=== PATIENT | male | born 1935 | race African-American/Black ===

== ENCOUNTER 2016-09-28 15:10 | Observation (INO) | payer MEDICARE, OTHER ==
[~2016-09-28] VITALS: Ht 170.2 cm; Wt 60.0 kg
[~2016-09-28 15:10] MED LIST: BACT800T5 PO; CALA120T PO; CEPH500C3 PO; FURO20TA PO; POTA-243 PO
[2016-09-28 15:53] VITALS: BP 139/66; PULSE 60; RESP 15; TEMP 98.2; O2SAT 99
[2016-09-28] MEDS ORDERED: SODIUM CHLORIDE 0.9% FLUSH 10 ML FLUSH IVF PRN (16:15)
--- NOTE | 2016-09-28 16:23 | PD ---
HPI Chief Complaint: Altered Mental Status Time Seen by Provider: 16:04 Travel History International Travel<30 days: No Contact w/Intl Traveler<30days: No Traveled to known affect area: No History of Present Illness HPI 81-year-old male with history of previous prostate cancer, hypertension, dementia, presents to the ER today because family states that he is disoriented today. They state that this was sudden onset. Patient is not able to give me much further history. At this point, he is awake, alert, oriented to self. Modifying Factors: None Associated Signs & Symptoms: Altered mental status Risk Factors: Elderly PFSH Past Medical History Arthritis: No Anxiety: Yes Heart Rhythm Problems: No Cancer: Yes (PROSTATE) Cardiovascular Problems: No High Cholesterol: No Chest Pain: No Congestive Heart Failure: Yes Cerebrovascular Accident: Yes (TIA) Diabetes: No Diminished Hearing: No Genitourinary: Yes (ENLARGED PROSTATE) Headaches: Yes Hepatitis: No Hiatal Hernia: No Hypertension: Yes Kidney Stones: No Psychiatric: Yes Reproductive: No Respiratory: No Migraines: No Myocardial Infarction: No Renal Failure: No Seizures: No Thyroid Disease: No Tetanus Vaccination: < 5 Years Influenza Vaccination: No ?: Not Past Surgical History Abdominal Surgery: Yes (LEFT INGUINAL HERNIA REPAIR) Eye Surgery: Yes (BILATERAL EYES CATARACT, DETACHED RETINA LEFT EYE) Pacemaker: No Other Surgery: Yes Social History Alcohol Use: No Tobacco Use: No Substance Use: No Allergies-Medications (Allergen,Severity, Reaction): Coded Allergies: No Known Allergies (Verified , 06/22/14) Reported Meds & Prescriptions Reported Meds & Active Scripts Active Reported Senna Plus 8.6-50 mg (Sennosides-Docusate Sodium) 1 Tab Tab 1 Tab PO DAILY PRN Aspir-81 (Aspirin) 81 Mg Tabdr 81 Mg PO DAILY Verapamil ER (Verapamil HCl) 120 Mg Tab 120 Mg PO DAILY K-Tab (Potassium Chloride) 10 Meq Tab 10 Meq PO DAILY Lasix (Furosemide) 20 Mg Tab 20 Mg PO DAILY Cosopt Pf Opth Drops (Dorzolamide-Timolol Pf Opth Drops) 22.3-6.8 mg/ml Soln 1 Drop RIGHT EYE BID Mapap (Acetaminophen) 325 Mg Tab 650 Mg PO Q4HR PRN Review of Systems ROS Limitations: Altered Mental Status Physical Exam Narrative GENERAL: Elderly -[place] male patient currently awake, alert, oriented to self, not in acute distress, not able to answer questions. SKIN: Focused skin assessment warm/dry. HEAD: Atraumatic. Normocephalic. EYES: Pupils equal and round. No scleral icterus. No injection or drainage. Left eye cataract. ENT: No nasal bleeding or discharge. Mucous membranes pink and moist. NECK: Trachea midline. No JVD. CARDIOVASCULAR: Regular rate and rhythm. No murmur appreciated. RESPIRATORY: No accessory muscle use. Clear to auscultation. Breath sounds equal bilaterally. GASTROINTESTINAL: Abdomen soft, non-tender, nondistended. Hepatic and splenic margins not palpable. MUSCULOSKELETAL: No obvious deformities. No clubbing. No cyanosis. No edema. NEUROLOGICAL: Awake and alert, not oriented. No obvious cranial nerve deficits. Motor grossly within normal limits. Normal speech. PSYCHIATRIC: Appropriate mood and affect; not oriented. Data Data Last Documented VS Vital Signs Date Time Temp Pulse Resp B/P Pulse Ox O2 Delivery O2 Flow Rate FiO2 09/28/16 16:24 94 Room Air 09/28/16 15:59 64 16 2 09/28/16 15:53 98.2 139/66 Orders Electrocardiogram (09/28/16 16:04) Complete Blood Count With Diff (09/28/16 16:04) Comprehensive Metabolic Panel (09/28/16 16:04) Prothrombin Time / Inr (Pt) (09/28/16 16:04) Act Partial Throm Time (Ptt) (09/28/16 16:04) Troponin I (09/28/16 16:04) Urinalysis - C+S If Indicated (09/28/16 16:04) Blood Culture (09/28/16 16:04) Chest, Single Ap (09/28/16 16:04) Ct Brain W/O Iv Contrast(Rout) (09/28/16 16:04) Blood Glucose (09/28/16 16:04) Ecg Monitoring (09/28/16 16:04) Iv Access Insert/Monitor (09/28/16 16:04) Oximetry (09/28/16 16:04) Sodium Chloride 0.9% Flush (Ns Flush) (09/28/16 16:15) Labs Laboratory Tests Test 09/28/16 09/28/16 16:25 16:36 White Blood Count 5.0 TH/MM3 Red Blood Count 3.58 MIL/MM3 Hemoglobin 11.3 GM/DL Hematocrit 33.5 % Mean Corpuscular Volume 93.6 FL Mean Corpuscular Hemoglobin 31.6 PG Mean Corpuscular Hemoglobin 33.7 % Concent Red Cell Distribution Width 13.0 % Platelet Count 149 TH/MM3 Mean Platelet Volume 7.5 FL Neutrophils (%) (Auto) 77.1 % Lymphocytes (%) (Auto) 14.4 % Monocytes (%) (Auto) 7.4 % Eosinophils (%) (Auto) 0.0 % Basophils (%) (Auto) 1.1 % Neutrophils # (Auto) 3.9 TH/MM3 Lymphocytes # (Auto) 0.7 TH/MM3 Monocytes # (Auto) 0.4 TH/MM3 Eosinophils # (Auto) 0.0 TH/MM3 Basophils # (Auto) 0.1 TH/MM3 CBC Comment DIFF FINAL Differential Comment Prothrombin Time 11.2 SEC Prothromb Time International 1.0 RATIO Ratio Activated Partial 24.1 SEC Thromboplast Time Sodium Level 142 MEQ/L Potassium Level 3.8 MEQ/L Chloride Level 106 MEQ/L Carbon Dioxide Level 31.0 MEQ/L Anion Gap 5 MEQ/L Blood Urea Nitrogen 20 MG/DL Creatinine 1.31 MG/DL Estimat Glomerular Filtration 64 ML/MIN Rate Random Glucose 125 MG/DL Calcium Level 9.1 MG/DL Total Bilirubin 0.3 MG/DL Aspartate Amino Transf 21 U/L (AST/SGOT) Alanine Aminotransferase 15 U/L (ALT/SGPT) Alkaline Phosphatase 64 U/L Troponin I 0.02 NG/ML Total Protein 7.3 GM/DL Albumin 3.7 GM/DL Urine Color LIGHT-YELLOW Urine Turbidity CLEAR Urine pH 6.0 Urine Specific [place] 1.006 Urine Protein NEG mg/dL Urine Glucose (UA) NEG mg/dL Urine Ketones NEG mg/dL Urine Occult Blood NEG Urine Nitrite NEG Urine Bilirubin NEG Urine Urobilinogen LESS THAN 2.0 MG/DL Urine Leukocyte Esterase NEG Urine RBC 1 /hpf Urine WBC 1 /hpf Urine Squamous Epithelial 1 /hpf Cells Urine Bacteria NONE /hpf Urine Mucus FEW /lpf Microscopic Urinalysis Comment CULT NOT INDICATED MDM Medical Decision Making Medical Screen Exam Complete: Yes Emergency Medical Condition: Yes Medical Record Reviewed: Yes Interpretation(s) EKG shows sinus rhythm with a left bundle branch block pattern. No signs of acute ST-T changes. Laboratory Tests Test 09/28/16 09/28/16 16:25 16:36 Red Blood Count 3.58 MIL/MM3 (4.50-5.90) Hemoglobin 11.3 GM/DL (13.0-17.0) Hematocrit 33.5 % (39.0-51.0) Platelet Count 149 TH/MM3 (150-450) Neutrophils (%) (Auto) 77.1 % (16.0-70.0) Lymphocytes # (Auto) 0.7 TH/MM3 (1.0-4.8) Activated Partial 24.1 SEC Thromboplast Time (24.3-30.1) Blood Urea Nitrogen 20 MG/DL (7-18) Creatinine 1.31 MG/DL (0.60-1.30) Estimat Glomerular Filtration 64 ML/MIN (>89) Rate Random Glucose 125 MG/DL (74-106) Urine Mucus FEW /lpf (OCC) Last [address] 09/28/16 1604 Signed Impressions: Service Date/Time: Wednesday, September 28, 2016 16:41 - CONCLUSION: 1. No acute findings. Chronic atrophy and white matter change. Dany Alejandra MD Chest X-Ray 09/28/16 1604 Signed Impressions: Service Date/Time: Wednesday, September 28, 2016 16:33 - CONCLUSION: 1. No acute findings. No significant change from 2011. Tortuous aorta. Dany Alejandra MD Differential Diagnosis Altered mental statusmetabolic issues versus dehydration versus TIA versus acute intracranial processes versus sepsis Narrative Course CT of the brain did not show any signs of acute processes. Lab work is unremarkable for significant metabolic issues. He does not have any significant focal neurological deficits although it is very hard to direct him to do a Mini-Mental status exam. At this point, my plan would be to admit the patient as an observation for altered mental status. Case is discussed with Dr. Woodall for admission. Diagnosis Primary Impression: ALTERED MENTAL STATUS, UNSPECIFIED Admitting Information Admitting Physician Requests: Admit Michelle Clarke MD Sep 28, 2016 16:23
[2016-09-28 16:24] VITALS: O2SAT 94
[2016-09-28] MEDS ORDERED: K-TA10TA PO (16:25)
[2016-09-28] MEDS ORDERED: ASPI81TA81 PO (16:25)
[2016-09-28] MEDS ORDERED: DORZ1SOL RIGHT EYE (16:25)
[2016-09-28] MEDS ORDERED: VERA1TAB9 PO (16:25)
[2016-09-28] MEDS ORDERED: FURO1TAB62 PO (16:25)
[2016-09-28] MEDS ORDERED: SENN1TAB PO (16:25)
[2016-09-28] MEDS ORDERED: MAPA325T PO (16:25)
[2016-09-28 16:57] LABS: HEMATOCRIT 33.5 % (39.0-51.0); HEMO FLAGS DIFF FINAL; MEAN CELL VOLUME 93.6 FL (80.0-100.0); MEAN CORPUSCULAR HEMOGLOBIN 31.6 PG (27.0-34.0); MEAN CORPUSCULAR HGB CONC 33.7 % (32.0-36.0); PLATELET COUNT 149 TH/MM3 (150-450); RED BLOOD COUNT 3.58 MIL/MM3 (4.50-5.90)
[2016-09-28 16:58] LABS: AUTOMATED NEUTROPHIL # 3.9 TH/MM3 (1.8-7.7); BASOPHIL # 0.1 TH/MM3 (0-0.2); BASOPHIL % 1.1 % (0.0-2.0); LYMPH % 14.4 % (9.0-44.0); LYMPHOCYTE # 0.7 TH/MM3 (1.0-4.8); MONO % 7.4 % (0.0-8.0); NEUT % 77.1 % (16.0-70.0)
[2016-09-28 17:02] LABS: BLOOD, URINE NEG (NEG); COMMENT (UR) CULT NOT INDICATED; CULTURE IF INDICATED CULT NOT INDICATED; GLUCOSE,URINE NEG (NEG); KETONE, URINE NEG (NEG); MUCUS URINE FEW /lpf (OCC); NITRITE,URINE NEG (NEG); SQUAMOUS EPITHELIAL CELL URINE 1 /hpf (0-5); URINE COLOR LIGHT-YELLOW (YELLW/STRAW)
[2016-09-28 17:09] LABS: APTT (PATIENT) 24.1 SEC (24.3-30.1); PROTHROMBIN TIME - PATIENT 11.2 SEC (9.8-11.6)
--- NOTE | 2016-09-28 17:13 | RADRPT ---
EXAM DATE/TIME: 09/28/2016 16:33 [facility] COMPARISON: CHEST SINGLE AP, October 21, 2011, 13:57. INDICATIONS : Shortness of breath, altered mental status. MEDICAL HISTORY : None. SURGICAL HISTORY : None. ENCOUNTER: Initial ACUITY: 1 day PAIN SCORE: Non-responsive. LOCATION: Bilateral chest FINDINGS: A single view of the chest demonstrates no focal consolidation. Heart size upper limits normal. Tortu ous aorta. CONCLUSION: 1. No acute findings. No significant change from 2011. Tortuous aorta. Dany Alejandra MD on September 28, 2016 at 17:10 Board Certified Radiologist. This report was verified electronically.
[2016-09-28 17:18] LABS: ALT (GPT) 15 U/L (12-78); ANION GAP 5 MEQ/L (5-15); AST (GOT) 21 U/L (15-37); BLOOD UREA NITROGEN 20 MG/DL (7-18); CHLORIDE 106 MEQ/L (98-107); GLOMERULAR FILTRATION RATE 64 ML/MIN (>89); POTASSIUM 3.8 MEQ/L (3.5-5.1); SODIUM (NA) 142 MEQ/L (136-145)
[2016-09-28 17:22] LABS: ALKALINE PHOSPHATASE 64 U/L (45-117); TOTAL BILIRUBIN ADULT 0.3 MG/DL (0.2-1.0)
--- NOTE | 2016-09-28 17:24 | RADRPT ---
EXAM DATE/TIME: 09/28/2016 16:41 [facility] COMPARISON: No previous studies available for comparison. INDICATIONS : Woke up with altered mental status this morning. RADIATION DOSE: 56.35 CTDIvol (mGy) MEDICAL HISTORY : Cerebrovascular disease. Congestive heart failure. Hypertension.Prostate cancer. SURGICAL HISTORY : None. ENCOUNTER: Initial ACUITY: 1 day PAIN SCALE: 0/10 LOCATION: cranial TECHNIQUE: Multiple contiguous axial images were obtained of the head. Using automated exposure control and adj ustment of the mA and/or kV according to patient size, radiation dose was kept as low as reasonably a chievable to obtain optimal diagnostic quality images. FINDINGS: There is marked central and cortical atrophy with dilatation of ventricular and sulcal spaces. There is no parenchymal hemorrhage, acute infarction or mass lesion identified. There are no extra-axial fluid collections appreciated. The posterior fossa is unremarkable with midline fourth ventricle. T he portion of the orbits and paranasal sinuses visualized are unremarkable. CONCLUSION: 1. No acute findings. Chronic atrophy and white matter change. Dany Alejandra MD on September 28, 2016 at 17:21 Board Certified Radiologist. This report was verified electronically.
[2016-09-28] MEDS ORDERED: NALOXONE HCL 0.4 MG/ML AMP IV PRN (18:15)
[2016-09-28] MEDS ORDERED: SODIUM CHLORIDE 0.9% FLUSH 10 ML FLUSH IV FLUSH PRN (18:15)
[2016-09-28] MEDS ORDERED: ONDANSETRON HCL 4 MG/2 ML VIAL IVP PRN (18:15)
[2016-09-28] MEDS ORDERED: ACETAMINOPHEN 325 MG TAB PO PRN ×2 (18:15)
[2016-09-28] MEDS: SODIUM CHLOR 0.9% 1000 ML INJ 1,000 ML IV SCH (18:26)
--- NOTE | 2016-09-28 18:29 | HHI.HP ---
[facility] Service [facility] Primary Care Physician Kofi Barriga MD Admission Diagnosis altered mental status/possible TIA Diagnoses: (1) Acute metabolic encephalopathy Chief Complaint: Confusion Travel History International Travel<30 Days: No Contact w/Intl Traveler <30 Da: No Traveled to Known Affected Are: No History of Present Illness 81-year-old male with a history of dementia, hypertension, prostate cancer was brought to the ED for evaluation for acute change in mentation and disorientation by family members, who were not present during this encounter. Patient was oriented to self but not to date and place. He was pleasant, although poor historian the patient states that he has been urinating a lots. He denies any chest pain or GI bleed. Head CT in the ED was negative as well as CXR and UA however he shower ARF with BU/Cr of 20/1.31 as well as platelets of 149 Review of Systems Other 12 systems reviewed and are negative except for the one mentioned in the history of present illness Past Family Social History Past Medical History Anxiety: Yes Cancer: Yes (PROSTATE) Congestive Heart Failure: Yes Cerebrovascular Accident: Yes (TIA) Genitourinary: Yes (ENLARGED PROSTATE) Headaches: Yes Hypertension: Yes Past Surgical History Abdominal Surgery: Yes (LEFT INGUINAL HERNIA REPAIR) Eye Surgery: Yes (BILATERAL EYES CATARACT, DETACHED RETINA LEFT EYE) Other Surgery: Yes Reported Medications Senna Plus 8.6-50 mg (Sennosides-Docusate Sodium) 1 Tab Tab 1 Tab PO DAILY PRN Aspir-81 (Aspirin) 81 Mg Tabdr 81 Mg PO DAILY Verapamil ER (Verapamil HCl) 120 Mg Tab 120 Mg PO DAILY K-Tab (Potassium Chloride) 10 Meq Tab 10 Meq PO DAILY Lasix (Furosemide) 20 Mg Tab 20 Mg PO DAILY Cosopt Pf Opth Drops (Dorzolamide-Timolol Pf Opth Drops) 22.3-6.8 mg/ml Soln 1 Drop RIGHT EYE BID Mapap (Acetaminophen) 325 Mg Tab 650 Mg PO Q4HR PRN Allergies: Coded Allergies: No Known Allergies (Verified , 06/22/14) Family History Not relevant for this case secondary to patient history of dementia Social History Alcohol Use: No Tobacco Use: No Substance Use: No Physical Exam Vital Signs Vital Signs Date Time Temp Pulse Resp B/P Pulse Ox O2 Delivery O2 Flow Rate FiO2 09/28/16 16:24 94 Room Air 09/28/16 15:59 64 16 98 Nasal Cannula 2 09/28/16 15:53 98.2 60 15 139/66 99 Physical Exam GENERAL: This is a well-nourished, well-developed patient, in no apparent distress. SKIN: No rashes, ecchymoses or lesions. Cool and dry. HEAD: Atraumatic. Normocephalic. No temporal or scalp tenderness. EYES: Pupils equal round and reactive. Extraocular motions intact. No scleral icterus. No injection or drainage. ENT: Nose without bleeding, purulent drainage or septal hematoma. Throat without erythema, tonsillar hypertrophy or exudate. Uvula midline. Airway patent. NECK: Trachea midline. No JVD or lymphadenopathy. Supple, nontender, no meningeal signs. CARDIOVASCULAR: Regular rate and rhythm without murmurs, gallops, or rubs. RESPIRATORY: Clear to auscultation. Breath sounds equal bilaterally. No wheezes , rales, or rhonchi. GASTROINTESTINAL: Abdomen soft, non-tender, nondistended. No hepato-splenomegaly , or palpable masses. No guarding. MUSCULOSKELETAL: Extremities without clubbing, cyanosis, or edema. No joint tenderness, effusion, or edema noted. No calf tenderness. Negative Homans sign bilaterally. NEUROLOGICAL: Awake and alert. Cranial nerves II through XII intact. Motor and sensory grossly within normal limits. Five out of 5 muscle strength in all muscle groups. Normal speech. Laboratory Laboratory Tests Test 09/28/16 09/28/16 16:25 16:36 White Blood Count 5.0 Red Blood Count 3.58 Hemoglobin 11.3 Hematocrit 33.5 Mean Corpuscular Volume 93.6 Mean Corpuscular Hemoglobin 31.6 Mean Corpuscular Hemoglobin 33.7 Concent Red Cell Distribution Width 13.0 Platelet Count 149 Mean Platelet Volume 7.5 Neutrophils (%) (Auto) 77.1 Lymphocytes (%) (Auto) 14.4 Monocytes (%) (Auto) 7.4 Eosinophils (%) (Auto) 0.0 Basophils (%) (Auto) 1.1 Neutrophils # (Auto) 3.9 Lymphocytes # (Auto) 0.7 Monocytes # (Auto) 0.4 Eosinophils # (Auto) 0.0 Basophils # (Auto) 0.1 CBC Comment DIFF FINAL Differential Comment Prothrombin Time 11.2 Prothromb Time International 1.0 Ratio Activated Partial 24.1 Thromboplast Time Sodium Level 142 Potassium Level 3.8 Chloride Level 106 Carbon Dioxide Level 31.0 Anion Gap 5 Blood Urea Nitrogen 20 Creatinine 1.31 Estimat Glomerular Filtration 64 Rate Random Glucose 125 Calcium Level 9.1 Total Bilirubin 0.3 Aspartate Amino Transf 21 (AST/SGOT) Alanine Aminotransferase 15 (ALT/SGPT) Alkaline Phosphatase 64 Troponin I 0.02 Total Protein 7.3 Albumin 3.7 Urine Color LIGHT-YELLOW Urine Turbidity CLEAR Urine pH 6.0 Urine Specific [place] 1.006 Urine Protein NEG Urine Glucose (UA) NEG Urine Ketones NEG Urine Occult Blood NEG Urine Nitrite NEG Urine Bilirubin NEG Urine Urobilinogen LESS THAN 2.0 Urine Leukocyte Esterase NEG Urine RBC 1 Urine WBC 1 Urine Squamous Epithelial 1 Cells Urine Bacteria NONE Urine Mucus FEW Microscopic Urinalysis Comment CULT NOT INDICATED Date/Time Procedure Status Source Growth 09/28/16 16:25 Aerobic Blood Culture Received Blood Peripheral Pending 09/28/16 16:25 Anaerobic Blood Culture Received Blood Peripheral Pending Result Diagram: 09/28/16 1625 09/28/16 1625 Imaging Last Impressions Head CT 09/28/16 1604 Signed Impressions: Service Date/Time: Wednesday, September 28, 2016 16:41 - CONCLUSION: 1. No acute findings. Chronic atrophy and white matter change. Dany Alejandra MD Chest X-Ray 09/28/16 1604 Signed Impressions: Service Date/Time: Wednesday, September 28, 2016 16:33 - CONCLUSION: 1. No acute findings. No significant change from 2012. Tortuous aorta. Dany Alejandra MD Assessment and Plan Problem List: (1) Acute metabolic encephalopathy ICD Code: G93.41 Status: Acute (2) Acute renal failure ICD Code: N17.9 Status: Acute (3) Impaired fasting glucose ICD Code: R73.01 Status: Acute (4) Thrombocytopenia ICD Code: D69.6 Status: Acute (5) Dementia ICD Code: F03.90 Status: Acute Assessment and Plan 81-year-old man with Acute metabolic encephalopathy-Resolved -Multifactorial -Head CT noted and reviewed by me without any acute finding -Chest x-ray obtained and reviewed by me without any acute finding -Urinalysis negative -Patient with a history of dementia however not on any medication Acute renal failure BUN/Cr 151.00 (06/17/14) however today 20/1.31 likely secondary to overdiuresis -Start IVF hydration Normal saline@ 100cc/hr; cautious as patient with history of CHF -Avoid all nephrotoxic drugs -Repeat BMP in A.M Hypertension: -Resume Verapamil History of CHF --NO exacerbation; however 2/2 renal failure will hold Lasix Thrombocytopenia -Monitor platelet Impaired Fasting Glucose -No known h/o DM2 therefore will check HgA1C and treat accordingly Normocytic normochromic anemia -H/H stable and continue to monitor History of glaucoma -Resume outpatient medication Physical deconditioning: PT consult to treat DVT prophylaxis: B-SCD Code Status Full code Discussed Condition With patient, ED physician Leo Woodall MD Sep 28, 2016 18:29
[2016-09-28 18:35] VITALS: BP 135/78; PULSE 59; RESP 16; O2SAT 96
[2016-09-28] MEDS ORDERED: RESP: ALBUTEROL 2.5 MG/IPRATROPIUM 0.5 MG NEB (PRN) NEB (18:45)
[2016-09-28] MEDS ORDERED: ENALAPRILAT 1.25 MG/ML VIAL IV PUSH PRN (19:00)
[2016-09-28 20:55] VITALS: BP 130/80
[2016-09-28] MEDS: SODIUM CHLORIDE 0.9% FLUSH 10 ML FLUSH IV FLUSH SCH (21:00)
[2016-09-28 21:50] VITALS: BP 162/86; PULSE 64; RESP 20; TEMP 98.1
[2016-09-28 23:32] VITALS: BP 152/84; PULSE 62; RESP 20; TEMP 98.4
[2016-09-29] MEDS: DORZOLAMIDE/TIMOLOL OPTH SOLN 10 ML BTL RIGHT EYE SCH ×2 (00:28→09:59)
[2016-09-29] MEDS: SODIUM CHLOR 0.9% 1000 ML INJ 1,000 ML IV SCH (04:47)
[2016-09-29 04:51] VITALS: BP 154/89; PULSE 74; RESP 18; TEMP 98.2; O2SAT 100
[2016-09-29 05:13] LABS: AUTOMATED NEUTROPHIL # 3.5 TH/MM3 (1.8-7.7); BASOPHIL % 0.7 % (0.0-2.0); EOSINOPHIL % 0.3 % (0.0-4.0); HEMATOCRIT 31.9 % (39.0-51.0); HEMO FLAGS DIFF FINAL; LYMPHOCYTE # 1.3 TH/MM3 (1.0-4.8); MEAN CELL VOLUME 94.5 FL (80.0-100.0); MEAN CORPUSCULAR HEMOGLOBIN 31.1 PG (27.0-34.0); MEAN CORPUSCULAR HGB CONC 32.9 % (32.0-36.0); MONO % 12.6 % (0.0-8.0); NEUT % 63.4 % (16.0-70.0); PLATELET COUNT 129 TH/MM3 (150-450); RED BLOOD COUNT 3.38 MIL/MM3 (4.50-5.90); RED CELL DISTRIBUTION WIDTH 13.2 % (11.6-17.2); WHITE BLOOD COUNT 5.6 TH/MM3 (4.0-11.0)
[2016-09-29 05:26] LABS: ALT (GPT) 12 U/L (12-78); AST (GOT) 18 U/L (15-37); BICARBONATE 27.8 MEQ/L (21.0-32.0); BLOOD UREA NITROGEN 18 MG/DL (7-18); GLOMERULAR FILTRATION RATE 82 ML/MIN (>89)
[2016-09-29 06:02] LABS: ALKALINE PHOSPHATASE 59 U/L (45-117); ANION GAP 9 MEQ/L (5-15); CHLORIDE 111 MEQ/L (98-107); POTASSIUM 3.9 MEQ/L (3.5-5.1); SODIUM (NA) 148 MEQ/L (136-145); TOTAL BILIRUBIN ADULT 0.2 MG/DL (0.2-1.0)
--- NOTE | 2016-09-29 07:10 | HHI.PR ---
Subjective Remarks Follow-up acute metabolic encephalopathy/acute renal failure 09/29/16-patient seen and examined, no acute event overnight. Alert and oriented 2. Afebrile. BUN/creatinine 181.02 Objective Vitals Vital Signs Date Time Temp Pulse Resp B/P Pulse Ox O2 Delivery O2 Flow Rate FiO2 09/29/16 04:51 98.2 74 18 154/89 100 09/28/16 23:32 98.4 62 20 152/84 09/28/16 21:50 98.1 64 20 162/86 09/28/16 20:55 85 19 130/80 96 09/28/16 18:35 59 16 135/78 96 Nasal Cannula 2 09/28/16 16:24 94 Room Air 09/28/16 15:59 64 16 98 Nasal Cannula 2 09/28/16 15:53 98.2 60 15 139/66 99 Result Diagram: 09/29/16 0500 09/29/16 0500 Imaging Last Impressions Head CT 09/28/16 1604 Signed Impressions: Service Date/Time: Wednesday, September 28, 2016 16:41 - CONCLUSION: 1. No acute findings. Chronic atrophy and white matter change. Dany Alejandra MD Chest X-Ray 09/28/16 1604 Signed Impressions: Service Date/Time: Wednesday, September 28, 2016 16:33 - CONCLUSION: 1. No acute findings. No significant change from 2011. Tortuous aorta. Dany Alejandra MD Objective Remarks GENERAL: NAD SKIN: Warm and dry. HEAD: Normocephalic. EYES: No scleral icterus. No injection or drainage. NECK: Supple, trachea midline. No JVD or lymphadenopathy. CARDIOVASCULAR: Regular rate and rhythm without murmurs, gallops, or rubs. RESPIRATORY: Breath sounds equal bilaterally. No accessory muscle use. GASTROINTESTINAL: Abdomen soft, non-tender, nondistended. MUSCULOSKELETAL: No cyanosis, or edema. BACK: Nontender without obvious deformity. No CVA tenderness. A/P Problem List: (1) Acute metabolic encephalopathy ICD Code: G93.41 Status: Resolved (2) Acute renal failure ICD Code: N17.9 Status: Resolved (3) Impaired fasting glucose ICD Code: R73.01 Status: Resolved (4) Thrombocytopenia ICD Code: D69.6 Status: Chronic (5) Dementia ICD Code: F03.90 Status: Chronic Assessment and Plan 81-year-old man with Acute metabolic encephalopathy-Resolved -Multifactorial -Head CT noted and reviewed by me without any acute finding -Chest x-ray obtained and reviewed by me without any acute finding -Urinalysis negative -Patient with a history of dementia however not on any medication Acute renal failure-resolved with BUN/creatinine 18/1.02, Hep-Lock IV fluid Hypertension: -Continue Verapamil History of CHF --NO exacerbation; however 2/2 renal failure will hold Lasix Thrombocytopenia -Monitor platelet Impaired Fasting Glucose-resolved Normocytic normochromic anemia -H/H stable and continue to monitor History of glaucoma -Continue outpatient medication Physical deconditioning: PT consult to treat DVT prophylaxis: B-SCD Condition condition improved, therefore he will be discharged home Discharge Planning Discharge patient to home Condition on discharge: Improved Regular Diet as tolerated Ad Allie activity Rx written:none Follow-up with primary care physician in one week Leo Woodall MD Sep 29, 2016 07:10
[2016-09-29] MEDS: SODIUM CHLORIDE 0.9% FLUSH 10 ML FLUSH IV FLUSH SCH (08:00)
[2016-09-29 08:15] VITALS: BP 138/78; PULSE 72; RESP 16; TEMP 97.1; O2SAT 98
[2016-09-29] MEDS ORDERED: VERAPAMIL HCL 120 MG SUSTAINED RELEASE TAB PO SCH (09:00)
[2016-09-29] MEDS ORDERED: ASPIRIN EC 81 MG TABEC PO SCH (09:00)
--- NOTE | 2016-09-29 17:44 | EKG ---
Date Performed: 09/28/2016 Time Performed: 16:34:53 PTAGE: 81 years EKG: Sinus rhythm MARKED LEFT AXIS DEVIATION LEFT BUNDLE BRANCH BLOCK Inferior T waves are now noted. When compared to prior tracing, possible inferior infarct-age Undetermined. Clinical corrolation is suggested. ABNORM AL ECG PREVIOUS TRACING : 06/17/2014 13.45 DOCTOR: Emerson Friedman Interpretating Date/Time 09/29/2016 17:43:30
== END 2016-09-29 11:39 | disposition home or self-care (01) ==
LOC: NEPC 15:10 → NEDA 18:06 → NEPFCDU 21:24
PROVIDERS: ADMIT Hospitalist; ATTEND Hospitalist
DX: G93.41 Metabolic encephalopathy (principal); I11.0 Hypertensive heart disease with heart failure; I50.9 Heart failure, unspecified; R73.01 Impaired fasting glucose; D64.9 Anemia, unspecified; D69.6 Thrombocytopenia, unspecified; F03.90 Unspecified dementia, unspecified severity, without behavioral disturbance, psychotic disturbance, mood disturbance, and anxiety; F41.9 Anxiety disorder, unspecified; N17.9 Acute kidney failure, unspecified; H40.9 Unspecified glaucoma; Z85.46 Personal history of malignant neoplasm of prostate; Z86.73 Personal history of transient ischemic attack (TIA), and cerebral infarction without residual deficits; Z79.82 Long term (current) use of aspirin
CPT/HCPCS: 70450; 71010; 80053; 81001; 84484; 85025; 85610; 85730; 87040; 93005; 97162; 99285; G0378; G8987; G8988; J7030

== ENCOUNTER 2016-12-19 13:11 | Inpatient (IN) | payer MEDICARE, OTHER ==
[~2016-12-19] VITALS: Ht 170.2 cm; Wt 67.2 kg
[~2016-12-19 13:11] MED LIST changes: +ASPI81TA81 PO; -BACT800T5 PO; -CALA120T PO; -CEPH500C3 PO; +DORZ1SOL RIGHT EYE; +FURO1TAB62 PO; -FURO20TA PO; +K-TA10TA PO; +MAPA325T PO; -POTA-243 PO; +SENN1TAB PO; +VERA1TAB9 PO
[2016-12-19 13:30] VITALS: BP 129/79; PULSE 59; RESP 16; TEMP 97.8; O2SAT 99
--- NOTE | 2016-12-19 13:35 | PD ---
HPI Chief Complaint: altered mental status Time Seen by Provider: 13:32 Travel History International Travel<30 days: No Contact w/Intl Traveler<30days: No Traveled to known affect area: No History of Present Illness HPI 81-year-old male came to the emergency room brought by EMS after he was found unresponsive by the bystanders. Patient was sitting in his front porch slumped over. When EMS arrived he started to slowly and answer questions. His blood pressure systolic initially was 75. He received total of 300 cc of IV fluid bolus by them and the current blood pressure is in the 90s. He still confused. Patient knows that he is in the hospital but does not know the date and the time. His blood sugar was 150. Patient appears to be in frail health. He is not a reliable historian at this point. He denies of any chest pain, headache or any other complaints. There is no family currently to provide further history. [facility] Past Medical History Narrative Medical List of his past medical, surgical, social and family history is reviewed from the nursing note. Arthritis: No Anxiety: Yes Heart Rhythm Problems: No Cancer: Yes (PROSTATE) Cardiovascular Problems: No High Cholesterol: No Chest Pain: No Congestive Heart Failure: Yes Cerebrovascular Accident: Yes (TIA) Diabetes: No Diminished Hearing: No Genitourinary: Yes (ENLARGED PROSTATE) Headaches: Yes Hepatitis: No Hiatal Hernia: No Hypertension: Yes Kidney Stones: No Psychiatric: Yes Reproductive: No Respiratory: No Migraines: No Myocardial Infarction: No Renal Failure: No Seizures: No Thyroid Disease: No Past Surgical History Abdominal Surgery: Yes (LEFT INGUINAL HERNIA REPAIR) Eye Surgery: Yes (BILATERAL EYES CATARACT, DETACHED RETINA LEFT EYE) Pacemaker: No Other Surgery: Yes Social History Alcohol Use: No Tobacco Use: No Substance Use: No Allergies-Medications (Allergen,Severity, Reaction): Coded Allergies: No Known Allergies (Verified , 12/19/16) Comments No known drug allergies. Reported Meds & Prescriptions Reported Meds & Active Scripts Active Reported Senna Plus 8.6-50 mg (Sennosides-Docusate Sodium) 1 Tab Tab 1 Tab PO DAILY PRN Aspir-81 (Aspirin) 81 Mg Tabdr 81 Mg PO DAILY Verapamil ER (Verapamil HCl) 120 Mg Tab 120 Mg PO DAILY K-Tab (Potassium Chloride) 10 Meq Tab 10 Meq PO DAILY Lasix (Furosemide) 20 Mg Tab 20 Mg PO DAILY Cosopt Pf Opth Drops (Dorzolamide-Timolol Pf Opth Drops) 22.3-6.8 mg/ml Soln 1 Drop RIGHT EYE BID Mapap (Acetaminophen) 325 Mg Tab 650 Mg PO Q4HR PRN Narrative Medication List of his home medications reviewed from the nursing note. Review of Systems Except as stated in HPI: all other systems reviewed are Neg Physical Exam Narrative GENERAL: Awake, confused, elderly and frail, looks older than his age in no obvious distress SKIN: Focused skin assessment warm/dry. HEAD: Atraumatic. Normocephalic. EYES: Left corneal opacity, blindness. No scleral icterus. No injection or drainage. ENT: No nasal bleeding or discharge. Mucous membranes pink and moist. NECK: Trachea midline. No JVD. CARDIOVASCULAR: Regular rate and rhythm. No murmur appreciated. RESPIRATORY: No accessory muscle use. Clear to auscultation. Breath sounds equal bilaterally. GASTROINTESTINAL: Abdomen soft, non-tender, nondistended. Hepatic and splenic margins not palpable. MUSCULOSKELETAL: No obvious deformities. No clubbing. No cyanosis. No edema. NEUROLOGICAL: GCS of 14. No obvious cranial nerve deficits. Motor grossly within normal limits. Normal speech. Confused, disoriented in time PSYCHIATRIC: Appropriate mood and affect; insight and judgment normal. Data Data Last Documented VS Vital Signs Date Time Temp Pulse Resp B/P Pulse Ox O2 Delivery O2 Flow Rate FiO2 12/19/16 15:19 64 18 138/77 98 Room Air 12/19/16 13:30 97.8 Orders Prothrombin Time / Inr (Pt) (12/19/16 13:33) Complete Blood Count With Diff (12/19/16 13:33) Basic Metabolic Panel (Bmp) (12/19/16 13:33) Creatine Kinase (Cpk) (12/19/16 13:33) Drug Screen, Random Urine (12/19/16 13:33) Troponin I (12/19/16 13:33) Urinalysis - C+S If Indicated (12/19/16 13:33) Ct Brain W/O Iv Contrast(Rout) (12/19/16 13:33) Chest, Single Ap (12/19/16 13:33) Ecg Monitoring (12/19/16 13:33) Iv Access Insert/Monitor (12/19/16 13:33) Oximetry (12/19/16 13:33) Sodium Chloride 0.9% Flush (Ns Flush) (12/19/16 13:45) Sodium Chlor 0.9% 1000 Ml Inj (Ns 1000 M (12/19/16 13:45) Electrocardiogram (12/19/16 ) Admit Order (Ed Use Only) (12/19/16 17:13) Labs Laboratory Tests Test 12/19/16 12/19/16 14:00 14:10 White Blood Count 3.4 TH/MM3 Red Blood Count 3.57 MIL/MM3 Hemoglobin 10.9 GM/DL Hematocrit 33.7 % Mean Corpuscular Volume 94.4 FL Mean Corpuscular Hemoglobin 30.7 PG Mean Corpuscular Hemoglobin 32.5 % Concent Red Cell Distribution Width 13.6 % Platelet Count 149 TH/MM3 Mean Platelet Volume 7.5 FL Neutrophils (%) (Auto) 49.3 % Lymphocytes (%) (Auto) 39.1 % Monocytes (%) (Auto) 10.6 % Eosinophils (%) (Auto) 0.8 % Basophils (%) (Auto) 0.2 % Neutrophils # (Auto) 1.7 TH/MM3 Lymphocytes # (Auto) 1.3 TH/MM3 Monocytes # (Auto) 0.4 TH/MM3 Eosinophils # (Auto) 0.0 TH/MM3 Basophils # (Auto) 0.0 TH/MM3 CBC Comment DIFF FINAL Differential Comment Prothrombin Time 11.4 SEC Prothromb Time International 1.0 RATIO Ratio Sodium Level 145 MEQ/L Potassium Level 4.0 MEQ/L Chloride Level 110 MEQ/L Carbon Dioxide Level 32.0 MEQ/L Anion Gap 3 MEQ/L Blood Urea Nitrogen 15 MG/DL Creatinine 1.22 MG/DL Estimat Glomerular Filtration 69 ML/MIN Rate Random Glucose 141 MG/DL Calcium Level 8.3 MG/DL Iron Level 68 MCG/DL Total Iron Binding Capacity 260 MCG/DL Percent Iron Saturation 26.1 % Ferritin 150 NG/ML Total Creatine Kinase 85 U/L Troponin I 0.05 NG/ML Vitamin B12 Level 204 PG/ML Folate 19.1 NG/ML Thyroid Stimulating Hormone 1.980 uIU/ML 3rd Gen Hemoglobin A1c 5.5 % Urine Opiates Screen NEG Urine Barbiturates Screen NEG Urine Amphetamines Screen NEG Urine Benzodiazepines Screen NEG Urine Cocaine Screen NEG Urine Cannabinoids Screen NEG MDM Medical Decision Making Medical Screen Exam Complete: Yes Emergency Medical Condition: Yes Medical Record Reviewed: Yes Interpretation(s) Twelve-lead EKG was reviewed by me. Normal sinus rhythm, left axis deviation, bradycardia,LBBB. Patient had a left bundle-branch block in the previous EKG. Heart rate of 54 bpm. Differential Diagnosis Intracranial bleed, orthostatic hypotension, cardiac arrhythmia, electrolyte abnormality, seizure Narrative Course 2:36 PM patient is getting IV fluid bolus. Awaiting for blood test and CT scan. Meanwhile I was told by the nurse that the tongue stitcher from [facility] came here to let us know that this patient is a hospice patient. I am not clear the reason for him being in hospice. Currently there is no hospice nurse present in the emergency room for him. 4:54 PM all the blood test results are back and within acceptable limits. Head CT is negative for anything acute. Patient is to be admitted. Awaiting for the hospitalist to call back. Procedures EKG Prior to Arrival: Yes Diagnosis Primary Impression: Syncope Qualified Code: R55 - Syncope, unspecified syncope type Additional Impressions: Symptomatic hypotension Dehydration Admitting Information Admitting Physician Requests: Observation Annie Jarquin MD Dec 19, 2016 13:35
[2016-12-19 13:37] VITALS: BP 129/79; PULSE 55; RESP 16; O2SAT 98
[2016-12-19] MEDS ORDERED: SODIUM CHLORIDE 0.9% FLUSH 10 ML FLUSH IVF PRN (13:45)
[2016-12-19] MEDS ORDERED: SODIUM CHLOR 0.9% 1000 ML INJ 1,000 ML IV ONE (13:45)
[2016-12-19 14:26] LABS: AUTOMATED NEUTROPHIL # 1.7 TH/MM3 (1.8-7.7); BASOPHIL % 0.2 % (0.0-2.0); EOSINOPHIL % 0.8 % (0.0-4.0); HEMATOCRIT 33.7 % (39.0-51.0); HEMO FLAGS DIFF FINAL; LYMPH % 39.1 % (9.0-44.0); LYMPHOCYTE # 1.3 TH/MM3 (1.0-4.8); MEAN CELL VOLUME 94.4 FL (80.0-100.0); MEAN CORPUSCULAR HEMOGLOBIN 30.7 PG (27.0-34.0); MEAN CORPUSCULAR HGB CONC 32.5 % (32.0-36.0); MONO % 10.6 % (0.0-8.0); NEUT % 49.3 % (16.0-70.0); PLATELET COUNT 149 TH/MM3 (150-450); RED BLOOD COUNT 3.57 MIL/MM3 (4.50-5.90); RED CELL DISTRIBUTION WIDTH 13.6 % (11.6-17.2); WHITE BLOOD COUNT 3.4 TH/MM3 (4.0-11.0)
[2016-12-19 14:31] LABS: AMPHETAMINE, URINE NEG (NEG); BARBITURATES, URINE NEG (NEG); COCAINE, URINE NEG (NEG)
[2016-12-19 14:33] LABS: PROTHROMBIN TIME - PATIENT 11.4 SEC (9.8-11.6)
[2016-12-19 15:19] VITALS: BP 138/77; PULSE 64; RESP 18; O2SAT 98
--- NOTE | 2016-12-19 15:27 | RADRPT ---
EXAM DATE/TIME: 12/19/2016 14:58 [facility] COMPARISON: CT BRAIN W/O CONTRAST, September 28, 2016, 16:41. INDICATIONS : Evaluate for CVA. RADIATION DOSE: 45.57 CTDIvol (mGy) MEDICAL HISTORY : Hypertension. Carcinoma, prostate. Congestive heart failure. SURGICAL HISTORY : None. ENCOUNTER: Initial ACUITY: 1 day PAIN SCALE: 3/10 LOCATION: Bilateral cranial TECHNIQUE: Multiple contiguous axial images were obtained of the head. Using automated exposure control and adj ustment of the mA and/or kV according to patient size, radiation dose was kept as low as reasonably a chievable to obtain optimal diagnostic quality images. FINDINGS: Stable diffuse cerebral atrophy is noted. Moderate to severe periventricular and subcortical white s mall vessel ischemic changes are also again noted and stable. There is no acute infarct, acute hemorr letty, mass effect or extra-axial fluid collections. The bone windows are unremarkable. CONCLUSION: 1. Stable diffuse cerebral atrophy and moderate to severe periventricular/subcortical white matter sm all vessel ischemic changes bilaterally. 2. No acute infarct, acute hemorrhage, mass effect or extra-axial fluid collections. Preet Higgins MD on December 19, 2016 at 15:20 Board Certified Radiologist. This report was verified electronically.
--- NOTE | 2016-12-19 15:57 | RADRPT ---
EXAM DATE/TIME: 12/19/2016 14:37 [facility] COMPARISON: CHEST SINGLE AP, September 28, 2016, 16:33. INDICATIONS : Shortness of breath. MEDICAL HISTORY : Hypertension. Congestive heart failure. Cardiovascular disease. SURGICAL HISTORY : None. ENCOUNTER: Initial ACUITY: 1 day PAIN SCORE: 0/10 LOCATION: Bilateral chest FINDINGS: No significant focal pleural or parenchymal opacities. Redemonstration of tortuous thoracic aorta. Ot herwise, cardiomediastinal contours are stable. Remainder of the exam is unchanged. CONCLUSION: 1. No acute abnormality or significant interval change. Nash Ortega MD on December 19, 2016 at 15:54 Board Certified Radiologist. This report was verified electronically.
[2016-12-19] MEDS ORDERED: DOCUSATE SODIUM 50 MG/SENNA 8.6 MG TAB PO PRN (17:45)
[2016-12-19] MEDS ORDERED: ACETAMINOPHEN 325 MG TAB PO PRN (17:45)
[2016-12-19] MEDS ORDERED: SODIUM CHLORIDE 0.9% FLUSH 10 ML FLUSH IV FLUSH PRN (18:00)
[2016-12-19] MEDS ORDERED: MAGNESIUM HYDROXIDE SUSP 30 ML CUP PO PRN (18:00)
[2016-12-19] MEDS ORDERED: BISACODYL 10 MG SUPP RECTAL PRN (18:00)
[2016-12-19] MEDS ORDERED: NALOXONE HCL 0.4 MG/ML AMP IV PRN (18:00)
[2016-12-19] MEDS ORDERED: SENNOSIDES 8.6 MG TAB PO PRN (18:00)
--- NOTE | 2016-12-19 18:13 | HHI.HP ---
H[facility] Primary [facility] Physician Unknown Admission Diagnosis syncope, symptomatic hypotension Diagnoses: Chief Complaint: Passed out Travel History International Travel<30 Days: No Contact w/Intl Traveler <30 Da: No Traveled to Known Affected Are: No History of Present Illness The patient is an 81-year-old male with past medical history of dementia, prostate cancer, TIA, CHF and glaucoma who is presenting to the hospital after being found unresponsive. Per report the patient was found by bystanders earlier today slumped over on his porch. EMS was called and the patient's blood pressure was in the 70s systolic. He received fluids and was transferred to the hospital. His mentation slowly improved. The patient does not recall exactly what happened. He knows he is in the hospital in [facility] but does not know the date and is not sure of the president. He says he has been urinating frequently recently. He says he has had urinary incontinence. He denies any fevers. He states he lives with his son. He says he has been eating well. He says he doesn't drink much because it makes him urinate frequently. Review of Systems ROS Limitations: Clinical Condition, Poor Historian Except as stated in HPI: all other systems reviewed are Neg Past Family Social History Past Medical History Dementia Prostate cancer CHF Glaucoma TIA Anemia Allergies: Coded Allergies: No Known Allergies (Verified , 12/19/16) Active Ordered Medications Current Medications Medications (Trade) Dose Ordered Sig/Shayan Route Start Time Stop Time Status Last Admin (NS Flush) 2 ml UNSCH PRN IVF 12/19/16 13:45 (Tylenol) 650 mg Q4HR PRN PO 12/19/16 17:45 UNV (Ecotrin Ec) 81 mg DAILY PO 12/20/16 09:00 UNV (Cosopt 2-0.5% Opth Soln) 1 drop BID RIGHT EYE 12/19/16 21:00 UNV (Morena-Colace) 1 tab DAILY PRN PO 12/19/16 17:45 UNV (NS Flush) 2 ml UNSCH PRN IV FLUSH 12/19/16 18:00 UNV (NS Flush) 2 ml BID IV FLUSH 12/19/16 21:00 UNV (Narcan Inj) 0.4 mg UNSCH PRN IV 12/19/16 18:00 UNV (Morena-Colace) 1 tab BID PO 12/19/16 21:00 UNV (Milk Of Magnesia Liq) 30 ml Q12H PRN PO 12/19/16 18:00 UNV (Senokot) 17.2 mg Q12H PRN PO 12/19/16 18:00 UNV (Dulcolax Supp) 10 mg DAILY PRN RECTAL 12/19/16 18:00 UNV Family History The patient denies pertinent family history Social History The patient says he does not smoke or drink. Physical Exam Vital Signs Vital Signs Date Time Temp Pulse Resp B/P Pulse Ox O2 Delivery O2 Flow Rate FiO2 12/19/16 15:19 64 18 138/77 98 Room Air 12/19/16 13:37 55 16 129/79 98 Room Air 12/19/16 13:30 97.8 59 16 129/79 99 Physical Exam GENERAL: This is a well-nourished, well-developed patient, in no apparent distress. SKIN: No rashes, ecchymoses or lesions. Cool and dry. HEAD: Atraumatic. Normocephalic. No temporal or scalp tenderness. EYES: Extraocular motions intact. No scleral icterus. No injection or drainage. Left cataract. ENT: Nose without bleeding, purulent drainage or septal hematoma. Throat without erythema, tonsillar hypertrophy or exudate. Uvula midline. Airway patent. NECK: Trachea midline. No JVD or lymphadenopathy. Supple, nontender, no meningeal signs. CARDIOVASCULAR: Regular rate and rhythm without murmurs, gallops, or rubs. RESPIRATORY: Clear to auscultation. Breath sounds equal bilaterally. No wheezes , rales, or rhonchi. GASTROINTESTINAL: Abdomen slightly distended. No hepato-splenomegaly, or palpable masses. No guarding. Decreased bowel sounds. MUSCULOSKELETAL: Extremities without clubbing, cyanosis, or edema. No joint tenderness, effusion, or edema noted. NEUROLOGICAL: Cranial nerves II through XII intact. Motor and sensory grossly within normal limits. Five out of 5 muscle strength in all muscle groups. Normal speech. PSYCH: Confused. Laboratory Laboratory Tests Test 12/19/16 12/19/16 14:00 14:10 White Blood Count 3.4 Red Blood Count 3.57 Hemoglobin 10.9 Hematocrit 33.7 Mean Corpuscular Volume 94.4 Mean Corpuscular Hemoglobin 30.7 Mean Corpuscular Hemoglobin 32.5 Concent Red Cell Distribution Width 13.6 Platelet Count 149 Mean Platelet Volume 7.5 Neutrophils (%) (Auto) 49.3 Lymphocytes (%) (Auto) 39.1 Monocytes (%) (Auto) 10.6 Eosinophils (%) (Auto) 0.8 Basophils (%) (Auto) 0.2 Neutrophils # (Auto) 1.7 Lymphocytes # (Auto) 1.3 Monocytes # (Auto) 0.4 Eosinophils # (Auto) 0.0 Basophils # (Auto) 0.0 CBC Comment DIFF FINAL Differential Comment Prothrombin Time 11.4 Prothromb Time International 1.0 Ratio Sodium Level 145 Potassium Level 4.0 Chloride Level 110 Carbon Dioxide Level 32.0 Anion Gap 3 Blood Urea Nitrogen 15 Creatinine 1.22 Estimat Glomerular Filtration 69 Rate Random Glucose 141 Calcium Level 8.3 Total Creatine Kinase 85 Troponin I 0.05 Urine Opiates Screen NEG Urine Barbiturates Screen NEG Urine Amphetamines Screen NEG Urine Benzodiazepines Screen NEG Urine Cocaine Screen NEG Urine Cannabinoids Screen NEG Result Diagram: 12/19/16 1400 12/19/16 1400 Imaging Last Impressions Head CT 12/19/16 1333 Signed Impressions: Service Date/Time: Monday, December 19, 2016 14:58 - CONCLUSION: 1. Stable diffuse cerebral atrophy and moderate to severe periventricular/subcortical white matter small vessel ischemic changes bilaterally. 2. No acute infarct, acute hemorrhage, mass effect or extra-axial fluid collections. Preet Higgins MD Chest X-Ray 12/19/16 1333 Signed Impressions: Service Date/Time: Monday, December 19, 2016 14:37 - CONCLUSION: 1. No acute abnormality or significant interval change. Nash Ortega MD Assessment and Plan Assessment and Plan Syncope/ Hypotension The patient was found slumped over in his porch. His blood pressure was in the 70 systolic. He responded to fluids. He is on diuretics as an outpatient. He reports urinating frequently. He was recently admitted to the hospital for altered mental status workup. CT of the head showed: stable diffuse cerebral atrophy and moderate to severe periventricular/subcortical white matter small vessel ischemic changes bilaterally. Chest x-ray unremarkable. The patient is afebrile. EKG with left bundle branch block, which is not new. Blood sugar was not low. - Monitor troponins and keep on telemetry. - Orthostatic vital signs. - hold blood pressure medications. - Check an echocardiogram and a carotid duplex. - Neuro checks. - PT/OT evaluations, behavioral health case manager consult. - Check a TSH. Pancytopenia Appears chronic. - Follow CBC. - Check iron studies, B12 and folate level, check Hemoccult. - Outpatient follow-up. Hypoglycemia Glucose was 141 on admission. - Check a hemoglobin A1c. PPx: SCDs Discussed Condition With Patient, Dr. Jarquin Physician Certification 2 Midnight Certification Type: Admission for Inpatient Services Order for Inpatient Services The services are ordered in accordance with Medicare regulations or non- Medicare payer requirements, as applicable. In the case of services not specified as inpatient-only, they are appropriately provided as inpatient services in accordance with the 2-midnight benchmark. Estimated LOS (days): 2 days is the estimated time the patient will need to remain in the hospital, assuming treatment plan goals are met and no additional complications. Post-Hospital Plan: Not yet determined Shaun Gamble DO Dec 19, 2016 18:12
--- NOTE | 2016-12-19 19:49 | RADRPT ---
EXAM DATE/TIME: 12/19/2016 18:42 [facility] COMPARISON: No previous studies available for comparison. INDICATIONS : Syncope. MEDICAL HISTORY : Congestive heart failure. Hypertension. Carcinoma, prostate. TIA. Headache. Anxiety. UTI. SURGICAL HISTORY : Bilateral cataracts. Left eye detached retina. Left inguinal hernia repair. ENCOUNTER: Initial ACUITY: 1 day PAIN SCORE: 0/10 LOCATION: Bilateral neck PEAK SYSTOLIC VELOCITIES (cm/sec): ICA/CCA RATIO: Right: 0.6 Left: 1.2 ICA: Right: 48 Left: 81 CCA: Right: 79 Left: 57 ECA: Right: 59 Left: 70 VERTEBRAL: Right: 30 antegrade Left: 21 antegrade Elevated flow velocities and ICA/CCA ratios have been found to correlate with increased degrees of vessel stenosis, calculated as percentage of diameter relative to a normal segment of distal ICA/CCA FINDINGS: RIGHT CAROTID: No significant stenosis is visualized. The waveforms are within normal limits. LEFT CAROTID: Mild calcified plaque at the carotid bulb. No significant stenosis is visualized. The waveforms are within normal limits. VERTEBRAL ARTERIES: Antegrade flow is seen in both vertebral arteries. MISCELLANEOUS: None. CONCLUSION: No evidence of hemodynamically significant carotid stenosis. Chalino Early MD on December 19, 2016 at 19:46 Board Certified Radiologist. This report was verified electronically.
[2016-12-19 19:55] VITALS: BP 144/85; PULSE 71; RESP 20; TEMP 97.8; O2SAT 95
--- NOTE | 2016-12-19 20:05 | RADRPT ---
EXAM DATE/TIME: 12/19/2016 19:12 [facility] COMPARISON: No previous studies available for comparison. INDICATIONS : Destention. MEDICAL HISTORY : Hypertension. Carcinoma, prostate. Congestive heart failure. SURGICAL HISTORY : None. ENCOUNTER: Initial ACUITY: 1 day PAIN SCORE: 4/10 LOCATION: Abdomen. FINDINGS: Single AP supine view of the abdomen. Scattered gas and stool in the colon. Scattered gas in nondilat ed small bowel. Moderate to severe multilevel bony degenerative findings of the lumbar spine. No abno rmal abdominal calcification identified. CONCLUSION: Nonspecific bowel gas pattern. Chalino Early MD on December 19, 2016 at 20:01 Board Certified Radiologist. This report was verified electronically.
[2016-12-19 20:19] VITALS: PULSE 71
[2016-12-19] MEDS: DOCUSATE SODIUM 50 MG/SENNA 8.6 MG TAB PO SCH (21:10)
[2016-12-19] MEDS: SODIUM CHLORIDE 0.9% FLUSH 10 ML FLUSH IV FLUSH SCH (21:10)
[2016-12-19 21:45] VITALS: PULSE 68
[2016-12-19 22:05] LABS: FERRITIN 150 NG/ML (26-388); TRANSFERRIN IRON PROFILE 186 MG/DL (200-360)
[2016-12-19] MEDS: DORZOLAMIDE/TIMOLOL OPTH SOLN 10 ML BTL RIGHT EYE SCH (22:05)
[2016-12-19 23:25] LABS: BACTERIA, URINE OCC /hpf; BLOOD, URINE TRACE (NEG); GLUCOSE,URINE NEG (NEG); KETONE, URINE NEG (NEG); NITRITE,URINE NEG (NEG); URINE COLOR YELLOW (YELLW/STRAW)
[2016-12-19 23:26] LABS: COMMENT (UR) CATH-CULTURE IND; CULTURE IF INDICATED CATH CULTURE IND
[2016-12-20 00:44] VITALS: BP 116/63; PULSE 63; RESP 20; TEMP 98.6; O2SAT 97
[2016-12-20 02:42] LABS: AUTOMATED NEUTROPHIL # 3.8 TH/MM3 (1.8-7.7); BASOPHIL % 0.7 % (0.0-2.0); EOSINOPHIL % 0.5 % (0.0-4.0); HEMATOCRIT 31.9 % (39.0-51.0); HEMO FLAGS DIFF FINAL; LYMPH % 20.5 % (9.0-44.0); LYMPHOCYTE # 1.2 TH/MM3 (1.0-4.8); MEAN CELL VOLUME 93.1 FL (80.0-100.0); MEAN CORPUSCULAR HEMOGLOBIN 30.9 PG (27.0-34.0); MEAN CORPUSCULAR HGB CONC 33.2 % (32.0-36.0); MONO % 11.8 % (0.0-8.0); NEUT % 66.5 % (16.0-70.0); PLATELET COUNT 138 TH/MM3 (150-450); RED BLOOD COUNT 3.42 MIL/MM3 (4.50-5.90); RED CELL DISTRIBUTION WIDTH 13.7 % (11.6-17.2); WHITE BLOOD COUNT 5.8 TH/MM3 (4.0-11.0)
[2016-12-20 04:55] VITALS: BP 137/78; PULSE 69; RESP 20; TEMP 98.8; O2SAT 99
[2016-12-20 08:00] VITALS: BP_SYST 141; BP_SYST 153; BP_SYST 156; BP_DIAS 95; BP_DIAS 96; PULSE 65; PULSE 66; RESP 20; TEMP 98.4; O2SAT 98
--- NOTE | 2016-12-20 09:27 | HHI.PR ---
Subjective Remarks The patient was resting comfortably in bed. He asked if he passed out again. He says it happens from time to time. He says he urinates frequently. He says sometimes he has burning on urination. Objective Vitals Vital Signs Date Time Temp Pulse Resp B/P Pulse Ox O2 Delivery O2 Flow Rate FiO2 12/20/16 08:00 98.4 66 20 156/96 98 153/95 141/95 12/20/16 06:09 Room Air 12/20/16 04:55 98.8 69 20 137/78 99 12/20/16 00:44 98.6 63 20 116/63 97 12/20/16 00:00 Room Air 12/19/16 21:45 68 12/19/16 20:19 71 12/19/16 20:00 Room Air 12/19/16 19:55 97.8 71 20 144/85 95 12/19/16 15:19 64 18 138/77 98 Room Air 12/19/16 13:37 55 16 129/79 98 Room Air 12/19/16 13:30 97.8 59 16 129/79 99 I/O 12/19/16 12/19/16 12/19/16 12/20/16 12/20/16 12/20/16 07:00 15:00 23:00 07:00 15:00 23:00 Intake Total 600 ml 480 ml Output Total 250 ml 150 ml Balance 350 ml 330 ml Intake Oral 600 ml 480 ml Output Urine Total 250 ml 150 ml Stool Total 0 ml # Bowel Movements 1 0 Result Diagram: 12/20/16 0152 12/19/16 1400 Imaging Last Impressions Head CT 12/19/16 1333 Signed Impressions: Service Date/Time: Monday, December 19, 2016 14:58 - CONCLUSION: 1. Stable diffuse cerebral atrophy and moderate to severe periventricular/subcortical white matter small vessel ischemic changes bilaterally. 2. No acute infarct, acute hemorrhage, mass effect or extra-axial fluid collections. Preet Higgins MD Chest X-Ray 12/19/16 1333 Signed Impressions: Service Date/Time: Monday, December 19, 2016 14:37 - CONCLUSION: 1. No acute abnormality or significant interval change. Nash Ortega MD Carotid Artery Ultrasound 12/19/16 0000 Signed Impressions: Service Date/Time: Monday, December 19, 2016 18:42 - CONCLUSION: No evidence of hemodynamically significant carotid stenosis. Chalino Early MD Abdomen X-Ray 12/19/16 0000 Signed Impressions: Service Date/Time: Monday, December 19, 2016 19:12 - CONCLUSION: Nonspecific bowel gas pattern. Chalino Early MD Objective Remarks GENERAL: This is a well-nourished, well-developed patient, in no apparent distress. SKIN: No rashes, ecchymoses or lesions. Cool and dry. HEAD: Atraumatic. Normocephalic. No temporal or scalp tenderness. EYES: Extraocular motions intact. No scleral icterus. No injection or drainage. Left cataract. ENT: Nose without bleeding, purulent drainage or septal hematoma. Throat without erythema, tonsillar hypertrophy or exudate. Uvula midline. Airway patent. NECK: Trachea midline. No JVD or lymphadenopathy. Supple, nontender, no meningeal signs. CARDIOVASCULAR: Regular rate and rhythm without murmurs, gallops, or rubs. RESPIRATORY: Clear to auscultation. Breath sounds equal bilaterally. No wheezes , rales, or rhonchi. GASTROINTESTINAL: Abdomen slightly distended. Nontender. No hepato-splenomegaly , or palpable masses. No guarding. Decreased bowel sounds. MUSCULOSKELETAL: Extremities without clubbing, cyanosis, or edema. No joint tenderness, effusion, or edema noted. NEUROLOGICAL: Cranial nerves II through XII intact. Motor and sensory grossly within normal limits. Five out of 5 muscle strength in all muscle groups. Normal speech. PSYCH: Mood and affect appropriate. Medications and IVs Current Medications Medications (Trade) Dose Ordered Sig/Shayan Route Start Time Stop Time Status Last Admin (Tylenol) 650 mg Q4H PRN PO 12/19/16 17:45 (Ecotrin Ec) 81 mg DAILY PO 12/20/16 09:00 (Cosopt 2-0.5% Opth Soln) 1 drop BID RIGHT EYE 12/19/16 21:00 12/19/16 22:05 (Morena-Colace) 1 tab DAILY PRN PO 12/19/16 17:45 (NS Flush) 2 ml UNSCH PRN IV FLUSH 12/19/16 18:00 (NS Flush) 2 ml BID IV FLUSH 12/19/16 21:00 6/16/17 21:10 (Narcan Inj) 0.4 mg UNSCH PRN IV 12/19/16 18:00 (Morena-Colace) 1 tab BID PO 12/19/16 21:00 12/19/16 21:10 (Milk Of Marianne Likaren) 30 ml Q12H PRN PO 12/19/16 18:00 (Senokot) 17.2 mg Q12H PRN PO 12/19/16 18:00 Bisacodyl 10 mg 10 mg DAILY PRN RECTAL 12/19/16 18:00 (Rocephin Inj/NS Inj) 100 ml @ 200 mls/hr Q24H IV 12/20/16 08:30 UNV (Vitamin B12 Inj) 1,000 mcg ONCE ONCE IM 12/20/16 08:45 12/20/16 08:46 UNV A/P Assessment and Plan Syncope/ Hypotension The patient was found slumped over in his porch. His blood pressure was in the 70s systolic. He responded to fluids. He is on diuretics as an outpatient. He reports urinating frequently. He was recently admitted to the hospital for altered mental status workup. CT of the head showed: stable diffuse cerebral atrophy and moderate to severe periventricular/subcortical white matter small vessel ischemic changes bilaterally. Chest x-ray unremarkable. The patient is afebrile. EKG with left bundle branch block, which is not new. Trops 0.05, 0.04 , 0.05. Blood sugar was not low. Found to be borderline orthostatic. Carotid duplex negative. TSH WNL. - keep on telemetry. - Orthostatic vital signs daily. - hold blood pressure medications for now. - Neuro checks. - PT/OT evaluations, hospice case manager consult. UTI UA indicative of infection, which may be contributing to above episode. - IV ceftriaxone. - follow urine culture. Pancytopenia Appears chronic. B12 borderline low at 204. - B12 IM injection x 1, then 1000 mcg PO daily. - Follow CBC. - Check Hemoccult. - Outpatient follow-up. Hypoglycemia Glucose was 141 on admission. - Check a hemoglobin A1c. PPx: SCDs Discharge Planning Anticipate d/c in 1-2 days Shaun Gamble DO Dec 20, 2016 09:27
[2016-12-20] MEDS: DOCUSATE SODIUM 50 MG/SENNA 8.6 MG TAB PO SCH ×2 (09:28→20:55)
[2016-12-20] MEDS: ASPIRIN EC 81 MG TABEC PO SCH (09:28)
[2016-12-20] MEDS: SODIUM CHLORIDE 0.9% FLUSH 10 ML FLUSH IV FLUSH SCH ×2 (09:29→20:55)
[2016-12-20] MEDS: DORZOLAMIDE/TIMOLOL OPTH SOLN 10 ML BTL RIGHT EYE SCH ×2 (09:30→20:56)
[2016-12-20] MEDS ORDERED: CYANOCOBALAMIN 1000 MCG/ML VIAL IM ONE (10:00)
[2016-12-20 12:00] VITALS: BP 124/76; PULSE 58; RESP 20; TEMP 98.4; O2SAT 99
[2016-12-20] MEDS: cefTRIAXone INJ 1,000 MG in SODIUM CHLORIDE 0.9% INJ 100 ML IV SCH (13:01)
[2016-12-20 13:24] LABS: BICARBONATE 26.3 MEQ/L (21.0-32.0); POTASSIUM 3.7 MEQ/L (3.5-5.1)
--- NOTE | 2016-12-20 13:32 | EKG ---
Date Performed: 12/19/2016 Time Performed: 13:35:07 PTAGE: 81 years EKG: SINUS BRADYCARDIA MARKED LEFT AXIS DEVIATION LEFT BUNDLE BRANCH BLOCK ABNORMAL ECG PREVIOUS TRACING : 09/28/2016 16.34 Compared to prior tracing no significant change DOCTOR: Hamlet Colon Interpretating Date/Time 12/20/2016 13:30:33
[2016-12-20 16:00] VITALS: BP 151/84; PULSE 63; RESP 20; TEMP 98.6; O2SAT 97
--- NOTE | 2016-12-20 16:24 | ECHRPT ---
Indication: CVA/TIA CONCLUSIONS Normal left ventricular size. Mild concentric left ventricular hypertrophy. The left ventricular systolic function is moderately reduced with an estimated ejection fraction in the range of 35-40%. The ventricle appears global with the exception of the paradoxical septal motion, possib ly from the wide complex rhythm. Doppler parameters are consistent with impaired left ventricular relaxtion (grade 1 diastolic dysfun ction). Moderate tricuspid regurgitation without significant pulmonary hypertension. BP: 138 / 77 HR: 64 Rhythm: WIDE COMPLEX JUNCTIONAL/SINUS (N O PACEMAKER) MEASUREMENTS (Male / Female) Normal Values Technical Quality:Good 2D ECHO LV Diastolic Diameter PLAX 5.3 cm 4.2 - 5.9 / 3.9 - 5.3 cm LV Systolic Diameter PLAX 4.5 cm IVS Diastolic Thickness 1.1 cm 0.6 - 1.0 / 0.6 - 0.9 cm LVPW Diastolic Thickness 1.2 cm 0.6 - 1.0 / 0.6 - 0.9 cm LV Relative Wall Thickness 0.4 LVOT Diameter 2.4 cm Aortic Root Diameter 3.3 cm LA Systolic Diameter LX 2.8 cm 3.0 - 4.0 / 2.7 - 3.8 cm DOPPLER AV Peak Velocity 170.0 cm/s AV Peak Gradient 11.6 mmHg AV Mean Gradient 5.0 mmHg AV Velocity Time Integral 30.0 cm LVOT Peak Velocity 84.2 cm/s LVOT Peak Gradient 2.8 mmHg LVOT Velocity Time Integral 16.0 cm LVOT Cardiac Index 2575.4 cm/minm AV Area Cont Eq vti 2.4 cm AV Area Cont Eq pk 2.2 cm Mitral E Point Velocity 49.4 cm/s Mitral A Point Velocity 79.5 cm/s Mitral E to A Ratio 0.6 LV E' Lateral Velocity 2.3 cm/s Mitral E to LV E' Lateral Ratio 21.1 LV E' Septal Velocity 2.6 cm/s Mitral E to LV E' Septal Ratio 18.8 TR Peak Velocity 225.0 cm/s TR Peak Gradient 20.0 mmHg PV Peak Velocity 69.2 cm/s PV Peak Gradient 1.9 mmHg FINDINGS LEFT VENTRICLE Normal left ventricular size. Mild concentric left ventricular hypertrophy. The left ventricular systolic function is moderately reduced with an estimated ejection fraction in the range of 35-40%. The ventricle appears global with the exception of the paradoxical septal motion, possib ly from the wide complex rhythm. Doppler parameters are consistent with impaired left ventricular relaxtion (grade 1 diastolic dysfun ction). RIGHT VENTRICLE Normal right ventricular size and systolic function. LEFT ATRIUM The left atrial size is normal. RIGHT ATRIUM The right atrial size is normal. ATRIAL SEPTUM Normal atrial septal thickness without atrial level shunting by limited color doppler interrogation. AORTA The aortic root and proximal ascending aorta are normal in size on limited imaging. MITRAL VALVE Structurally normal mitral valve. Mild mitral valve regurgitation. AORTIC VALVE Aortic valve sclerosis is present. Trace to mild aortic regurgitation. TRICUSPID VALVE Structurally normal tricuspid valve. No tricuspid valve stenosis. Moderate tricuspid regurgitation w ithout significant pulmonary hypertension. PULMONARY VALVE The pulmonary valve is not well visualized. VESSELS The inferior vena cava is normal in size. PERICARDIUM No pericardial effusion. Sunita Cerda MD, FACC Edited by: [employer] (Electronically Signed) Final Date:20 December 2016 16:24 Amended: 22 December 2016 09:06
[2016-12-20 20:00] VITALS: BP 150/89; PULSE 57; RESP 20; TEMP 98; O2SAT 98
[2016-12-21] VITALS (8 sets, daily range): BP systolic 149–171; BP diastolic 74–96; PULSE 52–70; RESP 18–22; TEMP 97–98.7; O2SAT 93–98
[2016-12-21] MEDS: ASPIRIN EC 81 MG TABEC PO SCH (09:00)
[2016-12-21] MEDS: DORZOLAMIDE/TIMOLOL OPTH SOLN 10 ML BTL RIGHT EYE SCH ×2 (09:00→20:34)
[2016-12-21] MEDS: DOCUSATE SODIUM 50 MG/SENNA 8.6 MG TAB PO SCH ×2 (09:19→20:35)
[2016-12-21] MEDS: cefTRIAXone INJ 1,000 MG in SODIUM CHLORIDE 0.9% INJ 100 ML IV SCH (09:19)
[2016-12-21] MEDS: CYANOCOBALAMIN 1,000 MCG TAB PO SCH (09:19)
[2016-12-21] MEDS: SODIUM CHLORIDE 0.9% FLUSH 10 ML FLUSH IV FLUSH SCH ×2 (09:20→20:35)
[2016-12-21 10:07] LABS: HEMOGLOBIN A1a 0.9 %; HEMOGLOBIN A1b 1.4 %; HEMOGLOBIN Ao 85.7 %; HEMOGLOBIN F 0.2 %; HEMOGLOBIN LA1C 2.1 %; HEMOGLOBIN P3 3.6 %
--- NOTE | 2016-12-21 11:08 | HHI.PR ---
Subjective Remarks Patient is in bed, eating breakfast. He says she is less dizzy today. Says he was not out of bed. No headache. Denies chest pain or palpitations. No sob. Feels weak generalized. No focal motor deficit. Objective Vitals Vital Signs Date Time Temp Pulse Resp B/P Pulse Ox O2 Delivery O2 Flow Rate FiO2 12/21/16 08:00 98.3 56 18 149/83 94 12/21/16 06:00 97.5 52 18 170/96 97 12/21/16 04:00 Room Air 12/21/16 00:00 97.0 67 22 159/89 98 12/21/16 00:00 Room Air 12/20/16 20:00 98.0 57 20 150/89 98 12/20/16 20:00 Room Air 12/20/16 20:00 57 12/20/16 16:00 98.6 63 20 151/84 97 12/20/16 12:00 98.4 58 20 124/76 99 I/O 12/20/16 12/20/16 12/20/16 12/21/16 12/21/16 12/21/16 07:00 15:00 23:00 07:00 15:00 23:00 Intake Total 480 ml 576 ml Output Total 150 ml Balance 330 ml 576 ml Intake Oral 480 ml 480 ml IV Total 96 ml Output Urine Total 150 ml # Voids 3 2 # Bowel Movements 0 0 1 Result Diagram: 12/20/16 0152 12/20/16 0152 Imaging Last Impressions Head CT 12/19/16 1333 Signed Impressions: Service Date/Time: Monday, December 19, 2016 14:58 - CONCLUSION: 1. Stable diffuse cerebral atrophy and moderate to severe periventricular/subcortical white matter small vessel ischemic changes bilaterally. 2. No acute infarct, acute hemorrhage, mass effect or extra-axial fluid collections. Preet Higgins MD Chest X-Ray 12/19/16 1333 Signed Impressions: Service Date/Time: Monday, December 19, 2016 14:37 - CONCLUSION: 1. No acute abnormality or significant interval change. Nash Ortega MD Carotid Artery Ultrasound 12/19/16 0000 Signed Impressions: Service Date/Time: Monday, December 19, 2016 18:42 - CONCLUSION: No evidence of hemodynamically significant carotid stenosis. Chalino Early MD Abdomen X-Ray 12/19/16 0000 Signed Impressions: Service Date/Time: Monday, December 19, 2016 19:12 - CONCLUSION: Nonspecific bowel gas pattern. Chalino Early MD Objective Remarks GENERAL: This is a very pleasant hard of hearing 81 yo M, well-nourished, well- developed patient, in no apparent distress. HEAD: Atraumatic. Normocephalic. No temporal or scalp tenderness. EYES: Extraocular motions intact. No scleral icterus. No injection or drainage. Left eye cataract. ENT: Nose without bleeding, purulent drainage or septal hematoma. Throat without erythema, tonsillar hypertrophy or exudate. Uvula midline. Airway patent. CARDIOVASCULAR: Regular rate and rhythm without murmurs, gallops, or rubs. RESPIRATORY: Clear to auscultation. Breath sounds equal bilaterally. No wheezes , rales, or rhonchi. GASTROINTESTINAL: Abdomen slightly distended. Nontender. No hepato-splenomegaly , or palpable masses. No guarding. Decreased bowel sounds. MUSCULOSKELETAL: Extremities without clubbing, cyanosis, or edema. No joint tenderness, effusion, or edema noted. NEUROLOGICAL: Cranial nerves II through XII grossly intact. Hard of hearing. Motor and sensory grossly within normal limits. Five out of 5 muscle strength in all muscle groups. Normal speech. PSYCH: Mood and affect appropriate. 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 His blood pressure was in the 70s systolic. He responded to fluids. He is on diuretics as an outpatient. He reports urinating frequently. He was recently admitted to the hospital for altered mental status workup. CT of the head showed: stable diffuse cerebral atrophy and moderate to severe periventricular/subcortical white matter small vessel ischemic changes bilaterally. Chest x-ray unremarkable. The patient is afebrile. EKG with left bundle branch block, which is not new. Trops 0.05, 0.04 , 0.05. Blood sugar was not low. Found to be borderline orthostatic. Carotid duplex negative. TSH WNL. - 2D ECHO reviewed EF 35-40% combines systolic and diastolic dysfunction Consult cardiology - keep on telemetry. - Orthostatic vital signs daily. - hold blood pressure medications for now. - Neuro checks. - PT/OT evaluations, caser shoe parts consult. UTI probable, ruled out UA indicative of infection, which may be contributing to above episode. - IV ceftriaxone. -urine culture reviewed and are neg. DC abx . Patient is asymptomatic Pancytopenia Appears chronic. B12 borderline low at 204. - B12 IM injection x 1, then 1000 mcg PO daily. - Follow CBC. - Check Hemoccult. - Outpatient follow-up. Hypoglycemia Glucose was 141 on admission. - Hemoglobin A1c pending PPx: SCDs Discharge Planning pending improvement Whitney Drake MD Dec 21, 2016 11:08
[2016-12-21] MEDS ORDERED: RAMIPRIL 2.5 MG CAP PO ONE (15:45)
--- NOTE | 2016-12-21 16:35 | MB ---
cc: RIOS HOWELL M.D. DATE OF CONSULTATION: 12/21/2016. HISTORY OF PRESENT ILLNESS: Jaime is a very pleasant 81-year-old gentleman brought in on December 19, 2016 and found to be unresponsive by bystanders. He was brought in by EMS. He was on his front porch and slumped over according to the ER notes. Initially his systolic blood pressure was 75. He was given a fluid bolus. The patient was noted to be confused in the emergency room. At the bedside, he is alert and appears to be oriented times one to two and in no acute distress. He does have baseline dementia. Denies any chest pain, shortness of breath, fever, chills, cough, GI or bleeding, paroxysmal nocturnal dyspnea, orthopnea or dizziness. PAST MEDICAL HISTORY: His past medical history is per the history of present illness. 1. History of anxiety. 2. Prostate cancer. 3. TIA. 4. Enlarged prostate. 5. Headaches. 6. Hypertension. 7. Bilateral cataracts. 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 9. Left inguinal hernia repair. SOCIAL HISTORY: Denies tobacco or alcohol use. ALLERGIES: NONE. MEDICATIONS PRIOR TO ADMISSION: 1. Senna. 2. Aspirin. 3. Verapamil 120. 4. K-Tab. 5. Lasix 20 daily. ALLERGIES: NONE. MEDICATIONS IN THE HOSPITAL: 1. Senna. 2. Cobalamine. 3. Aspirin 81 milligrams a day. 4. amide. PHYSICAL EXAMINATION: VITAL SIGNS: Blood pressure 150/93, pulse 54, temperature 98.0, respiratory rate 18. GENERAL: He is alert and oriented times one to two and in no acute distress. Nonfocal. NECK: The neck is supple. No jugular venous distention. No bruits. CARDIOVASCULAR EXAM: S1-S2. No murmurs, rubs or gallops. LUNGS: Clear to auscultation bilaterally. ABDOMEN: The abdomen is soft, nontender and nondistended with positive bowel sounds. EXTREMITIES: No lower extremity edema. IMAGING STUDIES: Carotid ultrasound shows no evidence of hemodynamically significant carotid stenosis. Abdominal x-ray shows nonspecific bowel gas pattern. CT head shows stable diffuse cerebral atrophy and moderate to severe periventricular subcortical white matter small vessel ischemic changes bilaterally, no acute infarct, acute hemorrhage, mass effect or extra-axial fluid collections. Chest x-ray: No acute abnormality or significant interval change. CARDIOLOGY STUDIES: EKG shows sinus bradycardia with left bundle-branch block. Echocardiogram done on 12/20/2016 showed an ejection fraction of 35-40%, moderate TR. No significant pulmonary hypertension. LABS: White count 3.4, hemoglobin 10.9, hematocrit 33.7, platelet count 149,000. Sodium 149, potassium 3.7, chloride 113, BUN 15, creatinine 1.06, glucose 122. Hemoglobin A1c 5.5. TSH 1.98. Troponin is 0.04 and 0.05. INR 1.0. Toxicology is negative. FINAL DIAGNOSIS: 1. Syncope. 2. Bradycardia. 3. Left bundle-branch block. 4. Cardiomyopathy. 5. Dementia. 6. Hypernatremia. 7. Pancytopenia. 8. Neutropenia. 9. Anemia. 10. Thrombocytopenia. DISCUSSION: At this point in time, suspect the patient probably had a bradyarrhythmic and/or hypotensive etiology to his syncope. 1. Agree with holding Cardizem. 2. Would add a low-dose LONNIE inhibitor at this point due to his cardiomyopathy. 3. He appears to be euvolemic by chest x-ray and by exam. Hold beta harley due to bradycardia and left bundle branch block in the context of syncope as well. 4. Will continue to monitor the trends in his heart rate off the Cardizem. 5. If he remains bradycardic, may need to consider permanent pacemaker placement. MD LYNN Herrmann/CICI /3:46 PM /4:28 PM
[2016-12-22] VITALS (8 sets, daily range): BP systolic 125–148; BP diastolic 71–90; PULSE 52–67; RESP 18–20; TEMP 97–98.4; O2SAT 92–100
[2016-12-22] MEDS: CYANOCOBALAMIN 1,000 MCG TAB PO SCH (08:08)
[2016-12-22] MEDS: ASPIRIN EC 81 MG TABEC PO SCH (08:08)
[2016-12-22] MEDS: RAMIPRIL 2.5 MG CAP PO SCH (08:09)
[2016-12-22] MEDS: SODIUM CHLORIDE 0.9% FLUSH 10 ML FLUSH IV FLUSH SCH ×2 (08:09→20:59)
[2016-12-22] MEDS: DOCUSATE SODIUM 50 MG/SENNA 8.6 MG TAB PO SCH ×2 (08:09→20:58)
--- NOTE | 2016-12-22 08:10 | HHI.PR ---
Subjective Remarks Patient in bed, says she is not feeling dizzy today. Did not walk yet. No chest pain or sob. Denies palpitations. Denies any n/v/d/c. Plan to walk with PT today. Objective Vitals Vital Signs Date Time Temp Pulse Resp B/P Pulse Ox O2 Delivery O2 Flow Rate FiO2 12/22/16 04:00 Room Air 12/22/16 04:00 97.4 67 20 140/88 97 12/22/16 00:00 98.0 59 20 147/87 99 12/22/16 00:00 Room Air 12/21/16 21:40 98.4 70 19 171/74 93 12/21/16 20:00 57 12/21/16 20:00 Room Air 12/21/16 16:00 98.7 62 18 154/91 98 12/21/16 12:00 98.0 54 18 150/93 97 12/21/16 08:20 54 I/O 12/21/16 12/21/16 12/21/16 12/22/16 12/22/16 12/22/16 07:00 15:00 23:00 07:00 15:00 23:00 Intake Total 480 ml 400 ml 500 ml Balance 480 ml 400 ml 500 ml Intake Oral 480 ml 400 ml 500 ml # Voids 2 3 1 6 # Bowel Movements 1 0 0 0 Result Diagram: 12/20/16 0152 12/20/16 0152 Imaging Last Impressions Head CT 12/19/163 Signed Impressions: Service Date/Time: Monday, December 19, 2016 14:58 - CONCLUSION: 1. Stable diffuse cerebral atrophy and moderate to severe periventricular/subcortical white matter small vessel ischemic changes bilaterally. 2. No acute infarct, acute hemorrhage, mass effect or extra-axial fluid collections. Preet Higgins MD Chest X-Ray 12/19/16 1333 Signed Impressions: Service Date/Time: Monday, December 19, 2016 14:37 - CONCLUSION: 1. No acute abnormality or significant interval change. Nash Ortega MD Carotid Artery Ultrasound 12/19/16 0000 Signed Impressions: Service Date/Time: Monday, December 19, 2016 18:42 - CONCLUSION: No evidence of hemodynamically significant carotid stenosis. Chalino Early MD Abdomen X-Ray 12/19/16 0000 Signed Impressions: Service Date/Time: Monday, December 19, 2016 19:12 - CONCLUSION: Nonspecific bowel gas pattern. Chalino Early MD Objective Remarks GENERAL: This is a very pleasant hard of hearing 81 yo M, well-nourished, well- developed patient, in no apparent distress. HEAD: Atraumatic. Normocephalic. No temporal or scalp tenderness. EYES: Extraocular motions intact. No scleral icterus. No injection or drainage. Left eye cataract. ENT: Nose without bleeding, purulent drainage or septal hematoma. Throat without erythema, tonsillar hypertrophy or exudate. Uvula midline. Airway patent. CARDIOVASCULAR: Regular rate and rhythm without murmurs, gallops, or rubs. RESPIRATORY: Clear to auscultation. Breath sounds equal bilaterally. No wheezes , rales, or rhonchi. GASTROINTESTINAL: Abdomen slightly distended. Nontender. No hepato-splenomegaly , or palpable masses. No guarding. Decreased bowel sounds. MUSCULOSKELETAL: Extremities without clubbing, cyanosis, or edema. No joint tenderness, effusion, or edema noted. NEUROLOGICAL: Cranial nerves II through XII grossly intact. Hard of hearing. Motor and sensory grossly within normal limits. Five out of 5 muscle strength in all muscle groups. Normal speech. PSYCH: Mood and affect appropriate. 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 His blood pressure was in the 70s systolic. He responded to fluids. He is on diuretics as an outpatient. He reports urinating frequently. He was recently admitted to the hospital for altered mental status workup. CT of the head showed: stable diffuse cerebral atrophy and moderate to severe periventricular/subcortical white matter small vessel ischemic changes bilaterally. Chest x-ray unremarkable. The patient is afebrile. EKG with left bundle branch block, which is not new. Trops 0.05, 0.04 , 0.05. Blood sugar was not low. Found to be borderline orthostatic. Carotid duplex negative. TSH WNL. - 2D ECHO reviewed EF 35-40% combines systolic and diastolic dysfunction Consult cardiology , appreciate recommendations. - keep on telemetry. - Orthostatic vital signs daily. - hold blood pressure medications for now. Hold BB, hold cardizem. Patient might need a permanent PM if continues to be symptomatic. - Neuro checks. - PT/OT evaluations, major case detective consult. UTI probable, ruled out UA indicative of infection, which may be contributing to above episode. - IV ceftriaxone. -urine culture reviewed and are neg. DC abx . Patient is asymptomatic Pancytopenia Appears chronic. B12 borderline low at 204. - Received B12 IM injection x 1, continue 1000 mcg PO daily. - Follow CBC. - Check Hemoccult. - Outpatient follow-up. Hyperglycemia Glucose was 141 on admission. - Hemoglobin A1c 5.5. no diabetes PPx: SCDs Discharge Planning pending improvement and clearance from cardio Whitney Drake MD Dec 22, 2016 08:09
[2016-12-22] MEDS: DORZOLAMIDE/TIMOLOL OPTH SOLN 10 ML BTL RIGHT EYE SCH ×2 (08:13→20:59)
[2016-12-22 08:56] LABS: BICARBONATE 33.2 MEQ/L (21.0-32.0); POTASSIUM 3.6 MEQ/L (3.5-5.1)
[2016-12-22] MEDS: RAMIPRIL 5 MG CAP PO SCH (11:56)
--- NOTE | 2016-12-22 13:24 | PD.CARD.PN ---
Subjective Subjective Remarks alert in nad Objective Vital Signs / I&O Vital Signs Date Time Temp Pulse Resp B/P Pulse Ox O2 Delivery O2 Flow Rate FiO2 12/22/16 12:00 97.0 62 18 148/90 92 12/22/16 08:30 Room Air 12/22/16 08:30 59 12/22/16 08:00 98.4 52 18 131/71 99 12/22/16 04:00 Room Air 12/22/16 04:00 97.4 67 20 140/88 97 12/22/16 00:00 98.0 59 20 147/87 99 12/22/16 00:00 Room Air 12/21/16 21:40 98.4 70 19 171/74 93 12/21/16 20:00 57 12/21/16 20:00 Room Air 12/21/16 16:00 98.7 62 18 154/91 98 I/O 12/21/16 12/21/16 12/21/16 12/22/16 12/22/16 12/22/16 07:00 15:00 23:00 07:00 15:00 23:00 Intake Total 480 ml 400 ml 500 ml Balance 480 ml 400 ml 500 ml Intake Oral 480 ml 400 ml 500 ml # Voids 2 3 1 6 # Bowel Movements 1 0 0 0 Laboratory GENERAL: SKIN: Warm and dry. HEAD: Normocephalic. EYES: No scleral icterus. No injection or drainage. NECK: Supple, trachea midline. No JVD or lymphadenopathy. CARDIOVASCULAR: Regular rate and rhythm without murmurs, gallops, or rubs. RESPIRATORY: Breath sounds equal bilaterally. No accessory muscle use. GASTROINTESTINAL: Abdomen soft, non-tender, nondistended. MUSCULOSKELETAL: No cyanosis, or edema. BACK: Nontender without obvious deformity. No CVA tenderness. Laboratory Tests Test 12/22/16 07:40 Sodium Level 142 MEQ/L Potassium Level 3.6 MEQ/L Chloride Level 104 MEQ/L Carbon Dioxide Level 33.2 MEQ/L Anion Gap 5 MEQ/L Blood Urea Nitrogen 19 MG/DL Creatinine 0.85 MG/DL Estimat Glomerular Filtration 105 ML/MIN Rate Random Glucose 84 MG/DL Calcium Level 8.3 MG/DL B-Type Natriuretic Peptide 100 PG/ML Assessment and Plan Problem List: (1) Acute renal failure (2) Dementia (3) Impaired fasting glucose (4) Dehydration (5) Symptomatic hypotension (6) Syncope (7) Cardiomyopathy Assessment and Plan 1.) Cardiomyopathy - euvolemic, assymptomatic, beta harley held due to bradycardia, hypotension and syncope, increase altace 5 mg qd, rec cath if patient and/or family consents Problem Qualifiers (1) Syncope: Qualified Code: R55 - Syncope, unspecified syncope type Asim Richardson MD Dec 22, 2016 13:24
[2016-12-23] VITALS (7 sets, daily range): BP systolic 116–148; BP diastolic 67–90; PULSE 54–76; RESP 18–20; TEMP 97–98.7; O2SAT 97–99
[2016-12-23] MEDS: SODIUM CHLORIDE 0.9% FLUSH 10 ML FLUSH IV FLUSH SCH ×2 (09:00→20:55)
--- NOTE | 2016-12-23 11:13 | HHI.PR ---
Subjective Remarks Patient feeling very lightheaded/ dizzy. Associated sob. He is not able to get to the chair with PT. Patient denies having cp. NO motor deficit. No vertigo. Denies n/v/d/c. Objective Vitals Vital Signs Date Time Temp Pulse Resp B/P Pulse Ox O2 Delivery O2 Flow Rate FiO2 12/23/16 04:32 98.0 54 18 118/67 99 12/23/16 00:34 98.0 57 18 116/71 99 12/22/16 20:00 97.8 61 18 125/80 100 12/22/16 19:53 61 12/22/16 19:45 Room Air 12/22/16 16:00 97.0 54 18 131/74 97 12/22/16 12:00 97.0 62 18 148/90 92 I/O 12/22/16 12/22/16 12/22/16 12/23/16 12/23/16 12/23/16 07:00 15:00 23:00 07:00 15:00 23:00 Intake Total 500 ml 480 ml Output Total 200 ml 100 ml Balance 500 ml 480 ml -200 ml -100 ml Intake Oral 500 ml 480 ml Output Urine Total 200 ml 100 ml # Voids 6 3 # Bowel Movements 0 0 0 Result Diagram: 12/20/16 0152 12/22/16 0740 Imaging Last Impressions Head CT 12/19/163 Signed Impressions: Service Date/Time: Monday, December 19, 2016 14:58 - CONCLUSION: 1. Stable diffuse cerebral atrophy and moderate to severe periventricular/subcortical white matter small vessel ischemic changes bilaterally. 2. No acute infarct, acute hemorrhage, mass effect or extra-axial fluid collections. Preet Higgins MD Chest X-Ray 12/19/16 1333 Signed Impressions: Service Date/Time: Monday, December 19, 2016 14:37 - CONCLUSION: 1. No acute abnormality or significant interval change. Nash Ortega MD Carotid Artery Ultrasound 12/19/16 0000 Signed Impressions: Service Date/Time: Monday, December 19, 2016 18:42 - CONCLUSION: No evidence of hemodynamically significant carotid stenosis. Chalino Early MD Abdomen X-Ray 12/19/16 0000 Signed Impressions: Service Date/Time: Yuri, December 19, 2016 19:12 - CONCLUSION: Nonspecific bowel gas pattern. Chalino Early MD Objective Remarks GENERAL: This is a very pleasant hard of hearing 81 yo M, well-nourished, well- developed patient, in no apparent distress. HEAD: Atraumatic. Normocephalic. No temporal or scalp tenderness. EYES: Extraocular motions intact. No scleral icterus. No injection or drainage. Left eye cataract. ENT: Nose without bleeding, purulent drainage or septal hematoma. Throat without erythema, tonsillar hypertrophy or exudate. Uvula midline. Airway patent. CARDIOVASCULAR: Regular rate and rhythm without murmurs, gallops, or rubs. RESPIRATORY: Clear to auscultation. Breath sounds equal bilaterally. No wheezes , rales, or rhonchi. GASTROINTESTINAL: Abdomen slightly distended. Nontender. No hepato-splenomegaly , or palpable masses. No guarding. Decreased bowel sounds. MUSCULOSKELETAL: Extremities without clubbing, cyanosis, or edema. No joint tenderness, effusion, or edema noted. NEUROLOGICAL: Cranial nerves II through XII grossly intact. Hard of hearing. Motor and sensory grossly within normal limits. Five out of 5 muscle strength in all muscle groups. Normal speech. PSYCH: Mood and affect appropriate. 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 His blood pressure was in the 70s systolic. He responded to fluids. He is on diuretics as an outpatient. He reports urinating frequently. He was recently admitted to the hospital for altered mental status workup. CT of the head showed: stable diffuse cerebral atrophy and moderate to severe periventricular/subcortical white matter small vessel ischemic changes bilaterally. Chest x-ray unremarkable. The patient is afebrile. EKG with left bundle branch block, which is not new. Trops 0.05, 0.04 , 0.05. Blood sugar was not low. Found to be borderline orthostatic. Carotid duplex negative. TSH WNL. - 2D ECHO reviewed EF 35-40% combines systolic and diastolic dysfunction Consult cardiology , appreciate recommendations. - keep on telemetry. - Orthostatic vital signs daily. - hold blood pressure medications for now. Hold BB, hold cardizem. Patient might need a permanent PM if continues to be symptomatic per cardio. Patient with persistent symptoms. Will consult Dr Leon ANDERSON for eval of PM placement. Discussed with the patient and agrees to plan. - Neuro checks. - PT/OT evaluations, binder caser consult. UTI probable, ruled out UA indicative of infection, which may be contributing to above episode. - IV ceftriaxone. -urine culture reviewed and are neg. DC abx . Patient is asymptomatic Pancytopenia Appears chronic. B12 borderline low at 204. - Received B12 IM injection x 1, continue 1000 mcg PO daily. - Follow CBC. - Check Hemoccult. - Outpatient follow-up. Hyperglycemia Glucose was 141 on admission. - Hemoglobin A1c 5.5. no diabetes PPx: SCDs Discharge Planning pending improvement and clearance from cardio. With persistent symptoms consult Dr Leon ANDERSON for eval of PM placement Whitney Drake MD Dec 23, 2016 11:13
[2016-12-23] MEDS: DOCUSATE SODIUM 50 MG/SENNA 8.6 MG TAB PO SCH ×2 (11:54→20:51)
[2016-12-23] MEDS: CYANOCOBALAMIN 1,000 MCG TAB PO SCH (11:54)
[2016-12-23] MEDS: DORZOLAMIDE/TIMOLOL OPTH SOLN 10 ML BTL RIGHT EYE SCH ×2 (11:56→20:50)
[2016-12-23] MEDS: ASPIRIN EC 81 MG TABEC PO SCH (12:05)
[2016-12-23] MEDS: RAMIPRIL 5 MG CAP PO SCH (13:02)
[2016-12-23] MEDS: RAMIPRIL 2.5 MG CAP PO SCH (13:02)
--- NOTE | 2016-12-23 13:58 | PD.CARD.PN ---
Subjective Subjective Remarks alert in nad Objective Vital Signs / I&O Vital Signs Date Time Temp Pulse Resp B/P Pulse Ox O2 Delivery O2 Flow Rate FiO2 12/23/16 12:00 97.0 71 18 146/89 97 12/23/16 08:00 97.6 76 20 148/90 97 12/23/16 04:32 98.0 54 18 118/67 99 12/23/16 00:34 98.0 57 18 116/71 99 12/22/16 20:00 97.8 61 18 125/80 100 12/22/16 19:53 61 12/22/16 19:45 Room Air 12/22/16 16:00 97.0 54 18 131/74 97 I/O 12/22/16 12/22/16 12/22/16 12/23/16 12/23/16 12/23/16 07:00 15:00 23:00 07:00 15:00 23:00 Intake Total 500 ml 480 ml 200 ml Output Total 200 ml 100 ml Balance 500 ml 480 ml -200 ml -100 ml 200 ml Intake Oral 500 ml 480 ml 200 ml Output Urine Total 200 ml 100 ml # Voids 6 3 # Bowel Movements 0 0 0 Imaging GENERAL: SKIN: Warm and dry. HEAD: Normocephalic. EYES: No scleral icterus. No injection or drainage. NECK: Supple, trachea midline. No JVD or lymphadenopathy. CARDIOVASCULAR: Regular rate and rhythm without murmurs, gallops, or rubs. RESPIRATORY: Breath sounds equal bilaterally. No accessory muscle use. GASTROINTESTINAL: Abdomen soft, non-tender, nondistended. MUSCULOSKELETAL: No cyanosis, or edema. BACK: Nontender without obvious deformity. No CVA tenderness. Assessment and Plan Problem List: (1) Acute renal failure (2) Dementia (3) Impaired fasting glucose (4) Dehydration (5) Symptomatic hypotension (6) Syncope (7) Cardiomyopathy Assessment and Plan 1.) Cardiomyopathy - euvolemic, assymptomatic, beta harley held due to bradycardia, hypotension and syncope, increase altace 5 mg qd, rhc/lhc 12/24/16; i explained to patient in presence of nurse and charge nurse, Tasia, the risk of cath/pci is 5-10% chance of , mi, cva, need for cabg/surgery/dialysis/ blood transfusion, bleeding, infection, anaphylaxis, arrythmia, patient understands and consents to procedure, he does want to d/w his son as well Problem Qualifiers (1) Syncope: Qualified Code: R55 - Syncope, unspecified syncope type Asim Richardson MD Dec 23, 2016 13:58
[2016-12-24] VITALS (8 sets, daily range): BP systolic 119–134; BP diastolic 65–77; PULSE 54–63; RESP 16–18; TEMP 97.5–98.1; O2SAT 97–100
--- NOTE | 2016-12-24 09:03 | HHI.PR ---
Subjective Remarks In bed. Says she fees dizzy. He is sometimes sob. He is not doing well with PT 2 /2 dizziness and sob. No chest pain.No headache. Denies fever or chills. Objective Vitals Vital Signs Date Time Temp Pulse Resp B/P Pulse Ox O2 Delivery O2 Flow Rate FiO2 12/24/16 08:00 97.5 54 18 125/76 100 12/24/16 04:00 98.1 60 16 119/69 100 12/24/16 00:00 Room Air 12/24/16 00:00 97.5 60 16 130/65 100 12/23/16 20:55 Room Air 12/23/16 20:00 98.7 62 18 123/71 99 12/23/16 20:00 59 12/23/16 18:02 18 12/23/16 16:00 97.0 75 18 140/85 98 12/23/16 12:00 97.0 71 18 146/89 97 I/O 12/23/16 12/23/16 12/23/16 12/24/16 12/24/16 12/24/16 07:00 15:00 23:00 07:00 15:00 23:00 Intake Total 200 ml 240 ml 24 ml Output Total 100 ml Balance -100 ml 200 ml 240 ml 24 ml Intake Oral 200 ml 240 ml 0 ml IV Total 24 ml Output Urine Total 100 ml # Voids 1 # Bowel Movements 0 0 Result Diagram: 12/20/16 0152 12/22/16 0740 Imaging Last Impressions Head CT 12/19/16 1333 Signed Impressions: Service Date/Time: Monday, December 19, 2016 14:58 - CONCLUSION: 1. Stable diffuse cerebral atrophy and moderate to severe periventricular/subcortical white matter small vessel ischemic changes bilaterally. 2. No acute infarct, acute hemorrhage, mass effect or extra-axial fluid collections. Preet Higgins MD Chest X-Ray 12/19/16 1333 Signed Impressions: Service Date/Time: Monday, December 19, 2016 14:37 - CONCLUSION: 1. No acute abnormality or significant interval change. Nash Ortega MD Carotid Artery Ultrasound 12/19/16 0000 Signed Impressions: Service Date/Time: Monday, December 19, 2016 18:42 - CONCLUSION: No evidence of hemodynamically significant carotid stenosis. Chalino Early MD Abdomen X-Ray 12/19/16 0000 Signed Impressions: Service Date/Time: Monday, December 19, 2016 19:12 - CONCLUSION: Nonspecific bowel gas pattern. Chalino Early MD Objective Remarks GENERAL: This is a very pleasant hard of hearing 81 yo M, well-nourished, well- developed patient, in no apparent distress. HEAD: Atraumatic. Normocephalic. No temporal or scalp tenderness. EYES: Extraocular motions intact. No scleral icterus. No injection or drainage. Left eye cataract. ENT: Nose without bleeding, purulent drainage or septal hematoma. Throat without erythema, tonsillar hypertrophy or exudate. Uvula midline. Airway patent. CARDIOVASCULAR: Regular rate and rhythm without murmurs, gallops, or rubs. RESPIRATORY: Clear to auscultation. Breath sounds equal bilaterally. No wheezes , rales, or rhonchi. GASTROINTESTINAL: Abdomen slightly distended. Nontender. No hepato-splenomegaly , or palpable masses. No guarding. Decreased bowel sounds. MUSCULOSKELETAL: Extremities without clubbing, cyanosis, or edema. No joint tenderness, effusion, or edema noted. NEUROLOGICAL: Cranial nerves II through XII grossly intact. Hard of hearing. Motor and sensory grossly within normal limits. Five out of 5 muscle strength in all muscle groups. Normal speech. PSYCH: Mood and affect appropriate. 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 His blood pressure was in the 70s systolic. He responded to fluids. He is on diuretics as an outpatient. He reports urinating frequently. He was recently admitted to the hospital for altered mental status workup. CT of the head showed: stable diffuse cerebral atrophy and moderate to severe periventricular/subcortical white matter small vessel ischemic changes bilaterally. Chest x-ray unremarkable. The patient is afebrile. EKG with left bundle branch block, which is not new. Trops 0.05, 0.04 , 0.05. Blood sugar was not low. Found to be borderline orthostatic. Carotid duplex negative. TSH WNL. - 2D ECHO reviewed EF 35-40% combines systolic and diastolic dysfunction Consult cardiology , appreciate recommendations. - keep on telemetry. - Orthostatic vital signs daily. - hold blood pressure medications for now. Hold BB, hold cardizem. Patient might need a permanent PM if continues to be symptomatic per cardio. Patient with persistent symptoms. Will consult Dr Leon ANDERSON for eval of PM placement. Discussed with the patient and agrees to plan. - Neuro checks. - PT/OT evaluations, patient case manager consult. UTI probable, ruled out UA indicative of infection, which may be contributing to above episode. - IV ceftriaxone. -urine culture reviewed and are neg. DC abx . Patient is asymptomatic Pancytopenia Appears chronic. B12 borderline low at 204. - Received B12 IM injection x 1, continue 1000 mcg PO daily. - Follow CBC. - Check Hemoccult. - Outpatient follow-up. Hyperglycemia Glucose was 141 on admission. - Hemoglobin A1c 5.5. no diabetes PPx: SCDs Discharge Planning pending improvement and clearance from cardio. With persistent symptoms consult Dr Loen ANDERSON for eval of PM placement. Discussed with Dr Quintero, plan for PM poss tomorrow. Whitney Drake MD Dec 24, 2016 09:03
[2016-12-24] MEDS: DOCUSATE SODIUM 50 MG/SENNA 8.6 MG TAB PO SCH ×2 (09:33→20:54)
[2016-12-24] MEDS: DORZOLAMIDE/TIMOLOL OPTH SOLN 10 ML BTL RIGHT EYE SCH ×2 (09:33→20:54)
[2016-12-24] MEDS: SODIUM CHLORIDE 0.9% FLUSH 10 ML FLUSH IV FLUSH SCH ×2 (09:33→20:54)
[2016-12-24] MEDS: RAMIPRIL 5 MG CAP PO SCH (09:33)
[2016-12-24] MEDS: RAMIPRIL 2.5 MG CAP PO SCH (09:33)
[2016-12-24] MEDS: CYANOCOBALAMIN 1,000 MCG TAB PO SCH (09:33)
[2016-12-24] MEDS: ASPIRIN EC 81 MG TABEC PO SCH (09:33)
--- NOTE | 2016-12-24 14:56 | PD.CARD.PN ---
Subjective Subjective Remarks alert in nad Objective Vital Signs / I&O Vital Signs Date Time Temp Pulse Resp B/P Pulse Ox O2 Delivery O2 Flow Rate FiO2 12/24/16 12:00 98.1 59 18 134/77 97 12/24/16 09:43 55 12/24/16 09:43 Room Air 12/24/16 08:00 97.5 54 18 125/76 100 12/24/16 04:00 98.1 60 16 119/69 100 12/24/16 00:00 Room Air 12/24/16 00:00 97.5 60 16 130/65 100 12/23/16 20:55 Room Air 12/23/16 20:00 98.7 62 18 123/71 99 12/23/16 20:00 59 12/23/16 18:02 18 12/23/16 16:00 97.0 75 18 140/85 98 I/O 12/23/16 12/23/16 12/23/16 12/24/16 12/24/16 12/24/16 07:00 15:00 23:00 07:00 15:00 23:00 Intake Total 200 ml 240 ml 24 ml Output Total 100 ml Balance -100 ml 200 ml 240 ml 24 ml Intake Oral 200 ml 240 ml 0 ml IV Total 24 ml Output Urine Total 100 ml # Voids 1 # Bowel Movements 0 0 Physical Exam GENERAL: SKIN: Warm and dry. HEAD: Normocephalic. EYES: No scleral icterus. No injection or drainage. NECK: Supple, trachea midline. No JVD or lymphadenopathy. CARDIOVASCULAR: Regular rate and rhythm without murmurs, gallops, or rubs. RESPIRATORY: Breath sounds equal bilaterally. No accessory muscle use. GASTROINTESTINAL: Abdomen soft, non-tender, nondistended. MUSCULOSKELETAL: No cyanosis, or edema. BACK: Nontender without obvious deformity. No CVA tenderness. Assessment and Plan Problem List: (1) Acute renal failure (2) Dementia (3) Impaired fasting glucose (4) Dehydration (5) Symptomatic hypotension (6) Syncope (7) Cardiomyopathy Assessment and Plan 1.) Cardiomyopathy - euvolemic, assymptomatic, beta harley held due to bradycardia, hypotension and syncope, increase altace 5 mg qd, rhc/lhc 12/24/16; i explained to patient in presence of nurse and charge nurse, Tasia, the risk of cath/pci is 5-10% chance of , mi, cva, need for cabg/surgery/dialysis/ blood transfusion, bleeding, infection, anaphylaxis, arrythmia, patient understands and consents to procedure, he does want to d/w his son as well; patient not competeant to consent, will need to identify legal surrogate and they would need to sign consent in order to proceed with cath, d/w charge nurse Problem Qualifiers (1) Syncope: Qualified Code: R55 - Syncope, unspecified syncope type Asim Richardson MD Dec 24, 2016 14:56
--- NOTE | 2016-12-24 22:00 | MB ---
cc: RIOS HOWELL M.D., HANSCY M.D. DATE OF CONSULTATION 12/24/16 ELECTROPHYSIOLOGY CONSULT REASON FOR CONSULTATION Bradycardia. HISTORY OF PRESENT ILLNESS Mr. Case is an 81-year-old -[place] gentleman with history of dementia, prostate cancer, CHF, TIA, anemia, glaucoma, admitted due to hypotension and syncopal episode. The gentleman was found by bystanders on his porch. [facility] was called. Systolic blood pressure on hospitalization was 70, IV fluid was given. The patient has some bradycardia also. Evaluated by Dr. Howell. I was consult for evaluation and management. The chart was reviewed. The patient was evaluated. ALLERGIES None reported. SOCIAL HISTORY. Social history is negative for smoking and drinking. FAMILY HISTORY Noncontributory to his current medical condition. MEDICATIONS The gentleman is on: 1. Acetaminophen. 2. Aspirin. 3. Altace. 4. Senokot. REVIEW OF SYSTEMS He refers feeling better. No chest pain. No chest discomfort. No fever. PHYSICAL EXAMINATION GENERAL: Alert, fully oriented. VITAL SIGNS: His blood pressure is 125/76, pulse 54, respiratory rate 18. LUNGS: Ventilated CARDIOVASCULAR: S1-S2, regular. No gallop. ABDOMEN: Soft. No mass. EXTREMITIES: With no edema. DATA Telemetry shows sinus rhythm. Electrocardiogram during hospitalization showed sinus rhythm, left bundle-branch block. LABORATORY DATA Hemoglobin is 10.6, white blood cell 5.8, potassium is 3.6, creatinine is 0.85. Troponin 0.05, INR 1.0. ASSESSMENT AND RECOMMENDATIONS Mr. Case was found on the floor. There is no clear syncopal episode. Also, his systolic blood pressure at the ER was 70. That was clear sign of dehydration. He has bradycardia. The heart rate was in the 50s, 60s, sometime going to 70s. But the gentleman is not active. He has a history of dementia. At this point my recommendation is observation. If there is significant drop in heart rate and the patient is symptomatic then I will consider permanent pacemaker insertion. Case discussed with the patient. I am not sure the patient fully understands the conversation. He has a son, I will tried to talk to the son and discuss the case with him. Case also was discussed with Dr. Howell. MD HONEY Pereira /7:19 PM /9:52 PM
[2016-12-25] VITALS (9 sets, daily range): BP systolic 112–153; BP diastolic 56–83; PULSE 51–57; RESP 16–18; TEMP 97.7–98.5; O2SAT 97–100
[2016-12-25] MEDS: SODIUM CHLORIDE 0.9% FLUSH 10 ML FLUSH IV FLUSH SCH ×2 (09:00→21:26)
[2016-12-25] MEDS: RAMIPRIL 5 MG CAP PO SCH (09:01)
[2016-12-25] MEDS: ASPIRIN EC 81 MG TABEC PO SCH (09:01)
[2016-12-25] MEDS: CYANOCOBALAMIN 1,000 MCG TAB PO SCH (09:01)
[2016-12-25] MEDS: DOCUSATE SODIUM 50 MG/SENNA 8.6 MG TAB PO SCH ×2 (09:02→21:26)
[2016-12-25] MEDS: RAMIPRIL 2.5 MG CAP PO SCH (09:02)
[2016-12-25] MEDS: DORZOLAMIDE/TIMOLOL OPTH SOLN 10 ML BTL RIGHT EYE SCH ×2 (09:03→21:24)
--- NOTE | 2016-12-25 09:08 | HHI.PR ---
Subjective Remarks Says he doesn't feel dizzy today. No sob. Has sob with ambulation. No f/c. Denies n/v/d/c. Spoke with the patient and son , patient decided will postpone PM placement. Patient will like to go to snf . Objective Vitals Vital Signs Date Time Temp Pulse Resp B/P Pulse Ox O2 Delivery O2 Flow Rate FiO2 12/25/16 04:00 98.0 52 18 112/66 98 12/25/16 03:47 Room Air 12/25/16 01:09 Room Air 12/25/16 00:00 98.5 55 18 114/56 98 12/24/16 21:20 Room Air 12/24/16 20:04 58 12/24/16 20:00 97.7 63 18 125/71 99 12/24/16 16:00 98.0 58 18 124/70 100 12/24/16 12:00 98.1 59 18 134/77 97 12/24/16 09:43 55 12/24/16 09:43 Room Air I/O 12/24/16 12/24/16 12/24/16 12/25/16 12/25/16 12/25/16 07:00 15:00 23:00 07:00 15:00 23:00 Intake Total 24 ml 480 ml 242 ml 0 ml Balance 24 ml 480 ml 242 ml 0 ml Intake Oral 0 ml 480 ml 240 ml 0 ml IV Total 24 ml 2 ml # Voids 1 4 2 1 # Bowel Movements 0 1 1 1 Result Diagram: 12/22/16 0740 Imaging Last Impressions Head CT 12/19/16 1333 Signed Impressions: Service Date/Time: Monday, December 19, 2016 14:58 - CONCLUSION: 1. Stable diffuse cerebral atrophy and moderate to severe periventricular/subcortical white matter small vessel ischemic changes bilaterally. 2. No acute infarct, acute hemorrhage, mass effect or extra-axial fluid collections. Preet Higgins MD Chest X-Ray 12/19/16 1333 Signed Impressions: Service Date/Time: Monday, December 19, 2016 14:37 - CONCLUSION: 1. No acute abnormality or significant interval change. Nash Ortega MD Carotid Artery Ultrasound 12/19/16 0000 Signed Impressions: Service Date/Time: Monday, December 19, 2016 18:42 - CONCLUSION: No evidence of hemodynamically significant carotid stenosis. Chalino Early MD Abdomen X-Ray 12/19/16 0000 Signed Impressions: Service Date/Time: Monday, December 19, 2016 19:12 - CONCLUSION: Nonspecific bowel gas pattern. Chalino Early MD Objective Remarks GENERAL: This is a very pleasant hard of hearing 81 yo M, well-nourished, well- developed patient, in no apparent distress. HEAD: Atraumatic. Normocephalic. No temporal or scalp tenderness. EYES: Extraocular motions intact. No scleral icterus. No injection or drainage. Left eye cataract. ENT: Nose without bleeding, purulent drainage or septal hematoma. Throat without erythema, tonsillar hypertrophy or exudate. Uvula midline. Airway patent. CARDIOVASCULAR: Regular rate and rhythm without murmurs, gallops, or rubs. RESPIRATORY: Clear to auscultation. Breath sounds equal bilaterally. No wheezes , rales, or rhonchi. GASTROINTESTINAL: Abdomen slightly distended. Nontender. No hepato-splenomegaly , or palpable masses. No guarding. Decreased bowel sounds. MUSCULOSKELETAL: Extremities without clubbing, cyanosis, or edema. No joint tenderness, effusion, or edema noted. NEUROLOGICAL: Cranial nerves II through XII grossly intact. Hard of hearing. Motor and sensory grossly within normal limits. Five out of 5 muscle strength in all muscle groups. Normal speech. PSYCH: Mood and affect appropriate. 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 Cardiomyopathy The patient was found slumped over in his porch. His blood pressure was in the 70s systolic. He responded to fluids. He is on diuretics as an outpatient. He reports urinating frequently. He was recently admitted to the hospital for altered mental status workup. CT of the head showed: stable diffuse cerebral atrophy and moderate to severe periventricular/subcortical white matter small vessel ischemic changes bilaterally. Chest x-ray unremarkable. The patient is afebrile. EKG with left bundle branch block, which is not new. Trops 0.05, 0.04 , 0.05. Blood sugar was not low. Found to be borderline orthostatic. Carotid duplex negative. TSH WNL. - 2D ECHO reviewed EF 35-40% combines systolic and diastolic dysfunction Consult cardiology , appreciate recommendations. - keep on telemetry. - Orthostatic vital signs daily. - hold blood pressure medications for now. DC BB, and verapamil. No CCB or BB. Start ramipril. continue at DC. Patient might need a permanent PM if continues to be symptomatic per cardio. Patient with persistent symptoms. Will consult Dr Leon ANDERSON for eval of PM placement. Discussed with the patient and his sone, they decided no PM and plan for SNF - Neuro checks. - PT/OT evaluations, outpatient case manager consult. UTI probable, ruled out UA indicative of infection, which may be contributing to above episode. - IV ceftriaxone. -urine culture reviewed and are neg. DC abx . Patient is asymptomatic Pancytopenia Appears chronic. B12 borderline low at 204. - Received B12 IM injection x 1, continue 1000 mcg PO daily. - Follow CBC. - Check Hemoccult. - Outpatient follow-up. Hyperglycemia Glucose was 141 on admission. - Hemoglobin A1c 5.5. no diabetes PPx: SCDs Discharge Planning pending improvement and clearance from cardio. With persistent symptoms consult Dr Leon ANDERSON for eval of PM placement. Discussed with Dr Quintero, plan for PM. Patient/son however decided doesn't want PM placement and will like to go to SNF. Discharge in stable condition to SNF to follow up as OP with PCP and consultants. Discussed with the patient. nurse, patients son, case management. Whitney Drake MD Dec 25, 2016 09:08
[2016-12-25] MEDS ORDERED: VITA10002 PO (11:05)
--- NOTE | 2016-12-25 11:05 | HHI.DS ---
Discharge Summary Admission Date Dec 23, 2016 at 10:58 Discharge Date: Dec 26, 2016 Admitting Diagnosis syncope, symptomatic hypotension (1) Syncope ICD Code: R55 Diagnosis: Principal (2) Symptomatic bradycardia ICD Code: R00.1 Diagnosis: Principal (3) Cardiomyopathy ICD Code: I42.9 Diagnosis: Principal (4) Dehydration ICD Code: E86.0 Diagnosis: Secondary (5) Acute renal failure ICD Code: N17.9 Diagnosis: Secondary (6) Dementia ICD Code: F03.90 Diagnosis: Secondary (7) Thrombocytopenia ICD Code: D69.6 Diagnosis: Secondary Procedures none Brief History - From Admission The patient is an 81-year-old male with past medical history of dementia, prostate cancer, TIA, CHF and glaucoma who is presenting to the hospital after being found unresponsive. Per report the patient was found by bystanders earlier today slumped over on his porch. EMS was called and the patient's blood pressure was in the 70s systolic. He received fluids and was transferred to the hospital. His mentation slowly improved. The patient does not recall exactly what happened. He knows he is in the hospital in [facility] but does not know the date and is not sure of the president. He says he has been urinating frequently recently. He says he has had urinary incontinence. He denies any fevers. He states he lives with his son. He says he has been eating well. He says he doesn't drink much because it makes him urinate frequently. CBC/BMP: 12/22/16 0740 Imaging Last Impressions Head CT 12/19/16 1333 Signed Impressions: Service Date/Time: Monday, December 19, 2016 14:58 - CONCLUSION: 1. Stable diffuse cerebral atrophy and moderate to severe periventricular/subcortical white matter small vessel ischemic changes bilaterally. 2. No acute infarct, acute hemorrhage, mass effect or extra-axial fluid collections. Preet Higgins MD Chest X-Ray 12/19/16 1333 Signed Impressions: Service Date/Time: Monday, December 19, 2016 14:37 - CONCLUSION: 1. No acute abnormality or significant interval change. Nash Ortega MD Carotid Artery Ultrasound 12/19/16 0000 Signed Impressions: Service Date/Time: Monday, December 19, 2016 18:42 - CONCLUSION: No evidence of hemodynamically significant carotid stenosis. Chalino Early MD Abdomen X-Ray 12/19/16 0000 Signed Impressions: Service Date/Time: Monday, December 19, 2016 19:12 - CONCLUSION: Nonspecific bowel gas pattern. Chalino Early MD PE at Discharge GENERAL: This is a very pleasant hard of hearing 81 yo M, well-nourished, well- developed patient, in no apparent distress. HEAD: Atraumatic. Normocephalic. No temporal or scalp tenderness. EYES: Extraocular motions intact. No scleral icterus. No injection or drainage. Left eye cataract. ENT: Nose without bleeding, purulent drainage or septal hematoma. Throat without erythema, tonsillar hypertrophy or exudate. Uvula midline. Airway patent. CARDIOVASCULAR: Regular rate and rhythm without murmurs, gallops, or rubs. RESPIRATORY: Clear to auscultation. Breath sounds equal bilaterally. No wheezes , rales, or rhonchi. GASTROINTESTINAL: Abdomen slightly distended. Nontender. No hepato-splenomegaly , or palpable masses. No guarding. Decreased bowel sounds. MUSCULOSKELETAL: Extremities without clubbing, cyanosis, or edema. No joint tenderness, effusion, or edema noted. NEUROLOGICAL: Cranial nerves II through XII grossly intact. Hard of hearing. Motor and sensory grossly within normal limits. Five out of 5 muscle strength in all muscle groups. Normal speech. PSYCH: Mood and affect appropriate. Pt update on day of discharge In bed, appears in nad. No n/v/d/c. Denies chest pain or sob. No lightheadedness. 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 Cardiomyopathy The patient was found slumped over in his porch. His blood pressure was in the 70s systolic. He responded to fluids. He is on diuretics as an outpatient. He reports urinating frequently. He was recently admitted to the hospital for altered mental status workup. CT of the head showed: stable diffuse cerebral atrophy and moderate to severe periventricular/subcortical white matter small vessel ischemic changes bilaterally. Chest x-ray unremarkable. The patient is afebrile. EKG with left bundle branch block, which is not new. Trops 0.05, 0.04 , 0.05. Blood sugar was not low. Found to be borderline orthostatic. Carotid duplex negative. TSH WNL. - 2D ECHO reviewed EF 35-40% combines systolic and diastolic dysfunction Consult cardiology , appreciate recommendations. - keep on telemetry. - Orthostatic vital signs daily. - hold blood pressure medications for now. DC BB, and verapamil. No CCB or BB. Start ramipril. continue at DC. Patient might need a permanent PM if continues to be symptomatic per cardio. Patient with persistent symptoms. Will consult Dr Leon ANDERSON for eval of PM placement. Discussed with the patient and his sone, they decided no PM and plan for SNF - Neuro checks. - PT/OT evaluations, family independence case manager consult. UTI probable, ruled out UA indicative of infection, which may be contributing to above episode. - IV ceftriaxone. -urine culture reviewed and are neg. DC abx . Patient is asymptomatic Pancytopenia Appears chronic. B12 borderline low at 204. - Received B12 IM injection x 1, continue 1000 mcg PO daily. - Follow CBC. - Check Hemoccult. - Outpatient follow-up. Hyperglycemia Glucose was 141 on admission. - Hemoglobin A1c 5.5. no diabetes PPx: SCDs Discharge Planning pending improvement and clearance from cardio. With persistent symptoms consult Dr Leon ANDERSON for eval of PM placement. Discussed with Dr Quintero, plan for PM. Patient/son however decided doesn't want PM placement and will like to go to SNF. Discharge in stable condition to SNF to follow up as OP with PCP and consultants. Pt Condition on Discharge: Stable Discharge Disposition: Discharge to SNF Discharge Time: > 30 minutes Discharge Instructions DIET: Follow Instructions for: As Tolerated, No Restrictions Activities you can perform: Regular-No Restrictions Follow up Referrals: Cardiology - 2 Weeks PCP Follow-up - 3-5 Days New Medications: Ramipril (Ramipril) 5 Mg Cap 5 MG PO DAILY Blood Pressure Management #30 Ref 0 CAP Cyanocobalamin (Vitamin B-12) 1,000 Mcg Tab 1000 MCG PO DAILY vit supplemen #60 TAB Continued Medications: Acetaminophen (Mapap) 325 Mg Tab 650 MG PO Q4HR PRN PAIN/FEVER Ref [address] (Aspir-81) 81 Mg Tabdr 81 MG PO DAILY Dorzolamide-Timolol Pf Opth Drops (Cosopt Pf Opth Drops) 22.3-6.8 mg/ml Soln 1 DROP RIGHT EYE BID Glaucoma #1 Ref 0 BOTTLE Furosemide (Lasix) 20 Mg Tab 20 MG PO DAILY #30 Ref 0 TAB Potassium Chloride ER (K-Tab) 10 Meq Tab 10 MEQ PO DAILY Electrolyte Replacement #30 Ref 0 TAB Sennosides-Docusate Sodium (Senna Plus 8.6-50 mg) 1 Tab Tab 1 TAB PO DAILY PRN CONSTIPATION Discontinued Medications: Verapamil ER (Verapamil ER) 120 Mg Tab 120 MG PO DAILY TAB Whitney Drake MD Dec 25, 2016 11:05 Whitney Drake MD Dec 25, 2016 11:05
[2016-12-25] MEDS ORDERED: RAMI5CAP PO (11:07)
--- NOTE | 2016-12-25 12:05 | HHI.PR ---
Subjective Remarks Feeling ok Objective Vital Signs Date Time Temp Pulse Resp B/P Pulse Ox O2 Delivery O2 Flow Rate FiO2 12/25/16 04:00 98.0 52 18 112/66 98 12/25/16 03:47 Room Air 12/25/16 01:09 Room Air 12/25/16 00:00 98.5 55 18 114/56 98 12/24/16 21:20 Room Air 12/24/16 20:04 58 12/24/16 20:00 97.7 63 18 125/71 99 12/24/16 16:00 98.0 58 18 124/70 100 I/O 12/24/16 12/24/16 12/24/16 12/25/16 12/25/16 12/25/16 07:00 15:00 23:00 07:00 15:00 23:00 Intake Total 24 ml 480 ml 242 ml 0 ml Balance 24 ml 480 ml 242 ml 0 ml Intake Oral 0 ml 480 ml 240 ml 0 ml IV Total 24 ml 2 ml # Voids 1 4 2 1 # Bowel Movements 0 1 1 1 Result Diagram: 12/22/16 0740 Imaging Alert, fully oriented Lungs: ventilated Heart: S1, S2 bradycardia Abdomen: soft, no mass Ext: no edema Last Impressions Head CT 12/19/16 1333 Signed Impressions: Service Date/Time: Monday, December 19, 2016 14:58 - CONCLUSION: 1. Stable diffuse cerebral atrophy and moderate to severe periventricular/subcortical white matter small vessel ischemic changes bilaterally. 2. No acute infarct, acute hemorrhage, mass effect or extra-axial fluid collections. Preet Higgins MD Chest X-Ray 12/19/16 1333 Signed Impressions: Service Date/Time: Monday, December 19, 2016 14:37 - CONCLUSION: 1. No acute abnormality or significant interval change. Nash Ortega MD Carotid Artery Ultrasound 12/19/16 0000 Signed Impressions: Service Date/Time: Monday, December 19, 2016 18:42 - CONCLUSION: No evidence of hemodynamically significant carotid stenosis. Chalino Early MD Abdomen X-Ray 12/19/16 0000 Signed Impressions: Service Date/Time: Monday, December 19, 2016 19:12 - CONCLUSION: Nonspecific bowel gas pattern. Chalino Early MD Current Medications Medications (Trade) Dose Ordered Sig/Shayan Route Start Time Stop Time Status Last Admin (Tylenol) 650 mg Q4H PRN PO 12/19/16 17:45 (Ecotrin Ec) 81 mg DAILY PO 12/20/16 09:00 12/25/16 09:01 (Cosopt 2-0.5% Opth Soln) 1 drop BID RIGHT EYE 12/19/16 21:00 12/25/16 09:03 (Morena-Colace) 1 tab DAILY PRN PO 12/19/16 17:45 (NS Flush) 2 ml UNSCH PRN IV FLUSH 12/19/16 18:00 (NS Flush) 2 ml BID IV FLUSH 12/19/16 21:00 12/25/16 09:00 (Narcan Inj) 0.4 mg UNSCH PRN IV 12/19/16 18:00 (Morena-Colace) 1 tab BID PO 12/19/16 21:00 12/25/16 09:02 (Milk Of Magnesia Liq) 30 ml Q12H PRN PO 12/19/16 18:00 (Senokot) 17.2 mg Q12H PRN PO 12/19/16 18:00 (Dulcolax Supp) 10 mg DAILY PRN RECTAL 12/19/16 18:00 (Vitamin B12) 1,000 mcg DAILY PO 12/21/16 09:00 12/25/16 09:01 (Altace) 2.5 mg DAILY PO 12/22/16 09:00 12/25/16 09:02 (Altace) 5 mg DAILY PO 12/22/16 09:00 12/25/16 09:01 Assessment and Plan Problem List: (1) Syncope Status: Acute Plan: No new episode reported. In bed Refers some dizziness (2) Symptomatic bradycardia Status: Acute Plan: Symptomatic bradycardia Family and patient decide not to have a pacer implanted now. The son wants him to be transferred to a [facility] and will reevaluate their decision in 2 weeks. Case discussed with Dr Drake. I will be available on a PRN basis. Problem Qualifiers (1) Syncope: Qualified Code: R55 - Syncope, unspecified syncope type Che Quintero MD Dec 25, 2016 12:05
--- NOTE | 2016-12-25 13:23 | HHI.PR ---
Subjective Remarks Patient in bed. He and his sone decided will not do PM placement. he would prefer to go to SNF and will consider later PM placement. No n/v/d/c. denies chest pain, sob. Objective Vitals Vital Signs Date Time Temp Pulse Resp B/P Pulse Ox O2 Delivery O2 Flow Rate FiO2 12/25/16 04:00 98.0 52 18 112/66 98 12/25/16 03:47 Room Air 12/25/16 01:09 Room Air 12/25/16 00:00 98.5 55 18 114/56 98 12/24/16 21:20 Room Air 12/24/16 20:04 58 12/24/16 20:00 97.7 63 18 125/71 99 12/24/16 16:00 98.0 58 18 124/70 100 I/O 12/24/16 12/24/16 12/24/16 12/25/16 12/25/16 12/25/16 07:00 15:00 23:00 07:00 15:00 23:00 Intake Total 24 ml 480 ml 242 ml 0 ml Balance 24 ml 480 ml 242 ml 0 ml Intake Oral 0 ml 480 ml 240 ml 0 ml IV Total 24 ml 2 ml # Voids 1 4 2 1 # Bowel Movements 0 1 1 1 Result Diagram: 12/22/16 0740 Imaging Last Impressions Head CT 12/19/16 1333 Signed Impressions: Service Date/Time: Monday, December 19, 2016 14:58 - CONCLUSION: 1. Stable diffuse cerebral atrophy and moderate to severe periventricular/subcortical white matter small vessel ischemic changes bilaterally. 2. No acute infarct, acute hemorrhage, mass effect or extra-axial fluid collections. Preet Higgins MD Chest X-Ray 12/19/16 1333 Signed Impressions: Service Date/Time: Monday, December 19, 2016 14:37 - CONCLUSION: 1. No acute abnormality or significant interval change. Nash Ortega MD Carotid Artery Ultrasound 12/19/16 0000 Signed Impressions: Service Date/Time: Monday, December 19, 2016 18:42 - CONCLUSION: No evidence of hemodynamically significant carotid stenosis. Chalino Early MD Abdomen X-Ray 12/19/16 0000 Signed Impressions: Service Date/Time: Monday, December 19, 2016 19:12 - CONCLUSION: Nonspecific bowel gas pattern. Chalino Early MD Objective Remarks GENERAL: This is a very pleasant hard of hearing 81 yo M, well-nourished, well- developed patient, in no apparent distress. HEAD: Atraumatic. Normocephalic. No temporal or scalp tenderness. EYES: Extraocular motions intact. No scleral icterus. No injection or drainage. Left eye cataract. ENT: Nose without bleeding, purulent drainage or septal hematoma. Throat without erythema, tonsillar hypertrophy or exudate. Uvula midline. Airway patent. CARDIOVASCULAR: Regular rate and rhythm without murmurs, gallops, or rubs. RESPIRATORY: Clear to auscultation. Breath sounds equal bilaterally. No wheezes , rales, or rhonchi. GASTROINTESTINAL: Abdomen slightly distended. Nontender. No hepato-splenomegaly , or palpable masses. No guarding. Decreased bowel sounds. MUSCULOSKELETAL: Extremities without clubbing, cyanosis, or edema. No joint tenderness, effusion, or edema noted. NEUROLOGICAL: Cranial nerves II through XII grossly intact. Hard of hearing. Motor and sensory grossly within normal limits. Five out of 5 muscle strength in all muscle groups. Normal speech. PSYCH: Mood and affect appropriate. 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 Cardiomyopathy. The patient was found slumped over in his porch. His blood pressure was in the 70s systolic. He responded to fluids. He is on diuretics as an outpatient. He reports urinating frequently. He was recently admitted to the hospital for altered mental status workup. CT of the head showed: stable diffuse cerebral atrophy and moderate to severe periventricular/subcortical white matter small vessel ischemic changes bilaterally. Chest x-ray unremarkable. The patient is afebrile. EKG with left bundle branch block, which is not new. Trops 0.05, 0.04 , 0.05. Blood sugar was not low. Found to be borderline orthostatic. Carotid duplex negative. TSH WNL. - 2D ECHO reviewed EF 35-40% combines systolic and diastolic dysfunction Consult cardiology , appreciate recommendations. - keep on telemetry. - Orthostatic vital signs daily. - hold blood pressure medications for now. DC BB, and verapamil. No CCB or BB. Start ramipril. continue at DC. Patient might need a permanent PM if continues to be symptomatic per cardio. Patient with persistent symptoms. Will consult Dr Leon ANDERSON for eval of PM placement. Discussed with the patient and his sone, they decided no PM and plan for SNF - Neuro checks. - PT/OT evaluations, medical case manager consult. UTI probable, ruled out UA indicative of infection, which may be contributing to above episode. - IV ceftriaxone. -urine culture reviewed and are neg. DC abx . Patient is asymptomatic Pancytopenia Appears chronic. B12 borderline low at 204. - Received B12 IM injection x 1, continue 1000 mcg PO daily. - Follow CBC. - Check Hemoccult. - Outpatient follow-up. Hyperglycemia Glucose was 141 on admission. - Hemoglobin A1c 5.5. no diabetes PPx: SCDs Discharge Planning pending improvement and clearance from cardio. With persistent symptoms consult Dr Leon ANDERSON for eval of PM placement. Discussed with Dr Quintero, plan for PM. Patient/son however decided doesn't want PM placement and will like to go to SNF. Discharge in stable condition to SNF to follow up as OP with PCP and consultants. Discussed with the patient, nurse, patients son, case management. Problem Qualifiers (1) Syncope: Qualified Code: R55 - Syncope, unspecified syncope type Whitney Drake MD Dec 25, 2016 13:23
--- NOTE | 2016-12-25 14:00 | PD.CARD.PN ---
Subjective Subjective Remarks alert in nad Objective Vital Signs / I&O Vital Signs Date Time Temp Pulse Resp B/P Pulse Ox O2 Delivery O2 Flow Rate FiO2 12/25/16 04:00 98.0 52 18 112/66 98 12/25/16 03:47 Room Air 12/25/16 01:09 Room Air 12/25/16 00:00 98.5 55 18 114/56 98 12/24/16 21:20 Room Air 12/24/16 20:04 58 12/24/16 20:00 97.7 63 18 125/71 99 12/24/16 16:00 98.0 58 18 124/70 100 I/O 12/24/16 12/24/16 12/24/16 12/25/16 12/25/16 12/25/16 07:00 15:00 23:00 07:00 15:00 23:00 Intake Total 24 ml 480 ml 242 ml 0 ml Balance 24 ml 480 ml 242 ml 0 ml Intake Oral 0 ml 480 ml 240 ml 0 ml IV Total 24 ml 2 ml # Voids 1 4 2 1 # Bowel Movements 0 1 1 1 Physical Exam GENERAL: SKIN: Warm and dry. HEAD: Normocephalic. EYES: No scleral icterus. No injection or drainage. NECK: Supple, trachea midline. No JVD or lymphadenopathy. CARDIOVASCULAR: Regular rate and rhythm without murmurs, gallops, or rubs. RESPIRATORY: Breath sounds equal bilaterally. No accessory muscle use. GASTROINTESTINAL: Abdomen soft, non-tender, nondistended. MUSCULOSKELETAL: No cyanosis, or edema. BACK: Nontender without obvious deformity. No CVA tenderness. GENERAL: SKIN: Warm and dry. HEAD: Normocephalic. EYES: No scleral icterus. No injection or drainage. NECK: Supple, trachea midline. No JVD or lymphadenopathy. CARDIOVASCULAR: Regular rate and rhythm without murmurs, gallops, or rubs. RESPIRATORY: Breath sounds equal bilaterally. No accessory muscle use. GASTROINTESTINAL: Abdomen soft, non-tender, nondistended. MUSCULOSKELETAL: No cyanosis, or edema. BACK: Nontender without obvious deformity. No CVA tenderness. Assessment and Plan Problem List: (1) Acute renal failure (2) Dementia (3) Impaired fasting glucose (4) Dehydration (5) Symptomatic hypotension (6) Syncope (7) Cardiomyopathy Assessment and Plan 1.) Cardiomyopathy - euvolemic, assymptomatic, beta harley held due to bradycardia, hypotension and syncope, increase altace 5 mg qd, rhc/lhc 12/24/16; i explained to patient in presence of nurse and charge nurse, Tasia, the risk of cath/pci is 5-10% chance of , mi, cva, need for cabg/surgery/dialysis/ blood transfusion, bleeding, infection, anaphylaxis, arrythmia, patient understands and consents to procedure, he does want to d/w his son as well; patient not competeant to consent, will need to identify legal surrogate and they would need to sign consent in order to proceed with cath, d/w charge nurse 2.) d/w charge nurse, Tasia, son is legal surrogate and he refuses cath and ppm, rec f/u with me in office [place] Problem Qualifiers (1) Syncope: Qualified Code: R55 - Syncope, unspecified syncope type Asim Richardson MD Dec 25, 2016 14:00
[2016-12-26 00:13] VITALS: BP 147/85; PULSE 55; RESP 20; TEMP 98.2; O2SAT 100
[2016-12-26 04:00] VITALS: BP 136/74; PULSE 56; RESP 20; TEMP 98.2; O2SAT 99
[2016-12-26 08:00] VITALS: BP 150/78; PULSE 58; RESP 18; TEMP 96.4; O2SAT 99
[2016-12-26 08:07] VITALS: PULSE 63; PULSE 67
--- NOTE | 2016-12-26 09:56 | PD.CARD.PN ---
Subjective Subjective Remarks alert in nad Objective Vital Signs / I&O Vital Signs Date Time Temp Pulse Resp B/P Pulse Ox O2 Delivery O2 Flow Rate FiO2 12/26/16 08:00 96.4 58 18 150/78 99 12/26/16 04:00 98.2 56 20 136/74 99 12/26/16 00:13 98.2 55 20 147/85 100 12/25/16 20:11 57 12/25/16 20:00 Room Air 12/25/16 20:00 98.2 55 18 139/83 97 12/25/16 17:55 98.1 52 16 121/62 12/25/16 17:46 Room Air 12/25/16 16:00 98.1 52 16 121/62 100 12/25/16 12:00 97.7 53 18 153/82 100 I/O 12/25/16 12/25/16 12/25/16 12/26/16 12/26/16 12/26/16 07:00 15:00 23:00 07:00 15:00 23:00 Intake Total 0 ml 600 ml 120 ml 240 ml Balance 0 ml 600 ml 120 ml 240 ml Intake Oral 0 ml 600 ml 120 ml 240 ml IV Total 0 ml # Voids 1 3 1 2 # Bowel Movements 1 1 0 Physical Exam GENERAL: SKIN: Warm and dry. HEAD: Normocephalic. EYES: No scleral icterus. No injection or drainage. NECK: Supple, trachea midline. No JVD or lymphadenopathy. CARDIOVASCULAR: Regular rate and rhythm without murmurs, gallops, or rubs. RESPIRATORY: Breath sounds equal bilaterally. No accessory muscle use. GASTROINTESTINAL: Abdomen soft, non-tender, nondistended. MUSCULOSKELETAL: No cyanosis, or edema. BACK: Nontender without obvious deformity. No CVA tenderness. GENERAL: SKIN: Warm and dry. HEAD: Normocephalic. EYES: No scleral icterus. No injection or drainage. NECK: Supple, trachea midline. No JVD or lymphadenopathy. CARDIOVASCULAR: Regular rate and rhythm without murmurs, gallops, or rubs. RESPIRATORY: Breath sounds equal bilaterally. No accessory muscle use. GASTROINTESTINAL: Abdomen soft, non-tender, nondistended. MUSCULOSKELETAL: No cyanosis, or edema. BACK: Nontender without obvious deformity. No CVA tenderness. Imaging GENERAL: SKIN: Warm and dry. HEAD: Normocephalic. EYES: No scleral icterus. No injection or drainage. NECK: Supple, trachea midline. No JVD or lymphadenopathy. CARDIOVASCULAR: Regular rate and rhythm without murmurs, gallops, or rubs. RESPIRATORY: Breath sounds equal bilaterally. No accessory muscle use. GASTROINTESTINAL: Abdomen soft, non-tender, nondistended. MUSCULOSKELETAL: No cyanosis, or edema. BACK: Nontender without obvious deformity. No CVA tenderness. Assessment and Plan Problem List: (1) Acute renal failure (2) Dementia (3) Impaired fasting glucose (4) Dehydration (5) Symptomatic hypotension (6) Syncope (7) Cardiomyopathy Assessment and Plan 1.) Cardiomyopathy - euvolemic, assymptomatic, beta harely held due to bradycardia, hypotension and syncope, increase altace 5 mg qd, c/c 12/24/16; i explained to patient in presence of nurse and charge nurse, Tasia, the risk of cath/pci is 5-10% chance of , mi, cva, need for cabg/surgery/dialysis/ blood transfusion, bleeding, infection, anaphylaxis, arrythmia, patient understands and consents to procedure, he does want to d/w his son as well; patient not competeant to consent, will need to identify legal surrogate and they would need to sign consent in order to proceed with cath, d/w charge nurse 2.) d/w charge nurse, Tasia, son is legal surrogate and he refuses cath and ppm, rec f/u with me in office [place] Problem Qualifiers (1) Syncope: Qualified Code: R55 - Syncope, unspecified syncope type Asim Richardson MD Dec 26, 2016 09:56
[2016-12-26] MEDS: RAMIPRIL 5 MG CAP PO SCH (10:00)
[2016-12-26] MEDS: RAMIPRIL 2.5 MG CAP PO SCH (10:00)
[2016-12-26] MEDS: CYANOCOBALAMIN 1,000 MCG TAB PO SCH (10:01)
[2016-12-26] MEDS: SODIUM CHLORIDE 0.9% FLUSH 10 ML FLUSH IV FLUSH SCH (10:01)
[2016-12-26] MEDS: DOCUSATE SODIUM 50 MG/SENNA 8.6 MG TAB PO SCH (10:01)
[2016-12-26] MEDS: ASPIRIN EC 81 MG TABEC PO SCH (10:01)
[2016-12-26] MEDS: DORZOLAMIDE/TIMOLOL OPTH SOLN 10 ML BTL RIGHT EYE SCH (10:02)
[2016-12-26 12:00] VITALS: BP 167/82; PULSE 55; RESP 18; TEMP 97.8; O2SAT 99
--- NOTE | 2017-01-02 11:34 | PQ ---
Physician Query Response Document PATIENT: MARTHA WYLIE : 1935 ADMIT DATE: 12/23/2016 10:58 AM DISCH DATE: 12/26/2016 4:20 PM RESPONDING PROVIDER #: [email or web address] QUERY TEXT: CHF Acuity and Type Congestive Heart Failure is documented in the Medical Record. Please document the acuity (includes pr obable or suspected) Such as: Acuity: -- Acute -- Chronic -- Acute on chronic -- Other, please specify Also please document the underlying cause of the CHF (includes probable or suspected) If you have any additional questions/comments and/or concerns, please do not hesitate to reach out ot the CDI/Coding Hotline, Ext. [phone]. 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 He reports urinating frequently Consult 12/21/16 Dr. Rowdy Richardson: He appears to be euvolemic by chest x-ray and by exam. Hold beta blo cker due to bradycardia and left bundle branch block in the context of syncope as well. Query created by: Peggy Jasso on 12/29/2016 3:37 PM RESPONSE TEXT: Acute combined CHF without exacerbation at this time Electronically signed by: Whitney Drake MD 01/02/2017 11:30 AM
== END 2016-12-26 16:20 | DRG 314 ==
LOC: NEPC 13:11 → NEDA 17:16 → INTOOBSV 17:16 → N04B 19:50 → OBSVTOIN 12-23 10:58
PROVIDERS: ADMIT Hospitalist; ATTEND Hospitalist
DX: I95.9 Hypotension, unspecified (principal); I50.41 Acute combined systolic (congestive) and diastolic (congestive) heart failure; N17.9 Acute kidney failure, unspecified; D61.818 Other pancytopenia; I42.9 Cardiomyopathy, unspecified; F03.90 Unspecified dementia, unspecified severity, without behavioral disturbance, psychotic disturbance, mood disturbance, and anxiety; R55 Syncope and collapse; E86.0 Dehydration; R00.1 Bradycardia, unspecified; D64.9 Anemia, unspecified; I44.7 Left bundle-branch block, unspecified; Z85.46 Personal history of malignant neoplasm of prostate; H40.9 Unspecified glaucoma; Z86.73 Personal history of transient ischemic attack (TIA), and cerebral infarction without residual deficits; R32 Unspecified urinary incontinence; H26.9 Unspecified cataract; H91.90 Unspecified hearing loss, unspecified ear; R73.9 Hyperglycemia, unspecified; I10 Essential (primary) hypertension; Z79.82 Long term (current) use of aspirin
CPT/HCPCS: 70450; 71010; 74000; 80048; 80307; 81001; 82550; 82607; 82728; 82746; 83036; 83540; 83550; 83880; 84443; 84484; 85025; 85610; 87086; 93005; 93306; 93880; G0378; J0696; J3420

== ENCOUNTER 2017-04-15 12:24 | Inpatient (IN) | payer MEDICARE, OTHER ==
[~2017-04-15] VITALS: Ht 171.4 cm; Wt 71.0 kg
[2017-04-15] VITALS (20 sets, daily range): BP systolic 113–166; BP diastolic 76–94; PULSE 52–78; RESP 12–20; TEMP 98.2–99; O2SAT 97–100
[~2017-04-15 12:24] MED LIST changes: +RAMI5CAP PO; -VERA1TAB9 PO; +VITA10002 PO
[2017-04-15] MEDS ORDERED: PROPOFOL 1000 MG/100 ML INJ 100 ML ONE (12:29)
[2017-04-15] MEDS ORDERED: SODIUM CHLOR 0.9% 1000 ML INJ 1,000 ML IV ONE (12:29)
[2017-04-15] MEDS ORDERED: PIPERACIL-TAZO 4.5 GM PREMIX 100 ML IV STA (12:29)
--- NOTE | 2017-04-15 12:50 | PD ---
HPI Chief Complaint: Altered Mental Status Time Seen by Provider: 12:29 Travel History International Travel<30 days: No Contact w/Intl Traveler<30days: No Traveled to known affect area: No History of Present Illness HPI 81-year-old male patient with history of dementia, TIAs, seen multiple times in the ER for syncope, presents to the ER today running by EMS because family found him unresponsive. When he back off there, they state that the GCS was 4 and they intubated him for airway protection. He was hypotensive with a systolic of 80. He has not able to give any further history. He apparently has been sitting on the porch for a while before family found him unresponsive. Modifying Factors: None Associated Signs & Symptoms: Altered mental status, unresponsive, intubated Risk Factors: Elderly PFSH Past Medical History Arthritis: Yes Autoimmune Disease: No Anxiety: No Depression: No Heart Rhythm Problems: No Cancer: Yes (PROSTATE) Cardiovascular Problems: Yes High Cholesterol: No Chest Pain: No Congestive Heart Failure: Yes Cerebrovascular Accident: Yes (TIA) Diabetes: No Diminished Hearing: No Endocrine: No Genitourinary: Yes (ENLARGED PROSTATE) Headaches: Yes Hepatitis: No Hiatal Hernia: No Hypertension: Yes Immune Disorder: No Kidney Stones: No Musculoskeletal: Yes Neurologic: Yes Psychiatric: Yes (dementia) Reproductive: No Respiratory: No Migraines: No Myocardial Infarction: No Renal Failure: No Seizures: No Thyroid Disease: No Past Surgical History Abdominal Surgery: Yes (LEFT INGUINAL HERNIA REPAIR) Eye Surgery: Yes (BILATERAL EYES CATARACT, DETACHED RETINA LEFT EYE) Gynecologic Surgery: Yes (prostrate ca) Pacemaker: No Other Surgery: Yes Social History Alcohol Use: No Tobacco Use: No Substance Use: No Allergies-Medications (Allergen,Severity, Reaction): Coded Allergies: No Known Allergies (Verified , 12/19/16) Reported Meds & Prescriptions Reported Meds & Active Scripts Active Ramipril 5 Mg Cap 5 Mg PO DAILY Vitamin B-12 (Cyanocobalamin) 1,000 Mcg Tab 1,000 Mcg PO DAILY Reported Senna Plus 8.6-50 mg (Sennosides-Docusate Sodium) 1 Tab Tab 1 Tab PO DAILY PRN Aspir-81 (Aspirin) 81 Mg Tabdr 81 Mg PO DAILY K-Tab (Potassium Chloride) 10 Meq Tab 10 Meq PO DAILY Lasix (Furosemide) 20 Mg Tab 20 Mg PO DAILY Cosopt Pf Opth Drops (Dorzolamide-Timolol Pf Opth Drops) 22.3-6.8 mg/ml Soln 1 Drop RIGHT EYE BID Mapap (Acetaminophen) 325 Mg Tab 650 Mg PO Q4HR PRN Review of Systems ROS Limitations: Intubated, Altered Mental Status Physical Exam Narrative GENERAL: Well-developed elderly -[place] male patient currently in moderate distress, intubated, obtunded. SKIN: Focused skin assessment warm/dry. HEAD: Atraumatic. Normocephalic. EYES: Pupils equal and round. No scleral icterus. No injection or drainage. ENT: No nasal bleeding or discharge. Mucous membranes pink and moist. NECK: Trachea midline. No JVD. Intubated. CARDIOVASCULAR: Regular rate and rhythm. No murmur appreciated. RESPIRATORY: No accessory muscle use. Clear to auscultation. Breath sounds equal bilaterally. GASTROINTESTINAL: Abdomen soft, non-tender, nondistended. Hepatic and splenic margins not palpable. MUSCULOSKELETAL: No obvious deformities. No clubbing. No cyanosis. No edema. NEUROLOGICAL: Obtunded, intubated. PSYCHIATRIC: Intubated, obtunded and unable to give me further history Data Data Last Documented VS Vital Signs Date Time Temp Pulse Resp B/P (MAP) Pulse Ox O2 Delivery O2 Flow Rate FiO2 04/15/17 14:30 97 50 04/15/17 13:46 57 20 134/83 (100) Ventilator 04/15/17 12:34 98.6 Orders Orders Propofol 1000 Mg/100 Ml Inj (Diprivan 10 (04/15/17 12:29) Electrocardiogram (04/15/17 12:29) Complete Blood Count With Diff (04/15/17 12:29) Comprehensive Metabolic Panel (04/15/17 12:29) Prothrombin Time / Inr (Pt) (04/15/17 12:29) Act Partial Throm Time (Ptt) (04/15/17 12:29) Lactic Acid Sepsis Protocol (04/15/17 12:29) Magnesium (Mg) (04/15/17 12:29) Ckmb (Isoenzyme) Profile (04/15/17 12:29) Troponin I (04/15/17 12:29) Urinalysis - C+S If Indicated (04/15/17 12:29) Blood Culture (04/15/17 12:29) Chest, Single Ap (04/15/17 12:29) Arterial Blood Gas (Abg) (04/15/17 12:29) Blood Glucose (04/15/17 12:29) Ecg Monitoring (04/15/17 12:29) Iv Access Insert/Monitor (04/15/17 12:29) Oximetry (04/15/17 12:29) Oxygen Administration (04/15/17 12:29) Ct Brain W/O Iv Contrast(Rout) (04/15/17 12:29) Piperacil-Tazo 4.5 Gm Premix (Zosyn 4.5 (04/15/17 12:29) Sodium Chlor 0.9% 1000 Ml Inj (Ns 1000 M (04/15/17 12:29) Propofol 1000 Mg/100 Ml Inj (Diprivan 10 (04/15/17 12:30) Neurological Rass Scale Q30MX2,Q2HX4,Q4H (04/15/17 12:29) Urinary Catheter Insert/Apply (04/15/17 13:11) Restraints Non-Violent HERMES.Q3H (04/15/17 13:11) Insert Ng Tube (04/15/17 13:11) Admit Order (Ed Use Only) (04/15/17 14:42) Labs Laboratory Tests Test 04/15/17 12:45 White Blood Count 5.3 TH/MM3 Red Blood Count 3.32 MIL/MM3 Hemoglobin 10.2 GM/DL Hematocrit 31.5 % Mean Corpuscular Volume 95.0 FL Mean Corpuscular Hemoglobin 30.7 PG Mean Corpuscular Hemoglobin Concent 32.3 % Red Cell Distribution Width 13.6 % Platelet Count 133 TH/MM3 Mean Platelet Volume 7.6 FL Neutrophils (%) (Auto) 44.7 % Lymphocytes (%) (Auto) 44.4 % Monocytes (%) (Auto) 10.1 % Eosinophils (%) (Auto) 0.6 % Basophils (%) (Auto) 0.2 % Neutrophils # (Auto) 2.4 TH/MM3 Lymphocytes # (Auto) 2.3 TH/MM3 Monocytes # (Auto) 0.5 TH/MM3 Eosinophils # (Auto) 0.0 TH/MM3 Basophils # (Auto) 0.0 TH/MM3 CBC Comment DIFF FINAL Differential Comment Prothrombin Time 11.8 SEC Prothromb Time International Ratio 1.1 RATIO Activated Partial Thromboplast Time 24.7 SEC Urine Color YELLOW Urine Turbidity CLEAR Urine pH 6.5 Urine Specific [place] 1.012 Urine Protein TRACE mg/dL Urine Glucose (UA) NEG mg/dL Urine Ketones TRACE mg/dL Urine Occult Blood NEG Urine Nitrite NEG Urine Bilirubin NEG Urine Urobilinogen LESS THAN 2.0 MG/DL Urine Leukocyte Esterase SMALL Urine RBC 2 /hpf Urine WBC 5 /hpf Urine Squamous Epithelial Cells 1 /hpf Urine Hyaline Casts 1 /lpf Urine Mucus FEW /lpf Microscopic Urinalysis Comment CATH-CULT NOT IND Blood Gas Puncture Site LT BRACHIAL Blood Gas Patient Temperature 98.6 Blood Gas HCO3 23 mmol/L Blood Gas Base Excess -0.9 mmol/L Blood Gas Oxygen Saturation 99 % Arterial Blood pH 7.44 Arterial Blood Partial Pressure CO2 34 mmHg Arterial Blood Partial Pressure O2 462 mmHG Arterial Blood Oxygen Content 15.2 Vol % Arterial Blood Carboxyhemoglobin 0.9 % Arterial Blood Methemoglobin 0.6 % Blood Gas Hemoglobin 10.1 G/DL Oxygen Delivery Device VENTILATOR Blood Gas Ventilator Setting AC/RR14/VT550/[id number] Blood Gas Inspired Oxygen 100 % Blood Urea Nitrogen 20 MG/DL Creatinine 1.25 MG/DL Random Glucose 113 MG/DL Total Protein 6.2 GM/DL Albumin 3.1 GM/DL Calcium Level 8.3 MG/DL Magnesium Level 1.9 MG/DL Alkaline Phosphatase 67 U/L Aspartate Amino Transf (AST/SGOT) 15 U/L Alanine Aminotransferase (ALT/SGPT) 10 U/L Total Bilirubin 0.4 MG/DL Sodium Level 141 MEQ/L Potassium Level 3.1 MEQ/L Chloride Level 108 MEQ/L Carbon Dioxide Level 23.7 MEQ/L Anion Gap 9 MEQ/L Estimat Glomerular Filtration Rate 67 ML/MIN Lactic Acid Level 2.2 mmol/L Total Creatine Kinase 99 U/L Troponin I 0.02 NG/ML MDM Medical Decision Making Medical Screen Exam Complete: Yes Emergency Medical Condition: Yes Medical Record Reviewed: Yes Interpretation(s) Laboratory Tests Test 04/15/17 12:45 Red Blood Count 3.32 MIL/MM3 (4.50-5.90) Hemoglobin 10.2 GM/DL (13.0-17.0) Hematocrit 31.5 % (39.0-51.0) Platelet Count 133 TH/MM3 (150-450) Lymphocytes (%) (Auto) 44.4 % (9.0-44.0) Monocytes (%) (Auto) 10.1 % (0.0-8.0) Prothrombin Time 11.8 SEC (9.8-11.6) Urine Ketones TRACE mg/dL (NEG) Urine Leukocyte Esterase SMALL (NEG) Urine Mucus FEW /lpf (OCC) Arterial Blood pH 7.44 (7.380-7.420) Arterial Blood Partial Pressure CO2 34 mmHg (38-42) Arterial Blood Partial Pressure O2 462 mmHG (61-120) Blood Gas Hemoglobin 10.1 G/DL (12.0-16.0) Blood Urea Nitrogen 20 MG/DL (7-18) Random Glucose 113 MG/DL (74-106) Total Protein 6.2 GM/DL (6.4-8.2) Albumin 3.1 GM/DL (3.4-5.0) Calcium Level 8.3 MG/DL (8.5-10.1) Alanine Aminotransferase (ALT/SGPT) 10 U/L (12-78) Potassium Level 3.1 MEQ/L (3.5-5.1) Chloride Level 108 MEQ/L (98-107) Estimat Glomerular Filtration Rate 67 ML/MIN (>89) Lactic Acid Level 2.2 mmol/L (0.4-2.0) Last [address] 04/15/171228 Signed Impressions: Service Date/Time: Saturday, April 15, 2017 14:33 - CONCLUSION: 1. Atrophy. 2. Extensive chronic small vessel ischemic change. 3. Ventriculomegaly which is stable and felt to relate to the underlying atrophy. 4. No acute intracranial abnormality. Vishnu Alejo Jr., MD Chest X-Ray 04/15/172 Signed Impressions: Service Date/Time: Saturday, April 15, 2017 13:04 - CONCLUSION: Lungs are clear. Support apparatus in good position. Jeremy Packer MD FACR Differential Diagnosis Unresponsive, altered mental status: Dehydration versus heat stroke versus intracranial acute issues versus metabolic issues versus sepsis Narrative Course CT of the brain is negative for any signs of acute processes. Lab work indicates elevated lactate and along with the hypotension, there is concern of sepsis. IV antibiotics were initiated after cultures were drawn. Chest x-ray shows the ET tube is in place. I do not see obvious source of sepsis. Chest x- ray and urine was unremarkable. At this point, case was discussed with Dr. Lewis for admission. Aggregate critical care time was 35 minutes. Time to perform other separately billable procedures was not included in the critical care time. My time did not include minutes spent treating any other patients simultaneously or on activities that did not directly contribute to the patient's treatment. The services I provided to this patient were to treat and/or prevent clinically significant deterioration that could result in: Respiratory arrest, septic shock , I provided critical care services requiring my management, as noted below: Chart data review, documentation time, medication orders and management, vital sign assessments/reviewing monitor data, ordering and reviewing lab tests, ordering and interpreting/reviewing x-rays and diagnostic studies, care of the patient and discussion of the patient with the admitting physicians. Sepsis Criteria Severe Sepsis (+one): Hypotension, Lactate >2 Diagnosis Primary Impression: Sepsis Additional Impression: Endotracheally intubated Admitting Information Admitting Physician Requests: Admit Michelle Clarke MD Apr 15, 2017 12:50
[2017-04-15 12:59] LABS: BLOOD GAS BASE EXCESS -0.9 mmol/L (-2-2); BLOOD GAS CARBOXYHEMOGLOBIN 0.9 % (0-4); BLOOD GAS HCO3 23 mmol/L (22-26); BLOOD GAS METHEMOGLOBIN 0.6 % (0-2); BLOOD GAS O2 HGB SATURATION 99 % (90-100); BLOOD GAS OXYGEN CONTENT 15.2 Vol % (12.0-20.0); BLOOD GAS PCO2 34 mmHg (38-42); BLOOD GAS PO2 462 mmHG (61-120); BLOOD GAS TOTAL HGB 10.1 G/DL (12.0-16.0); CRITICAL VALUE NO; DRAW SITE LT BRACHIAL; FIO2 100 %; NUMBER OF ARTERIAL PUNCTURES 1; OXYGEN DEVICE VENTILATOR; STAT YES; TEMP CORR TO 98.6; ULNAR PULSE PRESENT; VENT SETTINGS AC/RR14/VT550/PEEP5
--- NOTE | 2017-04-15 13:11 | RADRPT ---
EXAM DATE/TIME: 04/15/2017 13:04 [facility] COMPARISON: CHEST SINGLE AP, December 19, 2016, 14:37. INDICATIONS : Post intubation, found unresponsive at home. MEDICAL HISTORY : none known SURGICAL HISTORY : none known ENCOUNTER: Initial ACUITY: 1 day PAIN SCORE: Non-responsive. LOCATION: Bilateral chest FINDINGS: ET tube and nasogastric tube in good position. Lungs are clear. The heart and pulmonary vascularity are normal.. CONCLUSION: Lungs are clear. Support apparatus in good position. Jeremy Packer MD FACR on April 15, 2017 at 13:09 Board Certified Radiologist. This report was verified electronically.
[2017-04-15 13:14] LABS: AUTOMATED NEUTROPHIL # 2.4 TH/MM3 (1.8-7.7); BASOPHIL % 0.2 % (0.0-2.0); EOSINOPHIL % 0.6 % (0.0-4.0); HEMATOCRIT 31.5 % (39.0-51.0); HEMO FLAGS DIFF FINAL; LYMPH % 44.4 % (9.0-44.0); LYMPHOCYTE # 2.3 TH/MM3 (1.0-4.8); MEAN CORPUSCULAR HEMOGLOBIN 30.7 PG (27.0-34.0); MEAN CORPUSCULAR HGB CONC 32.3 % (32.0-36.0); MONO % 10.1 % (0.0-8.0); NEUT % 44.7 % (16.0-70.0); PLATELET COUNT 133 TH/MM3 (150-450); RED BLOOD COUNT 3.32 MIL/MM3 (4.50-5.90); RED CELL DISTRIBUTION WIDTH 13.6 % (11.6-17.2); WHITE BLOOD COUNT 5.3 TH/MM3 (4.0-11.0)
[2017-04-15 13:19] LABS: BLOOD, URINE NEG (NEG); GLUCOSE,URINE NEG (NEG); HYALINE CAST, URINE 1 /lpf (RARE); KETONE, URINE TRACE mg/dL (NEG); MUCUS URINE FEW /lpf (OCC); NITRITE,URINE NEG (NEG); PH, URINE 6.5 (5.0-8.5); SQUAMOUS EPITHELIAL CELL URINE 1 /hpf (0-5); URINE COLOR YELLOW (YELLW/STRAW)
[2017-04-15 13:20] LABS: COMMENT (UR) CATH-CULT NOT IND; CULTURE IF INDICATED CATH CULTURE NOT IND
[2017-04-15 13:21] LABS: APTT (PATIENT) 24.7 SEC (24.3-30.1); INTERNATIONAL NORMALIZED RATIO 1.1 RATIO; PROTHROMBIN TIME - PATIENT 11.8 SEC (9.8-11.6)
[2017-04-15] MEDS: PROPOFOL 1000 MG/100 ML INJ 100 ML IV PRN ×3 (13:21→22:32)
[2017-04-15 13:27] LABS: ALT (GPT) 10 U/L (12-78); ANION GAP 9 MEQ/L (5-15); AST (GOT) 15 U/L (15-37); BICARBONATE 23.7 MEQ/L (21.0-32.0); BLOOD UREA NITROGEN 20 MG/DL (7-18); CHLORIDE 108 MEQ/L (98-107); GLOMERULAR FILTRATION RATE 67 ML/MIN (>89); MAGNESIUM 1.9 MG/DL (1.5-2.5); POTASSIUM 3.1 MEQ/L (3.5-5.1); SODIUM (NA) 141 MEQ/L (136-145)
[2017-04-15 13:32] LABS: ALKALINE PHOSPHATASE 67 U/L (45-117); TOTAL BILIRUBIN ADULT 0.4 MG/DL (0.2-1.0)
[2017-04-15 13:39] LABS: CREATINE KINASE 99 U/L (39-308)
[2017-04-15] MEDS ORDERED: MISCELLANEOUS NURSING INFORMATION XX SCH (14:45)
[2017-04-15] MEDS ORDERED: ACETAMINOPHEN 325 MG TAB PO PRN (14:45)
[2017-04-15] MEDS ORDERED: RESP: ALBUTEROL 2.5 MG/IPRATROPIUM 0.5 MG NEB (PRN) INH (14:45)
[2017-04-15] MEDS ORDERED: CHLORHEXIDINE GLUCONATE 2 % 1 PACK (2 CLOTHS) TOP PRN (14:45)
[2017-04-15] MEDS ORDERED: SODIUM CHLORIDE 0.9% FLUSH 10 ML FLUSH IV FLUSH PRN (14:45)
--- NOTE | 2017-04-15 14:46 | RADRPT ---
EXAM DATE/TIME: 04/15/2017 14:33 [facility] COMPARISON: CT BRAIN W/O CONTRAST, December 19, 2016, 14:58. INDICATIONS : Found unresponsive. RADIATION DOSE: 35.30 CTDIvol (mGy) MEDICAL HISTORY : Cerebrovascular disease. Cardiovascular disease Hypertension.Prostate cancer. SURGICAL HISTORY : ENCOUNTER: Initial ACUITY: 1 day PAIN SCALE: Non-responsive LOCATION: Bilateral cranial TECHNIQUE: Multiple contiguous axial images were obtained of the head. Using automated exposure control and adj ustment of the mA and/or kV according to patient size, radiation dose was kept as low as reasonably a chievable to obtain optimal diagnostic quality images. DICOM format image data is available electro nically for review and comparison. FINDINGS: CEREBRUM: Atrophy. Periventricular low attenuation change involving both cerebral hemispheres. This is stable f rom the prior exam. Ventriculomegaly is stable. No evidence of midline shift, mass lesion, hemorrhage or acute infarction. No extra-axial fluid collections are seen. POSTERIOR FOSSA: The cerebellum and brainstem are intact. The 4th ventricle is midline. The cerebellopontine angle i s unremarkable. EXTRACRANIAL: The visualized portion of the orbits is intact. SKULL: The calvaria is intact. No evidence of skull fracture. CONCLUSION: 1. Atrophy. 2. Extensive chronic small vessel ischemic change. 3. Ventriculomegaly which is stable and felt to relate to the underlying atrophy. 4. No acute intracranial abnormality. Vishnu Alejo Jr., MD on April 15, 2017 at 14:43 Board Certified Radiologist. This report was verified electronically.
[2017-04-15 15:06] LABS: LACTIC ACID GHOST NOT REPORTABLE
[2017-04-15] MEDS ORDERED: LOPE2CAP PO (15:48)
[2017-04-15] MEDS ORDERED: LORA1TAB12 PO (15:48)
[2017-04-15] MEDS: ENOXAPARIN SODIUM 40 MG/0.4 ML SYRINGE SQ SCH (16:25)
[2017-04-15] MEDS: SODIUM CHLOR 0.9% 1000 ML INJ 1,000 ML IV SCH (16:26)
[2017-04-15] MEDS ORDERED: LORA-373 SL (16:37)
--- NOTE | 2017-04-15 18:34 | RADRPT ---
EXAM DATE/TIME: 04/15/2017 17:38 [facility] COMPARISON: CT BRAIN W/O CONTRAST, September 28, 2016, 16:41. CT BRAIN W/O CONTRAST, December 19, 2016, 14:58. CT BRAIN W/O CONTRAST, April 15, 2017, 14:33. INDICATIONS : Altered mental status. MEDICAL HISTORY : Congestive heart failure. Hypertension. Carcinoma, prostate. SURGICAL HISTORY : Inguinal hernia repair. ENCOUNTER: Subsequent ACUITY: 1 day PAIN SCORE: Nonresponsive. LOCATION: on vent. TECHNIQUE: Multiplanar, multisequence MRI of the brain was performed without contrast. FINDINGS: CEREBRUM: The ventricles are prominent for age. There is diffuse bilateral cortical atrophy. There is moderate chronic white matter changes bilaterally. These findings are stable compared to the prior studies. No evidence of midline shift, mass lesion, hemorrhage or acute infarction. No extraaxial fluid collect ions are seen. The pituitary gland and suprasellar cistern are normal in configuration. WHITE MATTER: Diffuse prominent white matter changes bilaterally. These findings are not significantly changed comp ared to the prior CTs. POSTERIOR FOSSA: The cerebellum and brainstem are intact. The 4th ventricle is midline. The cerebellopontine angle is unremarkable. The cerebellar tonsils are normal in position. DIFFUSION IMAGING: No focal areas of restricted diffusion are seen. No evidence of acute infarction. EXTRACRANIAL: The visualized portions of the orbits and paranasal sinuses are unremarkable. CONCLUSION: 1. Diffuse bilateral cortical atrophy. 2. Ventriculomegaly which appears to be stable compared to the prior studies. This is most likely rel ated to the diffuse cortical atrophy. A second possibility would be normal pressure hydrocephalus. Ho wever, this would need to be correlated with patient's physical and clinical exam. 3. No acute pathology. Reymundo Villafuerte MD on April 15, 2017 at 18:29 Board Certified Radiologist. This report was verified electronically.
--- NOTE | 2017-04-15 18:51 | HHI.HP ---
[facility] Service Critical Care Medicine Primary Care Physician Unknown Admission Diagnosis intubated/sepsis/unresponsive episode Diagnosis: Chief Complaint: Altered mental status Travel History International Travel<30 Days: No Contact w/Intl Traveler <30 Da: No Traveled to Known Affected Are: No History of Present Illness 81-year-old male with a medical history significant for dementia, TIAs, previous episodes of syncope and bradycardia as well as cardiomyopathy was recommended a pacemaker by cardiology during previous hospitalization however has refused. Today patient was found unresponsive by his family while sitting on the porch for a while. On EMS arrival his GCS was 4 and he was intubated for airway protection. He was hypotensive as well as bradycardic with heart rate in the 50s and systolic blood pressure 80s. He was brought to the ER at [facility]. He was placed on mechanical ventilation and subsequently the wire and propofol for sedation. He received Zosyn for question of sepsis in the ER as his lactic acid was elevated though this could Emma be from him being hypotensive secondary to his bradycardia. Patient has previously been evaluated by cardiology for syncope and has been recommended a pacemaker however has refused before. Patient was accepted for mission by critical care medicine service. When I evaluated the patient he was sedated with propofol him a orally intubated on mechanical ventilation. History was obtained by reviewing records and discussion with ER physician. PFSH Past Medical History Arthritis: Yes Autoimmune Disease: No Anxiety: No Depression: No Heart Rhythm Problems: No Cancer: Yes (PROSTATE) Cardiovascular Problems: Yes High Cholesterol: No Chest Pain: No Congestive Heart Failure: Yes Cerebrovascular Accident: Yes (TIA) Diabetes: No Diminished Hearing: No Endocrine: No Genitourinary: Yes (ENLARGED PROSTATE) Headaches: Yes Hepatitis: No Hiatal Hernia: No Hypertension: Yes Immune Disorder: No Kidney Stones: No Musculoskeletal: Yes Neurologic: Yes Psychiatric: Yes (dementia) Reproductive: No Respiratory: No Migraines: No Myocardial Infarction: No Renal Failure: No Seizures: No Thyroid Disease: No Past Surgical History Abdominal Surgery: Yes (LEFT INGUINAL HERNIA REPAIR) Eye Surgery: Yes (BILATERAL EYES CATARACT, DETACHED RETINA LEFT EYE) Gynecologic Surgery: Yes (prostrate ca) Pacemaker: No Other Surgery: Yes Social History Alcohol Use: No Tobacco Use: No Substance Use: No Allergies-Medications (Allergen,Severity, Reaction): Coded Allergies: No Known Allergies (Verified , 12/19/16) Reported Meds & Prescriptions Reported Meds & Active Scripts Active Ramipril 5 Mg Cap 5 Mg PO DAILY Vitamin B-12 (Cyanocobalamin) 1,000 Mcg Tab 1,000 Mcg PO DAILY Reported Senna Plus 8.6-50 mg (Sennosides-Docusate Sodium) 1 Tab Tab 1 Tab PO DAILY PRN Aspir-81 (Aspirin) 81 Mg Tabdr 81 Mg PO DAILY K-Tab (Potassium Chloride) 10 Meq Tab 10 Meq PO DAILY Lasix (Furosemide) 20 Mg Tab 20 Mg PO DAILY Cosopt Pf Opth Drops (Dorzolamide-Timolol Pf Opth Drops) 22.3-6.8 mg/ml Soln 1 Drop RIGHT EYE BID Mapap (Acetaminophen) 325 Mg Tab 650 Mg PO Q4HR PRN Review of Systems ROS Limitations: Intubated, Altered Mental Status Physical Exam Vital Signs Vital Signs Date Time Temp Pulse Resp B/P (MAP) Pulse Ox O2 Delivery O2 Flow Rate FiO2 04/15/17 16:58 98.4 52 12 132/88 (103) 100 Ventilator 40 04/15/17 16:00 100 40 04/15/17 15:01 98.2 56 14 132/85 (101) 100 Ventilator 40 04/15/17 14:30 97 50 04/15/17 13:46 57 20 134/83 (100) 100 Ventilator 04/15/17 13:00 14 100 Ventilator 40 04/15/17 12:34 98.6 61 16 142/85 (104) 98 04/15/17 12:30 100 100 04/15/17 12:25 100 Ventilator 04/15/17 12:25 100 04/15/17 12:25 100 Ventilator Physical Exam HEENT/ Neuro: Sedated, orally intubated, Pallor present, no icterus, tongue/ mucosa moist. Moving both upper extremities per ER prior to sedation Neck: No JVD Chest/Pulm: on mech vent, good air entry bilaterally, no wheezing or crackles CVS: S1-S2 regular, no murmur GI/abdomen: soft, nontender, bowel sounds sluggish Extremities: warm bilaterally, no edema Laboratory Laboratory Tests Test 04/15/17 12:45 04/15/17 16:15 White Blood Count 5.3 Red Blood Count 3.32 Hemoglobin 10.2 Hematocrit 31.5 Mean Corpuscular Volume 95.0 Mean Corpuscular Hemoglobin 30.7 Mean Corpuscular Hemoglobin Concent 32.3 Red Cell Distribution Width 13.6 Platelet Count 133 Mean Platelet Volume 7.6 Neutrophils (%) (Auto) 44.7 Lymphocytes (%) (Auto) 44.4 Monocytes (%) (Auto) 10.1 Eosinophils (%) (Auto) 0.6 Basophils (%) (Auto) 0.2 Neutrophils # (Auto) 2.4 Lymphocytes # (Auto) 2.3 Monocytes # (Auto) 0.5 Eosinophils # (Auto) 0.0 Basophils # (Auto) 0.0 CBC Comment DIFF FINAL Differential Comment Prothrombin Time 11.8 Prothromb Time International Ratio 1.1 Activated Partial Thromboplast Time 24.7 Urine Color YELLOW Urine Turbidity CLEAR Urine pH 6.5 Urine Specific [place] 1.012 Urine Protein TRACE Urine Glucose (UA) NEG Urine Ketones TRACE Urine Occult Blood NEG Urine Nitrite NEG Urine Bilirubin NEG Urine Urobilinogen LESS THAN 2.0 Urine Leukocyte Esterase SMALL Urine RBC 2 Urine WBC 5 Urine Squamous Epithelial Cells 1 Urine Hyaline Casts 1 Urine Mucus FEW Microscopic Urinalysis Comment CATH-CULT NOT IND Blood Gas Puncture Site LT BRACHIAL Blood Gas Patient Temperature 98.6 Blood Gas HCO3 23 Blood Gas Base Excess -0.9 Blood Gas Oxygen Saturation 99 Arterial Blood pH 7.44 Arterial Blood Partial Pressure CO2 34 Arterial Blood Partial Pressure O2 462 Arterial Blood Oxygen Content 15.2 Arterial Blood Carboxyhemoglobin 0.9 Arterial Blood Methemoglobin 0.6 Blood Gas Hemoglobin 10.1 Oxygen Delivery Device VENTILATOR Blood Gas Ventilator Setting AC/RR14/VT550/PEEP5 Blood Gas Inspired Oxygen 100 Blood Urea Nitrogen 20 Creatinine 1.25 Random Glucose 113 Total Protein 6.2 Albumin 3.1 Calcium Level 8.3 Magnesium Level 1.9 Alkaline Phosphatase 67 Aspartate Amino Transf (AST/SGOT) 15 Alanine Aminotransferase (ALT/SGPT) 10 Total Bilirubin 0.4 Sodium Level 141 Potassium Level 3.1 Chloride Level 108 Carbon Dioxide Level 23.7 Anion Gap 9 Estimat Glomerular Filtration Rate 67 Lactic Acid Level 2.2 1.8 Total Creatine Kinase 99 Troponin I 0.02 Date/Time Source Procedure Growth Status 04/15/17 12:45 Blood Peripheral Aerobic Blood Culture Pending Received 04/15/17 12:45 Blood Peripheral Anaerobic Blood Culture Pending Received Result Diagram: 04/15/17 1245 04/15/17 1245 Imaging Last Impressions Head CT 04/15/17 1229 Signed Impressions: Service Date/Time: Saturday, April 15, 2017 14:33 - CONCLUSION: 1. Atrophy. 2. Extensive chronic small vessel ischemic change. 3. Ventriculomegaly which is stable and felt to relate to the underlying atrophy. 4. No acute intracranial abnormality. Vishnu Alejo Jr., MD Chest X-Ray 04/15/179 Signed Impressions: Service Date/Time: Saturday, April 15, 2017 13:04 - CONCLUSION: Lungs are clear. Support apparatus in good position. Jeremy Packer MD FACR Caprini VTE Risk Assessment Caprini VTE Risk Assessment: Mod/High Risk (score >= 2) Caprini Risk Assessment Model Point Value = 1 Point Value = 2 Point Value = 3 Point Value = 5 Age 41-60 Minor surgery BMI > 25 kg/m2 Swollen legs Varicose veins or History of unexplained or recurrent spontaneous Oral contraceptives or hormone replacement Sepsis (< 1 month) Serious lung disease, including pneumonia (< 1 month) Abnormal pulmonary function Acute myocardial infarction Congestive heart failure (< 1 month) History of inflammatory bowel disease Medical patient at bed rest Age 61-74 Arthroscopic surgery Major open surgery (> 45 min) Laparoscopic surgery (> 45 min) Malignancy Confined to bed (> 72 hours) Immobilizing plaster cast Central venous access Age >= 75 History of VTE Family history of VTE Factor V Leiden Prothrombin [id number] Lupus anticoagulant Anticardiolipin antibodies Elevated serum homocysteine Heparin-induced thrombocytopenia Other congenital or acquired thrombophilia Stroke (< 1 month) Elective arthroplasty Hip, pelvis, or leg fracture Acute spinal cord injury (< 1 month) Prophylaxis Regimen Total Risk Factor Score Risk Level Prophylaxis Regimen 0-1 Low Early ambulation 2 Moderate Order ONE of the following: *Sequential Compression Device (SCD) *Heparin 5000 units SQ BID 3-4 Higher Order ONE of the following medications: *Heparin 5000 units SQ TID *Enoxaparin/Lovenox 40 mg SQ daily (WT < 150 kg, CrCl > 30 mL/min) *Enoxaparin/Lovenox 30 mg SQ daily (WT < 150 kg, CrCl > 10-29 mL/min) *Enoxaparin/Lovenox 30 mg SQ BID (WT < 150 kg, CrCl > 30 mL/min) AND/OR *Sequential Compression Device (SCD) 5 or more Highest Order ONE of the following medications: *Heparin 5000 units SQ TID (Preferred with Epidurals) *Enoxaparin/Lovenox 40 mg SQ daily (WT < 150 kg, CrCl > 30 mL/min) *Enoxaparin/Lovenox 30 mg SQ daily (WT < 150 kg, CrCl > 10-29 mL/min) *Enoxaparin/Lovenox 30 mg SQ BID (WT < 150 kg, CrCl > 30 mL/min) AND *Sequential Compression Device (SCD) Assessment and Plan Assessment and Plan 81-year-old male with: Altered mental status/encephalopathy/syncope from suspected bradycardia/cardiac myopathy Sinus bradycardia Cardiomyopathy History of TIAs Cerebral atrophy Dementia History of prostate CA Arthritis Plan: Neuro: Sedation with propofol while intubated. Daily sedation vacation. Follow neuro status. Follow-up MRI brain to evaluate for any ischemic CVA. Neurology consult requested. Cardiovascular: Continue IV fluids. Bradycardia noted. Cardiology consult requested for syncope/bradycardia/cardiomyopathy. Previously has refused pacemaker placement. Pulmonary: Continue mechanical ventilation, vent bundle, bronchodilators as needed. Daily C Pap trials starting tomorrow to decide extubation if neurologic status improved. GI/liver: Start tube feeds and advanced to goal as tolerated. Renal/: IV hydration, strict intake output, monitor and replete elect lites, follow BUN creatinine ID: Hold off on antibiotics as WBC is normal, no fever. Doubt sepsis chest x- ray clear, UA appears clear. Endocrine: Watch for hyperglycemia, SSI for glycemic control if needed. Heme: Follow CBC Prophylaxis: Pepcid/SCDs/subcutaneous Lovenox Condition critical Time spent on critical care excluding procedures: 50 minutes Nuno Lewis MD Apr 15, 2017 18:51
[2017-04-15] MEDS: FAMOTIDINE 20 MG TAB TUBE SCH (21:13)
[2017-04-15] MEDS: CHLORHEXIDINE 0.12% (ORAL KIT) 15 ML CUP MT SCH (21:15)
[2017-04-15] MEDS: SODIUM CHLORIDE 0.9% FLUSH 10 ML FLUSH IV FLUSH SCH (21:16)
[2017-04-15] MEDS ORDERED: POTASSIUM CHLOR 20 MEQ PREMIX 100 ML IV PRN (21:30)
[2017-04-15] MEDS ORDERED: POTASSIUM PHOSPHATE MONOBASIC 500 MG TAB PO PRN (21:30)
[2017-04-15] MEDS ORDERED: POTASSIUM PHOSPHATE INJ 30 MMOL in SODIUM CHLOR 0.9% 250 ML INJ 250 ML IV PRN (21:30)
[2017-04-15] MEDS ORDERED: POTASSIUM CHLOR 40 MEQ PREMIX 100 ML IV PRN ×2 (21:30)
[2017-04-15] MEDS ORDERED: MAGNESIUM SULFATE INJ 4 GM in SODIUM CHLORIDE 0.9% INJ 92 ML IV PRN (21:30)
[2017-04-15] MEDS ORDERED: POTASSIUM CHLORIDE 25 MEQ EFFERVESCENT TAB PO PRN (21:30)
[2017-04-15] MEDS ORDERED: MAGNESIUM OXIDE 400 MG TAB PO PRN (21:30)
[2017-04-15] MEDS ORDERED: SODIUM PHOSPHATE INJ 30 MMOL in SODIUM CHLOR 0.9% 250 ML INJ 240 ML IV PRN (21:30)
[2017-04-15] MEDS ORDERED: POTASSIUM PHOSPHATE MONOBASIC 500 MG TAB PO/TUBE PRN (21:30)
[2017-04-15] MEDS ORDERED: MAGNESIUM SULFATE INJ 2 GM in SODIUM CHLORIDE 0.9% INJ 96 ML IV PRN (21:30)
[2017-04-15] MEDS: POTASSIUM CHLOR 20 MEQ PREMIX 100 ML IV PRN (22:03)
--- NOTE | 2017-04-15 23:37 | MB ---
cc: ASIM HOWELL M.D. DATE OF CONSULTATION: 04/15/2017 REASON FOR CONSULTATION: HISTORY OF PRESENT ILLNESS: Jaime Case is a very pleasant 81 year-old gentleman with history of dementia, who was actually on service for hospice. However, he was brought in per the direction of his son due to being found unresponsive by the family. Currently he is full code and this has been confirmed by the ER nurse who I discussed the case with. He was noted to have a GCS of 4, was intubated for airway protection. Initial blood pressure was 80 systolic. The patient is just coming out of the MRI. He is in no acute distress. REVIEW OF SYSTEMS: Unobtainable due to his altered mental status. History is obtained from the ER note. PAST MEDICAL HISTORY: Per the history of present illness. He has a history of prostate cancer, TIA, CHF, enlarged prostate, hypertension, bilateral inguinal hernia repair, bilateral cataracts, detached retina, left eye, prostate cancer. The patient was evaluated by Dr. Quintero on December 24, 2016 due to hypotension and bradycardia. At that time Dr. Quintero recommended observation. 2-D echocardiogram on 12/20/16 showed an EF of 35 to 40%, paradoxical septal motion. Trace to mild AI. Moderate TR. Also note, per my last progress note, on his December admission, my recommendation was to increase his Altace to 5 milligrams daily. I had recommended heart catheterization but the patient's son refused cath or permanent pacemaker placement. I also recommended follow up in the office, however, the patient did not follow up. SOCIAL HISTORY: Denies tobacco or alcohol use. ALLERGIES: NONE. MEDICATIONS PRIOR TO ADMISSION: 1. Ramipril 5 milligrams daily. 2. Senna. 3. Aspirin 81 milligrams a day. 4. K-Tab. 5. Lasix 20 milligrams daily. 6. Cosopt. 7. Mapap. MEDICATIONS IN THE HOSPITAL: 1. Lovenox 40 subcu q24 hours. 2. Propofol IV. 3. Pepcid 20 milligrams b.i.d. PHYSICAL EXAMINATION: VITAL SIGNS: Temperature 98.4, pulse 52, blood pressure 132/80. The patient is intubated, sedated. Sats 100% on 40% oxygen. NECK: Supple. No JVD. CARDIOVASCULAR: S1-S2. No murmurs, rubs, or gallops. ABDOMEN: Soft, non-tender, non-distended. Positive bowel sounds. EXTREMITIES: No lower extremity edema. LABORATORY DATA White count 5.3, hemoglobin 10.2, hematocrit 31.5, platelet count 133, sodium 131, potassium 3.1, chloride 108, BUN 20, creatinine 1.25, lactic acid 2.2. LFTs normal. Troponin 0.02. Albumin 3.1. INR 1.1. Blood gas, pH 7.44, PCO2 34, PO2 462, 100% oxygen. INR 1.1. EKG: Sinus bradycardia with a left bundle-branch block. Head CT: extensive chronic small-vessel ischemic change, atrophy, ventriculomegaly which is stable, felt to be related to the underlying atrophy, no acute intracranial abnormalities. Chest x-ray: Lungs are clear. DIAGNOSIS: 1. Hypotension. 2. Lactic acidosis. 3. Unresponsiveness. 4. Altered mental status. 5. Dementia. 6. Left bundle-branch block. 7. Cardiomyopathy. 8. Anemia. 9. Thrombocytopenia. 10. Hypokalemia. 11. Hyperglycemia. 12. Hypoalbuminemia. DISCUSSION: At this point in time the patient's code status and family wishes in terms of Hospice need to be determined and clarified and defined. Previously the family, and particularly who is the surrogate decision maker, had refused cardiac catheterization or consideration for permanent pacemaker placement. Also the patient clearly was not bradycardiac in the past. Optimally he should be on LONNIE inhibitor and beta-harley, however, he has hypotension with lactic acidosis, so obviously the LONNIE inhibitor will need to be held and he has a relative contraindication for beta harley given his bradycardia and hypotension. His prognosis is guarded. It is not clear whether his altered mental status has worsened, as he is currently intubated and sedated. He just underwent MRI of the brain which will need to be followed up. I will put in a consult for Dr. Quintero for re-evaluation, reconsideration of permanent pacemaker. Asim Howell MD [facility] /6:09 PM /11:13 PM
[2017-04-16] VITALS (25 sets, daily range): BP systolic 117–166; BP diastolic 72–98; PULSE 61–84; RESP 12–25; TEMP 98.2–99; O2SAT 94–100
[2017-04-16] MEDS: POTASSIUM CHLOR 20 MEQ PREMIX 100 ML IV PRN (02:38)
[2017-04-16 03:55] LABS: AUTOMATED NEUTROPHIL # 8.4 TH/MM3 (1.8-7.7); BASOPHIL % 0.2 % (0.0-2.0); EOSINOPHIL % 0.1 % (0.0-4.0); HEMATOCRIT 35.1 % (39.0-51.0); HEMO FLAGS DIFF FINAL; LYMPH % 11.9 % (9.0-44.0); LYMPHOCYTE # 1.2 TH/MM3 (1.0-4.8); MEAN CELL VOLUME 95.1 FL (80.0-100.0); MEAN CORPUSCULAR HEMOGLOBIN 31.4 PG (27.0-34.0); MONO % 7.2 % (0.0-8.0); NEUT % 80.6 % (16.0-70.0); PLATELET COUNT 119 TH/MM3 (150-450); RED BLOOD COUNT 3.69 MIL/MM3 (4.50-5.90); RED CELL DISTRIBUTION WIDTH 13.7 % (11.6-17.2); WHITE BLOOD COUNT 10.4 TH/MM3 (4.0-11.0)
[2017-04-16] MEDS: CHLORHEXIDINE GLUCONATE 2 % 1 PACK (2 CLOTHS) TOP SCH (04:00)
[2017-04-16 04:12] LABS: ALT (GPT) 12 U/L (12-78); ANION GAP 7 MEQ/L (5-15); AST (GOT) 20 U/L (15-37); BICARBONATE 27.2 MEQ/L (21.0-32.0); BLOOD UREA NITROGEN 15 MG/DL (7-18); CHLORIDE 114 MEQ/L (98-107); GLOMERULAR FILTRATION RATE 82 ML/MIN (>89); POTASSIUM 3.7 MEQ/L (3.5-5.1); SODIUM (NA) 148 MEQ/L (136-145)
[2017-04-16 04:14] LABS: ALKALINE PHOSPHATASE 70 U/L (45-117); TOTAL BILIRUBIN ADULT 0.6 MG/DL (0.2-1.0)
[2017-04-16] MEDS: SODIUM CHLOR 0.9% 1000 ML INJ 1,000 ML IV SCH (05:19)
[2017-04-16] MEDS: PROPOFOL 1000 MG/100 ML INJ 100 ML IV PRN ×2 (06:53→18:11)
[2017-04-16] MEDS: CHLORHEXIDINE 0.12% (ORAL KIT) 15 ML CUP MT SCH ×2 (08:27→20:02)
[2017-04-16] MEDS: FAMOTIDINE 20 MG TAB TUBE SCH ×2 (08:27→20:02)
[2017-04-16] MEDS: SODIUM CHLORIDE 0.9% FLUSH 10 ML FLUSH IV FLUSH SCH ×2 (08:27→20:02)
--- NOTE | 2017-04-16 10:10 | PD.CONS ---
Consult Service Palliative Care . Consult Requested By Dr. Lewis . Primary Care Physician Unknown . Reason for Consultation a. To assist with evaluation and management of symptoms including: Debility , confusion b. To assist medical decision maker(s) with: better understanding of current medical conditions; weighing benefits/burdens of medical treatment options; making medical treatment decisions. . HPI History of Present Illness Mr. Case is an 81-year-old male with a history of dementia, arthritis, BPH, history of prostate cancer, TIAs, CHF, hypertension, anxiety and glaucoma. He presented to [facility] ED via EMS on 04/15/2017 after being found unresponsive by his family. EMS reported upon arrival the patient's GCS was 4. He was hypotensive as well as bradycardic with heart rate in the 50s and systolic blood pressure 80s. He was intubated for airway protection. Lungs clear on chest x-ray. CT of the head revealed no acute intracranial abnormalities, however extensive chronic small vessel ischemic changes were noted; stable ventriculomegaly likely related to underlying atrophy. MRI of the brain showed diffuse bilateral cortical atrophy. Ventriculomegaly appears stable compared to prior studies, this is most likely related to the diffuse cortical atrophy. A second possibility would be normal pressure hydrocephalus. However, this would need to be correlated with patient's physical and clinical exam. No acute pathology was noted. Patient's lactate was elevated at 2.2. Patient's elevated lactic acid in addition to hypotension was concerning for possible sepsis. Cultures were obtained and the patient was started on broad spectrum antibiotics. Patient was admitted to critical care services. This is the patient's third hospitalization at [facility] since September 28, 2016. He was previously in 09/2016 for treatment of syncope and possible TIA; he was readmitted in 12/2016 for management of syncope and symptomatic hypotension. EKG on admission showing bradycardia with a left bundle branch block; Cardiology was consulted. An echocardiogram on 12/20/16 showed an EF of 35-45%, paradoxical septal motion, moderate tricuspid regurgitation without significant pulmonary hypertension The patient had previously been evaluated by cardiology and recommendations were made for cardiac catheterization but the patient/son refused catheter or permanent pacemaker placement. Recommendations were also made for outpatient follow-up, but apparently the patient never did follow-up. Optimally, the patient should be on an LONNIE inhibitor and Beta blockers. However given the patient's hypotension with lactic acidosis the lonnie inhibitor is being held. Beta blockers are contraindicated given the patient's bradycardia and hypotension. Palliative Care was consulted to assist with symptom management and to discuss with the family the benefits and burdens of his current illnesses and the options regarding future care. . Function/Cognitive Trajectory Per review of notes, patient currently lives with his son. He has been hospitalized 3 times since September,. It appears the patient was evaluated by cardiology previously and recommendations were made for a cardiac catheterization and permanent pacemaker placement but the patient/son refused. There were also recommendations for outpatient follow-up, but the patient apparently did not follow up on these recommendations. . Review of Systems ROS Limitations: Clinical Condition, Intubated, Altered Mental Status, Speech Impaired, Poor Historian Constitutional: COMPLAINS OF: Fatigue, Generalized weakness Ears, nose, mouth, throat: DENIES: Hearing loss Cardiovascular: DENIES: Lower Extremity Edema Psychiatric: COMPLAINS OF: Confusion Past Family Social History Coded Allergies: No Known Allergies (Verified , 04/15/17) Past Medical History Dementia Arthritis BPH History of prostate cancer TIAs CHF HTN Anxiety Glaucoma . Past Surgical History Left inguinal hernia repair Bilateral cataract surgery . Reported Medications Senna Plus 8.6-50 mg (Sennosides-Docusate Sodium) 1 Tab Tab 1 Tab PO DAILY PRN Aspir-81 (Aspirin) 81 Mg Tabdr 81 Mg PO DAILY K-Tab (Potassium Chloride) 10 Meq Tab 10 Meq PO DAILY Lasix (Furosemide) 20 Mg Tab 20 Mg PO DAILY Cosopt Pf Opth Drops (Dorzolamide-Timolol Pf Opth Drops) 22.3-6.8 mg/ml Soln 1 Drop RIGHT EYE BID Mapap (Acetaminophen) 325 Mg Tab 650 Mg PO Q4HR PRN . Current Medications Medications (Trade) Dose Ordered Sig/Shayan Route Start Time Stop Time Status Last Admin Propofol 100 ml @ 0 mls/hr TITRATE PRN IV 04/15/17 12:30 04/16/17 06:53 Sodium Chloride 1,000 ml @ 75 mls/hr [id number] IV 04/15/17 16:00 04/16/17 05:19 (NS Flush) 2 ml UNSCH PRN IV FLUSH 04/15/17 14:45 (NS Flush) 2 ml BID IV FLUSH 04/15/17 21:00 04/16/17 08:27 (Tylenol) 650 mg Q6H PRN PO 04/15/17 14:45 (Duoneb Neb) 1 ampule Q4HR NEB PRN INH 04/15/17 14:45 (Peridex 0.12% Liq) 15 ml BID@08,20 MT 04/15/17 20:00 04/16/17 08:27 (Pepcid) 20 mg BID TUBE 04/15/17 21:00 04/16/17 08:27 (Lovenox Inj) 40 mg Q24H SQ 04/15/17 16:00 04/15/17 16:25 Miscellaneous Information 1 [id number] XX 04/15/17 14:45 04/15/17 21:16 (Chlorhexidine 2% Cloth) 3 pack Taper DAILY@04 TOP 04/16/17 04:00 04/12/18 03:59 04/16/17 04:00 (Chlorhexidine 2% Cloth) 3 pack UNSCH PRN TOP 04/15/17 14:45 Potassium Chloride 100 ml @ 50 mls/hr Q2H PRN IV 04/15/17 21:30 Potassium Chloride 100 ml @ 50 mls/hr Q2H PRN IV 04/15/17 21:30 (K-Lyte Cl Eff) 50 meq UNSCH PRN PO 04/15/17 21:30 Potassium Chloride 100 ml @ 25 mls/hr UNSCH PRN IV 04/15/17 21:30 Potassium Chloride 100 ml @ 50 mls/hr Q2H PRN IV 04/15/17 21:30 04/16/17 02:38 Magnesium Sulfate 4 gm/Sodium Chloride 100 ml @ 50 mls/hr UNSCH PRN IV 04/15/17 21:30 (Mag-Ox) 800 mg UNSCH PRN PO 04/15/17 21:30 Magnesium Sulfate 2 gm/Sodium Chloride 100 ml @ 50 mls/hr UNSCH PRN IV 04/15/17 21:30 (K-Phos) 2,000 mg Q4H PRN PO 04/15/17 21:30 Sodium Phosphate 30 mmol/Sodium Chloride 250 ml @ 42 mls/hr UNSCH PRN IV 04/15/17 21:30 (K-Phos) 2,000 mg UNSCH PRN PO/TUBE 04/15/17 21:30 04/15/17 22:22 Potassium Phosphate 30 mmol/ Sodium Chloride 260 ml @ 42 mls/hr UNSCH PRN IV 04/15/17 21:30 . Family History Further information pending conversations with patient's family. . Substance Use Tobacco: Patient denies tobacco use. Alcohol: Patient denies EtOH consumption. Prescription med abuse: None known. Illicits: None known. . Psychosocial History Patient apparently lives with son. Further information pending conversation with patient's family. . Spiritual/Cultural Factors Hindu oliver . Documented care wishes: No known documented care wishes as been completed. . Today's verbally stated goals: Patient is unable to participate and establishment of medical treatment goals at this time secondary to his clinical condition. . Family/friends goals: Pending conversation with patient's family. . Ethical and Legal Issues No known ethical or legal issues impacting care. . Physical Exam Vital Signs Date Time Temp Pulse Resp B/P (MAP) Pulse Ox O2 Delivery O2 Flow Rate FiO2 04/16/17 08:15 94 40 04/16/17 06:00 62 04/16/17 06:00 98.6 62 12 132/86 (101) 04/16/17 05:00 98.8 81 20 137/82 (100) 100 04/16/17 04:30 98.8 78 25 165/84 (111) 100 04/16/17 04:11 100 40 04/16/17 04:00 62 04/16/17 04:00 40 04/16/17 04:00 98.8 62 12 136/85 (102) 100 04/16/17 03:30 98.8 66 12 143/84 (103) 100 04/16/17 03:00 99.0 64 12 134/82 (99) 100 04/16/17 02:00 63 04/16/17 02:00 99.3 63 12 125/83 (97) 100 04/16/17 01:30 99.3 74 13 146/95 (112) 100 04/16/17 01:00 99.1 81 13 166/81 (109) 100 04/16/17 00:31 100 40 04/16/17 00:31 99.1 73 12 147/91 (109) 100 04/16/17 00:00 67 04/16/17 00:00 99.1 67 13 149/98 (115) 100 04/16/17 00:00 99.1 67 13 149/98 (115) 100 04/16/17 00:00 40 04/15/17 23:00 100.0 62 12 113/76 (88) 100 04/15/17 22:30 100.0 67 12 145/88 (107) 100 04/15/17 22:01 99.7 78 14 166/85 (112) 04/15/17 22:00 99.7 78 13 04/15/17 22:00 78 04/15/17 21:30 99.3 62 12 145/94 (111) 04/15/17 21:00 57 12 130/81 (97) 100 04/15/17 20:30 61 12 143/88 (106) 04/15/17 20:00 40 04/15/17 19:45 98 Ventilator 04/15/17 19:44 04/15/17 19:35 98 40 04/15/17 19:17 60 12 145/88 (107) 100 Ventilator 04/15/17 18:56 99.0 67 12 158/83 (108) 100 Ventilator 40 04/15/17 18:00 100 100 04/15/17 16:58 98.4 52 12 132/88 (103) 100 Ventilator 40 04/15/17 16:00 100 40 04/15/17 15:01 98.2 56 14 132/85 (101) 100 Ventilator 40 04/15/17 14:30 97 50 04/15/17 13:46 57 20 134/83 (100) 100 Ventilator 04/15/17 13:00 14 100 Ventilator 40 04/15/17 12:34 98.6 61 16 142/85 (104) 98 04/15/17 12:30 100 100 04/15/17 12:25 100 Ventilator 04/15/17 12:25 100 04/15/17 12:25 100 Ventilator . Exam CONSTITUTIONAL/GENERAL: This is a frail, elderly male patient currently sedated and intubated on mechanical ventilator. TUBES/LINES/DRAINS: Santana catheter, PIV x 3, ETT, OGT, soft restraints SKIN: No wounds seen anteriorly. Skin temperature appropriate. Not diaphoretic. HEAD: Atraumatic. Normocephalic. EYES: Pupils equal and round. No scleral icterus. No injection or drainage. Fundi not examined. ENT: Hearing grossly normal. Nose without bleeding or purulent drainage. NECK: Trachea midline. CARDIOVASCULAR: Irregularly irregular. No JVD. Peripheral pulses symmetric. RESPIRATORY/CHEST: Symmetric, unlabored respirations. Clear to auscultation. Breath sounds equal bilaterally. No wheezes, rales, or rhonchi. GASTROINTESTINAL: Abdomen soft, non-tender, nondistended. No guarding. Bowel sounds present. GENITOURINARY: Without palpable bladder distension. Santana catheter draining clear, yellow urine. MUSCULOSKELETAL: Extremities without clubbing, cyanosis, or edema. LYMPHATICS: No palpable cervical or supraclavicular adenopathy. NEUROLOGICAL: Sedated on propofol. Arouses to verbal stimuli PSYCHIATRIC: No obvious anxiety/depression. No apparent hallucinations or other psychotic thought process. . Diagnostic Tests Laboratory Laboratory Tests Test 04/15/17 12:45 04/15/17 16:15 04/15/17 19:30 04/15/17 21:25 White Blood Count 5.3 TH/MM3 (4.0-11.0) Red Blood Count 3.32 MIL/MM3 (4.50-5.90) Hemoglobin 10.2 GM/DL (13.0-17.0) Hematocrit 31.5 % (39.0-51.0) Mean Corpuscular Volume 95.0 FL (80.0-100.0) Mean Corpuscular Hemoglobin 30.7 PG (27.0-34.0) Mean Corpuscular Hemoglobin Concent 32.3 % (32.0-36.0) Red Cell Distribution Width 13.6 % (11.6-17.2) Platelet Count 133 TH/MM3 (150-450) Mean Platelet Volume 7.6 FL (7.0-11.0) Neutrophils (%) (Auto) 44.7 % (16.0-70.0) Lymphocytes (%) (Auto) 44.4 % (9.0-44.0) Monocytes (%) (Auto) 10.1 % (0.0-8.0) Eosinophils (%) (Auto) 0.6 % (0.0-4.0) Basophils (%) (Auto) 0.2 % (0.0-2.0) Neutrophils # (Auto) 2.4 TH/MM3 (1.8-7.7) Lymphocytes # (Auto) 2.3 TH/MM3 (1.0-4.8) Monocytes # (Auto) 0.5 TH/MM3 (0-0.9) Eosinophils # (Auto) 0.0 TH/MM3 (0-0.4) Basophils # (Auto) 0.0 TH/MM3 (0-0.2) CBC Comment DIFF FINAL Differential Comment Prothrombin Time 11.8 SEC (9.8-11.6) Prothromb Time International Ratio 1.1 RATIO Activated Partial Thromboplast Time 24.7 SEC (24.3-30.1) Urine Color YELLOW (YELLW/STRAW) Urine Turbidity CLEAR (CLEAR) Urine pH 6.5 (5.0-8.5) Urine Specific [place] 1.012 (1.002-1.035) Urine Protein TRACE mg/dL (NEG-TRACE) Urine Glucose (UA) NEG mg/dL (NEG) Urine Ketones TRACE mg/dL (NEG) Urine Occult Blood NEG (NEG) Urine Nitrite NEG (NEG) Urine Bilirubin NEG (NEG) Urine Urobilinogen LESS THAN 2.0 MG/DL (LESS Urine Leukocyte Esterase SMALL (NEG) Urine RBC 2 /hpf (0-3) Urine WBC 5 /hpf (0-5) Urine Squamous Epithelial Cells 1 /hpf (0-5) Urine Hyaline Casts 1 /lpf (RARE) Urine Mucus FEW /lpf (OCC) Microscopic Urinalysis Comment CATH-CULT NOT IND Blood Gas Puncture Site LT BRACHIAL Blood Gas Patient Temperature 98.6 Blood Gas HCO3 23 mmol/L (22-26) Blood Gas Base Excess -0.9 mmol/L (-2-2) Blood Gas Oxygen Saturation 99 % (90-100) Arterial Blood pH 7.44 (7.380-7.420) Arterial Blood Partial Pressure CO2 34 mmHg (38-42) Arterial Blood Partial Pressure O2 462 mmHG (61-120) Arterial Blood Oxygen Content 15.2 Vol % (12.0-20.0) Arterial Blood Carboxyhemoglobin 0.9 % (0-4) Arterial Blood Methemoglobin 0.6 % (0-2) Blood Gas Hemoglobin 10.1 G/DL (12.0-16.0) Oxygen Delivery Device VENTILATOR Blood Gas Ventilator Setting AC/RR14/VT550/PEEP5 Blood Gas Inspired Oxygen 100 % Blood Urea Nitrogen 20 MG/DL (7-18) Creatinine 1.25 MG/DL (0.60-1.30) Random Glucose 113 MG/DL (74-106) Total Protein 6.2 GM/DL (6.4-8.2) Albumin 3.1 GM/DL (3.4-5.0) Calcium Level 8.3 MG/DL (8.5-10.1) Magnesium Level 1.9 MG/DL (1.5-2.5) Alkaline Phosphatase 67 U/L (45-117) Aspartate Amino Transf (AST/SGOT) 15 U/L (15-37) Alanine Aminotransferase (ALT/SGPT) 10 U/L (12-78) Total Bilirubin 0.4 MG/DL (0.2-1.0) Sodium Level 141 MEQ/L (136-145) Potassium Level 3.1 MEQ/L (3.5-5.1) Chloride Level 108 MEQ/L (98-107) Carbon Dioxide Level 23.7 MEQ/L (21.0-32.0) Anion Gap 9 MEQ/L (5-15) Estimat Glomerular Filtration Rate 67 ML/MIN (>89) Lactic Acid Level 2.2 mmol/L (0.4-2.0) 1.8 mmol/L (0.4-2.0) Total Creatine Kinase 99 U/L (39-308) 206 U/L (39-308) Troponin I 0.02 NG/ML (0.02-0.05) 0.04 NG/ML (0.02-0.05) Urine Opiates Screen NEG (NEG) Urine Barbiturates Screen NEG (NEG) Urine Amphetamines Screen NEG (NEG) Urine Benzodiazepines Screen NEG (NEG) Urine Cocaine Screen NEG (NEG) Urine Cannabinoids Screen NEG (NEG) Nasal Screen MRSA (PCR) MRSA NOT DETECTED (NOT Test 04/16/17 03:35 White Blood Count 10.4 TH/MM3 (4.0-11.0) Red Blood Count 3.69 MIL/MM3 (4.50-5.90) Hemoglobin 11.6 GM/DL (13.0-17.0) Hematocrit 35.1 % (39.0-51.0) Mean Corpuscular Volume 95.1 FL (80.0-100.0) Mean Corpuscular Hemoglobin 31.4 PG (27.0-34.0) Mean Corpuscular Hemoglobin Concent 33.0 % (32.0-36.0) Red Cell Distribution Width 13.7 % (11.6-17.2) Platelet Count 119 TH/MM3 (150-450) Mean Platelet Volume 7.9 FL (7.0-11.0) Neutrophils (%) (Auto) 80.6 % (16.0-70.0) Lymphocytes (%) (Auto) 11.9 % (9.0-44.0) Monocytes (%) (Auto) 7.2 % (0.0-8.0) Eosinophils (%) (Auto) 0.1 % (0.0-4.0) Basophils (%) (Auto) 0.2 % (0.0-2.0) Neutrophils # (Auto) 8.4 TH/MM3 (1.8-7.7) Lymphocytes # (Auto) 1.2 TH/MM3 (1.0-4.8) Monocytes # (Auto) 0.8 TH/MM3 (0-0.9) Eosinophils # (Auto) 0.0 TH/MM3 (0-0.4) Basophils # (Auto) 0.0 TH/MM3 (0-0.2) CBC Comment DIFF FINAL Differential Comment Blood Urea Nitrogen 15 MG/DL (7-18) Creatinine 1.05 MG/DL (0.60-1.30) Random Glucose 95 MG/DL (74-106) Total Protein 6.6 GM/DL (6.4-8.2) Albumin 3.0 GM/DL (3.4-5.0) Calcium Level 8.4 MG/DL (8.5-10.1) Alkaline Phosphatase 70 U/L (45-117) Aspartate Amino Transf (AST/SGOT) 20 U/L (15-37) Alanine Aminotransferase (ALT/SGPT) 12 U/L (12-78) Total Bilirubin 0.6 MG/DL (0.2-1.0) Sodium Level 148 MEQ/L (136-145) Potassium Level 3.7 MEQ/L (3.5-5.1) Chloride Level 114 MEQ/L (98-107) Carbon Dioxide Level 27.2 MEQ/L (21.0-32.0) Anion Gap 7 MEQ/L (5-15) Estimat Glomerular Filtration Rate 82 ML/MIN (>89) Total Creatine Kinase 241 U/L (39-308) Troponin I 0.03 NG/ML (0.02-0.05) . Result Diagram: 04/16/17 0335 04/16/17 0335 Microbiology Microbiology Date/Time Source Procedure Growth Status 04/15/17 12:45 Blood Peripheral Aerobic Blood Culture Pending Received 04/15/17 12:45 Blood Peripheral Anaerobic Blood Culture Pending Received 04/15/17 12:40 Blood Peripheral Aerobic Blood Culture Pending Received 04/15/17 12:40 Blood Peripheral Anaerobic Blood Culture Pending Received 04/15/17 19:10 Sputum Endotracheal Gram Stain - Final Resulted 04/15/17 19:10 Sputum Endotracheal Sputum Culture Pending Resulted . Imaging Last [address] 04/15/17 1229 Signed Impressions: Service Date/Time: Saturday, April 15, 2017 14:33 - CONCLUSION: 1. Atrophy. 2. Extensive chronic small vessel ischemic change. 3. Ventriculomegaly which is stable and felt to relate to the underlying atrophy. 4. No acute intracranial abnormality. Vishnu Alejo Jr., MD Chest X-Ray 04/15/17 1229 Signed Impressions: Service Date/Time: Saturday, April 15, 2017 13:04 - CONCLUSION: Lungs are clear. Support apparatus in good position. Jeremy Packer MD FACR Brain MRI 04/15/17 0000 Signed Impressions: Service Date/Time: Saturday, April 15, 2017 17:38 - CONCLUSION: 1. Diffuse bilateral cortical atrophy. 2. Ventriculomegaly which appears to be stable compared to the prior studies. This is most likely related to the diffuse cortical atrophy. A second possibility would be normal pressure hydrocephalus. However, this would need to be correlated with patient's physical and clinical exam. 3. No acute pathology. Reymundo Villafuerte MD . Procedures 04/15/2017: Intubation 04/15/2017: OGT . Patient/Family Conference Present at Family Conference: Attempted, unsuccessfully, to contact patient's son via telephone. Unable to leave message on patient's son's voicemail. Palliative care contact information left with bedside nurseButch. . Issues Discussed: Assessment and Plan Disease Oriented Problem List: (1) Cerebral atrophy (2) History of prostate cancer (3) History of TIAs (4) Sepsis (5) Symptomatic bradycardia (6) Cardiomyopathy (7) Dementia Symptom Scale: (1) Debility (2) Confusion Pertinent Non-Medical Issues Psychosocial:Patient apparently lives with son. Further information pending conversation with patient's family. Spiritual: Hindu oliver Legal: Per [place] statutes, in the absence of written advanced directives healthcare proxy decision-making falls to the patient's adult children. Only known relative a this time is patient's son with whom the patient lives. Ethical issues impacting care: No known ethical issues impacting care at this time . Important Contacts Loyd Case, son: [phone] . Prognosis Patient is an 81-year-old male with a history of dementia and syncopal episodes from suspected bradycardia/cardiomyopathy. This is the patient's third hospitalization at [facility] since September 28, 2016. He was previously hospitalized in 09/2016 for treatment of syncope/possible TIA; he was readmitted in 12/2016 for management of syncope and symptomatic hypotension. Cardiology has previously evaluated this patient and recommendations were made for cardiac catheterization/possible permanent pacemaker placement but the patient's son refused. Outpatient follow-up with cardiology was also recommended but was not done. The patient is high risk for ongoing decline and complications requiring rehospitalization. . Code Status: Full Code Plan * FULL CODE * Decision-making: Per [place] statutes, in the absence of written advanced directives healthcare proxy decision making would fall to the patient's . If the patient is not , healthcare proxy decision making would then fall to the majority of his adult children. At this point in time the only known family member is his son (Loyd Case). * AGGRESSIVE GOALS-pending conversation with patient/family. * Attempted, unsuccessfully, to contact patient's son via telephone. Unable to leave message on patient's son's voicemail. Palliative care contact information left with bedside nurseButch. * Discussed with Dr. Lewis * Palliative care will continue to follow this patient throughout his hospitalization to establish trust, assist with symptom management and clarification of medical treatment goals. . Thank you for the opportunity to participate in the care of Mr. Case. . Attestation To help prompt me to consider important information that might be impacting today's encounter and assessment, information from prior notes written by myself or my colleagues may have been "brought forward" into today's note. My signature on this note, however, is an attestation that I personally performed the exam, history, and/or decision-making noted today, and, unless otherwise indicated, the interactions with patient, family, and staff as well as the review of records all occurred today. I also attest that the listed assessment and stated plan reflect my best clinical judgment today based on the combination of historical information, prior notes, and today's exam/ interactions. When time spent is documented, it refers only to time spent today by the signer, or if indicated, combined time spent today by collaborating physician/nurse practitioner. . Alpa Lopez Apr 16, 2017 10:10
--- NOTE | 2017-04-16 12:21 | EKG ---
Date Performed: 04/15/2017 Time Performed: 13:02:37 PTAGE: 81 years EKG: SINUS BRADYCARDIA WITH SINUS ARRHYTHMIA MARKED LEFT AXIS DEVIATION LEFT BUNDLE BRANCH BLOCK ABNORMAL ECG PREVIOUS TRACING : 12/19/2016 13.35 Compared to prior tracing no significant change DOCTOR: Tasia Guillory Interpretating Date/Time 04/16/2017 12:17:22
--- NOTE | 2017-04-16 12:44 | ECHRPT ---
Indication: CONCLUSIONS The left ventricular systolic function is severely reduced with an estimated ejection fraction in th e range of 25-30%. Normal left ventricular size. [id number] mitral valve regurgitation. There is trace tricuspid valve regurgitation. BP: / HR: Rhythm: MEASUREMENTS (Male / Female) Normal Values Technical Quality:Fair 2D ECHO LV Diastolic Diameter PLAX 3.9 cm 4.2 - 5.9 / 3.9 - 5.3 cm LV Systolic Diameter PLAX 3.5 cm IVS Diastolic Thickness 1.3 cm 0.6 - 1.0 / 0.6 - 0.9 cm LVPW Diastolic Thickness 1.2 cm 0.6 - 1.0 / 0.6 - 0.9 cm LV Relative Wall Thickness 0.6 RV Internal Dim ED PLAX 2.6 cm FINDINGS LEFT VENTRICLE The left ventricular systolic function is severely reduced with an estimated ejection fraction in th e range of 25-30%. Normal left ventricular size. RIGHT VENTRICLE Normal right ventricular size and systolic function. LEFT ATRIUM The left atrial size is normal. RIGHT ATRIUM The right atrial size is normal. ATRIAL SEPTUM Normal atrial septal thickness without atrial level shunting by limited color doppler interrogation. AORTA The aortic root and proximal ascending aorta are normal in size on limited imaging. MITRAL VALVE Structurally normal mitral valve. [id number] mitral valve regurgitation. AORTIC VALVE Trileaflet aortic valve. No aortic valve stenosis or regurgitation. TRICUSPID VALVE Structurally normal tricuspid valve. There is trace tricuspid valve regurgitation. PULMONARY VALVE The pulmonary valve is not well visualized. VESSELS The inferior vena cava is normal in size. PERICARDIUM No pericardial effusion. Marquise Leach MD, FACC (Electronically Signed) Final Date:16 April 2017 12:43
--- NOTE | 2017-04-16 12:46 | PD.CARD.PN ---
Subjective Subjective Remarks intubated, sedated Objective Medications Current Medications Medications (Trade) Dose Ordered Sig/Shayan Route Start Time Stop Time Status Last Admin Propofol 100 ml @ 0 mls/hr TITRATE PRN IV 04/15/17 12:30 04/16/17 06:53 Sodium Chloride 1,000 ml @ 75 mls/hr [id number] IV 04/15/17 16:00 04/16/17 05:19 (NS Flush) 2 ml UNSCH PRN IV FLUSH 04/15/17 14:45 (NS Flush) 2 ml BID IV FLUSH 04/15/17 21:00 04/16/17 08:27 (Tylenol) 650 mg Q6H PRN PO 04/15/17 14:45 (Duoneb Neb) 1 ampule Q4HR NEB PRN INH 04/15/17 14:45 (Peridex 0.12% Liq) 15 ml BID@08,20 MT 04/15/17 20:00 04/16/17 08:27 (Pepcid) 20 mg BID TUBE 04/15/17 21:00 04/16/17 08:27 (Lovenox Inj) 40 mg Q24H SQ 04/15/17 16:00 04/15/17 16:25 Miscellaneous Information 1 Q361D XX 04/15/17 14:45 04/15/17 21:16 (Chlorhexidine 2% Cloth) 3 pack Taper DAILY@04 TOP 04/16/17 04:00 04/12/18 03:59 04/16/17 04:00 (Chlorhexidine 2% Cloth) 3 pack UNSCH PRN TOP 04/15/17 14:45 Potassium Chloride 100 ml @ 50 mls/hr Q2H PRN IV 04/15/17 21:30 Potassium Chloride 100 ml @ 50 mls/hr Q2H PRN IV 04/15/17 21:30 (K-Lyte Cl Eff) 50 meq UNSCH PRN PO 04/15/17 21:30 Potassium Chloride 100 ml @ 25 mls/hr UNSCH PRN IV 04/15/17 21:30 Potassium Chloride 100 ml @ 50 mls/hr Q2H PRN IV 04/15/17 21:30 04/16/17 02:38 Magnesium Sulfate 4 gm/Sodium Chloride 100 ml @ 50 mls/hr UNSCH PRN IV 04/15/17 21:30 (Mag-Ox) 800 mg UNSCH PRN PO 04/15/17 21:30 Magnesium Sulfate 2 gm/Sodium Chloride 100 ml @ 50 mls/hr UNSCH PRN IV 04/15/17 21:30 (K-Phos) 2,000 mg Q4H PRN PO 04/15/17 21:30 Sodium Phosphate 30 mmol/Sodium Chloride 250 ml @ 42 mls/hr UNSCH PRN IV 04/15/17 21:30 (K-Phos) 2,000 mg UNSCH PRN PO/TUBE 04/15/17 21:30 04/15/17 22:22 Potassium Phosphate 30 mmol/ Sodium Chloride 260 ml @ 42 mls/hr UNSCH PRN IV 04/15/17 21:30 Vital Signs / I&O Vital Signs Date Time Temp Pulse Resp B/P (MAP) Pulse Ox O2 Delivery O2 Flow Rate FiO2 04/16/17 12:00 98.3 71 13 137/83 (101) 99 04/16/17 12:00 70 04/16/17 12:00 40 04/16/17 10:00 68 04/16/17 08:15 94 40 04/16/17 08:00 98.2 70 19 150/86 (107) 99 04/16/17 08:00 65 04/16/17 08:00 40 04/16/17 06:00 62 04/16/17 06:00 98.6 62 12 132/86 (101) 04/16/17 05:00 98.8 81 20 137/82 (100) 100 04/16/17 04:30 98.8 78 25 165/84 (111) 100 04/16/17 04:11 100 40 04/16/17 04:00 62 04/16/17 04:00 40 04/16/17 04:00 98.8 62 12 136/85 (102) 100 04/16/17 03:30 98.8 66 12 143/84 (103) 100 04/16/17 03:00 99.0 64 12 134/82 (99) 100 04/16/17 02:00 63 04/16/17 02:00 99.3 63 12 125/83 (97) 100 04/16/17 01:30 99.3 74 13 146/95 (112) 100 04/16/17 01:00 99.1 81 13 166/81 (109) 100 04/16/17 00:31 100 40 04/16/17 00:31 99.1 73 12 147/91 (109) 100 04/16/17 00:00 67 04/16/17 00:00 99.1 67 13 149/98 (115) 100 04/16/17 00:00 99.1 67 13 149/98 (115) 100 04/16/17 00:00 40 04/15/17 23:00 100.0 62 12 113/76 (88) 100 04/15/17 22:30 100.0 67 12 145/88 (107) 100 04/15/17 22:01 99.7 78 14 166/85 (112) 04/15/17 22:00 99.7 78 13 04/15/17 22:00 78 04/15/17 21:30 99.3 62 12 145/94 (111) 04/15/17 21:00 57 12 130/81 (97) 100 04/15/17 20:30 61 12 143/88 (106) 04/15/17 20:00 40 04/15/17 19:45 98 Ventilator 04/15/17 19:44 04/15/17 19:35 98 40 04/15/17 19:17 60 12 145/88 (107) 100 Ventilator 04/15/17 18:56 99.0 67 12 158/83 (108) 100 Ventilator 40 04/15/17 18:00 100 100 04/15/17 16:58 98.4 52 12 132/88 (103) 100 Ventilator 40 04/15/17 16:00 100 40 04/15/17 15:01 98.2 56 14 132/85 (101) 100 Ventilator 40 04/15/17 14:30 97 50 04/15/17 13:46 57 20 134/83 (100) 100 Ventilator 04/15/17 13:00 14 100 Ventilator 40 I/O 04/15/17 04/15/17 04/15/17 04/16/17 04/16/17 04/16/17 06:59 14:59 22:59 06:59 14:59 22:59 Intake Total 1100 ml 100 ml 1492 ml Output Total 2100 ml 1000 ml Balance 1100 ml -2000 ml 492 ml Intake IV Total 1100 ml 100 ml 1200 ml Tube Feeding 172 ml Tube Irrigant 120 ml Output Urine Total 1300 ml 1000 ml Gastric Drainage Total 800 ml # Voids 0 # Bowel Movements 1 Physical Exam GENERAL: SKIN: Warm and dry. HEAD: Normocephalic. EYES: No scleral icterus. No injection or drainage. NECK: Supple, trachea midline. No JVD or lymphadenopathy. CARDIOVASCULAR: Regular rate and rhythm without murmurs, gallops, or rubs. RESPIRATORY: Breath sounds equal bilaterally. No accessory muscle use. GASTROINTESTINAL: Abdomen soft, non-tender, nondistended. MUSCULOSKELETAL: No cyanosis, or edema. BACK: Nontender without obvious deformity. No CVA tenderness. Laboratory Laboratory Tests Test 04/15/17 12:45 04/15/17 16:15 04/15/17 19:30 04/15/17 21:25 White Blood Count 5.3 TH/MM3 Red Blood Count 3.32 MIL/MM3 Hemoglobin 10.2 GM/DL Hematocrit 31.5 % Mean Corpuscular Volume 95.0 FL Mean Corpuscular Hemoglobin 30.7 PG Mean Corpuscular Hemoglobin Concent 32.3 % Red Cell Distribution Width 13.6 % Platelet Count 133 TH/MM3 Mean Platelet Volume 7.6 FL Neutrophils (%) (Auto) 44.7 % Lymphocytes (%) (Auto) 44.4 % Monocytes (%) (Auto) 10.1 % Eosinophils (%) (Auto) 0.6 % Basophils (%) (Auto) 0.2 % Neutrophils # (Auto) 2.4 TH/MM3 Lymphocytes # (Auto) 2.3 TH/MM3 Monocytes # (Auto) 0.5 TH/MM3 Eosinophils # (Auto) 0.0 TH/MM3 Basophils # (Auto) 0.0 TH/MM3 CBC Comment DIFF FINAL Differential Comment Prothrombin Time 11.8 SEC Prothromb Time International Ratio 1.1 RATIO Activated Partial Thromboplast Time 24.7 SEC Urine Color YELLOW Urine Turbidity CLEAR Urine pH 6.5 Urine Specific [place] 1.012 Urine Protein TRACE mg/dL Urine Glucose (UA) NEG mg/dL Urine Ketones TRACE mg/dL Urine Occult Blood NEG Urine Nitrite NEG Urine Bilirubin NEG Urine Urobilinogen LESS THAN 2.0 MG/DL Urine Leukocyte Esterase SMALL Urine RBC 2 /hpf Urine WBC 5 /hpf Urine Squamous Epithelial Cells 1 /hpf Urine Hyaline Casts 1 /lpf Urine Mucus FEW /lpf Microscopic Urinalysis Comment CATH-CULT NOT IND Blood Gas Puncture Site LT BRACHIAL Blood Gas Patient Temperature 98.6 Blood Gas HCO3 23 mmol/L Blood Gas Base Excess -0.9 mmol/L Blood Gas Oxygen Saturation 99 % Arterial Blood pH 7.44 Arterial Blood Partial Pressure CO2 34 mmHg Arterial Blood Partial Pressure O2 462 mmHG Arterial Blood Oxygen Content 15.2 Vol % Arterial Blood Carboxyhemoglobin 0.9 % Arterial Blood Methemoglobin 0.6 % Blood Gas Hemoglobin 10.1 G/DL Oxygen Delivery Device VENTILATOR Blood Gas Ventilator Setting AC/RR14/VT550/PEEP5 Blood Gas Inspired Oxygen 100 % Blood Urea Nitrogen 20 MG/DL Creatinine 1.25 MG/DL Random Glucose 113 MG/DL Total Protein 6.2 GM/DL Albumin 3.1 GM/DL Calcium Level 8.3 MG/DL Magnesium Level 1.9 MG/DL Alkaline Phosphatase 67 U/L Aspartate Amino Transf (AST/SGOT) 15 U/L Alanine Aminotransferase (ALT/SGPT) 10 U/L Total Bilirubin 0.4 MG/DL Sodium Level 141 MEQ/L Potassium Level 3.1 MEQ/L Chloride Level 108 MEQ/L Carbon Dioxide Level 23.7 MEQ/L Anion Gap 9 MEQ/L Estimat Glomerular Filtration Rate 67 ML/MIN Lactic Acid Level 2.2 mmol/L 1.8 mmol/L Total Creatine Kinase 99 U/L 206 U/L Troponin I 0.02 NG/ML 0.04 NG/ML Urine Opiates Screen NEG Urine Barbiturates Screen NEG Urine Amphetamines Screen NEG Urine Benzodiazepines Screen NEG Urine Cocaine Screen NEG Urine Cannabinoids Screen NEG Nasal Screen MRSA (PCR) MRSA NOT DETECTED Test 04/16/17 03:35 White Blood Count 10.4 TH/MM3 Red Blood Count 3.69 MIL/MM3 Hemoglobin 11.6 GM/DL Hematocrit 35.1 % Mean Corpuscular Volume 95.1 FL Mean Corpuscular Hemoglobin 31.4 PG Mean Corpuscular Hemoglobin Concent 33.0 % Red Cell Distribution Width 13.7 % Platelet Count 119 TH/MM3 Mean Platelet Volume 7.9 FL Neutrophils (%) (Auto) 80.6 % Lymphocytes (%) (Auto) 11.9 % Monocytes (%) (Auto) 7.2 % Eosinophils (%) (Auto) 0.1 % Basophils (%) (Auto) 0.2 % Neutrophils # (Auto) 8.4 TH/MM3 Lymphocytes # (Auto) 1.2 TH/MM3 Monocytes # (Auto) 0.8 TH/MM3 Eosinophils # (Auto) 0.0 TH/MM3 Basophils # (Auto) 0.0 TH/MM3 CBC Comment DIFF FINAL Differential Comment Blood Urea Nitrogen 15 MG/DL Creatinine 1.05 MG/DL Random Glucose 95 MG/DL Total Protein 6.6 GM/DL Albumin 3.0 GM/DL Calcium Level 8.4 MG/DL Alkaline Phosphatase 70 U/L Aspartate Amino Transf (AST/SGOT) 20 U/L Alanine Aminotransferase (ALT/SGPT) 12 U/L Total Bilirubin 0.6 MG/DL Sodium Level 148 MEQ/L Potassium Level 3.7 MEQ/L Chloride Level 114 MEQ/L Carbon Dioxide Level 27.2 MEQ/L Anion Gap 7 MEQ/L Estimat Glomerular Filtration Rate 82 ML/MIN Total Creatine Kinase 241 U/L Troponin I 0.03 NG/ML Assessment and Plan Problem List: (1) Sepsis ICD Codes: A41.9 - Sepsis, unspecified organism Status: Acute (2) Endotracheally intubated ICD Codes: Z97.8 - Presence of other specified devices Status: Acute (3) Confusion ICD Codes: R41.0 - Disorientation, unspecified (4) Dementia ICD Codes: F03.90 - Unspecified dementia without behavioral disturbance Status: Chronic (5) Cerebral atrophy ICD Codes: G31.9 - Degenerative disease of nervous system, unspecified (6) Cardiomyopathy ICD Codes: I42.9 - Cardiomyopathy, unspecified Status: Acute (7) Symptomatic bradycardia ICD Codes: R00.1 - Bradycardia, unspecified Status: Acute Assessment and Plan 1.) Cardiomyopathy - sharlene/bb held due to hypotension and sepsis, symptomatic bradycardia, euvolemic 2.) Bradycardia - f/u consult by Dr Quintero and palliative care f/u Asim Richardson MD Apr 16, 2017 12:46
--- NOTE | 2017-04-16 14:31 | HHI.CCPN ---
Subjective Remarks/Hospital Course 04/15: 81-year-old male with a medical history significant for dementia, TIAs, previous episodes of syncope and bradycardia as well as cardiomyopathy was recommended a pacemaker by cardiology during previous hospitalization however has refused. Today patient was found unresponsive by his family while sitting on the porch for a while. On EMS arrival his GCS was 4 and he was intubated for airway protection. He was hypotensive as well as bradycardic with heart rate in the 50s and systolic blood pressure 80s. He was brought to the ER at [facility]. He was placed on mechanical ventilation and subsequently the wire and propofol for sedation. He received Zosyn for question of sepsis in the ER as his lactic acid was elevated though this could [place] be from him being hypotensive secondary to his bradycardia. Patient has previously been evaluated by cardiology for syncope and has been recommended a pacemaker however has refused before. Patient was accepted for admission by critical care medicine service. When I evaluated the patient he was sedated with propofol him a orally intubated on mechanical ventilation. History was obtained by reviewing records and discussion with ER physician. 04/16: Remains sedated, orally intubated on mechanical ventilation. Maintaining blood pressure currently. Objective Vital Signs Date Time Temp Pulse Resp B/P (MAP) Pulse Ox O2 Delivery O2 Flow Rate FiO2 04/16/17 12:35 100 40 04/16/17 12:00 98.3 71 13 137/83 (101) 04/15/17 19:45 Ventilator Intake and Output 04/16/17 04/16/17 04/16/17 07:59 15:59 23:59 Intake Total 1492 ml Output Total 1000 ml Balance 492 ml Result Diagram: 04/16/17 0335 04/16/17 0335 Imaging Last Impressions Head CT 04/15/171228 Signed Impressions: Service Date/Time: Saturday, April 15, 2017 14:33 - CONCLUSION: 1. Atrophy. 2. Extensive chronic small vessel ischemic change. 3. Ventriculomegaly which is stable and felt to relate to the underlying atrophy. 4. No acute intracranial abnormality. Vishnu Alejo Jr., MD Chest X-Ray 04/15/171228 Signed Impressions: Service Date/Time: Saturday, April 15, 2017 13:04 - CONCLUSION: Lungs are clear. Support apparatus in good position. Jeremy Packer MD FACR Objective Remarks HEENT/ Neuro: Sedated, orally intubated, Pallor present, no icterus, tongue/ mucosa moist. Neck: No JVD Chest/Pulm: on mech vent, good air entry bilaterally, no wheezing or crackles CVS: S1-S2 regular, no murmur GI/abdomen: soft, nontender, bowel sounds sluggish Extremities: warm bilaterally, no edema A/P Assessment and Plan 81-year-old male with: Altered mental status/encephalopathy/syncope from suspected bradycardia/cardiac myopathy Sinus bradycardia Cardiomyopathy History of TIAs Cerebral atrophy Dementia History of prostate CA Arthritis Plan: Neuro: Sedation with propofol while intubated. Daily sedation vacation. Follow neuro status. MRI brain did not reveal any acute ischemic CVA. Neurology consult requested. Cardiovascular: Stop IV fluids. Bradycardia on admission noted. Cardiology consult requested for syncope/bradycardia/cardiomyopathy. Previously has refused pacemaker placement. Pulmonary: Continue mechanical ventilation, vent bundle, bronchodilators as needed. Daily C Pap trials to decide extubation if neurologic status improved. GI/liver: Continue tube feeds and advanced to goal as tolerated. Renal/: IV hydration, strict intake output, monitor and replete elect lites, follow BUN creatinine ID: Hold off on antibiotics as WBC is normal, no fever. Doubt sepsis chest x- ray clear, UA appears clear. Endocrine: Watch for hyperglycemia, SSI for glycemic control if needed. Heme: Follow CBC Prophylaxis: Pepcid/SCDs/subcutaneous Lovenox Palliative care consult requested to assist with deciding goals of therapy Condition critical Time spent on critical care excluding procedures: 35 minutes Nuno Lewis MD Apr 16, 2017 14:31
[2017-04-16] MEDS: ENOXAPARIN SODIUM 40 MG/0.4 ML SYRINGE SQ SCH (17:13)
[2017-04-17] VITALS (17 sets, daily range): BP systolic 121–155; BP diastolic 84–96; PULSE 60–109; RESP 12–29; TEMP 98.4–98.9; O2SAT 92–100
[2017-04-17] MEDS: PROPOFOL 1000 MG/100 ML INJ 100 ML IV PRN (03:35)
[2017-04-17] MEDS: CHLORHEXIDINE GLUCONATE 2 % 1 PACK (2 CLOTHS) TOP SCH (03:36)
--- NOTE | 2017-04-17 08:10 | HHI.CCPN ---
Subjective Remarks/Hospital Course 04/15: 81-year-old male with a medical history significant for dementia, TIAs, previous episodes of syncope and bradycardia as well as cardiomyopathy was recommended a pacemaker by cardiology during previous hospitalization however has refused. Today patient was found unresponsive by his family while sitting on the porch for a while. On EMS arrival his GCS was 4 and he was intubated for airway protection. He was hypotensive as well as bradycardic with heart rate in the 50s and systolic blood pressure 80s. He was brought to the ER at [facility]. He was placed on mechanical ventilation and subsequently the wire and propofol for sedation. He received Zosyn for question of sepsis in the ER as his lactic acid was elevated though this could [place] be from him being hypotensive secondary to his bradycardia. Patient has previously been evaluated by cardiology for syncope and has been recommended a pacemaker however has refused before. Patient was accepted for admission by critical care medicine service. When I evaluated the patient he was sedated with propofol him a orally intubated on mechanical ventilation. History was obtained by reviewing records and discussion with ER physician. 04/16: Remains sedated, orally intubated on mechanical ventilation. Maintaining blood pressure currently. 04/17: Remains sedated, orally intubated on mechanical ventilation. Maintaining blood pressure currently. Tolerating tube feeds. Objective Vital Signs Date Time Temp Pulse Resp B/P (MAP) Pulse Ox O2 Delivery O2 Flow Rate FiO2 04/17/17 07:45 100 35 04/17/17 06:00 80 04/17/17 04:00 98.4 12 121/84 (96) 04/15/17 19:45 Ventilator Intake and Output 04/17/17 04/17/17 04/18/17 08:00 16:00 00:00 Intake Total 945 ml Output Total 450 ml Balance 495 ml Result Diagram: 04/16/17 0335 04/16/17 1355 Imaging MRI brain: Ventriculomegaly, cerebral atrophy Last Impressions Head CT 04/15/171228 Signed Impressions: Service Date/Time: Saturday, April 15, 2017 14:33 - CONCLUSION: 1. Atrophy. 2. Extensive chronic small vessel ischemic change. 3. Ventriculomegaly which is stable and felt to relate to the underlying atrophy. 4. No acute intracranial abnormality. Vishnu Alejo Jr., MD Chest X-Ray 04/15/171228 Signed Impressions: Service Date/Time: Saturday, April 15, 2017 13:04 - CONCLUSION: Lungs are clear. Support apparatus in good position. Jeremy Packer MD FACR Objective Remarks HEENT/ Neuro: Sedated, orally intubated, Pallor present, no icterus, tongue/ mucosa moist. Neck: No JVD Chest/Pulm: on mech vent, good air entry bilaterally, no wheezing or crackles CVS: S1-S2 regular, no murmur GI/abdomen: soft, nontender, bowel sounds sluggish Extremities: warm bilaterally, no edema A/P Assessment and Plan 81-year-old male with: Altered mental status/encephalopathy/syncope from suspected bradycardia/cardiac myopathy Sinus bradycardia Cardiomyopathy History of TIAs Cerebral atrophy Dementia History of prostate CA Arthritis Plan: Neuro: Sedation with propofol while intubated. Daily sedation vacation. Follow neuro status. MRI brain did not reveal any acute ischemic CVA. Neurology consult requested. Cardiovascular: Off IV fluids. Bradycardia on admission noted. Cardiology consult requested for syncope/bradycardia/cardiomyopathy. Previously has refused pacemaker placement. Pulmonary: Continue mechanical ventilation, vent bundle, bronchodilators as needed. Daily C Pap trials to decide extubation if neurologic status improved. GI/liver: Continue tube feeds and advanced to goal as tolerated. Renal/: IV hydration, strict intake output, monitor and replete elect lites, follow BUN creatinine ID: Hold off on antibiotics as WBC is normal, no fever. Doubt sepsis chest x- ray clear, UA appears clear. Endocrine: Watch for hyperglycemia, SSI for glycemic control if needed. Heme: Follow CBC Prophylaxis: Pepcid/SCDs/subcutaneous Lovenox Palliative care consult requested to assist with deciding goals of therapy Condition critical Time spent on critical care excluding procedures: 35 minutes Nuno Lewis MD Apr 17, 2017 08:10
[2017-04-17] MEDS: CHLORHEXIDINE 0.12% (ORAL KIT) 15 ML CUP MT SCH ×2 (08:25→20:00)
[2017-04-17] MEDS: FAMOTIDINE 20 MG TAB TUBE SCH ×2 (08:25→20:31)
[2017-04-17] MEDS: SODIUM CHLORIDE 0.9% FLUSH 10 ML FLUSH IV FLUSH SCH ×2 (08:25→20:31)
--- NOTE | 2017-04-17 09:26 | PD.CARD.PN ---
Subjective Subjective Remarks intubated, sedated Objective Medications Current Medications Medications (Trade) Dose Ordered Sig/Shayan Route Start Time Stop Time Status Last Admin Propofol 100 ml @ 0 mls/hr TITRATE PRN IV 04/15/17 12:30 04/17/17 03:35 (NS Flush) 2 ml UNSCH PRN IV FLUSH 04/15/17 14:45 (NS Flush) 2 ml BID IV FLUSH 04/15/17 21:00 04/17/17 08:25 (Tylenol) 650 mg Q6H PRN PO 04/15/17 14:45 (Duoneb Neb) 1 ampule Q4HR NEB PRN INH 04/15/17 14:45 (Peridex 0.12% Liq) 15 ml BID@08,20 MT 04/15/17 20:00 04/17/17 08:25 (Pepcid) 20 mg BID TUBE 04/15/17 21:00 04/17/17 08:25 (Lovenox Inj) 40 mg Q24H SQ 04/15/17 16:00 04/16/17 17:13 Miscellaneous Information 1 Q361D XX 04/15/17 14:45 04/15/17 21:16 (Chlorhexidine 2% Cloth) 3 pack Taper DAILY@04 TOP 04/16/17 04:00 04/12/18 03:59 04/17/17 03:36 (Chlorhexidine 2% Cloth) 3 pack UNSCH PRN TOP 04/15/17 14:45 Potassium Chloride 100 ml @ 50 mls/hr Q2H PRN IV 04/15/17 21:30 Potassium Chloride 100 ml @ 50 mls/hr Q2H PRN IV 04/15/17 21:30 (K-Lyte Cl Eff) 50 meq UNSCH PRN PO 04/15/17 21:30 Potassium Chloride 100 ml @ 25 mls/hr UNSCH PRN IV 04/15/17 21:30 Potassium Chloride 100 ml @ 50 mls/hr Q2H PRN IV 04/15/17 21:30 04/16/17 02:38 Magnesium Sulfate 4 gm/Sodium Chloride 100 ml @ 50 mls/hr UNSCH PRN IV 04/15/17 21:30 (Mag-Ox) 800 mg UNSCH PRN PO 04/15/17 21:30 Magnesium Sulfate 2 gm/Sodium Chloride 100 ml @ 50 mls/hr UNSCH PRN IV 04/15/17 21:30 (K-Phos) 2,000 mg Q4H PRN PO 04/15/17 21:30 Sodium Phosphate 30 mmol/Sodium Chloride 250 ml @ 42 mls/hr UNSCH PRN IV 04/15/17 21:30 (K-Phos) 2,000 mg UNSCH PRN PO/TUBE 04/15/17 21:30 04/15/17 22:22 Potassium Phosphate 30 mmol/ Sodium Chloride 260 ml @ 42 mls/hr UNSCH PRN IV 04/15/17 21:30 Vital Signs / I&O Vital Signs Date Time Temp Pulse Resp B/P (MAP) Pulse Ox O2 Delivery O2 Flow Rate FiO2 04/17/17 07:45 100 35 04/17/17 06:00 80 04/17/17 05:21 35 04/17/17 04:13 99 35 04/17/17 04:00 98.4 64 12 121/84 (96) 100 04/17/17 04:00 64 04/17/17 04:00 40 04/17/17 02:00 60 04/17/17 02:00 109 04/17/17 02:00 60 04/17/17 01:06 100 40 04/17/17 00:00 60 04/17/17 00:00 98.1 60 12 138/88 (105) 100 04/17/17 00:00 40 04/16/17 22:05 100 40 04/16/17 22:00 65 04/16/17 20:00 40 04/16/17 20:00 65 04/16/17 20:00 99.3 65 12 117/80 (92) 100 04/16/17 19:15 100 40 04/16/17 18:00 64 04/16/17 16:00 99.0 81 13 118/72 (87) 99 04/16/17 16:00 40 04/16/17 16:00 84 04/16/17 15:50 100 40 04/16/17 14:00 61 04/16/17 12:35 100 40 04/16/17 12:00 98.3 71 13 137/83 (101) 99 04/16/17 12:00 70 04/16/17 12:00 40 04/16/17 10:00 68 I/O 04/16/17 04/16/17 04/16/17 04/17/17 04/17/17 04/17/17 07:00 15:00 23:00 07:00 15:00 23:00 Intake Total 1492 ml 698 ml 687 ml 945 ml Output Total 1000 ml 600 ml 450 ml Balance 492 ml 698 ml 87 ml 495 ml Intake IV Total 1200 ml 698 ml 100 ml Tube Feeding 172 ml 587 ml 725 ml Tube Irrigant 120 ml Other 100 ml 120 ml Output Urine Total 1000 ml 600 ml 450 ml # Bowel Movements 1 Physical Exam GENERAL: SKIN: Warm and dry. HEAD: Normocephalic. EYES: No scleral icterus. No injection or drainage. NECK: Supple, trachea midline. No JVD or lymphadenopathy. CARDIOVASCULAR: Regular rate and rhythm without murmurs, gallops, or rubs. RESPIRATORY: Breath sounds equal bilaterally. No accessory muscle use. GASTROINTESTINAL: Abdomen soft, non-tender, nondistended. MUSCULOSKELETAL: No cyanosis, or edema. BACK: Nontender without obvious deformity. No CVA tenderness. Laboratory Laboratory Tests Test 04/16/17 13:55 Potassium Level 3.8 MEQ/L Assessment and Plan Problem List: (1) Sepsis ICD Codes: A41.9 - Sepsis, unspecified organism Status: Acute (2) Endotracheally intubated ICD Codes: Z97.8 - Presence of other specified devices Status: Acute (3) Confusion ICD Codes: R41.0 - Disorientation, unspecified (4) Dementia ICD Codes: F03.90 - Unspecified dementia without behavioral disturbance Status: Chronic (5) Cerebral atrophy ICD Codes: G31.9 - Degenerative disease of nervous system, unspecified (6) Cardiomyopathy ICD Codes: I42.9 - Cardiomyopathy, unspecified Status: Acute (7) Symptomatic bradycardia ICD Codes: R00.1 - Bradycardia, unspecified Status: Acute Assessment and Plan 1.) Cardiomyopathy - sharlene/bb held due to hypotension and sepsis, symptomatic bradycardia, euvolemic, d/w family whether they would consent to possible heart cath 2.) Bradycardia - f/u consult by Dr Quintero and palliative care f/u Asim Richardson MD Apr 17, 2017 09:25
--- NOTE | 2017-04-17 12:49 | MB ---
cc: CUONG TEMPLE M.D. DATE OF CONSULTATION: 04/17/2017 HISTORY OF PRESENT ILLNESS This is an 81-year-old seen in neurological consultation. The patient is in the intensive care unit and he is intubated but reportedly getting ready to be extubated. He has been in the hospital since 04/15/2017 when he was admitted with sepsis. There is a history of dementia, cardiomyopathy and bradycardia. Apparently the family has declined pacemaker in the past. NEUROLOGICAL EXAMINATION On exam the patient is moving the extremities. 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 He follows simple commands. He opens the eyes. There is what appears to be a lot of corneal opacification on the left and the pupil on the right is smaller and slightly irregular. The reflexes are trace response throughout. Plantar response is probably flexor. IMAGING The imaging studies include CT brain and MRI brain on 04/15/2017 which showed atrophy and ventriculomegaly but stable in comparison to prior studies. LABORATORY WBC 10.4, hemoglobin 11.6, platelet count 119. Urine toxicology negative. Yesterday sodium was 148, potassium 3.7, BUN 15, creatinine 1.05. ASSESSMENT 1. Resolving encephalopathy. 2. Dementia. 3. Sepsis and cardiomyopathy. ASSESSMENT AND RECOMMENDATIONS Neurologic-starr I expect him to gradually improve and reach baseline status which apparently includes some significant dementia. Will follow him and see how he performs after he is extubated. We will discuss with the family for additional information as well. Thank you for asking us to assist in his care. MD MIKE Lux/BT /12:34 PM /12:43 PM
--- NOTE | 2017-04-17 15:05 | HHI.HCPN ---
Reason for visit a. To assist with evaluation and management of symptoms including: Debility , confusion b. To assist medical decision maker(s) with: better understanding of current medical conditions; weighing benefits/burdens of medical treatment options; making medical treatment decisions. . Subjective/Interval History Mr. Case is an 81-year-old male with a history of dementia, arthritis, BPH, history of prostate cancer, TIAs, CHF, hypertension, anxiety and glaucoma. He presented to [facility] ED via EMS on 04/15/2017 after being found unresponsive by his family. EMS reported upon arrival the patient's GCS was 4. He was hypotensive as well as bradycardic with heart rate in the 50s and systolic blood pressure 80s. He was intubated for airway protection. Seen this morning in the [facility], room 503. Patient remains intubated on mechanical ventilator with plan for CPAP trails this am. Patient arouses to verbal stimuli. He is able to follow some simple commands such as squeezing my hand and moving his BLE. Afebrile. Cultures negative to date. Tolerating TF. . Family/friend interactions Spoke to patient's son, Loyd Case, via telephone. Loyd states he has 2 brothers who live locally; no contact information on his 2 brothers are available at this time. We discussed patient's clinical condition and medical treatment goals. We reviewed recommendations for cardiac catheterization and possible pacemaker placement; risks and benefits of procedures/interventions were discussed. Loyd states they are taking things slowly, waiting to see how his father does. Current plan is for the patient to go to rehab. Loyd is agreeable to speak with palliative care again, to clarify medical treatment goals when/if his father is rehospitalized. . Advance Directives Advance Directive Specifics Documented care wishes: No known documented care wishes as been completed. . Objective Vital Signs Date Time Temp Pulse Resp B/P (MAP) Pulse Ox O2 Delivery O2 Flow Rate FiO2 04/17/17 13:13 97 Nasal Cannula 4.00 04/17/17 13:13 99 Nasal Cannula 4.00 04/17/17 13:13 97 Nasal Cannula 4 04/17/17 12:00 68 04/17/17 12:00 100 35 04/17/17 12:00 98.4 67 12 155/90 (111) 99 04/17/17 10:00 100 35 04/17/17 10:00 81 04/17/17 09:59 35 04/17/17 08:00 35 04/17/17 08:00 98.9 70 14 142/96 (111) 99 04/17/17 08:00 70 04/17/17 07:45 100 35 04/17/17 06:00 80 04/17/17 05:21 35 04/17/17 04:13 99 35 04/17/17 04:00 98.4 64 12 121/84 (96) 100 04/17/17 04:00 64 04/17/17 04:00 40 04/17/17 02:00 60 04/17/17 02:00 109 04/17/17 02:00 60 04/17/17 01:06 100 40 04/17/17 00:00 60 04/17/17 00:00 98.1 60 12 138/88 (105) 100 04/17/17 00:00 40 04/16/17 22:05 100 40 04/16/17 22:00 65 04/16/17 20:00 40 04/16/17 20:00 65 04/16/17 20:00 99.3 65 12 117/80 (92) 100 04/16/17 19:15 100 40 04/16/17 18:00 64 04/16/17 16:00 99.0 81 13 118/72 (87) 99 04/16/17 16:00 40 04/16/17 16:00 84 04/16/17 15:50 100 40 Intake & Output 04/17/17 04/17/17 07:00 19:00 Intake Total 945 ml Output Total 450 ml Balance 495 ml Intake IV Total 100 ml Tube Feeding 725 ml Other 120 ml Output Urine Total 450 ml . Physical Exam CONSTITUTIONAL/GENERAL: This is a frail, elderly male patient currently intubated on mechanical ventilator. TUBES/LINES/DRAINS: Santana catheter, PIV x 3, ETT, OGT, soft restraints SKIN: No wounds seen anteriorly. Skin temperature appropriate. Not diaphoretic. HEAD: Atraumatic. Normocephalic. EYES: No scleral icterus. No injection or drainage. ENT: Hearing grossly normal. Nose without bleeding or purulent drainage. Tongue dry NECK: Trachea midline. CARDIOVASCULAR: Regular rate and rhythm No JVD. Peripheral pulses symmetric. RESPIRATORY/CHEST: Symmetric, unlabored respirations. Clear to auscultation. Breath sounds equal bilaterally. No wheezes, rales, or rhonchi. GASTROINTESTINAL: Abdomen soft, non-tender, nondistended. No guarding. Bowel sounds present. GENITOURINARY: Without palpable bladder distension. MUSCULOSKELETAL: Extremities without clubbing, cyanosis, or edema. LYMPHATICS: No palpable cervical or supraclavicular adenopathy. NEUROLOGICAL: Off sedation. Arouses to verbal stimuli easily; follows simple commands PSYCHIATRIC: No obvious anxiety/depression. No apparent hallucinations or other psychotic thought process. . Diagnostic Tests Laboratory Laboratory Tests Test 04/15/17 12:45 04/15/17 16:15 04/15/17 19:30 04/15/17 21:25 White Blood Count 5.3 TH/MM3 (4.0-11.0) Red Blood Count 3.32 MIL/MM3 (4.50-5.90) Hemoglobin 10.2 GM/DL (13.0-17.0) Hematocrit 31.5 % (39.0-51.0) Mean Corpuscular Volume 95.0 FL (80.0-100.0) Mean Corpuscular Hemoglobin 30.7 PG (27.0-34.0) Mean Corpuscular Hemoglobin Concent 32.3 % (32.0-36.0) Red Cell Distribution Width 13.6 % (11.6-17.2) Platelet Count 133 TH/MM3 (150-450) Mean Platelet Volume 7.6 FL (7.0-11.0) Neutrophils (%) (Auto) 44.7 % (16.0-70.0) Lymphocytes (%) (Auto) 44.4 % (9.0-44.0) Monocytes (%) (Auto) 10.1 % (0.0-8.0) Eosinophils (%) (Auto) 0.6 % (0.0-4.0) Basophils (%) (Auto) 0.2 % (0.0-2.0) Neutrophils # (Auto) 2.4 TH/MM3 (1.8-7.7) Lymphocytes # (Auto) 2.3 TH/MM3 (1.0-4.8) Monocytes # (Auto) 0.5 TH/MM3 (0-0.9) Eosinophils # (Auto) 0.0 TH/MM3 (0-0.4) Basophils # (Auto) 0.0 TH/MM3 (0-0.2) CBC Comment DIFF FINAL Differential Comment Prothrombin Time 11.8 SEC (9.8-11.6) Prothromb Time International Ratio 1.1 RATIO Activated Partial Thromboplast Time 24.7 SEC (24.3-30.1) Urine Color YELLOW (YELLW/STRAW) Urine Turbidity CLEAR (CLEAR) Urine pH 6.5 (5.0-8.5) Urine Specific [place] 1.012 (1.002-1.035) Urine Protein TRACE mg/dL (NEG-TRACE) Urine Glucose (UA) NEG mg/dL (NEG) Urine Ketones TRACE mg/dL (NEG) Urine Occult Blood NEG (NEG) Urine Nitrite NEG (NEG) Urine Bilirubin NEG (NEG) Urine Urobilinogen LESS THAN 2.0 MG/DL (LESS Urine Leukocyte Esterase SMALL (NEG) Urine RBC 2 /hpf (0-3) Urine WBC 5 /hpf (0-5) Urine Squamous Epithelial Cells 1 /hpf (0-5) Urine Hyaline Casts 1 /lpf (RARE) Urine Mucus FEW /lpf (OCC) Microscopic Urinalysis Comment CATH-CULT NOT IND Blood Gas Puncture Site LT BRACHIAL Blood Gas Patient Temperature 98.6 Blood Gas HCO3 23 mmol/L (22-26) Blood Gas Base Excess -0.9 mmol/L (-2-2) Blood Gas Oxygen Saturation 99 % (90-100) Arterial Blood pH 7.44 (7.380-7.420) Arterial Blood Partial Pressure CO2 34 mmHg (38-42) Arterial Blood Partial Pressure O2 462 mmHG (61-120) Arterial Blood Oxygen Content 15.2 Vol % (12.0-20.0) Arterial Blood Carboxyhemoglobin 0.9 % (0-4) Arterial Blood Methemoglobin 0.6 % (0-2) Blood Gas Hemoglobin 10.1 G/DL (12.0-16.0) Oxygen Delivery Device VENTILATOR Blood Gas Ventilator Setting AC/RR14/VT550/PEEP5 Blood Gas Inspired Oxygen 100 % Blood Urea Nitrogen 20 MG/DL (7-18) Creatinine 1.25 MG/DL (0.60-1.30) Random Glucose 113 MG/DL (74-106) Total Protein 6.2 GM/DL (6.4-8.2) Albumin 3.1 GM/DL (3.4-5.0) Calcium Level 8.3 MG/DL (8.5-10.1) Magnesium Level 1.9 MG/DL (1.5-2.5) Alkaline Phosphatase 67 U/L (45-117) Aspartate Amino Transf (AST/SGOT) 15 U/L (15-37) Alanine Aminotransferase (ALT/SGPT) 10 U/L (12-78) Total Bilirubin 0.4 MG/DL (0.2-1.0) Sodium Level 141 MEQ/L (136-145) Potassium Level 3.1 MEQ/L (3.5-5.1) Chloride Level 108 MEQ/L (98-107) Carbon Dioxide Level 23.7 MEQ/L (21.0-32.0) Anion Gap 9 MEQ/L (5-15) Estimat Glomerular Filtration Rate 67 ML/MIN (>89) Lactic Acid Level 2.2 mmol/L (0.4-2.0) 1.8 mmol/L (0.4-2.0) Total Creatine Kinase 99 U/L (39-308) 206 U/L (39-308) Troponin I 0.02 NG/ML (0.02-0.05) 0.04 NG/ML (0.02-0.05) Urine Opiates Screen NEG (NEG) Urine Barbiturates Screen NEG (NEG) Urine Amphetamines Screen NEG (NEG) Urine Benzodiazepines Screen NEG (NEG) Urine Cocaine Screen NEG (NEG) Urine Cannabinoids Screen NEG (NEG) Nasal Screen MRSA (PCR) MRSA NOT DETECTED (NOT Test 04/16/17 03:35 04/16/17 13:55 White Blood Count 10.4 TH/MM3 (4.0-11.0) Red Blood Count 3.69 MIL/MM3 (4.50-5.90) Hemoglobin 11.6 GM/DL (13.0-17.0) Hematocrit 35.1 % (39.0-51.0) Mean Corpuscular Volume 95.1 FL (80.0-100.0) Mean Corpuscular Hemoglobin 31.4 PG (27.0-34.0) Mean Corpuscular Hemoglobin Concent 33.0 % (32.0-36.0) Red Cell Distribution Width 13.7 % (11.6-17.2) Platelet Count 119 TH/MM3 (150-450) Mean Platelet Volume 7.9 FL (7.0-11.0) Neutrophils (%) (Auto) 80.6 % (16.0-70.0) Lymphocytes (%) (Auto) 11.9 % (9.0-44.0) Monocytes (%) (Auto) 7.2 % (0.0-8.0) Eosinophils (%) (Auto) 0.1 % (0.0-4.0) Basophils (%) (Auto) 0.2 % (0.0-2.0) Neutrophils # (Auto) 8.4 TH/MM3 (1.8-7.7) Lymphocytes # (Auto) 1.2 TH/MM3 (1.0-4.8) Monocytes # (Auto) 0.8 TH/MM3 (0-0.9) Eosinophils # (Auto) 0.0 TH/MM3 (0-0.4) Basophils # (Auto) 0.0 TH/MM3 (0-0.2) CBC Comment DIFF FINAL Differential Comment Blood Urea Nitrogen 15 MG/DL (7-18) Creatinine 1.05 MG/DL (0.60-1.30) Random Glucose 95 MG/DL (74-106) Total Protein 6.6 GM/DL (6.4-8.2) Albumin 3.0 GM/DL (3.4-5.0) Calcium Level 8.4 MG/DL (8.5-10.1) Alkaline Phosphatase 70 U/L (45-117) Aspartate Amino Transf (AST/SGOT) 20 U/L (15-37) Alanine Aminotransferase (ALT/SGPT) 12 U/L (12-78) Total Bilirubin 0.6 MG/DL (0.2-1.0) Sodium Level 148 MEQ/L (136-145) Potassium Level 3.7 MEQ/L (3.5-5.1) 3.8 MEQ/L (3.5-5.1) Chloride Level 114 MEQ/L (98-107) Carbon Dioxide Level 27.2 MEQ/L (21.0-32.0) Anion Gap 7 MEQ/L (5-15) Estimat Glomerular Filtration Rate 82 ML/MIN (>89) Total Creatine Kinase 241 U/L (39-308) Troponin I 0.03 NG/ML (0.02-0.05) . Result Diagram: 04/16/17 0335 04/16/17 1355 Microbiology Microbiology Date/Time Source Procedure Growth Status 04/15/17 12:45 Blood Peripheral Aerobic Blood Culture - Preliminary NO GROWTH IN 2 DAYS Resulted 04/15/17 12:45 Blood Peripheral Anaerobic Blood Culture - Preliminary NO GROWTH IN 2 DAYS Resulted 04/15/17 12:40 Blood Peripheral Aerobic Blood Culture - Preliminary NO GROWTH IN 2 DAYS Resulted 04/15/17 12:40 Blood Peripheral Anaerobic Blood Culture - Preliminary NO GROWTH IN 2 DAYS Resulted 04/15/17 19:10 Sputum Endotracheal Gram Stain - Final Complete 04/15/17 19:10 Sputum Endotracheal Sputum Culture - Final MODERATE GROWTH NORMAL RESPIRATORY NORMA Complete . Imaging Last [address] 04/15/17 1229 Signed Impressions: Service Date/Time: Saturday, April 15, 2017 14:33 - CONCLUSION: 1. Atrophy. 2. Extensive chronic small vessel ischemic change. 3. Ventriculomegaly which is stable and felt to relate to the underlying atrophy. 4. No acute intracranial abnormality. Vishnu Alejo Jr., MD Chest X-Ray 04/15/17 1229 Signed Impressions: Service Date/Time: Saturday, April 15, 2017 13:04 - CONCLUSION: Lungs are clear. Support apparatus in good position. Jeremy Packer MD FACR Brain MRI 04/15/17 0000 Signed Impressions: Service Date/Time: Saturday, April 15, 2017 17:38 - CONCLUSION: 1. Diffuse bilateral cortical atrophy. 2. Ventriculomegaly which appears to be stable compared to the prior studies. This is most likely related to the diffuse cortical atrophy. A second possibility would be normal pressure hydrocephalus. However, this would need to be correlated with patient's physical and clinical exam. 3. No acute pathology. Reymundo Villafuerte MD . Procedures 04/15/2017: Intubation 04/15/2017: OGT 04/17/2017: Extubation . Assessment and Plan Disease Oriented Problem List: (1) Cerebral atrophy (2) History of prostate cancer (3) History of TIAs (4) Sepsis (5) Symptomatic bradycardia (6) Cardiomyopathy (7) Dementia Symptom Scale: (1) Debility (2) Confusion Pertinent Non-Medical Issues Psychosocial:Patient apparently lives with son. Further information pending conversation with patient's family. Spiritual: Pentecostalism oliver Legal: Per [place] statutes, in the absence of written advanced directives healthcare proxy decision-making falls to the patient's 3 sons. Ethical issues impacting care: No known ethical issues impacting care at this time. . Important Contacts Loyd Case, son: [phone] . Prognosis Patient is an 81-year-old male with a history of dementia and syncopal episodes from suspected bradycardia/cardiomyopathy. This is the patient's third hospitalization at [facility] since September 28, 2016. He was previously hospitalized in 09/2016 for treatment of syncope/possible TIA; he was readmitted in 12/2016 for management of syncope and symptomatic hypotension. Cardiology has previously evaluated this patient and recommendations were made for cardiac catheterization/possible permanent pacemaker placement but the patient's son refused. Outpatient follow-up with cardiology was also recommended but was not done. The patient is high risk for ongoing decline and complications requiring rehospitalization. . Code Status: Full Code Plan * FULL CODE * Decision-making: Per [place] statutes, in the absence of written advanced directives healthcare proxy decision making would fall to the patient's . If the patient is not , healthcare proxy decision making would then fall to the majority of his adult children. * [facility] PRIOR TO ADMISSION. HE WAS DISCHARGED UPON HOSPITAL ADMISSION. * Spoke to patient's son, Loyd Case, via telephone. Loyd states he has 2 brothers who live locally; no contact information on his 2 brothers are available at this time. We discussed patient's clinical condition and medical treatment goals. We reviewed recommendations for cardiac catheterization and possible pacemaker placement; risks and benefits of procedures/interventions were discussed. Loyd states they are taking things slowly, waiting to see how his father does. Current plan is for the patient to go to rehab. Loyd is agreeable to speak with palliative care again, to clarify medical treatment goals when/if his father is rehospitalized * AGGRESSIVE GOALS * Discussed with Dr. Lewis and bedside nurse, Butch. * Patient is an 81-year-old male with a history of dementia and syncopal episodes from suspected bradycardia/cardiomyopathy. This is the patient's third hospitalization at [facility] since September 28, 2016. He was previously hospitalized in 09/2016 for treatment of syncope/possible TIA; he was readmitted in 12/2016 for management of syncope and symptomatic hypotension. Cardiology has previously evaluated this patient and recommendations were made for cardiac catheterization/possible permanent pacemaker placement but the patient's son refused. Outpatient follow-up with cardiology was also recommended but was not done. The patient is high risk for ongoing decline and complications requiring rehospitalization. * Symptom management- confusion: Patient with a history of dementia. He remains intubated on exam but is more alert today. Arouses easily to verbal stimuli, able to follow simple commands. * Symptom management - debility: Patient is an 81 yo male who has been hospitalized 3 times since September,. He lives with his son. Possible discharge to the [facility]; patient's son states he has been there previously. * Palliative care will continue to follow this patient throughout his hospitalization to establish trust, assist with symptom management and clarification of medical treatment goals. . Attestation To help prompt me to consider important information that might be impacting today's encounter and assessment, information from prior notes written by myself or my colleagues may have been "brought forward" into today's note. My signature on this note, however, is an attestation that I personally performed the exam, history, and/or decision-making noted today, and, unless otherwise indicated, the interactions with patient, family, and staff as well as the review of records all occurred today. I also attest that the listed assessment and stated plan reflect my best clinical judgment today based on the combination of historical information, prior notes, and today's exam/ interactions. When time spent is documented, it refers only to time spent today by the signer, or if indicated, combined time spent today by collaborating physician/nurse practitioner. . Alpa Lopez Apr 17, 2017 15:05
[2017-04-17] MEDS: ENOXAPARIN SODIUM 40 MG/0.4 ML SYRINGE SQ SCH (15:35)
[2017-04-17] MEDS: METOPROLOL TARTRATE 25 MG TAB PO SCH (16:24)
--- NOTE | 2017-04-17 16:34 | MB ---
cc: SHANTA UBTTS M.D. DATE OF CONSULTATION: 04/17/2017. REASON FOR CONSULTATION: Electrophysiology consultation for possible pacemaker syncope. HISTORY OF PRESENT ILLNESS: Mr. Case is an 81-year-old gentleman with history of near syncope, TIA, previously admitted to the hospital and at that time, no significant episodes of bradycardia were observed. The patient was admitted due to sepsis. He was intubated and put on mechanical ventilation. Antibiotic was initiated. The patient's condition significantly improved. I was consulted for further evaluation and management. The chart was reviewed. The patient was evaluated. Most of the information was obtained from the medical record. The patient is a poor historian. ALLERGIES: NONE. SOCIAL HISTORY: Negative for smoking and drinking. FAMILY HISTORY: Noncontributory to his current medical condition. MEDICATIONS: Currently the gentleman is on: 1. Magnesium. 2. Potassium. 3. Lovenox subcutaneous. 4. Famotidine. REVIEW OF SYSTEMS: He refers feeling okay. No chest pain. No chest discomfort. No shortness of breath. PHYSICAL EXAMINATION: GENERAL: Alert, fully oriented. VITAL SIGNS: His blood pressure is 165/90, pulse currently can go up to 120, respiratory rate 18. LUNGS: Ventilated. CARDIOVASCULAR: S1-S2 irregular tachycardic. ABDOMEN: Abdomen soft, no mass. EXTREMITIES: No edema. CARDIOLOGY STUDIES: Telemetry currently shows sinus rhythm with episodes of PVCs and nonsustained ventricular tachycardia. LABORATORY DATA: Hemoglobin 11.6, white blood cell 10.4. Potassium is 3.7, creatinine is 1.05. INR 1.1. ASSESSMENT AND RECOMMENDATIONS: Mr. Case has had no episodes of bradycardia. His last hospitalization was in December of 2016. There was no significant bradycardia. At that time and still at this time, there is no need for permanent pacemaker insertion. The heart rate needs to be controlled as well as his PVCs. The gentleman will need beta-harley for more further management. Metoprolol will be initiated at 25 milligrams q.6 h and it will be titrated. Based on the patient's evolution, further decision will be taken. For now, no need for permanent pacemaker. Shanta Butts MD /CICI Ramos: 04/17/2017/3:22 PM /3:55 PM
[2017-04-17] MEDS ORDERED: DEXTROSE 50% IN WATER 50 ML VIAL(D50) IV ONE (18:30)
[2017-04-17] MEDS ORDERED: DEXTROSE 50% IN WATER 50 ML SYRINGE ONE (18:35)
[2017-04-18] VITALS (14 sets, daily range): BP systolic 120–147; BP diastolic 64–87; PULSE 53–111; RESP 13–25; TEMP 97.5–98.6; O2SAT 76–100
[2017-04-18] MEDS: METOPROLOL TARTRATE 25 MG TAB PO SCH ×5 (01:30→23:26)
[2017-04-18] MEDS: CHLORHEXIDINE GLUCONATE 2 % 1 PACK (2 CLOTHS) TOP SCH (01:30)
[2017-04-18] MEDS: CHLORHEXIDINE 0.12% (ORAL KIT) 15 ML CUP MT SCH ×2 (08:00→20:00)
[2017-04-18] MEDS: FAMOTIDINE 20 MG TAB TUBE SCH ×2 (08:27→23:26)
[2017-04-18] MEDS: SODIUM CHLORIDE 0.9% FLUSH 10 ML FLUSH IV FLUSH SCH ×2 (08:28→23:27)
--- NOTE | 2017-04-18 08:36 | HHI.CCPN ---
Subjective Remarks/Hospital Course 04/15: 81-year-old male with a medical history significant for dementia, TIAs, previous episodes of syncope and bradycardia as well as cardiomyopathy was recommended a pacemaker by cardiology during previous hospitalization however has refused. Today patient was found unresponsive by his family while sitting on the porch for a while. On EMS arrival his GCS was 4 and he was intubated for airway protection. He was hypotensive as well as bradycardic with heart rate in the 50s and systolic blood pressure 80s. He was brought to the ER at [facility]. He was placed on mechanical ventilation and subsequently the wire and propofol for sedation. He received Zosyn for question of sepsis in the ER as his lactic acid was elevated though this could Rogers be from him being hypotensive secondary to his bradycardia. Patient has previously been evaluated by cardiology for syncope and has been recommended a pacemaker however has refused before. Patient was accepted for admission by critical care medicine service. When I evaluated the patient he was sedated with propofol him a orally intubated on mechanical ventilation. History was obtained by reviewing records and discussion with ER physician. 04/16: Remains sedated, orally intubated on mechanical ventilation. Maintaining blood pressure currently. 04/17: Remains sedated, orally intubated on mechanical ventilation. Maintaining blood pressure currently. Tolerating tube feeds. Subjective 04/18: Extubated yesterday without complication. Currently on 3 L nasal cannula. Cardiology recommends low-dose beta harley. Patient refusing pacemaker Objective Vital Signs Date Time Temp Pulse Resp B/P (MAP) Pulse Ox O2 Delivery O2 Flow Rate FiO2 04/18/17 08:21 96 Nasal Cannula 3.00 04/18/17 08:00 97.5 63 16 132/64 (86) 04/17/17 12:00 35 Intake and Output 04/18/17 04/18/17 04/19/17 08:00 16:00 00:00 Intake Total 240 ml Output Total 500 ml Balance -260 ml Result Diagram: 04/16/17 0335 04/16/17 1355 Other Results Microbiology Date/Time Source Procedure Growth Status 04/15/17 12:45 Blood Peripheral Aerobic Blood Culture - Preliminary NO GROWTH IN 2 DAYS Resulted 04/15/17 12:45 Blood Peripheral Anaerobic Blood Culture - Preliminary NO GROWTH IN 2 DAYS Resulted 04/15/17 19:10 Sputum Endotracheal Gram Stain - Final Complete 04/15/17 19:10 Sputum Endotracheal Sputum Culture - Final MODERATE GROWTH NORMAL RESPIRATORY NORMA Complete Imaging Last Impressions Head CT 04/15/17 1229 Signed Impressions: Service Date/Time: Saturday, April 15, 2017 14:33 - CONCLUSION: 1. Atrophy. 2. Extensive chronic small vessel ischemic change. 3. Ventriculomegaly which is stable and felt to relate to the underlying atrophy. 4. No acute intracranial abnormality. Vishnu Alejo Jr., MD Chest X-Ray 04/15/17 1229 Signed Impressions: Service Date/Time: Thursday, April 15, 2017 13:04 - CONCLUSION: Lungs are clear. Support apparatus in good position. Jeremy Packer MD FACR Brain MRI 04/15/17 0000 Signed Impressions: Service Date/Time: Saturday, April 15, 2017 17:38 - CONCLUSION: 1. Diffuse bilateral cortical atrophy. 2. Ventriculomegaly which appears to be stable compared to the prior studies. This is most likely related to the diffuse cortical atrophy. A second possibility would be normal pressure hydrocephalus. However, this would need to be correlated with patient's physical and clinical exam. 3. No acute pathology. Reymundo Villafuerte MD Objective Remarks HEENT/ Neuro: He 1-year-old male, resting in bed in no acute distress on nasal cannula Neck: No JVD Chest/Pulm: Few crackles appreciated in bases bilateral. No wheezes CVS: Bradycardic, RR. S1, S2 no S4 without murmur GI/abdomen: soft, nontender, bowel sounds sluggish Extremities: warm bilaterally, no drift and peripheral edema A/P Assessment and Plan 81-year-old male with: Altered mental status/encephalopathy/syncope from suspected bradycardia/cardiac myopathy Sinus bradycardia with ectopy Cardiomyopathy/chronic systolic heart failure ejection fraction 25-30% History of TIAs Cerebral atrophy Dementia History of prostate CA Arthritis Leukocytosis Hypernatremia Plan: Neuro: Sedation with propofol while intubated. Daily sedation vacation. Follow neuro status. MRI brain did not reveal any acute ischemic CVA. Did revealed ventriculomegaly. Neurology consult appreciated Cardiovascular: Off IV fluids. Bradycardia on admission noted. Cardiology consult requested for syncope/bradycardia/cardiomyopathy. Previously has refused pacemaker placement. Currently on metoprolol 12.5 mg every 6 hours. Hold ramipril/home medication. Restart furosemide 20 no grams by mouth daily. Pulmonary: Nasal cannula to maintain saturations greater than or equal to 92%. Incentive spirometry while awake. Currently on 3 L nasal cannula GI/liver: Speech therapy evaluate and treat. Advance as tolerated Renal/: Follow BMP and other electrolytes today. ID: Hold off on antibiotics. Doubt sepsis chest x-ray clear, UA no growth Endocrine: Watch for hyperglycemia, SSI for glycemic control if needed. Heme: Follow CBC Prophylaxis: Famotidine/SCDs/subcutaneous enoxaparin Palliative care consult requested to assist with deciding goals of therapy Level II follow-up Patient is stable from a critical care medicine standpoint. Assign care to hospitalist in a.m. 04/19. Eduardo Rothman MD Apr 18, 2017 08:36
[2017-04-18] MEDS: FUROSEMIDE 20 MG TAB PO SCH (09:39)
--- NOTE | 2017-04-18 11:32 | PD.CARD.PN ---
Subjective Subjective Remarks alert in nad, extubated Objective Medications Current Medications Medications (Trade) Dose Ordered Sig/Shayan Route Start Time Stop Time Status Last Admin (NS Flush) 2 ml UNSCH PRN IV FLUSH 04/15/17 14:45 (NS Flush) 2 ml BID IV FLUSH 04/15/17 21:00 04/18/17 08:28 (Tylenol) 650 mg Q6H PRN PO 04/15/17 14:45 (Duoneb Neb) 1 ampule Q4HR NEB PRN INH 04/15/17 14:45 (Peridex 0.12% Liq) 15 ml BID@08,20 MT 04/15/17 20:00 04/17/17 08:25 (Pepcid) 20 mg BID TUBE 04/15/17 21:00 04/18/17 08:27 (Lovenox Inj) 40 mg Q24H SQ 04/15/17 16:00 04/17/17 15:35 Miscellaneous Information 1 Q361D XX 04/15/17 14:45 04/15/17 21:16 (Chlorhexidine 2% Cloth) 3 pack Taper DAILY@04 TOP 04/16/17 04:00 04/12/18 03:59 04/18/17 01:30 (Chlorhexidine 2% Cloth) 3 pack UNSCH PRN TOP 04/15/17 14:45 Potassium Chloride 100 ml @ 50 mls/hr Q2H PRN IV 04/15/17 21:30 Potassium Chloride 100 ml @ 50 mls/hr Q2H PRN IV 04/15/17 21:30 (K-Lyte Cl Eff) 50 meq UNSCH PRN PO 04/15/17 21:30 Potassium Chloride 100 ml @ 25 mls/hr UNSCH PRN IV 04/15/17 21:30 Potassium Chloride 100 ml @ 50 mls/hr Q2H PRN IV 04/15/17 21:30 04/16/17 02:38 Magnesium Sulfate 4 gm/Sodium Chloride 100 ml @ 50 mls/hr UNSCH PRN IV 04/15/17 21:30 (Mag-Ox) 800 mg UNSCH PRN PO 04/15/17 21:30 Magnesium Sulfate 2 gm/Sodium Chloride 100 ml @ 50 mls/hr UNSCH PRN IV 04/15/17 21:30 (K-Phos) 2,000 mg Q4H PRN PO 04/15/17 21:30 Sodium Phosphate 30 mmol/Sodium Chloride 250 ml @ 42 mls/hr UNSCH PRN IV 04/15/17 21:30 (K-Phos) 2,000 mg UNSCH PRN PO/TUBE 04/15/17 21:30 04/15/17 22:22 Potassium Phosphate 30 mmol/ Sodium Chloride 260 ml @ 42 mls/hr UNSCH PRN IV 04/15/17 21:30 (Lopressor) 12.5 mg Q6HR PO 04/18/17 12:00 (Lasix) 20 mg DAILY PO 04/18/17 09:00 04/18/17 09:39 Vital Signs / I&O Vital Signs Date Time Temp Pulse Resp B/P (MAP) Pulse Ox O2 Delivery O2 Flow Rate FiO2 04/18/17 10:00 59 04/18/17 08:21 96 Nasal Cannula 3.00 04/18/17 08:00 97.5 63 16 132/64 (86) 100 04/18/17 08:00 59 04/18/17 07:00 Nasal Cannula 3.00 04/18/17 06:00 53 04/18/17 04:00 99.3 55 13 135/80 (98) 93 04/18/17 04:00 55 04/18/17 02:00 65 04/18/17 00:00 100.0 60 14 127/75 (92) 99 04/18/17 00:00 60 04/17/17 22:00 78 04/17/17 20:00 100.8 69 29 152/91 (111) 04/17/17 20:00 69 04/17/17 19:12 92 Nasal Cannula 4.00 04/17/17 19:00 Nasal Cannula 4.00 04/17/17 18:00 64 04/17/17 16:00 98.6 76 15 141/88 (105) 97 04/17/17 16:00 86 04/17/17 14:00 85 04/17/17 13:13 97 Nasal Cannula 4.00 04/17/17 13:13 99 Nasal Cannula 4.00 04/17/17 13:13 97 Nasal Cannula 4 04/17/17 12:00 68 04/17/17 12:00 100 35 04/17/17 12:00 98.4 67 12 155/90 (111) 99 I/O 04/17/17 04/17/17 04/17/17 04/18/17 04/18/17 04/18/17 07:00 15:00 23:00 07:00 15:00 23:00 Intake Total 945 ml 396 ml 240 ml Output Total 450 ml 650 ml 500 ml Balance 495 ml -254 ml -260 ml Intake Oral 240 ml IV Total 100 ml Tube Feeding 725 ml 336 ml Other 120 ml 60 ml Output Urine Total 450 ml 650 ml 500 ml # Bowel Movements 1 Physical Exam GENERAL: SKIN: Warm and dry. HEAD: Normocephalic. EYES: No scleral icterus. No injection or drainage. NECK: Supple, trachea midline. No JVD or lymphadenopathy. CARDIOVASCULAR: Regular rate and rhythm without murmurs, gallops, or rubs. RESPIRATORY: Breath sounds equal bilaterally. No accessory muscle use. GASTROINTESTINAL: Abdomen soft, non-tender, nondistended. MUSCULOSKELETAL: No cyanosis, or edema. BACK: Nontender without obvious deformity. No CVA tenderness. Laboratory Laboratory Tests Test 04/18/17 10:10 Phosphorus Level 2.4 MG/DL Assessment and Plan Problem List: (1) Sepsis ICD Codes: A41.9 - Sepsis, unspecified organism Status: Acute (2) Endotracheally intubated ICD Codes: Z97.8 - Presence of other specified devices Status: Acute (3) Confusion ICD Codes: R41.0 - Disorientation, unspecified (4) Dementia ICD Codes: F03.90 - Unspecified dementia without behavioral disturbance Status: Chronic (5) Cerebral atrophy ICD Codes: G31.9 - Degenerative disease of nervous system, unspecified (6) Cardiomyopathy ICD Codes: I42.9 - Cardiomyopathy, unspecified Status: Acute (7) Symptomatic bradycardia ICD Codes: R00.1 - Bradycardia, unspecified Status: Acute Assessment and Plan 1.) Cardiomyopathy - lopressor started by dr Quintero, will start lisinopril, euvolemic, d/w family whether they would consent to possible heart cath, currently they decline 2.) Bradycardia - hr=52 with hypotension on admission, lopressor started by Asim Scanlon MD Apr 18, 2017 11:32
[2017-04-18 11:41] LABS: BICARBONATE 30.5 MEQ/L (21.0-32.0); MAGNESIUM 2.1 MG/DL (1.5-2.5); POTASSIUM 3.5 MEQ/L (3.5-5.1)
[2017-04-18] MEDS ORDERED: LISINOPRIL 5 MG TAB PO ONE (11:45)
[2017-04-18] MEDS ORDERED: PILL SPLITTER OTHER PRN (11:45)
[2017-04-18] MEDS ORDERED: POTASSIUM PHOSPHATE INJ 30 MMOL in SODIUM CHLOR 0.9% 250 ML INJ 250 ML IV ONE (16:00)
[2017-04-18] MEDS ORDERED: POTASSIUM CHLORIDE 20 MEQ CONTROLLED RELEASE TAB PO ONE (16:00)
[2017-04-18] MEDS: ENOXAPARIN SODIUM 40 MG/0.4 ML SYRINGE SQ SCH (17:16)
[2017-04-18] MEDS ORDERED: DEXTROSE 50% IN WATER 50 ML SYRINGE ONE (17:24)
[2017-04-19] VITALS (13 sets, daily range): BP systolic 119–150; BP diastolic 76–91; PULSE 53–81; RESP 13–31; TEMP 99.3; O2SAT 95–100
[2017-04-19] MEDS: CHLORHEXIDINE GLUCONATE 2 % 1 PACK (2 CLOTHS) TOP SCH (04:00)
[2017-04-19] MEDS: METOPROLOL TARTRATE 25 MG TAB PO SCH ×3 (05:40→18:44)
[2017-04-19 06:55] LABS: AUTOMATED NEUTROPHIL # 3.3 TH/MM3 (1.8-7.7); BASOPHIL % 0.3 % (0.0-2.0); EOSINOPHIL # 0.2 TH/MM3 (0-0.4); EOSINOPHIL % 2.8 % (0.0-4.0); HEMATOCRIT 34.5 % (39.0-51.0); HEMO FLAGS DIFF FINAL; LYMPH % 33.6 % (9.0-44.0); LYMPHOCYTE # 2.2 TH/MM3 (1.0-4.8); MEAN CELL VOLUME 94.1 FL (80.0-100.0); MEAN CORPUSCULAR HEMOGLOBIN 31.6 PG (27.0-34.0); MEAN CORPUSCULAR HGB CONC 33.6 % (32.0-36.0); MONO % 13.5 % (0.0-8.0); NEUT % 49.8 % (16.0-70.0); PLATELET COUNT 117 TH/MM3 (150-450); RED BLOOD COUNT 3.67 MIL/MM3 (4.50-5.90); RED CELL DISTRIBUTION WIDTH 13.2 % (11.6-17.2); WHITE BLOOD COUNT 6.7 TH/MM3 (4.0-11.0)
[2017-04-19 07:03] LABS: ANION GAP 7 MEQ/L (5-15); AST (GOT) 23 U/L (15-37); BICARBONATE 29.2 MEQ/L (21.0-32.0); BLOOD UREA NITROGEN 9 MG/DL (7-18); CHLORIDE 106 MEQ/L (98-107); GLOMERULAR FILTRATION RATE 138 ML/MIN (>89); MAGNESIUM 2.1 MG/DL (1.5-2.5); POTASSIUM 3.8 MEQ/L (3.5-5.1); SODIUM (NA) 142 MEQ/L (136-145)
[2017-04-19 07:06] LABS: ALKALINE PHOSPHATASE 64 U/L (45-117); ALT (GPT) 16 U/L (12-78); TOTAL BILIRUBIN ADULT 0.5 MG/DL (0.2-1.0)
[2017-04-19] MEDS: LISINOPRIL 5 MG TAB PO SCH (07:55)
[2017-04-19] MEDS: FAMOTIDINE 20 MG TAB TUBE SCH (07:55)
[2017-04-19] MEDS: CHLORHEXIDINE 0.12% (ORAL KIT) 15 ML CUP MT SCH ×2 (08:00→20:00)
[2017-04-19] MEDS: SODIUM CHLORIDE 0.9% FLUSH 10 ML FLUSH IV FLUSH SCH (09:00)
[2017-04-19] MEDS: FUROSEMIDE 20 MG TAB PO SCH (09:00)
--- NOTE | 2017-04-19 09:30 | HHI.PR ---
Subjective Remarks Discussed with RN. Patient has been sleeping during the day and becomes agitated at night. He woke up for me. He has no complaints. Objective Vitals Vital Signs Date Time Temp Pulse Resp B/P (MAP) Pulse Ox O2 Delivery O2 Flow Rate FiO2 04/19/17 08:09 96 Nasal Cannula 3.00 04/19/17 06:00 75 04/19/17 04:00 62 04/19/17 04:00 98.2 62 16 143/86 (105) 04/19/17 02:00 75 04/19/17 00:00 99.3 62 21 119/82 (94) 97 04/19/17 00:00 62 04/18/17 22:00 70 04/18/17 20:22 92 Nasal Cannula 3.00 04/18/17 20:00 Nasal Cannula 3.00 04/18/17 20:00 99.0 72 25 147/87 (107) 04/18/17 20:00 72 04/18/17 18:00 59 04/18/17 16:00 59 04/18/17 16:00 59 04/18/17 16:00 98.6 55 16 120/64 (82) 84 04/18/17 14:00 59 04/18/17 12:00 98.6 111 22 146/76 (99) 76 04/18/17 12:00 59 04/18/17 10:00 59 I/O 04/18/17 04/18/17 04/18/17 04/19/17 04/19/17 04/19/17 07:00 15:00 23:00 07:00 15:00 23:00 Intake Total 240 ml 740 ml Output Total 500 ml 600 ml 700 ml Balance -260 ml 140 ml -700 ml Intake Oral 240 ml 480 ml IV Total 260 ml Output Urine Total 500 ml 600 ml 700 ml # Bowel Movements 2 4 Result Diagram: 04/19/1744904/19/17449 Imaging Last Impressions Head CT 04/15/171228 Signed Impressions: Service Date/Time: Saturday, April 15, 2017 14:33 - CONCLUSION: 1. Atrophy. 2. Extensive chronic small vessel ischemic change. 3. Ventriculomegaly which is stable and felt to relate to the underlying atrophy. 4. No acute intracranial abnormality. Vishnu Alejo Jr., MD Chest X-Ray 04/15/17 1229 Signed Impressions: Service Date/Time: Saturday, April 15, 2017 13:04 - CONCLUSION: Lungs are clear. Support apparatus in good position. Jeremy Packer MD FA[facility] Brain MRI 04/15/17 0000 Signed Impressions: Service Date/Time: Saturday, April 15, 2017 17:38 - CONCLUSION: 1. Diffuse bilateral cortical atrophy. 2. Ventriculomegaly which appears to be stable compared to the prior studies. This is most likely related to the diffuse cortical atrophy. A second possibility would be normal pressure hydrocephalus. However, this would need to be correlated with patient's physical and clinical exam. 3. No acute pathology. Reymundo Villafuerte MD Objective Remarks GENERAL: Elderly male in no apparent distress. CARDIOVASCULAR: Normal rate and regular rhythm without murmurs, gallops, or rubs. RESPIRATORY: Good respiratory efforts. Breath sounds equal and clear to auscultation bilaterally. GASTROINTESTINAL: Abdomen soft, non-tender, non-distended. Normal active bowel sounds MUSCULOSKELETAL: Extremities without cyanosis, or edema. NEURO: Alert & Oriented to person and place. Moves all 4 extremities. Can hold a simple conversation, at times confused. PSYCH: Appropriate mood and affect. A/P Assessment and Plan 81-year-old male with a history of dementia, CHF, hypertension. In by EMS after he was found unresponsive by his family. Patient was intubated for airway protection. He is status post ICU course. He has improved and care is transferred to the hospitalist service. Altered mental status/encephalopathy/syncope from suspected bradycardia/cardiac myopathy Cardiomyopathy/chronic systolic heart failure ejection fraction 25-30% -Patient evaluated by EP who does not believe the patient has had any significant bradycardic episodes. Patient started on low-dose beta harley for ectopic and PVCs. - Cardiology, Dr. Richardson following. The patient's family refused a heart catheterization. - Continue Lasix and lisinopril. History of TIAs Cerebral atrophy Dementia - Patient seems to be back at baseline from a neurological standpoint. Continue to monitor. May need medication for behavioral symptoms associated with dementia. Would consider Seroquel if continues to be agitated. History of prostate CA Arthritis Leukocytosis Hypernatremia S/P intubation for airway protection: - Breathing treatment as needed. Supplemental oxygen as needed. Prophylaxis: Famotidine/SCDs/subcutaneous enoxaparin Palliative care following to assist family with goals of care Discharge Planning Stable for transfer to floor. Hazel Wallace MD Apr 19, 2017 09:30
--- NOTE | 2017-04-19 13:49 | PD.CARD.PN ---
Subjective Subjective Remarks asleep in nad, extubated Objective Medications Current Medications Medications (Trade) Dose Ordered Sig/Shayan Route Start Time Stop Time Status Last Admin (NS Flush) 2 ml UNSCH PRN IV FLUSH 04/15/17 14:45 (NS Flush) 2 ml BID IV FLUSH 04/15/17 21:00 04/19/17 09:00 (Tylenol) 650 mg Q6H PRN PO 04/15/17 14:45 (Duoneb Neb) 1 ampule Q4HR NEB PRN INH 04/15/17 14:45 (Peridex 0.12% Liq) 15 ml BID@08,20 MT 04/15/17 20:00 04/18/17 20:00 (Pepcid) 20 mg BID TUBE 04/15/17 21:00 04/19/17 07:55 (Lovenox Inj) 40 mg Q24H SQ 04/15/17 16:00 04/18/17 17:16 Miscellaneous Information 1 Q361D XX 04/15/17 14:45 04/15/17 21:16 (Chlorhexidine 2% Cloth) 3 pack Taper DAILY@04 TOP 04/16/17 04:00 04/12/18 03:59 04/19/17 04:00 (Chlorhexidine 2% Cloth) 3 pack UNSCH PRN TOP 04/15/17 14:45 Potassium Chloride 100 ml @ 50 mls/hr Q2H PRN IV 04/15/17 21:30 Potassium Chloride 100 ml @ 50 mls/hr Q2H PRN IV 04/15/17 21:30 (K-Lyte Cl Eff) 50 meq UNSCH PRN PO 04/15/17 21:30 Potassium Chloride 100 ml @ 25 mls/hr UNSCH PRN IV 04/15/17 21:30 Potassium Chloride 100 ml @ 50 mls/hr Q2H PRN IV 04/15/17 21:30 04/16/17 02:38 Magnesium Sulfate 4 gm/Sodium Chloride 100 ml @ 50 mls/hr UNSCH PRN IV 04/15/17 21:30 (Mag-Ox) 800 mg UNSCH PRN PO 04/15/17 21:30 Magnesium Sulfate 2 gm/Sodium Chloride 100 ml @ 50 mls/hr UNSCH PRN IV 04/15/17 21:30 (K-Phos) 2,000 mg Q4H PRN PO 04/15/17 21:30 Sodium Phosphate 30 mmol/Sodium Chloride 250 ml @ 42 mls/hr UNSCH PRN IV 04/15/17 21:30 (K-Phos) 2,000 mg UNSCH PRN PO/TUBE 04/15/17 21:30 04/15/17 22:22 Potassium Phosphate 30 mmol/ Sodium Chloride 260 ml @ 42 mls/hr UNSCH PRN IV 04/15/17 21:30 (Lopressor) 12.5 mg Q6HR PO 04/18/17 12:00 04/19/17 11:46 (Lasix) 20 mg DAILY PO 04/18/17 09:00 04/19/17 09:00 (Prinivil) 2.5 mg DAILY PO 04/19/17 09:00 04/19/17 07:55 (Pill Splitter) 1 ea UNSCH PRN OTHER 04/18/17 11:45 Vital Signs / I&O Vital Signs Date Time Temp Pulse Resp B/P (MAP) Pulse Ox O2 Delivery O2 Flow Rate FiO2 04/19/17 12:00 98.8 81 18 126/76 (93) 04/19/17 12:00 59 04/19/17 10:00 59 04/19/17 08:09 96 Nasal Cannula 3.00 04/19/17 08:00 98.6 63 31 150/91 (110) 04/19/17 08:00 59 04/19/17 07:00 Nasal Cannula 2.00 04/19/17 06:00 75 04/19/17 04:00 62 04/19/17 04:00 98.2 62 16 143/86 (105) 04/19/17 02:00 75 04/19/17 00:00 99.3 62 21 119/82 (94) 97 04/19/17 00:00 62 04/18/17 22:00 70 04/18/17 20:22 92 Nasal Cannula 3.00 04/18/17 20:00 Nasal Cannula 3.00 04/18/17 20:00 99.0 72 25 147/87 (107) 04/18/17 20:00 72 04/18/17 18:00 59 04/18/17 16:00 59 04/18/17 16:00 59 04/18/17 16:00 98.6 55 16 120/64 (82) 84 04/18/17 14:00 59 I/O 04/18/17 04/18/17 04/18/17 04/19/17 04/19/17 04/19/17 07:00 15:00 23:00 07:00 15:00 23:00 Intake Total 240 ml 740 ml Output Total 500 ml 600 ml 700 ml Balance -260 ml 140 ml -700 ml Intake Oral 240 ml 480 ml IV Total 260 ml Output Urine Total 500 ml 600 ml 700 ml # Bowel Movements 2 4 Physical Exam GENERAL: SKIN: Warm and dry. HEAD: Normocephalic. EYES: No scleral icterus. No injection or drainage. NECK: Supple, trachea midline. No JVD or lymphadenopathy. CARDIOVASCULAR: Regular rate and rhythm without murmurs, gallops, or rubs. RESPIRATORY: Breath sounds equal bilaterally. No accessory muscle use. GASTROINTESTINAL: Abdomen soft, non-tender, nondistended. MUSCULOSKELETAL: No cyanosis, or edema. BACK: Nontender without obvious deformity. No CVA tenderness. Laboratory Laboratory Tests Test 04/19/17 04:50 White Blood Count 6.7 TH/MM3 Red Blood Count 3.67 MIL/MM3 Hemoglobin 11.6 GM/DL Hematocrit 34.5 % Mean Corpuscular Volume 94.1 FL Mean Corpuscular Hemoglobin 31.6 PG Mean Corpuscular Hemoglobin Concent 33.6 % Red Cell Distribution Width 13.2 % Platelet Count 117 TH/MM3 Mean Platelet Volume 8.9 FL Neutrophils (%) (Auto) 49.8 % Lymphocytes (%) (Auto) 33.6 % Monocytes (%) (Auto) 13.5 % Eosinophils (%) (Auto) 2.8 % Basophils (%) (Auto) 0.3 % Neutrophils # (Auto) 3.3 TH/MM3 Lymphocytes # (Auto) 2.2 TH/MM3 Monocytes # (Auto) 0.9 TH/MM3 Eosinophils # (Auto) 0.2 TH/MM3 Basophils # (Auto) 0.0 TH/MM3 CBC Comment DIFF FINAL Differential Comment Blood Urea Nitrogen 9 MG/DL Creatinine 0.67 MG/DL Random Glucose 94 MG/DL Total Protein 6.9 GM/DL Albumin 3.0 GM/DL Calcium Level 8.9 MG/DL Phosphorus Level 2.8 MG/DL Magnesium Level 2.1 MG/DL Alkaline Phosphatase 64 U/L Aspartate Amino Transf (AST/SGOT) 23 U/L Alanine Aminotransferase (ALT/SGPT) 16 U/L Total Bilirubin 0.5 MG/DL Sodium Level 142 MEQ/L Potassium Level 3.8 MEQ/L Chloride Level 106 MEQ/L Carbon Dioxide Level 29.2 MEQ/L Anion Gap 7 MEQ/L Estimat Glomerular Filtration Rate 138 ML/MIN Assessment and Plan Problem List: (1) Sepsis ICD Codes: A41.9 - Sepsis, unspecified organism Status: Acute (2) Endotracheally intubated ICD Codes: Z97.8 - Presence of other specified devices Status: Acute (3) Confusion ICD Codes: R41.0 - Disorientation, unspecified (4) Dementia ICD Codes: F03.90 - Unspecified dementia without behavioral disturbance Status: Chronic (5) Cerebral atrophy ICD Codes: G31.9 - Degenerative disease of nervous system, unspecified (6) Cardiomyopathy ICD Codes: I42.9 - Cardiomyopathy, unspecified Status: Acute (7) Symptomatic bradycardia ICD Codes: R00.1 - Bradycardia, unspecified Status: Acute Assessment and Plan 1.) Cardiomyopathy - lopressor started by dr Quintero, continue lisinopril, euvolemic, d/w family whether they would consent to possible heart cath, currently have not given consent 2.) Bradycardia - hr=52 with hypotension on admission, lopressor started by Asim Scanlon MD Apr 19, 2017 13:49
[2017-04-19] MEDS: ENOXAPARIN SODIUM 40 MG/0.4 ML SYRINGE SQ SCH (18:46)
[2017-04-20] VITALS (11 sets, daily range): BP systolic 106–140; BP diastolic 59–81; PULSE 54–80; RESP 16–24; TEMP 97.7–98.9; O2SAT 94–100
[2017-04-20] MEDS: FAMOTIDINE 20 MG TAB TUBE SCH ×3 (00:32→20:58)
[2017-04-20] MEDS: CHLORHEXIDINE GLUCONATE 2 % 1 PACK (2 CLOTHS) TOP SCH (00:32)
[2017-04-20] MEDS: SODIUM CHLORIDE 0.9% FLUSH 10 ML FLUSH IV FLUSH SCH ×3 (00:35→20:59)
[2017-04-20] MEDS: METOPROLOL TARTRATE 25 MG TAB PO SCH ×4 (05:58→20:58)
[2017-04-20] MEDS: LISINOPRIL 5 MG TAB PO SCH (07:53)
[2017-04-20] MEDS: CHLORHEXIDINE 0.12% (ORAL KIT) 15 ML CUP MT SCH ×2 (07:54→20:00)
[2017-04-20] MEDS: FUROSEMIDE 20 MG TAB PO SCH (07:54)
--- NOTE | 2017-04-20 08:27 | HHI.PR ---
Subjective Remarks Heart rate low last night. Rate has been in the 50's at night therefore Metoprolol held by RN last night. Objective Vitals Vital Signs Date Time Temp Pulse Resp B/P (MAP) Pulse Ox O2 Delivery O2 Flow Rate FiO2 04/20/17 06:00 63 04/20/17 04:00 98.4 54 16 119/73 (88) 100 04/20/17 04:00 54 04/20/17 02:00 55 04/20/17 00:00 57 04/20/17 00:00 98.8 57 16 128/69 (88) 100 04/19/17 22:00 54 04/19/17 20:00 60 04/19/17 20:00 99.3 60 16 127/76 (93) 100 04/19/17 19:00 100 Nasal Cannula 2.00 04/19/17 18:00 59 04/19/17 16:00 98.6 53 13 148/84 (105) 95 04/19/17 16:00 59 04/19/17 14:00 59 04/19/17 12:00 98.8 81 18 126/76 (93) 04/19/17 12:00 59 04/19/17 10:00 59 I/O 04/19/17 04/19/17 04/19/17 04/20/17 04/20/17 04/20/17 06:59 14:59 22:59 06:59 14:59 22:59 Intake Total 560 ml Output Total 700 ml 1400 ml 700 ml Balance -700 ml -840 ml -700 ml Intake Oral 560 ml Output Urine Total 700 ml 1400 ml 700 ml # Bowel Movements 4 2 0 Result Diagram: 04/19/17 0450 04/19/17 0450 Objective Remarks GENERAL: Elderly male in no apparent distress. CARDIOVASCULAR: Normal rate and regular rhythm without murmurs, gallops, or rubs. RESPIRATORY: Good respiratory efforts. Breath sounds equal and clear to auscultation bilaterally. GASTROINTESTINAL: Abdomen soft, non-tender, non-distended. Normal active bowel sounds MUSCULOSKELETAL: Extremities without cyanosis, or edema. NEURO: Alert & Oriented to person and place. Moves all 4 extremities. Can hold a simple conversation, at times confused. PSYCH: Appropriate mood and affect. A/P Assessment and Plan 81-year-old male with a history of dementia, CHF, hypertension. In by EMS after he was found unresponsive by his family. Patient was intubated for airway protection. He is status post ICU course. He has improved and care is transferred to the hospitalist service. Altered mental status/encephalopathy/syncope from suspected bradycardia/cardiac myopathy Cardiomyopathy/chronic systolic heart failure ejection fraction 25-30% -Patient evaluated by EP who does not believe the patient has had any significant bradycardic episodes. Patient started on low-dose beta harley for ectopic and PVCs. HR low at night. Will decrease to 12.5 mg BID. Will DW Dr. Quintero. - Cardiology, Dr. Richardson following. The patient's family refused a heart catheterization. - Continue Lasix and lisinopril. History of TIAs Cerebral atrophy Dementia - Patient seems to be back at baseline from a neurological standpoint. Continue to monitor. No new issues. History of prostate CA Arthritis Leukocytosis Hypernatremia S/P intubation for airway protection: - Breathing treatment as needed. Supplemental oxygen as needed. Prophylaxis: Famotidine/SCDs/subcutaneous enoxaparin Palliative care following to assist family with goals of care Discharge Planning Transfer to floor. Anticipate DC to SNF in 1-2 days. Hazel Wallace MD Apr 20, 2017 08:27
--- NOTE | 2017-04-20 14:19 | PD.CARD.PN ---
Subjective Subjective Remarks asleep in nad, extubated Objective Medications Current Medications Medications (Trade) Dose Ordered Sig/Shayan Route Start Time Stop Time Status Last Admin (NS Flush) 2 ml UNSCH PRN IV FLUSH 04/15/17 14:45 (NS Flush) 2 ml BID IV FLUSH 04/15/17 21:00 04/20/17 07:54 (Tylenol) 650 mg Q6H PRN PO 04/15/17 14:45 (Duoneb Neb) 1 ampule Q4HR NEB PRN INH 04/15/17 14:45 (Peridex 0.12% Liq) 15 ml BID@08,20 MT 04/15/17 20:00 04/18/17 20:00 (Pepcid) 20 mg BID TUBE 04/15/17 21:00 04/20/17 07:53 (Lovenox Inj) 40 mg Q24H SQ 04/15/17 16:00 04/19/17 18:46 Miscellaneous Information 1 Q361D XX 04/15/17 14:45 04/15/17 21:16 (Chlorhexidine 2% Cloth) 3 pack Taper DAILY@04 TOP 04/16/17 04:00 04/12/18 03:59 04/20/17 00:32 (Chlorhexidine 2% Cloth) 3 pack UNSCH PRN TOP 04/15/17 14:45 (Lasix) 20 mg DAILY PO 04/18/17 09:00 04/20/17 07:54 (Prinivil) 2.5 mg DAILY PO 04/19/17 09:00 04/20/17 07:53 (Pill Splitter) 1 ea UNSCH PRN OTHER 04/18/17 11:45 (Lopressor) 12.5 mg BID PO 04/20/17 09:00 (Pneumovax-23 Inj) 25 mcg ONCE ONCE IM 04/21/17 10:00 04/21/17 10:01 (Flu (Quadrivalent) Vaccine Inj) 0.5 ml ONCE ONCE IM 04/21/17 10:00 04/21/17 10:01 Vital Signs / I&O Vital Signs Date Time Temp Pulse Resp B/P (MAP) Pulse Ox O2 Delivery O2 Flow Rate FiO2 04/20/17 12:53 97.7 65 20 114/81 (92) 100 04/20/17 12:00 97.9 66 18 108/59 (75) 100 04/20/17 12:00 66 04/20/17 10:00 57 04/20/17 08:00 100 Nasal Cannula 2.00 04/20/17 08:00 97.9 60 24 130/79 (96) 100 04/20/17 08:00 60 04/20/17 06:00 63 04/20/17 04:00 98.4 54 16 119/73 (88) 100 04/20/17 04:00 54 04/20/17 02:00 55 04/20/17 00:00 57 04/20/17 00:00 98.8 57 16 128/69 (88) 100 04/19/17 22:00 54 04/19/17 20:00 60 04/19/17 20:00 99.3 60 16 127/76 (93) 100 04/19/17 19:00 100 Nasal Cannula 2.00 04/19/17 18:00 59 04/19/17 16:00 98.6 53 13 148/84 (105) 95 04/19/17 16:00 59 I/O 04/19/17 04/19/17 04/19/17 04/20/17 04/20/17 04/20/17 07:00 15:00 23:00 07:00 15:00 23:00 Intake Total 560 ml 240 ml Output Total 700 ml 1400 ml 700 ml Balance -700 ml -840 ml -700 ml 240 ml Intake Oral 560 ml 240 ml Output Urine Total 700 ml 1400 ml 700 ml # Bowel Movements 4 2 0 Physical Exam GENERAL: SKIN: Warm and dry. HEAD: Normocephalic. EYES: No scleral icterus. No injection or drainage. NECK: Supple, trachea midline. No JVD or lymphadenopathy. CARDIOVASCULAR: Regular rate and rhythm without murmurs, gallops, or rubs. RESPIRATORY: Breath sounds equal bilaterally. No accessory muscle use. GASTROINTESTINAL: Abdomen soft, non-tender, nondistended. MUSCULOSKELETAL: No cyanosis, or edema. BACK: Nontender without obvious deformity. No CVA tenderness. Assessment and Plan Problem List: (1) Sepsis ICD Codes: A41.9 - Sepsis, unspecified organism Status: Acute (2) Endotracheally intubated ICD Codes: Z97.8 - Presence of other specified devices Status: Acute (3) Confusion ICD Codes: R41.0 - Disorientation, unspecified (4) Dementia ICD Codes: F03.90 - Unspecified dementia without behavioral disturbance Status: Chronic (5) Cerebral atrophy ICD Codes: G31.9 - Degenerative disease of nervous system, unspecified (6) Cardiomyopathy ICD Codes: I42.9 - Cardiomyopathy, unspecified Status: Acute (7) Symptomatic bradycardia ICD Codes: R00.1 - Bradycardia, unspecified Status: Acute Assessment and Plan 1.) Cardiomyopathy - lopressor started by dr Quintero, continue lisinopril, euvolemic, d/w family whether they would consent to possible heart cath, currently have not given consent 2.) Bradycardia - hr=52 with hypotension on admission, lopressor started by Asim Scanlon MD Apr 20, 2017 14:19
--- NOTE | 2017-04-20 16:20 | HHI.HCPN ---
Reason for visit a. To assist with evaluation and management of symptoms including: Debility , confusion, agitation b. To assist medical decision maker(s) with: better understanding of current medical conditions; weighing benefits/burdens of medical treatment options; making medical treatment decisions. . Subjective/Interval History Mr. Case is an 81-year-old male with a history of dementia, arthritis, BPH, history of prostate cancer, TIAs, CHF, hypertension, anxiety and glaucoma. He presented to [facility] ED via EMS on 04/15/2017 after being found unresponsive by his family. EMS reported upon arrival the patient's GCS was 4. He was hypotensive as well as bradycardic with heart rate in the 50s and systolic blood pressure 80s. He was intubated for airway protection and extubated 2 days later on 04/17/17. Patient was evaluated by EP; no significant bradycardic episodes were noted at that time. Patient was started on a low-dose beta harley for ectopic and PVCs, but his heart rate dropped over nite and his metoprolol was held. Metoprolol dose decreased to 12.5 mg 2 times daily. Cardiology continues to follow. Patient's family repeating heart catheterization. Patient remains pleasantly confused. He is able to respond to some simple questions appropriately with brief answers; follow simple commands. Patient reportedly having some new onset intermittent agitation at night, continue to monitor and consider starting the patient on Seroquel if agitation continues. Speech therapy following. Patient remains on a pured diet with thin liquids; intake approximately 50%. BMI: 23.8 Plan to transfer to med/surg unit sometime today. OT and PT following. Per previous CM note, a referral has been made to [facility]. Anticipate possible discharge to [facility] facility in the upcoming days. . Family/friend interactions Message left for patient's son on his voice mail. . Advance Directives Advance Directive Specifics Documented care wishes: No known documented care wishes as been completed. . Objective Vital Signs Date Time Temp Pulse Resp B/P (MAP) Pulse Ox O2 Delivery O2 Flow Rate FiO2 04/20/17 12:53 97.7 65 20 114/81 (92) 100 04/20/17 12:00 97.9 66 18 108/59 (75) 100 04/20/17 12:00 66 04/20/17 10:00 57 04/20/17 08:00 100 Nasal Cannula 2.00 04/20/17 08:00 97.9 60 24 130/79 (96) 100 04/20/17 08:00 60 04/20/17 06:00 63 04/20/17 04:00 98.4 54 16 119/73 (88) 100 04/20/17 04:00 54 04/20/17 02:00 55 04/20/17 00:00 57 04/20/17 00:00 98.8 57 16 128/69 (88) 100 04/19/17 22:00 54 04/19/17 20:00 60 04/19/17 20:00 99.3 60 16 127/76 (93) 100 04/19/17 19:00 100 Nasal Cannula 2.00 04/19/17 18:00 59 Intake & Output 04/20/17 04/20/17 07:00 19:00 Intake Total 240 ml Output Total 700 ml Balance -700 ml 240 ml Intake Oral 240 ml Output Urine Total 700 ml # Bowel Movements 0 . Physical Exam CONSTITUTIONAL/GENERAL: This is a frail, elderly male patient currently intubated on mechanical ventilator. TUBES/LINES/DRAINS: Santana catheter, PIV x 1, NC SKIN: No wounds seen anteriorly. Skin temperature appropriate. Not diaphoretic. HEAD: Atraumatic. Normocephalic. EYES: No scleral icterus. No injection or drainage. ENT: Hearing grossly normal. Nose without bleeding or purulent drainage. NECK: Trachea midline. CARDIOVASCULAR: Regular rate and rhythm No JVD. Peripheral pulses symmetric. RESPIRATORY/CHEST: Symmetric, unlabored respirations. Clear to auscultation. Breath sounds equal bilaterally. No wheezes, rales, or rhonchi. GASTROINTESTINAL: Abdomen soft, non-tender, nondistended. No guarding. Bowel sounds present. GENITOURINARY: Without palpable bladder distension. MUSCULOSKELETAL: Extremities without clubbing, cyanosis, or edema. LYMPHATICS: No palpable cervical or supraclavicular adenopathy. NEUROLOGICAL: Able to respond to some simple questions appropriately with brief answers; follow simple commands. PSYCHIATRIC: No obvious anxiety/depression. Agitation overnight . Diagnostic Tests Laboratory Laboratory Tests Test 04/18/17 10:10 04/19/17 04:50 Blood Urea Nitrogen 11 MG/DL (7-18) 9 MG/DL (7-18) Creatinine 0.74 MG/DL (0.60-1.30) 0.67 MG/DL (0.60-1.30) Random Glucose 123 MG/DL (74-106) 94 MG/DL (74-106) Calcium Level 8.5 MG/DL (8.5-10.1) 8.9 MG/DL (8.5-10.1) Phosphorus Level 2.4 MG/DL (2.5-4.9) 2.8 MG/DL (2.5-4.9) Magnesium Level 2.1 MG/DL (1.5-2.5) 2.1 MG/DL (1.5-2.5) Sodium Level 145 MEQ/L (136-145) 142 MEQ/L (136-145) Potassium Level 3.5 MEQ/L (3.5-5.1) 3.8 MEQ/L (3.5-5.1) Chloride Level 110 MEQ/L (98-107) 106 MEQ/L (98-107) Carbon Dioxide Level 30.5 MEQ/L (21.0-32.0) 29.2 MEQ/L (21.0-32.0) Anion Gap 5 MEQ/L (5-15) 7 MEQ/L (5-15) Estimat Glomerular Filtration Rate 123 ML/MIN (>89) 138 ML/MIN (>89) White Blood Count 6.7 TH/MM3 (4.0-11.0) Red Blood Count 3.67 MIL/MM3 (4.50-5.90) Hemoglobin 11.6 GM/DL (13.0-17.0) Hematocrit 34.5 % (39.0-51.0) Mean Corpuscular Volume 94.1 FL (80.0-100.0) Mean Corpuscular Hemoglobin 31.6 PG (27.0-34.0) Mean Corpuscular Hemoglobin Concent 33.6 % (32.0-36.0) Red Cell Distribution Width 13.2 % (11.6-17.2) Platelet Count 117 TH/MM3 (150-450) Mean Platelet Volume 8.9 FL (7.0-11.0) Neutrophils (%) (Auto) 49.8 % (16.0-70.0) Lymphocytes (%) (Auto) 33.6 % (9.0-44.0) Monocytes (%) (Auto) 13.5 % (0.0-8.0) Eosinophils (%) (Auto) 2.8 % (0.0-4.0) Basophils (%) (Auto) 0.3 % (0.0-2.0) Neutrophils # (Auto) 3.3 TH/MM3 (1.8-7.7) Lymphocytes # (Auto) 2.2 TH/MM3 (1.0-4.8) Monocytes # (Auto) 0.9 TH/MM3 (0-0.9) Eosinophils # (Auto) 0.2 TH/MM3 (0-0.4) Basophils # (Auto) 0.0 TH/MM3 (0-0.2) CBC Comment DIFF FINAL Differential Comment Total Protein 6.9 GM/DL (6.4-8.2) Albumin 3.0 GM/DL (3.4-5.0) Alkaline Phosphatase 64 U/L (45-117) Aspartate Amino Transf (AST/SGOT) 23 U/L (15-37) Alanine Aminotransferase (ALT/SGPT) 16 U/L (12-78) Total Bilirubin 0.5 MG/DL (0.2-1.0) . Result Diagram: 04/19/17 0450 04/19/17 0450 Procedures 04/15/2017: Intubation 04/15/2017: OGT 04/17/2017: Extubation . Assessment and Plan Disease Oriented Problem List: (1) Cerebral atrophy (2) History of prostate cancer (3) History of TIAs (4) Sepsis (5) Symptomatic bradycardia (6) Cardiomyopathy (7) Dementia Symptom Scale: (1) Debility (2) Confusion (3) Agitation Pertinent Non-Medical Issues Psychosocial:Patient apparently lives with son. Further information pending conversation with patient's family. Spiritual: [employer]ish oliver Legal: Per [place] statutes, in the absence of written advanced directives healthcare proxy decision-making falls to the patient's adult children. Only known relative a this time is patient's son with whom the patient lives. Ethical issues impacting care: No known ethical issues impacting care at this time . Important Contacts Loyd Case, son: [phone] . Prognosis Patient is an 81-year-old male with a history of dementia and syncopal episodes from suspected bradycardia/cardiomyopathy. This is the patient's third hospitalization at [facility] since September 28, 2016. He was previously hospitalized in 09/2016 for treatment of syncope/possible TIA; he was readmitted in 12/2016 for management of syncope and symptomatic hypotension. Cardiology has previously evaluated this patient and recommendations were made for cardiac catheterization/possible permanent pacemaker placement but the patient's son refused. Outpatient follow-up with cardiology was also recommended but was not done. The patient is high risk for ongoing decline and complications requiring rehospitalization. . Code Status: Full Code Plan * FULL CODE * Decision-making: Per [place] statutes, in the absence of written advanced directives healthcare proxy decision making would fall to the patient's . If the patient is not , healthcare proxy decision making would then fall to the majority of his adult children. * PATIENT WAS [facility] PRIOR TO ADMISSION. HE WAS DISCHARGED UPON HOSPITAL ADMISSION. * AGGRESSIVE GOALS * Patient is an 81-year-old male with a history of dementia and syncopal episodes from suspected bradycardia/cardiomyopathy. This is the patient's third hospitalization at [facility] since September 28, 2016. He was previously hospitalized in 09/2016 for treatment of syncope/possible TIA; he was readmitted in 12/2016 for management of syncope and symptomatic hypotension. Cardiology has previously evaluated this patient and recommendations were made for cardiac catheterization/possible permanent pacemaker placement but the patient's son refused. Outpatient follow-up with cardiology was also recommended but was not done. The patient is high risk for ongoing decline and complications requiring rehospitalization. * Symptom management- confusion: Patient with a history of dementia. He is able to respond to some simple questions appropriately with brief answers; follow simple commands. * Symptom management - agitation: Patient reportedly having some new onset intermittent agitation at night, continue to monitor and consider starting the patient on Seroquel if agitation continues. * Symptom management - debility: Patient is an 81 yo male who has been hospitalized 3 times since September,. He lives with his son. Plan to transfer to med/surg unit sometime today. Per previous CM note, a referral has been made to [facility]. Anticipate possible discharge to [facility]dc facility in the upcoming days. * Palliative care will continue to follow this patient throughout his hospitalization to establish trust, assist with symptom management and clarification of medical treatment goals. . Attestation To help prompt me to consider important information that might be impacting today's encounter and assessment, information from prior notes written by myself or my colleagues may have been "brought forward" into today's note. My signature on this note, however, is an attestation that I personally performed the exam, history, and/or decision-making noted today, and, unless otherwise indicated, the interactions with patient, family, and staff as well as the review of records all occurred today. I also attest that the listed assessment and stated plan reflect my best clinical judgment today based on the combination of historical information, prior notes, and today's exam/ interactions. When time spent is documented, it refers only to time spent today by the signer, or if indicated, combined time spent today by collaborating physician/nurse practitioner. . Alpa Lopez Apr 20, 2017 16:20
[2017-04-20] MEDS: ENOXAPARIN SODIUM 40 MG/0.4 ML SYRINGE SQ SCH (18:06)
[2017-04-21 00:30] VITALS: BP 140/62; PULSE 84; RESP 19; TEMP 97.6; O2SAT 95
[2017-04-21] MEDS: CHLORHEXIDINE GLUCONATE 2 % 1 PACK (2 CLOTHS) TOP SCH (04:00)
[2017-04-21 04:45] VITALS: BP 135/60; PULSE 76; RESP 17; TEMP 98; O2SAT 96
[2017-04-21 07:11] LABS: HEMATOCRIT 31.3 % (39.0-51.0); MEAN CORPUSCULAR HEMOGLOBIN 31.3 PG (27.0-34.0); MEAN CORPUSCULAR HGB CONC 33.7 % (32.0-36.0); PLATELET COUNT 131 TH/MM3 (150-450); RED BLOOD COUNT 3.37 MIL/MM3 (4.50-5.90); RED CELL DISTRIBUTION WIDTH 13.2 % (11.6-17.2); REVIEW FLAG FINAL; WHITE BLOOD COUNT 4.9 TH/MM3 (4.0-11.0)
[2017-04-21 07:42] LABS: BICARBONATE 32.1 MEQ/L (21.0-32.0); POTASSIUM 3.9 MEQ/L (3.5-5.1)
[2017-04-21] MEDS: CHLORHEXIDINE 0.12% (ORAL KIT) 15 ML CUP MT SCH ×2 (08:00→20:00)
--- NOTE | 2017-04-21 08:14 | HHI.PR ---
Review/Management Daily Summary 04/21 he is pleasant but mildly confused alert and good spirits moves limbs well bedside spoke with staff yesterday no other neuro intervention could see as outpt with family for addtl input Subjective Subjective Comments no cx neuro starr Active Medications Current Medications Medications (Trade) Dose Ordered Sig/Shayan Route Start Time Stop Time Status Last Admin (NS Flush) 2 ml UNSCH PRN IV FLUSH 04/15/17 14:45 (NS Flush) 2 ml BID IV FLUSH 04/15/17 21:00 04/20/17 20:59 (Tylenol) 650 mg Q6H PRN PO 04/15/17 14:45 (Duoneb Neb) 1 ampule Q4HR NEB PRN INH 04/15/17 14:45 (Peridex 0.12% Liq) 15 ml BID@08,20 MT 04/15/17 20:00 04/18/17 20:00 (Pepcid) 20 mg BID TUBE 04/15/17 21:00 04/20/17 20:58 (Lovenox Inj) 40 mg Q24H SQ 04/15/17 16:00 04/20/17 18:06 Miscellaneous Information 1 Q361D XX 04/15/17 14:45 04/15/17 21:16 (Chlorhexidine 2% Cloth) Taper DAILY@04 TOP 04/16/17 04:00 04/12/18 03:59 04/20/17 00:32 (Chlorhexidine 2% Cloth) 3 pack UNSCH PRN TOP 04/15/17 14:45 (Lasix) 20 mg DAILY PO 04/18/17 09:00 04/20/17 07:54 (Prinivil) 2.5 mg DAILY PO 04/19/17 09:00 04/20/17 07:53 (Pill Splitter) 1 ea UNSCH PRN OTHER 04/18/17 11:45 (Lopressor) 12.5 mg BID PO 04/20/17 09:00 04/20/17 20:58 (Pneumovax-23 Inj) 25 mcg ONCE ONCE IM 04/21/17 10:00 04/21/17 10:01 (Flu (Quadrivalent) Vaccine Inj) 0.5 ml ONCE ONCE IM 04/21/17 10:00 04/21/17 10:01 Allergies Allergies Coded Allergies No Known Allergies ([id number]) Exam I&O / VS Vital Signs Date Time Temp Pulse Resp B/P (MAP) Pulse Ox O2 Delivery O2 Flow Rate FiO2 04/21/17 04:45 98.0 76 17 135/60 (85) 96 04/21/17 00:30 97.6 84 19 140/62 (88) 95 04/20/17 20:45 98.9 80 18 140/65 (90) 94 04/20/17 20:00 95 Nasal Cannula 2.00 04/20/17 16:38 97.9 62 20 106/70 (82) 100 04/20/17 15:55 100 Nasal Cannula 2.00 04/20/17 12:53 97.7 65 20 114/81 (92) 100 04/20/17 12:00 97.9 66 18 108/59 (75) 100 04/20/17 12:00 66 04/20/17 10:00 57 Objective Micro and Labs Laboratory Tests Test 04/21/17 06:04 White Blood Count 4.9 Red Blood Count 3.37 Hemoglobin 10.6 Hematocrit 31.3 Mean Corpuscular Volume 93.0 Mean Corpuscular Hemoglobin 31.3 Mean Corpuscular Hemoglobin Concent 33.7 Red Cell Distribution Width 13.2 Platelet Count 131 Mean Platelet Volume 8.1 Blood Urea Nitrogen 12 Creatinine 0.85 Random Glucose 95 Calcium Level 8.6 Sodium Level 140 Potassium Level 3.9 Chloride Level 102 Carbon Dioxide Level 32.1 Anion Gap 6 Estimat Glomerular Filtration Rate 105 Date/Time Source Procedure Growth Status 04/15/17 12:45 Blood Peripheral Aerobic Blood Culture - Final NO GROWTH IN 5 DAYS Complete 04/15/17 12:45 Blood Peripheral Anaerobic Blood Culture - Final NO GROWTH IN 5 DAYS Complete 04/15/17 19:10 Sputum Endotracheal Gram Stain - Final Complete 04/15/17 19:10 Sputum Endotracheal Sputum Culture - Final MODERATE GROWTH NORMAL RESPIRATORY NORMA Complete Lidia Milligan MD Apr 21, 2017 08:14
[2017-04-21 08:21] VITALS: BP 119/69; PULSE 63; RESP 20; TEMP 98.1; O2SAT 99
[2017-04-21] MEDS: LISINOPRIL 5 MG TAB PO SCH (08:48)
[2017-04-21] MEDS: FAMOTIDINE 20 MG TAB TUBE SCH ×2 (08:48→21:36)
[2017-04-21] MEDS: METOPROLOL TARTRATE 25 MG TAB PO SCH ×2 (08:49→21:36)
[2017-04-21] MEDS: SODIUM CHLORIDE 0.9% FLUSH 10 ML FLUSH IV FLUSH SCH ×2 (08:49→21:00)
[2017-04-21] MEDS: FUROSEMIDE 20 MG TAB PO SCH (08:49)
[2017-04-21] MEDS ORDERED: PNEUMOCOCCAL POLYVALENT INJ 25 MCG/0.5 ML SYR IM ONE (10:00)
[2017-04-21] MEDS ORDERED: INFLUENZA VIRUS VACCINE (QUADRIVALENT) 0.5 ML SYR IM ONE (10:00)
--- NOTE | 2017-04-21 12:36 | PD.CARD.PN ---
Subjective Subjective Remarks alert in nad, extubated Objective Medications Current Medications Medications (Trade) Dose Ordered Sig/Shayan Route Start Time Stop Time Status Last Admin (NS Flush) 2 ml UNSCH PRN IV FLUSH 04/15/17 14:45 (NS Flush) 2 ml BID IV FLUSH 04/15/17 21:00 04/21/17 08:49 (Tylenol) 650 mg Q6H PRN PO 04/15/17 14:45 (Duoneb Neb) 1 ampule Q4HR NEB PRN INH 04/15/17 14:45 (Peridex 0.12% Liq) 15 ml BID@08,20 MT 04/15/17 20:00 04/21/17 08:00 (Pepcid) 20 mg BID TUBE 04/15/17 21:00 04/21/17 08:48 (Lovenox Inj) 40 mg Q24H SQ 04/15/17 16:00 04/20/17 18:06 Miscellaneous Information 1 Q361D XX 04/15/17 14:45 04/15/17 21:16 (Chlorhexidine 2% Cloth) Taper DAILY@04 TOP 04/16/17 04:00 04/12/18 03:59 04/20/17 00:32 (Chlorhexidine 2% Cloth) 3 pack UNSCH PRN TOP 04/15/17 14:45 (Lasix) 20 mg DAILY PO 04/18/17 09:00 04/21/17 08:49 (Prinivil) 2.5 mg DAILY PO 04/19/17 09:00 04/21/17 08:48 (Pill Splitter) 1 ea UNSCH PRN OTHER 04/18/17 11:45 (Lopressor) 12.5 mg BID PO 04/20/17 09:00 04/21/17 08:49 Vital Signs / I&O Vital Signs Date Time Temp Pulse Resp B/P (MAP) Pulse Ox O2 Delivery O2 Flow Rate FiO2 04/21/17 08:21 98.1 63 20 119/69 (86) 99 04/21/17 04:45 98.0 76 17 135/60 (85) 96 04/21/17 00:30 97.6 84 19 140/62 (88) 95 04/20/17 20:45 98.9 80 18 140/65 (90) 94 04/20/17 20:00 95 Nasal Cannula 2.00 04/20/17 16:38 97.9 62 20 106/70 (82) 100 04/20/17 15:55 100 Nasal Cannula 2.00 04/20/17 12:53 97.7 65 20 114/81 (92) 100 I/O 04/20/17 04/20/17 04/20/17 04/21/17 04/21/17 04/21/17 07:00 15:00 23:00 07:00 15:00 23:00 Intake Total 240 ml 500 ml 500 ml Output Total 700 ml 175 ml 200 ml 350 ml Balance -700 ml 65 ml 300 ml 150 ml Intake Oral 240 ml 500 ml 500 ml Output Urine Total 700 ml 175 ml 200 ml 350 ml # Bowel Movements 0 0 0 1 Physical Exam GENERAL: SKIN: Warm and dry. HEAD: Normocephalic. EYES: No scleral icterus. No injection or drainage. NECK: Supple, trachea midline. No JVD or lymphadenopathy. CARDIOVASCULAR: Regular rate and rhythm without murmurs, gallops, or rubs. RESPIRATORY: Breath sounds equal bilaterally. No accessory muscle use. GASTROINTESTINAL: Abdomen soft, non-tender, nondistended. MUSCULOSKELETAL: No cyanosis, or edema. BACK: Nontender without obvious deformity. No CVA tenderness. Laboratory Laboratory Tests Test 04/21/17 06:04 White Blood Count 4.9 TH/MM3 Red Blood Count 3.37 MIL/MM3 Hemoglobin 10.6 GM/DL Hematocrit 31.3 % Mean Corpuscular Volume 93.0 FL Mean Corpuscular Hemoglobin 31.3 PG Mean Corpuscular Hemoglobin Concent 33.7 % Red Cell Distribution Width 13.2 % Platelet Count 131 TH/MM3 Mean Platelet Volume 8.1 FL Blood Urea Nitrogen 12 MG/DL Creatinine 0.85 MG/DL Random Glucose 95 MG/DL Calcium Level 8.6 MG/DL Sodium Level 140 MEQ/L Potassium Level 3.9 MEQ/L Chloride Level 102 MEQ/L Carbon Dioxide Level 32.1 MEQ/L Anion Gap 6 MEQ/L Estimat Glomerular Filtration Rate 105 ML/MIN Assessment and Plan Problem List: (1) Sepsis ICD Codes: A41.9 - Sepsis, unspecified organism Status: Acute (2) Endotracheally intubated ICD Codes: Z97.8 - Presence of other specified devices Status: Acute (3) Confusion ICD Codes: R41.0 - Disorientation, unspecified (4) Dementia ICD Codes: F03.90 - Unspecified dementia without behavioral disturbance Status: Chronic (5) Cerebral atrophy ICD Codes: G31.9 - Degenerative disease of nervous system, unspecified (6) Cardiomyopathy ICD Codes: I42.9 - Cardiomyopathy, unspecified Status: Acute (7) Symptomatic bradycardia ICD Codes: R00.1 - Bradycardia, unspecified Status: Acute Assessment and Plan 1.) Cardiomyopathy - lopressor started by dr Quintero, continue lisinopril, euvolemic, d/w family whether they would consent to possible heart cath, currently have not given consent 2.) Bradycardia - hr=52 with hypotension on admission, lopressor started by Asim Scanlon MD Apr 21, 2017 12:36
[2017-04-21 12:37] VITALS: BP 117/69; PULSE 61; RESP 20; TEMP 97.4; O2SAT 100
--- NOTE | 2017-04-21 13:14 | HHI.HCPN ---
Reason for visit a. To assist with evaluation and management of symptoms including: Debility , confusion, agitation b. To assist medical decision maker(s) with: better understanding of current medical conditions; weighing benefits/burdens of medical treatment options; making medical treatment decisions. . Subjective/Interval History Mr. Case is an 81-year-old male with a history of dementia, arthritis, BPH, history of prostate cancer, TIAs, CHF, hypertension, anxiety and glaucoma. He presented to [facility] ED via EMS on 04/15/2017 after being found unresponsive by his family. EMS reported upon arrival the patient's GCS was 4. He was hypotensive as well as bradycardic with heart rate in the 50s and systolic blood pressure 80s. He was intubated for airway protection and extubated 2 days later on 04/17/17. He was transferred from [facility] to med/surg unit yesterday on 04/20/17. Neurology and cardiology are following. Patient was seen this morning in room 1513. He presents sitting upright in his bed smiling, awake and alert. He is able to answer question and follow commands , however he does not have insight or judgement related to his current medical conditions. Diet has been upgraded to Heart Healthy, mechanically soft with thin consistency liquids. Patient's appetite improving. Mr. Case 100% of breakfast breakfast this morning, asking for snacks. The patient's family continues to express aggressive goals. Per previous CM note , a referral has been made to [facility]. Anticipate possible discharge to assisted facility in the upcoming days. . Advance Directives Advance Directive Specifics Documented care wishes: No known documented care wishes as been completed. . Objective Vital Signs Date Time Temp Pulse Resp B/P (MAP) Pulse Ox O2 Delivery O2 Flow Rate FiO2 04/21/17 08:21 98.1 63 20 119/69 (86) 99 04/21/17 04:45 98.0 76 17 135/60 (85) 96 04/21/17 00:30 97.6 84 19 140/62 (88) 95 04/20/17 20:45 98.9 80 18 140/65 (90) 94 04/20/17 20:00 95 Nasal Cannula 2.00 04/20/17 16:38 97.9 62 20 106/70 (82) 100 04/20/17 15:55 100 Nasal Cannula 2.00 04/20/17 12:53 97.7 65 20 114/81 (92) 100 Intake & Output 04/21/17 04/21/17 06:59 18:59 Intake Total 1000 ml Output Total 550 ml Balance 450 ml Intake Oral 1000 ml Output Urine Total 550 ml # Bowel Movements 1 . Physical Exam CONSTITUTIONAL/GENERAL: This is a frail, elderly male patient currently intubated on mechanical ventilator. TUBES/LINES/DRAINS: Santana catheter SKIN: No wounds seen anteriorly. Skin temperature appropriate. Not diaphoretic. HEAD: Atraumatic. Normocephalic. EYES: No scleral icterus. No injection or drainage. ENT: Hearing grossly normal. Nose without bleeding or purulent drainage. NECK: Trachea midline. CARDIOVASCULAR: Regular rate and rhythm No JVD. Peripheral pulses symmetric. RESPIRATORY/CHEST: Symmetric, unlabored respirations. Clear to auscultation. Breath sounds equal bilaterally. No wheezes, rales, or rhonchi. GASTROINTESTINAL: Abdomen soft, non-tender, nondistended. No guarding. Bowel sounds present. GENITOURINARY: Without palpable bladder distension. Santana catheter in place MUSCULOSKELETAL: Extremities without clubbing, cyanosis, or edema. LYMPHATICS: No palpable cervical or supraclavicular adenopathy. NEUROLOGICAL: Awake and alert, somewhat confused. Able to answer questions and follow commands, however does not show insight related to his current medical conditions. PSYCHIATRIC: No obvious anxiety/depression. . Diagnostic Tests Laboratory Laboratory Tests Test 04/19/17 04:50 04/21/17 06:04 White Blood Count 6.7 TH/MM3 (4.0-11.0) 4.9 TH/MM3 (4.0-11.0) Red Blood Count 3.67 MIL/MM3 (4.50-5.90) 3.37 MIL/MM3 (4.50-5.90) Hemoglobin 11.6 GM/DL (13.0-17.0) 10.6 GM/DL (13.0-17.0) Hematocrit 34.5 % (39.0-51.0) 31.3 % (39.0-51.0) Mean Corpuscular Volume 94.1 FL (80.0-100.0) 93.0 FL (80.0-100.0) Mean Corpuscular Hemoglobin 31.6 PG (27.0-34.0) 31.3 PG (27.0-34.0) Mean Corpuscular Hemoglobin Concent 33.6 % (32.0-36.0) 33.7 % (32.0-36.0) Red Cell Distribution Width 13.2 % (11.6-17.2) 13.2 % (11.6-17.2) Platelet Count 117 TH/MM3 (150-450) 131 TH/MM3 (150-450) Mean Platelet Volume 8.9 FL (7.0-11.0) 8.1 FL (7.0-11.0) Neutrophils (%) (Auto) 49.8 % (16.0-70.0) Lymphocytes (%) (Auto) 33.6 % (9.0-44.0) Monocytes (%) (Auto) 13.5 % (0.0-8.0) Eosinophils (%) (Auto) 2.8 % (0.0-4.0) Basophils (%) (Auto) 0.3 % (0.0-2.0) Neutrophils # (Auto) 3.3 TH/MM3 (1.8-7.7) Lymphocytes # (Auto) 2.2 TH/MM3 (1.0-4.8) Monocytes # (Auto) 0.9 TH/MM3 (0-0.9) Eosinophils # (Auto) 0.2 TH/MM3 (0-0.4) Basophils # (Auto) 0.0 TH/MM3 (0-0.2) CBC Comment DIFF FINAL Differential Comment Blood Urea Nitrogen 9 MG/DL (7-18) 12 MG/DL (7-18) Creatinine 0.67 MG/DL (0.60-1.30) 0.85 MG/DL (0.60-1.30) Random Glucose 94 MG/DL (74-106) 95 MG/DL (74-106) Total Protein 6.9 GM/DL (6.4-8.2) Albumin 3.0 GM/DL (3.4-5.0) Calcium Level 8.9 MG/DL (8.5-10.1) 8.6 MG/DL (8.5-10.1) Phosphorus Level 2.8 MG/DL (2.5-4.9) Magnesium Level 2.1 MG/DL (1.5-2.5) Alkaline Phosphatase 64 U/L (45-117) Aspartate Amino Transf (AST/SGOT) 23 U/L (15-37) Alanine Aminotransferase (ALT/SGPT) 16 U/L (12-78) Total Bilirubin 0.5 MG/DL (0.2-1.0) Sodium Level 142 MEQ/L (136-145) 140 MEQ/L (136-145) Potassium Level 3.8 MEQ/L (3.5-5.1) 3.9 MEQ/L (3.5-5.1) Chloride Level 106 MEQ/L (98-107) 102 MEQ/L (98-107) Carbon Dioxide Level 29.2 MEQ/L (21.0-32.0) 32.1 MEQ/L (21.0-32.0) Anion Gap 7 MEQ/L (5-15) 6 MEQ/L (5-15) Estimat Glomerular Filtration Rate 138 ML/MIN (>89) 105 ML/MIN (>89) . Result Diagram: 04/21/17 0604 04/21/17 0604 Procedures 04/15/2017: Intubation 04/15/2017: OGT 04/17/2017: Extubation . Assessment and Plan Disease Oriented Problem List: (1) Cerebral atrophy (2) History of prostate cancer (3) History of TIAs (4) Sepsis (5) Symptomatic bradycardia (6) Cardiomyopathy (7) Dementia Symptom Scale: (1) Debility (2) Confusion (3) Agitation Pertinent Non-Medical Issues Psychosocial:Patient apparently lives with son. Further information pending conversation with patient's family. Spiritual: [employer]regational oliver Legal: Per [place] statutes, in the absence of written advanced directives healthcare proxy decision-making falls to the patient's adult children. Only known relative a this time is patient's son with whom the patient lives. Ethical issues impacting care: No known ethical issues impacting care at this time . Important Contacts Loyd Case, son: [phone] . Prognosis Patient is an 81-year-old male with a history of dementia and syncopal episodes from suspected bradycardia/cardiomyopathy. This is the patient's third hospitalization at [facility] since September 28, 2016. He was previously hospitalized in 09/2016 for treatment of syncope/possible TIA; he was readmitted in 12/2016 for management of syncope and symptomatic hypotension. Cardiology has previously evaluated this patient and recommendations were made for cardiac catheterization/possible permanent pacemaker placement but the patient's son refused. Outpatient follow-up with cardiology was also recommended but was not done. The patient is high risk for ongoing decline and complications requiring rehospitalization. . Code Status: Full Code Plan * FULL CODE * Decision-making: Per [place] statutes, in the absence of written advanced directives healthcare proxy decision making would fall to the patient's . If the patient is not , healthcare proxy decision making would then fall to the majority of his adult children. * Patient lives with his son Loyd. The patient can not tell me his other children's names. Patient's son states he and his father have no contact with his 2 brothers because "they're no good." He was unable/unwilling to provide contact information * Patient was on [facility] office prior to admission; he was discharged upon hospital admission. * AGGRESSIVE GOALS. Patient/ family refusing cardiac catheterization. Otherwise , patient/family expressing ongoing aggressive goals. Anticipate discharge to assisted facility in the upcoming days, likely [facility]. * Discussed patient with OT and bedside nurse, Jc. * Symptom management- confusion: Patient with a history of dementia. He is able to respond to simple questions appropriately with brief answers; follows simple commands. Patient does not show insight related to his current medical conditions. * Symptom management - agitation: Patient reportedly having some new onset intermittent agitation at night, continue to monitor and consider starting the patient on Seroquel if agitation continues. * Symptom management - debility: Patient is an 81 yo male who has been hospitalized 3 times since September,. He lives with his son. Plan to transfer to med/surg unit sometime today. Per previous CM note, a referral has been made to [facility]. Anticipate possible discharge to assisted facility in the upcoming days. * Palliative care will continue to follow this patient throughout his hospitalization to establish trust, assist with symptom management and clarification of medical treatment goals. . Attestation To help prompt me to consider important information that might be impacting today's encounter and assessment, information from prior notes written by myself or my colleagues may have been "brought forward" into today's note. My signature on this note, however, is an attestation that I personally performed the exam, history, and/or decision-making noted today, and, unless otherwise indicated, the interactions with patient, family, and staff as well as the review of records all occurred today. I also attest that the listed assessment and stated plan reflect my best clinical judgment today based on the combination of historical information, prior notes, and today's exam/ interactions. When time spent is documented, it refers only to time spent today by the signer, or if indicated, combined time spent today by collaborating physician/nurse practitioner. . Alpa Lopez Apr 21, 2017 13:14
[2017-04-21 16:58] VITALS: BP_SYST 127; BP_DIAS 60; BP_DIAS 70; PULSE 64; RESP 20; TEMP 98.2; O2SAT 100
[2017-04-21] MEDS: ENOXAPARIN SODIUM 40 MG/0.4 ML SYRINGE SQ SCH (17:28)
--- NOTE | 2017-04-21 19:53 | HHI.PR ---
Subjective Remarks Late entry. Patient seen around 2 PM He is seen sitting in the chair. He is more awake. States he is feeling ok today. Objective Vitals Vital Signs Date Time Temp Pulse Resp B/P (MAP) Pulse Ox O2 Delivery O2 Flow Rate FiO2 04/21/17 16:58 98.2 64 20 127/70 (89) 100 04/21/17 12:37 97.4 61 20 117/69 (85) 100 04/21/17 08:21 98.1 63 20 119/69 (86) 99 04/21/17 04:45 98.0 76 17 135/60 (85) 96 04/21/17 00:30 97.6 84 19 140/62 (88) 95 04/20/17 20:45 98.9 80 18 140/65 (90) 94 04/20/17 20:00 95 Nasal Cannula 2.00 I/O 04/20/17 04/20/17 04/20/17 04/21/17 04/21/17 04/21/17 07:00 15:00 23:00 07:00 15:00 23:00 Intake Total 240 ml 500 ml 500 ml 940 ml Output Total 700 ml 175 ml 200 ml 350 ml Balance -700 ml 65 ml 300 ml 150 ml 940 ml Intake Oral 240 ml 500 ml 500 ml 940 ml Output Urine Total 700 ml 175 ml 200 ml 350 ml # Voids 3 # Bowel Movements 0 0 0 1 0 Result Diagram: 04/21/1760304/21/17603 Objective Remarks GENERAL: Elderly male in no apparent distress. CARDIOVASCULAR: Normal rate and regular rhythm without murmurs, gallops, or rubs. RESPIRATORY: Good respiratory efforts. Breath sounds equal and clear to auscultation bilaterally. GASTROINTESTINAL: Abdomen soft, non-tender, non-distended. Normal active bowel sounds MUSCULOSKELETAL: Extremities without cyanosis, or edema. NEURO: Alert & Oriented to person and place. Moves all 4 extremities. PSYCH: Appropriate mood and affect. A/P Assessment and Plan 81-year-old male with a history of dementia, CHF, hypertension. In by EMS after he was found unresponsive by his family. Patient was intubated for airway protection. He is status post ICU course. He has improved and care is transferred to the hospitalist service. Altered mental status/encephalopathy/syncope from suspected bradycardia/cardiac myopathy Cardiomyopathy/chronic systolic heart failure ejection fraction 25-30% -Patient evaluated by EP who does not believe the patient has had any significant bradycardic episodes. Patient started on low-dose beta harley for ectopic and PVCs. HR normalized with decreased dose 12.5 mg BID. No longer bradycardic. - Cardiology, Dr. Richardson following. The patient's family refused a heart catheterization. - Continue Lasix and lisinopril. History of TIAs Cerebral atrophy Dementia - Patient seems to be back at baseline from a neurological standpoint. Continue to monitor. No new issues. History of prostate CA Arthritis Leukocytosis Hypernatremia S/P intubation for airway protection: - Breathing treatment as needed. Supplemental oxygen as needed. Prophylaxis: Famotidine/SCDs/subcutaneous enoxaparin Palliative care following to assist family with goals of care Discharge Planning DC to SNF in AM. Hazel Wallace MD Apr 21, 2017 19:53
[2017-04-21 21:45] VITALS: BP 121/59; PULSE 65; RESP 18; TEMP 99; O2SAT 100
[2017-04-22 00:15] VITALS: BP 120/64; PULSE 67; RESP 19; TEMP 98.9; O2SAT 100
[2017-04-22] MEDS: CHLORHEXIDINE GLUCONATE 2 % 1 PACK (2 CLOTHS) TOP SCH (00:37)
[2017-04-22 04:40] VITALS: BP 125/65; PULSE 69; RESP 18; TEMP 97.8; O2SAT 99
[2017-04-22] MEDS: CHLORHEXIDINE 0.12% (ORAL KIT) 15 ML CUP MT SCH (08:00)
[2017-04-22 08:10] VITALS: O2SAT 98
[2017-04-22 08:47] VITALS: BP 118/59; PULSE 59; RESP 20; TEMP 98.5; O2SAT 100
[2017-04-22] MEDS ORDERED: LISI-519 PO (09:08)
[2017-04-22] MEDS ORDERED: METO25TA3 PO (09:08)
--- NOTE | 2017-04-22 09:10 | HHI.DS ---
Discharge Summary Admission Date Apr 15, 2017 at 14:44 Discharge Date: Apr 22, 2017 Admitting Diagnosis intubated/sepsis/unresponsive episode (1) Cardiomyopathy ICD Code: I42.9 - Cardiomyopathy, unspecified Status: Acute (2) Syncope ICD Code: R55 - Syncope and collapse Status: Acute (3) Sepsis ICD Code: A41.9 - Sepsis, unspecified organism Status: Acute (4) Endotracheally intubated ICD Code: Z97.8 - Presence of other specified devices Status: Acute (5) Dementia ICD Code: F03.90 - Unspecified dementia without behavioral disturbance Status: Chronic (6) Cerebral atrophy ICD Code: G31.9 - Degenerative disease of nervous system, unspecified (7) Debility ICD Code: R53.81 - Other malaise Procedures Intubation/Extubation Brief History - From Admission 81-year-old male with a medical history significant for dementia, TIAs, previous episodes of syncope and bradycardia as well as cardiomyopathy was recommended a pacemaker by cardiology during previous hospitalization however has refused. Today patient was found unresponsive by his family while sitting on the porch for a while. On EMS arrival his GCS was 4 and he was intubated for airway protection. He was hypotensive as well as bradycardic with heart rate in the 50s and systolic blood pressure 80s. He was brought to the ER at [facility]. He was placed on mechanical ventilation and subsequently the wire and propofol for sedation. He received Zosyn for question of sepsis in the ER as his lactic acid was elevated though this could Dariusz be from him being hypotensive secondary to his bradycardia. Patient has previously been evaluated by cardiology for syncope and has been recommended a pacemaker however has refused before. Patient was accepted for mission by critical care medicine service. When I evaluated the patient he was sedated with propofol him a orally intubated on mechanical ventilation. History was obtained by reviewing records and discussion with ER physician. PFSH Past Medical History Arthritis: Yes Autoimmune Disease: No Anxiety: No Depression: No Heart Rhythm Problems: No Cancer: Yes (PROSTATE) Cardiovascular Problems: Yes High Cholesterol: No Chest Pain: No Congestive Heart Failure: Yes Cerebrovascular Accident: Yes (TIA) Diabetes: No Diminished Hearing: No Endocrine: No Genitourinary: Yes (ENLARGED PROSTATE) Headaches: Yes Hepatitis: No Hiatal Hernia: No Hypertension: Yes Immune Disorder: No Kidney Stones: No Musculoskeletal: Yes Neurologic: Yes Psychiatric: Yes (dementia) Reproductive: No Respiratory: No Migraines: No Myocardial Infarction: No Renal Failure: No Seizures: No Thyroid Disease: No Past Surgical History Abdominal Surgery: Yes (LEFT INGUINAL HERNIA REPAIR) Eye Surgery: Yes (BILATERAL EYES CATARACT, DETACHED RETINA LEFT EYE) Gynecologic Surgery: Yes (prostrate ca) Pacemaker: No Other Surgery: Yes Social History Alcohol Use: No Tobacco Use: No Substance Use: No Allergies-Medications (Allergen,Severity, Reaction): Coded Allergies: No Known Allergies (Verified , 12/19/16) Reported Meds & Prescriptions Reported Meds & Active Scripts Active Ramipril 5 Mg Cap 5 Mg PO DAILY Vitamin B-12 (Cyanocobalamin) 1,000 Mcg Tab 1,000 Mcg PO DAILY Reported Senna Plus 8.6-50 mg (Sennosides-Docusate Sodium) 1 Tab Tab 1 Tab PO DAILY PRN Aspir-81 (Aspirin) 81 Mg Tabdr 81 Mg PO DAILY K-Tab (Potassium Chloride) 10 Meq Tab 10 Meq PO DAILY Lasix (Furosemide) 20 Mg Tab 20 Mg PO DAILY Cosopt Pf Opth Drops (Dorzolamide-Timolol Pf Opth Drops) 22.3-6.8 mg/ml Soln 1 Drop RIGHT EYE BID Mapap (Acetaminophen) 325 Mg Tab 650 Mg PO Q4HR PRN Review of Systems ROS Limitations: Intubated, Altered Mental Status CBC/BMP: 04/21/17 0604 04/21/17 0604 Significant Findings Laboratory Tests Test 04/21/17 06:04 Red Blood Count 3.37 MIL/MM3 (4.50-5.90) Hemoglobin 10.6 GM/DL (13.0-17.0) Hematocrit 31.3 % (39.0-51.0) Platelet Count 131 TH/MM3 (150-450) Carbon Dioxide Level 32.1 MEQ/L (21.0-32.0) PE at Discharge GENERAL: Elderly male in no apparent distress. CARDIOVASCULAR: Normal rate and regular rhythm without murmurs, gallops, or rubs. RESPIRATORY: Good respiratory efforts. Breath sounds equal and clear to auscultation bilaterally. GASTROINTESTINAL: Abdomen soft, non-tender, non-distended. Normal active bowel sounds MUSCULOSKELETAL: Extremities without cyanosis, or edema. NEURO: Alert & Oriented to person and place. Moves all 4 extremities. PSYCH: Appropriate mood and affect. Pt update on day of discharge Patient reports he is feeling better. He is eating okay. More awake. Hospital Course 81-year-old male with a history of dementia, CHF, hypertension. Patient brought in by EMS after he was found unresponsive by his family. Patient was intubated for airway protection. He is status post ICU course. He has improved and care is transferred to the hospitalist service. Evaluation and treatment course detailed below: Altered mental status/encephalopathy/syncope from suspected bradycardia/cardiac myopathy Cardiomyopathy/chronic systolic heart failure ejection fraction 25-30% -Patient evaluated by EP who does not believe the patient has had any significant bradycardic episodes. Patient started on low-dose beta harley for ectopic and PVCs. HR normalized with decreased dose 12.5 mg BID. No longer bradycardic. - Cardiology, Dr. Richardson followed the patient. The patient's family refused a heart catheterization. - Continue Lasix and lisinopril. History of TIAs Cerebral atrophy Dementia - Patient seems to be back at baseline from a neurological standpoint. Physical deconditioning: Patient is discharged to SNF to continue rehabilitation. Pt Condition on Discharge: Good Discharge Disposition: Discharge to SNF Discharge Time: > 30 minutes Discharge Instructions DIET: Follow Instructions for: Heart Healthy Diet Speech Therapy-Diet Recommends: Pureed, Mechanical Soft Additional Diet Instructions: Ensure TID with meals, CHOPPED MEAT EXTRA GRAVY Activities you can perform: Regular-No Restrictions New Medications: Lisinopril (Lisinopril) 5 Mg Tab 2.5 MG PO DAILY, #30 TAB Metoprolol Tartrate (Metoprolol Tartrate) 25 Mg Tab 12.5 MG PO BID, #60 TAB Continued Medications: Acetaminophen (Mapap) 325 Mg Tab 650 MG PO Q4HR PRN for PAIN/FEVER, TAB 0 Refills Aspirin (Aspir-81) 81 Mg Tabdr 81 MG PO DAILY Furosemide (Lasix) 20 Mg Tab 20 MG PO DAILY, #30 TAB 0 Refills Discontinued Medications: Loperamide (Loperamide) 2 Mg Cap 2-4 MG PO Q4HR PRN for DIARRHEA, CAP 0 Refills One capsule after each loose stool. Not to exceed 8 capsules per day. Lorazepam (Lorazepam) 0.5 Mg Tab 0.5 MG SL Q4H PRN for AGITATION, TAB 0 Refills Ramipril (Ramipril) 5 Mg Cap 5 MG PO DAILY for Blood Pressure Management, #30 CAP 0 Refills Sennosides-Docusate Sodium (Senna Plus 8.6-50 mg) 1 Tab Tab 1 TAB PO DAILY PRN for CONSTIPATION Hazel Wallace MD Apr 22, 2017 09:10
[2017-04-22] MEDS: FAMOTIDINE 20 MG TAB TUBE SCH (09:17)
[2017-04-22] MEDS: LISINOPRIL 5 MG TAB PO SCH (09:17)
[2017-04-22] MEDS: METOPROLOL TARTRATE 25 MG TAB PO SCH (09:18)
[2017-04-22] MEDS: FUROSEMIDE 20 MG TAB PO SCH (09:18)
[2017-04-22] MEDS: SODIUM CHLORIDE 0.9% FLUSH 10 ML FLUSH IV FLUSH SCH (09:18)
[2017-04-22 12:40] VITALS: BP 124/77; PULSE 57; RESP 20; TEMP 98.6; O2SAT 100
--- NOTE | 2017-04-22 15:08 | HHI.HCPN ---
Reason for visit a. To assist with evaluation and management of symptoms including: Debility , confusion, agitation b. To assist medical decision maker(s) with: better understanding of current medical conditions; weighing benefits/burdens of medical treatment options; making medical treatment decisions. . Subjective/Interval History Mr. Case is an 81-year-old male with a history of dementia, arthritis, BPH, history of prostate cancer, TIAs, CHF, hypertension, anxiety and glaucoma. He presented to [facility] ED via EMS on 04/15/2017 after being found unresponsive by his family. EMS reported upon arrival the patient's GCS was 4. He was hypotensive as well as bradycardic with heart rate in the 50s and systolic blood pressure 80s. He was intubated for airway protection and extubated 2 days later on 04/17/17. [place] [facility] [place] yesterday on 04/20/17. Neurology and cardiology are following. Patient was seen this morning in room 1513. He is awake, somewhat confused. He is able to answer simple question and follow commands. He has limited insight or judgement related to his current medical conditions and joint decisions would be recommended. Diet has been upgraded to Heart Healthy, mechanically soft with thin consistency liquids. Appetite is good, eating nearly 100% of meals. The patient's family continues to express aggressive goals. Anticipate discharge to [facility] later today. . Advance Directives Advance Directive Specifics Documented care wishes: No known documented care wishes as been completed. . Objective Vital Signs Date Time Temp Pulse Resp B/P (MAP) Pulse Ox O2 Delivery O2 Flow Rate FiO2 04/22/17 12:40 98.6 57 20 124/77 (93) 100 04/22/17 08:47 98.5 59 20 118/59 (78) 100 04/22/17 08:10 98 Nasal Cannula 1.00 04/22/17 08:00 100 Nasal Cannula 1.00 04/22/17 04:40 97.8 69 18 125/65 (85) 99 04/22/17 02:00 98 Nasal Cannula 2.00 04/22/17 00:15 98.9 67 19 120/64 (82) 100 04/21/17 21:45 99.0 65 18 121/59 (79) 100 04/21/17 21:27 Nasal Cannula 2.00 04/21/17 16:58 98.2 64 20 127/70 (89) 100 Intake & Output 04/22/17 04/22/17 07:00 19:00 Intake Total 1150 ml Output Total 0 ml Balance 1150 ml Intake Oral 1150 ml Output Urine Total 0 ml # Voids 2 # Bowel Movements 0 . Physical Exam CONSTITUTIONAL/GENERAL: This is a frail, elderly male patient in no acute distress TUBES/LINES/DRAINS: Santana catheter SKIN: No wounds seen anteriorly. Skin temperature appropriate. Not diaphoretic. HEAD: Atraumatic. Normocephalic. EYES: No scleral icterus. No injection or drainage. ENT: Hearing grossly normal. Nose without bleeding or purulent drainage. NECK: Trachea midline. CARDIOVASCULAR: Regular rate and rhythm No JVD. Peripheral pulses symmetric. RESPIRATORY/CHEST: Symmetric, unlabored respirations. Clear to auscultation. Breath sounds equal bilaterally. No wheezes, rales, or rhonchi. GASTROINTESTINAL: Abdomen soft, non-tender, nondistended. No guarding. Bowel sounds present. GENITOURINARY: Without palpable bladder distension. MUSCULOSKELETAL: Extremities without clubbing, cyanosis, or edema. LYMPHATICS: No palpable cervical or supraclavicular adenopathy. NEUROLOGICAL: Awake and alert, somewhat confused. Follows simple commands. Limited insight/judgement r/t medical condition PSYCHIATRIC: No obvious anxiety/depression. . Diagnostic Tests Laboratory Laboratory Tests Test 04/21/17 06:04 White Blood Count 4.9 TH/MM3 (4.0-11.0) Red Blood Count 3.37 MIL/MM3 (4.50-5.90) Hemoglobin 10.6 GM/DL (13.0-17.0) Hematocrit 31.3 % (39.0-51.0) Mean Corpuscular Volume 93.0 FL (80.0-100.0) Mean Corpuscular Hemoglobin 31.3 PG (27.0-34.0) Mean Corpuscular Hemoglobin Concent 33.7 % (32.0-36.0) Red Cell Distribution Width 13.2 % (11.6-17.2) Platelet Count 131 TH/MM3 (150-450) Mean Platelet Volume 8.1 FL (7.0-11.0) Blood Urea Nitrogen 12 MG/DL (7-18) Creatinine 0.85 MG/DL (0.60-1.30) Random Glucose 95 MG/DL (74-106) Calcium Level 8.6 MG/DL (8.5-10.1) Sodium Level 140 MEQ/L (136-145) Potassium Level 3.9 MEQ/L (3.5-5.1) Chloride Level 102 MEQ/L (98-107) Carbon Dioxide Level 32.1 MEQ/L (21.0-32.0) Anion Gap 6 MEQ/L (5-15) Estimat Glomerular Filtration Rate 105 ML/MIN (>89) . Result Diagram: 04/21/17 0604 04/21/17 0604 Procedures 04/15/2017: Intubation 04/15/2017: OGT 04/17/2017: Extubation . Assessment and Plan Disease Oriented Problem List: (1) Cerebral atrophy (2) History of prostate cancer (3) History of TIAs (4) Sepsis (5) Symptomatic bradycardia (6) Cardiomyopathy (7) Dementia Symptom Scale: (1) Debility (2) Confusion (3) Agitation Pertinent Non-Medical Issues Psychosocial:Patient apparently lives with son. Further information pending conversation with patient's family. Spiritual: Cheondoism oliver Legal: Per [place] statutes, in the absence of written advanced directives healthcare proxy decision-making falls to the patient's adult children. Only known relative a this time is patient's son with whom the patient lives. Ethical issues impacting care: No known ethical issues impacting care at this time . Important Contacts Loyd Case, son: [phone] . Prognosis Patient is an 81-year-old male with a history of dementia and syncopal episodes from suspected bradycardia/cardiomyopathy. This is the patient's third hospitalization at [facility] since September 28, 2016. He was previously hospitalized in 09/2016 for treatment of syncope/possible TIA; he was readmitted in 12/2016 for management of syncope and symptomatic hypotension. Cardiology has previously evaluated this patient and recommendations were made for cardiac catheterization/possible permanent pacemaker placement but the patient's son refused. Outpatient follow-up with cardiology was also recommended but was not done. The patient is high risk for ongoing decline and complications requiring rehospitalization. . Code Status: Full Code Plan * FULL CODE * Decision-making: Per [place] statutes, in the absence of written advanced directives healthcare proxy decision making would fall to the patient's . If the patient is not , healthcare proxy decision making would then fall to the majority of his adult children. Patient has limited insight or judgement related to his current medical conditions and joint decisions would be recommended. * Patient lives with his son Loyd. The patient can not tell me his other children's names. Patient's son states he and his father have no contact with his 2 brothers because "they're no good." He was unable/unwilling to provide contact information * Patient was on Pre[employer] office prior to admission; he was discharged upon hospital admission. * AGGRESSIVE GOALS. Patient/ family refusing cardiac catheterization. Otherwise , patient/family expressing ongoing aggressive goals. Anticipate discharge to senior care facility latter today ([facility]). * Symptom management- confusion: Patient with a history of dementia. He is able to respond to simple questions appropriately with brief answers; follows simple commands. Limited insight related to his current medical conditions. * Symptom management - agitation: Patient reportedly having some new onset intermittent agitation at night, continue to monitor and consider starting the patient on Seroquel if agitation continues. * Symptom management - debility: Patient is an 81 yo male who has been hospitalized 3 times since September,. He lives with his son. Plan to transfer to med/surg unit sometime today. Per previous CM note, a referral has been made to [facility]. Anticipate possible discharge to senior care facility in the upcoming days. * Palliative care will continue to follow this patient throughout his hospitalization to establish trust, assist with symptom management and clarification of medical treatment goals. . Attestation To help prompt me to consider important information that might be impacting today's encounter and assessment, information from prior notes written by myself or my colleagues may have been "brought forward" into today's note. My signature on this note, however, is an attestation that I personally performed the exam, history, and/or decision-making noted today, and, unless otherwise indicated, the interactions with patient, family, and staff as well as the review of records all occurred today. I also attest that the listed assessment and stated plan reflect my best clinical judgment today based on the combination of historical information, prior notes, and today's exam/ interactions. When time spent is documented, it refers only to time spent today by the signer, or if indicated, combined time spent today by collaborating physician/nurse practitioner. . Alpa Lopez Apr 22, 2017 15:08
== END 2017-04-22 13:24 | DRG 314 ==
LOC: NEPC 12:24 → NEDA 14:44 → HIMW 19:30 → N05B 04-20 12:29
PROVIDERS: ADMIT Family Medicine; ATTEND Family Medicine
PROC: 5A1945Z Respiratory Ventilation, 24-96 Consecutive Hours (ICD-10-PCS; principal; 2017-04-15)
DX: I42.9 Cardiomyopathy, unspecified (principal); G93.40 Encephalopathy, unspecified; E87.0 Hyperosmolality and hypernatremia; E87.2 Acidosis; I11.0 Hypertensive heart disease with heart failure; D69.6 Thrombocytopenia, unspecified; I95.9 Hypotension, unspecified; I50.22 Chronic systolic (congestive) heart failure; R00.1 Bradycardia, unspecified; D64.9 Anemia, unspecified; I44.7 Left bundle-branch block, unspecified; R40.2431 Glasgow coma scale score 3-8, in the field [EMT or ambulance]; M19.90 Unspecified osteoarthritis, unspecified site; E88.09 Other disorders of plasma-protein metabolism, not elsewhere classified; R73.9 Hyperglycemia, unspecified; E87.6 Hypokalemia; N40.0 Benign prostatic hyperplasia without lower urinary tract symptoms; G31.9 Degenerative disease of nervous system, unspecified; F02.80 Dementia in other diseases classified elsewhere, unspecified severity, without behavioral disturbance, psychotic disturbance, mood disturbance, and anxiety; F41.9 Anxiety disorder, unspecified; R53.81 Other malaise; H40.9 Unspecified glaucoma; Z23 Encounter for immunization; Z86.73 Personal history of transient ischemic attack (TIA), and cerebral infarction without residual deficits; Z85.46 Personal history of malignant neoplasm of prostate
CPT/HCPCS: 36600; 51702; 70450; 70551; 71010; 80048; 80053; 80307; 81001; 82550; 82805; 82948; 83605; 83735; 84100; 84132; 84484; 85025; 85027; 85610; 85730; 87040; 87070; 87205; 87641; 90686; 90732; 93005; 93308; 94002; 94003; 94150; 96365; 96368; J1650; J2543; J3480; J7030; J7050; Q2038

== ENCOUNTER 2017-07-28 16:45 | Inpatient (IN) | payer MEDICARE, OTHER ==
[~2017-07-28] VITALS: Ht 170.2 cm; Wt 72.7 kg
[~2017-07-28 16:45] MED LIST changes: -DORZ1SOL RIGHT EYE; -K-TA10TA PO; +LISI-519 PO; +METO25TA3 PO; -RAMI5CAP PO; -SENN1TAB PO; -VITA10002 PO
[2017-07-28 17:17] VITALS: BP 148/95; PULSE 80; RESP 16; TEMP 98.6; O2SAT 100
[2017-07-28 18:04] LABS: AUTOMATED NEUTROPHIL # 6.8 TH/MM3 (1.8-7.7); BASOPHIL # 0.1 TH/MM3 (0-0.2); BASOPHIL % 0.7 % (0.0-2.0); EOSINOPHIL # 0.2 TH/MM3 (0-0.4); EOSINOPHIL % 2.4 % (0.0-4.0); HEMATOCRIT 36.3 % (39.0-51.0); HEMOGLOBIN 12.3 GM/DL (13.0-17.0); LYMPH % 11.7 % (9.0-44.0); MEAN CELL VOLUME 93.2 FL (80.0-100.0); MEAN CORPUSCULAR HEMOGLOBIN 31.5 PG (27.0-34.0); MEAN CORPUSCULAR HGB CONC 33.8 % (32.0-36.0); MEAN PLATELET VOLUME 7.3 FL (7.0-11.0); MONO % 7.8 % (0.0-8.0); MONOCYTE # 0.7 TH/MM3 (0-0.9); NEUT % 77.4 % (16.0-70.0); PLATELET COUNT 135 TH/MM3 (150-450); RED CELL DISTRIBUTION WIDTH 14.3 % (11.6-17.2); WHITE BLOOD COUNT 8.8 TH/MM3 (4.0-11.0)
[2017-07-28 18:18] LABS: ALBUMIN 3.2 GM/DL (3.4-5.0); ALT (GPT) 20 U/L (12-78); AST (GOT) 24 U/L (15-37); BICARBONATE 26.7 MEQ/L (21.0-32.0); BLOOD UREA NITROGEN 26 MG/DL (7-18); CALCIUM 8.6 MG/DL (8.5-10.1); CHLORIDE 115 MEQ/L (98-107); CREATININE 1.23 MG/DL (0.60-1.30); GLOMERULAR FILTRATION RATE 68 ML/MIN (>89); GLUCOSE,RANDOM 120 MG/DL (74-106); SODIUM (NA) 148 MEQ/L (136-145)
[2017-07-28 18:20] LABS: ALKALINE PHOSPHATASE 77 U/L (45-117); TOTAL BILIRUBIN ADULT 0.7 MG/DL (0.2-1.0); TOTAL PROTEIN 7.7 GM/DL (6.4-8.2)
[2017-07-28] MEDS ORDERED: SODIUM CHLORID 0.9% 500 ML INJ 500 ML IV ONE (18:45)
--- NOTE | 2017-07-28 18:47 | PD ---
HPI Chief Complaint: General Weakness Time Seen by Provider: 18:35 Travel History International Travel<30 days: No Contact w/Intl Traveler<30days: No Traveled to known affect area: No History of Present Illness HPI 82-year-old male with a history of dementia, congestive heart failure, syncope, TIAs, cardiomyopathy on hospice for presents to the emergency department at the request of his son for an unknown reason. According to the note, patient was brought to the emergency department because patient appeared more weak than normal, per son. I asked the patient why he was here and he said he did not know. Patient states that he has had a good appetite and feels well other generalized pain. Denies chest pain, shortness of breath, abdominal pain, or urinary problems. PFSH Past Medical History Arthritis: Yes Autoimmune Disease: No Anxiety: No Depression: No Heart Rhythm Problems: No Cancer: Yes (PROSTATE) Cardiovascular Problems: Yes High Cholesterol: No Chest Pain: No Congestive Heart Failure: Yes Cerebrovascular Accident: Yes Dementia: Yes Diabetes: No Diminished Hearing: No Endocrine: No Genitourinary: Yes (BPH) Headaches: Yes Hepatitis: No Hiatal Hernia: No Hypertension: Yes Immune Disorder: No Kidney Stones: No Medical other: Yes (HIGH PSA) Musculoskeletal: Yes Neurologic: Yes Psychiatric: Yes (dementia) Reproductive: No Respiratory: No Migraines: No Myocardial Infarction: No Renal Failure: No Seizures: No Thyroid Disease: No Past Surgical History Abdominal Surgery: Yes (LEFT INGUINAL HERNIA REPAIR) Eye Surgery: Yes (BILATERAL EYES CATARACT, DETACHED RETINA LEFT EYE) Genitourinary Surgery: Yes (HX PROSTATE CA) Gynecologic Surgery: Yes (prostrate ca) Pacemaker: No Other Surgery: Yes Social History Alcohol Use: No Tobacco Use: No Substance Use: No Allergies-Medications (Allergen,Severity, Reaction): Coded Allergies: No Known Allergies (Verified Allergy, Unknown, 07/28/17) Reported Meds & Prescriptions Reported Meds & Active Scripts Active Lisinopril 5 Mg Tab 2.5 Mg PO DAILY Metoprolol Tartrate 25 Mg Tab 12.5 Mg PO BID Reported Aspir-81 (Aspirin) 81 Mg Tabdr 81 Mg PO DAILY Lasix (Furosemide) 20 Mg Tab 20 Mg PO DAILY Mapap (Acetaminophen) 325 Mg Tab 650 Mg PO Q4HR PRN Review of Systems Except as stated in HPI: all other systems reviewed are Neg Physical Exam Narrative GENERAL: Well-nourished and in no apparent distress SKIN: Focused skin assessment warm/dry. HEAD: Atraumatic. Normocephalic. EYES: Pupils equal and round. No scleral icterus. No injection or drainage. ENT: No nasal bleeding or discharge. Mucous membranes pink and moist. NECK: Trachea midline. No JVD. CARDIOVASCULAR: Regular rate and rhythm. No murmur appreciated. RESPIRATORY: No accessory muscle use. Clear to auscultation. Breath sounds equal bilaterally. GASTROINTESTINAL: Abdomen soft, non-tender, nondistended. Hepatic and splenic margins not palpable. MUSCULOSKELETAL: No obvious deformities. No clubbing. No cyanosis. No edema. NEUROLOGICAL: Awake and alert. No obvious cranial nerve deficits. Motor grossly within normal limits. Normal speech. PSYCHIATRIC: Appropriate mood and affect; insight and judgment normal. Data Data Last Documented VS Vital Signs Date Time Temp Pulse Resp B/P (MAP) Pulse Ox O2 Delivery O2 Flow Rate FiO2 07/28/17 19:36 79 18 139/78 (98) 93 Nasal Cannula 2.00 07/28/17 17:17 98.6 Orders Orders Electrocardiogram (07/28/17 17:36) Complete Blood Count With Diff (07/28/17 17:36) Comprehensive Metabolic Panel (07/28/17 17:36) Iv Access Insert/Monitor (07/28/17 17:36) Sodium Chlorid 0.9% 500 Ml Inj (Ns 500 M (07/28/17 18:45) Admit Order (Ed Use Only) (07/28/17 19:58) Labs Laboratory Tests Test 07/28/17 17:45 White Blood Count 8.8 TH/MM3 Red Blood Count 3.90 MIL/MM3 Hemoglobin 12.3 GM/DL Hematocrit 36.3 % Mean Corpuscular Volume 93.2 FL Mean Corpuscular Hemoglobin 31.5 PG Mean Corpuscular Hemoglobin Concent 33.8 % Red Cell Distribution Width 14.3 % Platelet Count 135 TH/MM3 Mean Platelet Volume 7.3 FL Neutrophils (%) (Auto) 77.4 % Lymphocytes (%) (Auto) 11.7 % Monocytes (%) (Auto) 7.8 % Eosinophils (%) (Auto) 2.4 % Basophils (%) (Auto) 0.7 % Neutrophils # (Auto) 6.8 TH/MM3 Lymphocytes # (Auto) 1.0 TH/MM3 Monocytes # (Auto) 0.7 TH/MM3 Eosinophils # (Auto) 0.2 TH/MM3 Basophils # (Auto) 0.1 TH/MM3 CBC Comment DIFF FINAL Differential Comment Blood Urea Nitrogen 26 MG/DL Creatinine 1.23 MG/DL Random Glucose 120 MG/DL Total Protein 7.7 GM/DL Albumin 3.2 GM/DL Calcium Level 8.6 MG/DL Alkaline Phosphatase 77 U/L Aspartate Amino Transf (AST/SGOT) 24 U/L Alanine Aminotransferase (ALT/SGPT) 20 U/L Total Bilirubin 0.7 MG/DL Sodium Level 148 MEQ/L Potassium Level 3.8 MEQ/L Chloride Level 115 MEQ/L Carbon Dioxide Level 26.7 MEQ/L Anion Gap 6 MEQ/L Estimat Glomerular Filtration Rate 68 ML/MIN MDM Medical Decision Making Medical Screen Exam Complete: Yes Emergency Medical Condition: Yes Differential Diagnosis Dehydration, generalized weakness, dementia Narrative Course 82-year-old male with a history of dementia, congestive heart failure, syncope, TIAs, cardiomyopathy on hospice for presents to the emergency department at the request of his son for an unknown reason. According to the note, patient was brought to the emergency department because patient appeared more weak than normal, per son. I asked the patient why he was here and he said he did not know. Patient states that he has had a good appetite and feels well other generalized pain. Denies chest pain, shortness of breath, abdominal pain, or urinary problems. The son is not present during the evaluation and discussion. Vital signs stable. Physical exam demonstrates well developed, well nourished 82y male in no acute distress. Pt appears pleasantly confused as he does have dementia. CBC & BMP Diagram 07/28/17 17:45 Total Protein 7.7, Albumin 3.2 L, Calcium Level 8.6, Alkaline Phosphatase 77, Aspartate Amino Transf (AST/SGOT) 24, Alanine Aminotransferase (ALT/SGPT) 20, Total Bilirubin 0.7 Review of labs demonstrates BUN/creatinine 12 /0.85 in April 2017,31/07. today. Chronic Anemia actually improved from April 2017. Normal saline 500 cc administered cautiously as patient does have congestive heart failure. EF 25-30% from April 2017 Discussed briefly with Ms Kera RN with [facility]. Pt is a full code. Ms Kera RN spoke with her supervisor [employer] and agreed to admission for observation. Patient admitted to hospitalist, Dr. Zaldivar. At admission, pt's complaints of pain became more specific to his left leg. Nurse spoke with son who said he was brought to the ED because of left leg pain. Patient denied this. Whenever he was assisted out of bed, he would not put pressure on his foot, per nurse. A hip/ leg xray was ordered. Pending as of transfer of care to hospitalist. Please see my attending's note as well. Diagnosis Primary Impression: Acute renal failure Qualified Codes: N17.9 - Acute kidney failure, unspecified Additional Impression: Dehydration Admitting Information Admitting Physician Requests: Observation Scripts Rivaroxaban (Xarelto) 10 Mg Tab 10 MG PO DAILY for Blood Clot Prevention for 14 Days, #14 TAB 0 Refills Prov: Neville Cornejo/Epidemiologist JESSY 07/29/17 Hydrocodone-Acetaminophen ([place]) 5 Mg-325 Mg Tab 1 TAB PO Q4H Y for PAIN, #60 TAB 0 Refills Prov: Neville Cornejo/Epidemiologist JESSY 07/29/17 Condition: Stable Zohreh Monroy Jul 28, 2017 18:47
[2017-07-28 19:36] VITALS: BP 139/78; PULSE 79; RESP 18; O2SAT 93
--- NOTE | 2017-07-28 21:07 | EKG ---
Date Performed: 07/28/2017 Time Performed: 17:56:30 PTAGE: 82 years EKG: Sinus rhythm WITH SINUS ARRHYTHMIA MARKED LEFT AXIS DEVIATION LEFT BUNDLE BRANCH BLOCK ABNORMAL ECG PREVIOUS TRACING : 04/15/2017 13.02 Since previous tracing rate faster DOCTOR: Ruben Cortez Interpretating Date/Time 07/28/2017 21:06:44
[2017-07-28] MEDS ORDERED: HEPARIN SODIUM - SQ 10,000 UNITS/ML VIAL SQ SCH (21:15)
[2017-07-28] MEDS ORDERED: RESP: ALBUTEROL 2.5 MG/3 ML NEB (PRN) NEB (21:15)
[2017-07-28] MEDS ORDERED: NALOXONE HCL 0.4 MG/ML AMP IV PUSH PRN (21:15)
[2017-07-28] MEDS ORDERED: SODIUM CHLORIDE 0.9% FLUSH 10 ML FLUSH IV FLUSH PRN (21:15)
--- NOTE | 2017-07-28 21:56 | RADRPT ---
EXAM DATE/TIME: 07/28/2017 21:14 [facility] COMPARISON: CHEST SINGLE AP, April 15, 2017, 13:04. INDICATIONS : Shortness of breath. MEDICAL HISTORY : Congestive heart failure. Hypertension. Carcinoma, prostate SURGICAL HISTORY : Inguinal hernia repair. ENCOUNTER: Initial ACUITY: 1 day PAIN SCORE: 0/10 LOCATION: Bilateral chest FINDINGS: A single view of the chest demonstrates cardiomegaly. Tortuous aorta. No focal consolidation or signi ficant effusion. No pneumothorax. CONCLUSION: 1. No acute findings. Tortuous aorta. Dany Alejandra MD on July 28, 2017 at 21:53 Board Certified Radiologist. This report was verified electronically.
--- NOTE | 2017-07-28 22:14 | RADRPT ---
EXAM DATE/TIME: 07/28/2017 21:29 [facility] COMPARISON: No previous studies available for comparison. INDICATIONS : Left hip pain after recent fall. MEDICAL HISTORY : Congestive heart failure. Hypertension. Carcinoma, prostate. SURGICAL HISTORY : Inguinal hernia repair. ENCOUNTER: Initial ACUITY: 1 day PAIN SCORE: 5/10 LOCATION: Left hip. FINDINGS: There is an intratrochanteric fracture proximal left femur with varus angulation. No dislocation. Bon es osteopenic. CONCLUSION: 1. Intratrochanteric fracture proximal left femur with varus angulation. Dany Alejandra MD on July 28, 2017 at 22:12 Board Certified Radiologist. This report was verified electronically.
[2017-07-28 22:21] LABS: BACTERIA, URINE MANY /hpf; BILIRUBIN, URINE NEG (NEG); BLOOD, URINE MOD (NEG); GLUCOSE,URINE NEG (NEG); HYALINE CAST, URINE 1 /lpf (RARE); KETONE, URINE TRACE mg/dL (NEG); MUCUS URINE FEW /lpf (OCC); NITRITE,URINE NEG (NEG); SQUAMOUS EPITHELIAL CELL URINE 1 /hpf (0-5); URINE COLOR YELLOW (YELLW/STRAW); URINE LEUKOCYTE ESTERASE LARGE (NEG)
[2017-07-29 00:06] VITALS: PULSE 86
[2017-07-29] MEDS: cefTRIAXone INJ 1,000 MG in SODIUM CHLORIDE 0.9% INJ 100 ML IV SCH ×2 (00:58→23:54)
[2017-07-29 02:59] VITALS: BP 136/73; PULSE 79; RESP 18; TEMP 98; O2SAT 100
[2017-07-29] MEDS: MORPHINE SULFATE 2 MG/ML INJ IV PUSH PRN ×2 (03:45→20:24)
--- NOTE | 2017-07-29 03:49 | HHI.HP ---
[facility] Unknown Admission Diagnosis dehydration, failure to thrive Diagnoses: Travel History International Travel<30 Days: No Contact w/Intl Traveler <30 Da: No Traveled to Known Affected Are: No History of Present Illness 82-year-old male with a past medical history significant for cardiomyopathy, CHF (EF of 25-30%), history of TIAs, dementia, arthritis and a history of prostate cancer was brought to the emergency department by his son for evaluation of increasing weakness. The patient has no complaints at this time and is not sure why he is here. He is oriented only to self. Patient apparently complained of left lower extremity pain for which an x-ray of the pelvis revealed an intertrochanteric fracture of the proximal left femur. Patient denies having pain in his leg at this time. Patient is on hospice ( [facility]) however remains a full code at this time. Review of Systems Unable to obtain secondary to clinical condition Past Family Social History Past Medical History (Obtained from medical records) cardiomyopathy, history of TIAs, dementia, arthritis and a history of prostate cancer Past Surgical History Unable to obtain Reported Medications Reported Meds & Active Scripts Active Lisinopril 5 Mg Tab 2.5 Mg PO DAILY Metoprolol Tartrate 25 Mg Tab 12.5 Mg PO BID Reported Aspir-81 (Aspirin) 81 Mg Tabdr 81 Mg PO DAILY Lasix (Furosemide) 20 Mg Tab 20 Mg PO DAILY Mapap (Acetaminophen) 325 Mg Tab 650 Mg PO Q4HR PRN Allergies: Coded Allergies: No Known Allergies (Verified Allergy, Unknown, 07/28/17) Physical Exam Vital Signs Vital Signs Date Time Temp Pulse Resp B/P (MAP) Pulse Ox O2 Delivery O2 Flow Rate FiO2 07/29/17 02:59 98.0 79 18 136/73 (94) 100 07/29/17 00:06 86 07/28/17 23:43 Nasal Cannula 2.00 07/28/17 21:59 07/28/17 19:36 79 18 139/78 (98) 93 Nasal Cannula 2.00 07/28/17 17:17 98.6 80 16 148/95 (112) 100 Physical Exam GENERAL: This is a well-nourished, well-developed patient, in no apparent distress. SKIN: No rashes, ecchymoses or lesions. Cool and dry. HEAD: Atraumatic. Normocephalic. No temporal or scalp tenderness. EYES: Pupils equal round and reactive. Extraocular motions intact. No scleral icterus. No injection or drainage. ENT: Nose without bleeding, purulent drainage or septal hematoma. Throat without erythema, tonsillar hypertrophy or exudate. Uvula midline. Airway patent. NECK: Trachea midline. No JVD or lymphadenopathy. Supple, nontender, no meningeal signs. CARDIOVASCULAR: Regular rate and rhythm without murmurs, gallops, or rubs. RESPIRATORY: Clear to auscultation. Breath sounds equal bilaterally. No wheezes , rales, or rhonchi. GASTROINTESTINAL: Abdomen soft, non-tender, nondistended. No hepato-splenomegaly , or palpable masses. No guarding. MUSCULOSKELETAL: Extremities without clubbing, cyanosis, or edema. No joint tenderness, effusion, or edema noted. No calf tenderness. Negative Homans sign bilaterally. NEUROLOGICAL: Awake and alert. Cranial nerves II through XII intact. Motor and sensory grossly within normal limits. Five out of 5 muscle strength in all muscle groups. Normal speech. Laboratory Laboratory Tests Test 07/28/17 17:45 07/28/17 20:30 White Blood Count 8.8 Red Blood Count 3.90 Hemoglobin 12.3 Hematocrit 36.3 Mean Corpuscular Volume 93.2 Mean Corpuscular Hemoglobin 31.5 Mean Corpuscular Hemoglobin Concent 33.8 Red Cell Distribution Width 14.3 Platelet Count 135 Mean Platelet Volume 7.3 Neutrophils (%) (Auto) 77.4 Lymphocytes (%) (Auto) 11.7 Monocytes (%) (Auto) 7.8 Eosinophils (%) (Auto) 2.4 Basophils (%) (Auto) 0.7 Neutrophils # (Auto) 6.8 Lymphocytes # (Auto) 1.0 Monocytes # (Auto) 0.7 Eosinophils # (Auto) 0.2 Basophils # (Auto) 0.1 CBC Comment DIFF FINAL Differential Comment Blood Urea Nitrogen 26 Creatinine 1.23 Random Glucose 120 Total Protein 7.7 Albumin 3.2 Calcium Level 8.6 Alkaline Phosphatase 77 Aspartate Amino Transf (AST/SGOT) 24 Alanine Aminotransferase (ALT/SGPT) 20 Total Bilirubin 0.7 Sodium Level 148 Potassium Level 3.8 Chloride Level 115 Carbon Dioxide Level 26.7 Anion Gap 6 Estimat Glomerular Filtration Rate 68 Urine Color YELLOW Urine Turbidity HAZY Urine pH 6.0 Urine Specific [place] 1.028 Urine Protein 30 Urine Glucose (UA) NEG Urine Ketones TRACE Urine Occult Blood MOD Urine Nitrite NEG Urine Bilirubin NEG Urine Urobilinogen 4.0 Urine Leukocyte Esterase LARGE Urine RBC 4 Urine WBC 110 Urine Squamous Epithelial Cells 1 Urine Bacteria MANY Urine Hyaline Casts 1 Urine Mucus FEW Microscopic Urinalysis Comment CULTURE INDICATED Date/Time Source Procedure Growth Status 07/28/17 20:30 Urine Clean Catch Urine Culture Pending Received Result Diagram: 07/28/17 17407/28/17 174 Caprini VTE Risk Assessment Caprini VTE Risk Assessment: Mod/High Risk (score >= 2) Caprini Risk Assessment Model Point Value = 1 Point Value = 2 Point Value = 3 Point Value = 5 Age 41-60 Minor surgery BMI > 25 kg/m2 Swollen legs Varicose veins or History of unexplained or recurrent spontaneous Oral contraceptives or hormone replacement Sepsis (< 1 month) Serious lung disease, including pneumonia (< 1 month) Abnormal pulmonary function Acute myocardial infarction Congestive heart failure (< 1 month) History of inflammatory bowel disease Medical patient at bed rest Age 61-74 Arthroscopic surgery Major open surgery (> 45 min) Laparoscopic surgery (> 45 min) Malignancy Confined to bed (> 72 hours) Immobilizing plaster cast Central venous access Age >= 75 History of VTE Family history of VTE Factor V Leiden Prothrombin [id number] Lupus anticoagulant Anticardiolipin antibodies Elevated serum homocysteine Heparin-induced thrombocytopenia Other congenital or acquired thrombophilia Stroke (< 1 month) Elective arthroplasty Hip, pelvis, or leg fracture Acute spinal cord injury (< 1 month) Prophylaxis Regimen Total Risk Factor Score Risk Level Prophylaxis Regimen 0-1 Low Early ambulation 2 Moderate Order ONE of the following: *Sequential Compression Device (SCD) *Heparin 5000 units SQ BID 3-4 Higher Order ONE of the following medications: *Heparin 5000 units SQ TID *Enoxaparin/Lovenox 40 mg SQ daily (WT < 150 kg, CrCl > 30 mL/min) *Enoxaparin/Lovenox 30 mg SQ daily (WT < 150 kg, CrCl > 10-29 mL/min) *Enoxaparin/Lovenox 30 mg SQ BID (WT < 150 kg, CrCl > 30 mL/min) AND/OR *Sequential Compression Device (SCD) 5 or more Highest Order ONE of the following medications: *Heparin 5000 units SQ TID (Preferred with Epidurals) *Enoxaparin/Lovenox 40 mg SQ daily (WT < 150 kg, CrCl > 30 mL/min) *Enoxaparin/Lovenox 30 mg SQ daily (WT < 150 kg, CrCl > 10-29 mL/min) *Enoxaparin/Lovenox 30 mg SQ BID (WT < 150 kg, CrCl > 30 mL/min) AND *Sequential Compression Device (SCD) Assessment and Plan Assessment and Plan Assessment/plan: 1. Left intertrochanteric femur fracture Unclear mechanism of injury Morphine for pain Orthopedic surgery consulted, appreciate assistance Physical therapy 2. Hypertension Continue home medications once medication reconciliation completed 3. Cardiomyopathy/CHF Echo done on 04/15/17 shows an EF of 25-30% Resume home Lasix postoperatively 4. Hypernatremia/dehydration IV fluid hydration Follow-up BMP FEN NPO Electrolytes: as above NS at 70 cc/hr Olding pharmacologic anticoagulation secondary to possible operative intervention Patient evaluated by palliative care during last hospitalization; per family goals of care remain aggressive and patient is to remain full code. Physician Certification 2 Midnight Certification Type: Admission for Inpatient Services Order for Inpatient Services The services are ordered in accordance with Medicare regulations or non- Medicare payer requirements, as applicable. In the case of services not specified as inpatient-only, they are appropriately provided as inpatient services in accordance with the 2-midnight benchmark. Estimated LOS (days): 2 2 days is the estimated time the patient will need to remain in the hospital, assuming treatment plan goals are met and no additional complications. Post-Hospital Plan: Not yet determined Elida Zaldivar MD Jul 29, 2017 03:49
--- NOTE | 2017-07-29 04:46 | PD ---
Physical Exam Date Seen by Provider: Jul 29, 2017 Time Seen by Provider: 04:42 Narrative 82-year-old male came to the emergency room brought in by EMS after the son called since he has not been ambulating and complaining of left hip pain. Patient as per the son on telephone conversation with the nurse fell 2 days ago and since then has been refusing to walk or bear weight on his left leg to be precise. Prior to that patient was able to ambulate. Patient does have some dementia. He also is a hospice patient and under the hospice care of [facility]. However hospice was not notified about this emergency room visit. The son is not with the patient at the bedside and hence it had to be a telephone conversation in order to find out the exact reason why the patient was in the emergency department. Patient is not a good historian given his underlying dementia. The nurse tried to stand him up and ambulate him and patient refused to bear weight on his left leg. At this point I ordered an x-ray of the pelvis and left hip. Patient has an intertrochanteric hip fracture. This was conveyed to the hospitalist who has admitted the patient just now. She will order an orthopedic consult for an ORIF. Patient is otherwise hemodynamically stable. He does not appear to be in significant discomfort or pain while he is laying on the stretcher. Data Data Last Documented VS Vital Signs Date Time Temp Pulse Resp B/P (MAP) Pulse Ox O2 Delivery O2 Flow Rate FiO2 07/28/17 19:36 79 18 139/78 (98) 93 Nasal Cannula 2.00 07/28/17 17:17 98.6 Orders Orders Electrocardiogram (07/28/17 17:36) Complete Blood Count With Diff (07/28/17 17:36) Comprehensive Metabolic Panel (07/28/17 17:36) Iv Access Insert/Monitor (07/28/17 17:36) Sodium Chlorid 0.9% 500 Ml Inj (Ns 500 M (07/28/17 18:45) Admit Order (Ed Use Only) (07/28/17 19:58) Labs Laboratory Tests Test 07/28/17 17:45 White Blood Count 8.8 TH/MM3 Red Blood Count 3.90 MIL/MM3 Hemoglobin 12.3 GM/DL Hematocrit 36.3 % Mean Corpuscular Volume 93.2 FL Mean Corpuscular Hemoglobin 31.5 PG Mean Corpuscular Hemoglobin Concent 33.8 % Red Cell Distribution Width 14.3 % Platelet Count 135 TH/MM3 Mean Platelet Volume 7.3 FL Neutrophils (%) (Auto) 77.4 % Lymphocytes (%) (Auto) 11.7 % Monocytes (%) (Auto) 7.8 % Eosinophils (%) (Auto) 2.4 % Basophils (%) (Auto) 0.7 % Neutrophils # (Auto) 6.8 TH/MM3 Lymphocytes # (Auto) 1.0 TH/MM3 Monocytes # (Auto) 0.7 TH/MM3 Eosinophils # (Auto) 0.2 TH/MM3 Basophils # (Auto) 0.1 TH/MM3 CBC Comment DIFF FINAL Differential Comment Blood Urea Nitrogen 26 MG/DL Creatinine 1.23 MG/DL Random Glucose 120 MG/DL Total Protein 7.7 GM/DL Albumin 3.2 GM/DL Calcium Level 8.6 MG/DL Alkaline Phosphatase 77 U/L Aspartate Amino Transf (AST/SGOT) 24 U/L Alanine Aminotransferase (ALT/SGPT) 20 U/L Total Bilirubin 0.7 MG/DL Sodium Level 148 MEQ/L Potassium Level 3.8 MEQ/L Chloride Level 115 MEQ/L Carbon Dioxide Level 26.7 MEQ/L Anion Gap 6 MEQ/L Estimat Glomerular Filtration Rate 68 ML/MIN MDM Supervised Visit with OMER: Yes Diagnosis Primary Impression: Acute renal failure Qualified Codes: N17.9 - Acute kidney failure, unspecified Additional Impressions: Dehydration Intertrochanteric fracture of left hip Qualified Codes: S72.142A - Displaced intertrochanteric fracture of left femur , initial encounter for closed fracture Admitting Information Admitting Physician Requests: Admit Scripts Rivaroxaban (Xarelto) 10 Mg Tab 10 MG PO DAILY for Blood Clot Prevention for 14 Days, #14 TAB 0 Refills Prov: Neville Cornejo/Software Clerk PA 07/29/17 Hydrocodone-Acetaminophen ([place]) 5 Mg-325 Mg Tab 1 TAB PO Q4H Y for PAIN, #60 TAB 0 Refills Prov: Neville Cornejo/Software Clerk PA 07/29/17 Condition: Stable Annie Jarquin MD Jul 29, 2017 04:46
[2017-07-29 06:57] LABS: AUTOMATED NEUTROPHIL # 5.2 TH/MM3 (1.8-7.7); BASOPHIL % 0.4 % (0.0-2.0); EOSINOPHIL # 0.3 TH/MM3 (0-0.4); EOSINOPHIL % 4.1 % (0.0-4.0); HEMATOCRIT 33.2 % (39.0-51.0); HEMOGLOBIN 11.2 GM/DL (13.0-17.0); LYMPH % 15.4 % (9.0-44.0); LYMPHOCYTE # 1.1 TH/MM3 (1.0-4.8); MEAN CELL VOLUME 93.5 FL (80.0-100.0); MEAN CORPUSCULAR HEMOGLOBIN 31.5 PG (27.0-34.0); MEAN CORPUSCULAR HGB CONC 33.7 % (32.0-36.0); MEAN PLATELET VOLUME 8.3 FL (7.0-11.0); MONO % 9.8 % (0.0-8.0); MONOCYTE # 0.7 TH/MM3 (0-0.9); NEUT % 70.3 % (16.0-70.0); PLATELET COUNT 118 TH/MM3 (150-450); RED BLOOD COUNT 3.55 MIL/MM3 (4.50-5.90); RED CELL DISTRIBUTION WIDTH 14.1 % (11.6-17.2); WHITE BLOOD COUNT 7.4 TH/MM3 (4.0-11.0)
[2017-07-29 07:22] LABS: ALBUMIN 2.8 GM/DL (3.4-5.0); AST (GOT) 23 U/L (15-37); BICARBONATE 27.5 MEQ/L (21.0-32.0); BLOOD UREA NITROGEN 21 MG/DL (7-18); CALCIUM 8.4 MG/DL (8.5-10.1); CHLORIDE 112 MEQ/L (98-107); GLOMERULAR FILTRATION RATE 87 ML/MIN (>89); GLUCOSE,RANDOM 105 MG/DL (74-106); SODIUM (NA) 147 MEQ/L (136-145)
[2017-07-29 07:27] LABS: ALKALINE PHOSPHATASE 68 U/L (45-117); ALT (GPT) 13 U/L (12-78); TOTAL BILIRUBIN ADULT 0.6 MG/DL (0.2-1.0); TOTAL PROTEIN 6.7 GM/DL (6.4-8.2)
--- NOTE | 2017-07-29 07:38 | PD.ORT.PN ---
Subjective Subjective Remarks s/p fall at home patient slightly confused. reports left hip pain. no other complaints. Objective Vitals Vital Signs Date Time Temp Pulse Resp B/P (MAP) Pulse Ox O2 Delivery O2 Flow Rate FiO2 07/29/17 02:59 98.0 79 18 136/73 (94) 100 07/29/17 00:06 86 07/28/17 23:43 Nasal Cannula 2.00 07/28/17 21:59 07/28/17 19:36 79 18 139/78 (98) 93 Nasal Cannula 2.00 07/28/17 17:17 98.6 80 16 148/95 (112) 100 I/O 07/28/17 07/28/17 07/28/17 07/29/17 07/29/17 07/29/17 07:00 15:00 23:00 07:00 15:00 23:00 Intake Total 500 ml Balance 500 ml Intake IV Total 500 ml Result Diagram: 07/29/17 0400 07/29/17 0400 Imaging Last 24 hours Impressions Chest X-Ray 07/28/172105 Signed Impressions: Service Date/Time: Friday, July 28, 2017 21:14 - CONCLUSION: 1. No acute findings. Tortuous aorta. Dany Alejandra MD Objective Remarks LLE: pain in hip with motion. nvi. no pain in knee or ankle Assessment & Plan Assessment and Plan 1) Left Intertroch Hip Fx -npo -consents -surgery today Neville Cornejo/Various Exceptionalities Teacher PA Jul 29, 2017 07:38
[2017-07-29] MEDS ORDERED: XARE10TA PO (07:39)
[2017-07-29] MEDS ORDERED: NORC5TAB PO (07:39)
[2017-07-29] MEDS ORDERED: WALKER/ADULT/FO1 MIS (07:39)
[2017-07-29] MEDS ORDERED: BUPIVACAINE/EPINEPHRINE 0.25% PF 10 ML VIAL ONE (08:21)
[2017-07-29] MEDS ORDERED: ceFAZolin INJ 1,000 MG VIAL ONE (08:21)
[2017-07-29] MEDS ORDERED: VANCOMYCIN HCL 1000 MG VIAL ONE ×2 (08:21→09:05)
[2017-07-29] MEDS ORDERED: GENTAMICIN SULFATE 80 MG/2 ML VIAL ONE (08:21)
[2017-07-29] MEDS ORDERED: ETOMIDATE 20 MG/10 ML VIAL ONE (08:22)
[2017-07-29] MEDS ORDERED: FAMOTIDINE 20 MG/2 ML VIAL ONE (08:23)
[2017-07-29] MEDS ORDERED: LACTATED RINGER'S 1000 ML IV PRN (08:30)
[2017-07-29] MEDS ORDERED: SODIUM CHLORID 0.9% 500 ML IV PRN (08:30)
[2017-07-29] MEDS ORDERED: CHLORHEXIDINE GLUCONATE 2 % 1 PACK (2 CLOTHS) TOPICAL PRN (08:30)
[2017-07-29] MEDS ORDERED: POVIDONE IODINE 5% (ANTISEPSIS KIT) 4 APPLICATIONS EACH NARE PRN (08:30)
[2017-07-29] MEDS ORDERED: METOPROLOL TARTRATE 25 MG TAB PO PRN (08:30)
[2017-07-29] MEDS: SODIUM CHLORIDE 0.9% FLUSH 10 ML FLUSH IV FLUSH SCH ×2 (09:00→20:24)
[2017-07-29] MEDS ORDERED: INFLUENZA VIRUS VACCINE (QUADRIVALENT) 0.5 ML SYR IM ONE (09:00)
[2017-07-29] MEDS ORDERED: PNEUMOCOCCAL POLYVALENT INJ 25 MCG/0.5 ML SYR IM ONE (09:00)
--- NOTE | 2017-07-29 09:41 | PD.OP ---
cc: Eduard Cason MD Operative Report Date of Surgery: Jul 29, 2017 Preoperative Diagnosis: Displaced left hip intertrochanteric fracture Postoperative Diagnosis: Procedure: Left hip reduction and intramedullary nail fixation Anesthesia: Gen. Surgeon: Eduard Cason Obstetrical Tech(s): KYA Jaramillo PA-C The surgical procedure was assisted by my physician respiratory therapy assistant. My P.A. presence was necessary throughout this case for the manipulation and positioning of the surgical extremity. My P.A. was assisting me throughout the duration of this procedure. The skill set of a physician respiratory therapy assistant was medically necessary to complete this procedure. During the surgical case the registered nurse surgical services was working at the back table and the physician respiratory therapy assistant was directly assisting me. Operation and Findings: Implants used: [13]mm 125 Biomet short troch nail Plan of activity: Weight-bear as tolerated Patient was seen and evaluated preoperatively. The patient has significant hip pain from intertrochanteric hip fracture. The risk and benefits of surgery were discussed in depth with the patient to include bleeding infection nonunion malunion and need for hip replacement painful hardware as well as medical competitions including but not stroke heart attack and . Informed consent was obtained. Operative site was marked. Patient was brought to the operating room and placed on fracture table. IV sedation was administered by anesthesiologist. Timeout procedure was performed. Hip and leg were prepped with alcohol followed by DuraPrep and draped in the usual sterile fashion. IV antibiotics were given prior to incision. Procedure began with reduction of fracture. Traction was applied. The leg was manipulated to achieve reduction. Excellent reduction was achieved. Fluoroscopy was used to confirm reduction. A three inch incision was made proximal to the trochanter. Subcutaneous tissue was dissected bluntly. Guidepin was placed at the tip of the trochanter and advanced into the femoral canal. Fluoroscopy confirmed appropriate guidepin placement. A opening reamer was placed over the guidepin. The Biomet nail was attached to the insertion handle. Nail was now placed through the tip of the trochanter into the femoral canal. Fluoroscopy confirmed appropriate nail placement. A second incision was made over the lateral thigh. Cannulas were placed through the insertion handle down to the femur. Guidepin was now placed through the femoral nail into the center of the femoral head. Fluoroscopy confirmed appropriate guidepin placement. Screw length was measured. Cannulated drill was placed over the guidepin. Appropriate length lag screw was now placed. Traction was released and compression was applied. The set screw was now tightened in dynamic mode. Using the insertion handle as a guide a distal interlocking screw was drilled and placed. Final fluoroscopy revealed well aligned fracture with well-placed hardware. Incision was closed with 3-0 Vicryl and deon. Sterile dressings were applied. Patient was awakened and transferred to recovery room. Eduard Cason MD Jul 29, 2017 09:41
[2017-07-29] MEDS ORDERED: diphenhydrAMINE HCL 25 MG CAP PO PRN (09:45)
[2017-07-29] MEDS ORDERED: DO NOT ADM ANY ANTICOAGULANT DRUGS PRN (10:05)
--- NOTE | 2017-07-29 10:17 | MB ---
cc: [facility] FIELD DATE OF CONSULTATION: 07/29/2017 REASON FOR CONSULTATION Left hip intertrochanteric fracture. CONSULTING PHYSICIAN Dr. Elida Zaldivar. HISTORY OF PRESENT ILLNESS Primus is a 82-year-old male. He does have some dementia. He lives with his son. He also has a history of cardiomyopathy, history of TIA, arthritis, prostate cancer and mild dementia. The patient had a fall. He complains of left hip pain. X-rays in the emergency room revealed a left hip intertrochanteric fracture. He normally walks relatively independently. Pain is worse with movement and is improved with rest. He is currently under Hospice care. PAST MEDICAL HISTORY ILLNESSES 1. Cardiomyopathy. 2. History of TIAs. 3. Dementia. 4. Arthritis. 5. Prostate cancer. SURGERIES The patient does not recall having any previous surgery. MEDICATIONS Medications include: 1. Lisinopril. 2. Metoprolol. 3. Aspirin. 4. Lasix. 5. Mapap. ALLERGIES NO KNOWN DRUG ALLERGIES. SOCIAL HISTORY The patient denies current tobacco or drug use. He lives at home with his son. He is under Hospice care. REVIEW OF SYSTEMS The review of systems is unobtainable secondary to dementia. FAMILY HISTORY Unobtainable secondary to the patient's dementia. PHYSICAL EXAMINATION GENERAL: The patient is a thin 82-year-old male. He is awake but has confusion. He is in no acute distress. He appears well-developed, well-nourished. VITAL SIGNS: Temperature 98.2, pulse 72, respirations 18, blood pressure 131/74, O2 sat 100% on 2 liters nasal cannula. HEAD: The patient is normocephalic. Pupils are equal. NECK: Soft, nontender. Trachea is midline. ABDOMEN: Soft, nontender, nondistended. EXTREMITIES: Examination of bilateral upper extremities reveals no significant pain with shoulder, elbow or wrist motion bilaterally. He has intact sensation in all fingers bilaterally. Radial pulses are palpable. Skin is intact to both hands. Examination of right leg reveals no pain with hip, knee or ankle motion. Skin is intact. Dorsalis pedis pulses palpable. Sensation is intact. Examination of left leg reveals pain with any hip motion. He is tender to palpation around the hip. He has no tenderness around his knee, tibia or ankle. Skin is intact. Dorsalis pedis pulses palpable. Sensation is intact. X-RAYS X-rays of pelvis and left hip were reviewed. X-rays reveal a displaced and angulated left hip intertrochanteric fracture. The patient has diffuse osteopenia with possible osteoporosis. Pelvic ring is intact. LABORATORY DATA The patient has normal white blood cell count of 7.4, hematocrit of 33.2 and hemoglobin of 11.2. Urinalysis was also reviewed. The patient does have a possible urinary tract infection. IMPRESSION 1. Early dementia. 2. Left hip intertrochanteric fracture. 3. Possible osteoporosis. 4. History of CHF. 5. History of prostate cancer. 6. Possible urinary tract infection. PLAN Treatment options were discussed with the patient. I also called the patient's son to discuss treatment options. At this point I would recommend left hip reduction and intramedullary nail fixation. Risks of surgery include bleeding, infection, injuries to arteries, nerves and blood vessels, nonunion, malunion, avascular necrosis, painful hardware as well as medical complications including blood clot, stroke, heart attack and . The patient and his son are in agreement to proceed with surgery. I will plan on surgery today. The patient will be placed on calcium and vitamin D for treatment of possible osteoporosis. He will likely need treatment of urinary tract infection pending culture results. A mid-level provider in my office, nurse practitioner or PA, may see this patient on a follow-up basis and continue to implement the objective of this plan including: Starting or adjusting medications, injections of muscle, tendon, bursa or joints, cast application, orthotic or brace application, physical therapy, further radiographic studies including x-ray, MRI, CT, ultrasounds or bone scan, vascular studies, neurologic studies, or other specialist consultations, and proceeding with surgical management as appropriate. MD ROJELIO Emmanuel/JOS /9:41 AM /9:56 AM
[2017-07-29] MEDS ORDERED: *morphine SULFATE 4 MG/ML PERIprocedure ONLY ONE (10:37)
[2017-07-29] MEDS ORDERED: KETAMINE HCL 500 MG/5 ML VIAL ONE (10:53)
[2017-07-29] MEDS ORDERED: ERGOCALCIFEROL (VIT D2) 50,000 UNIT CAP PO ONE (11:00)
[2017-07-29] MEDS: SODIUM CHLOR 0.9% 1000 ML INJ 1,000 ML IV SCH ×3 (11:15→23:57)
--- NOTE | 2017-07-29 12:23 | RADRPT ---
EXAM DATE/TIME: 07/29/2017 09:05 [facility] COMPARISON: No previous studies available for comparison. INDICATIONS : ORIF left hip fracture. MEDICAL HISTORY : Unobtainable. SURGICAL HISTORY : Unobtainable. ENCOUNTER: Subsequent ACUITY: 2 days PAIN SCORE: Non-responsive. LOCATION: Left hip. FINDINGS: Status post internal fixation for fractures involving the proximal femur. There is good position and alignment of the fracture fragments. Hardware is grossly intact. There is good alignment at the joint s. CONCLUSION: Good position and alignment on this postoperative study. Reymundo Villafuerte MD on July 29, 2017 at 12:20 Board Certified Radiologist. This report was verified electronically.
[2017-07-29 15:53] VITALS: O2SAT 95
[2017-07-29 16:00] VITALS: BP 149/90; PULSE 81; RESP 17; TEMP 96.1; O2SAT 94
[2017-07-29 20:32] VITALS: PULSE 78
[2017-07-29 20:35] VITALS: BP 124/90; PULSE 79; RESP 18; TEMP 97.6; O2SAT 99
[2017-07-30] VITALS (9 sets, daily range): BP systolic 115–158; BP diastolic 74–91; PULSE 72–90; RESP 17–18; TEMP 97.1–99.4; O2SAT 95–98
--- NOTE | 2017-07-30 06:35 | PD.ORT.PN ---
Subjective Subjective Remarks Patient is awake but confused. Status post left hip fracture status post intramedullary nail fixation on 07/29/17 Objective Vitals Vital Signs Date Time Temp Pulse Resp B/P (MAP) Pulse Ox O2 Delivery O2 Flow Rate FiO2 07/30/17 00:24 79 07/30/17 00:15 98.3 81 17 119/79 (92) 95 07/29/17 20:43 21 07/29/17 20:35 97.6 79 18 124/90 (101) 99 07/29/17 20:32 78 07/29/17 16:00 96.1 81 17 149/90 (109) 94 07/29/17 15:53 95 21 07/29/17 14:00 69 12 144/81 (102) 99 Room Air 07/29/17 13:00 97.9 68 12 156/83 (107) 100 Nasal Cannula 2 07/29/17 11:15 66 14 152/84 (106) 100 Nasal Cannula 2 07/29/17 11:00 71 15 144/90 (108) 100 Nasal Cannula 2 07/29/17 10:45 70 16 152/88 (109) 100 Nasal Cannula 2 07/29/17 10:30 66 16 140/80 (100) 100 Nasal Cannula 2 07/29/17 10:15 69 15 142/85 (104) 100 Nasal Cannula 2 07/29/17 10:06 98.2 68 16 148/89 (108) 100 Nasal Cannula 2 07/29/17 07:40 98.2 72 18 131/74 (93) 100 I/O 07/29/17 07/29/17 07/29/17 07/30/17 07/30/17 07/30/17 07:00 15:00 23:00 07:00 15:00 23:00 Intake Total 1180 ml 360 ml Output Total 440 ml Balance 740 ml 360 ml Intake Oral 240 ml 360 ml IV Total 240 ml Other 700 ml Output Urine Total 400 ml Estimated Blood Loss 40 ml # Bowel Movements 0 Result Diagram: 07/29/17 0400 07/29/17 0400 Imaging Last 24 hours Impressions Chest X-Ray 07/28/172105 Signed Impressions: Service Date/Time: Friday, July 28, 2017 21:14 - CONCLUSION: 1. No acute findings. Tortuous aorta. Dany Alejandra MD Objective Remarks LLE: Clean dry dressing intact left hip. Mild pain in hip with motion. nvi. no pain in knee or ankle Assessment & Plan Assessment and Plan Left Intertroch Hip Fx--postop day #1 status post intramedullary nail fixation Lovenox/Xarelto Weight-bear as tolerated Calcium and vitamin D Eduard Brennan MD Jul 30, 2017 06:35
[2017-07-30 08:38] LABS: HEMATOCRIT 29.5 % (39.0-51.0)
[2017-07-30] MEDS: SODIUM CHLORIDE 0.9% FLUSH 10 ML FLUSH IV FLUSH SCH ×2 (09:22→19:44)
[2017-07-30] MEDS: CHOLECALCIFEROL (VIT D3) 5000 UNIT CAP PO SCH (09:22)
[2017-07-30] MEDS: ENOXAPARIN SODIUM 30 MG/0.3 ML SYRINGE SQ SCH (09:22)
--- NOTE | 2017-07-30 16:01 | HHI.PR ---
Subjective Remarks Follow-up hypertension, cardiomyopathy, dehydration. Patient has no specific complaints at this time. States that his pain is well controlled. Denies chest pain or shortness of breath. He is confused. Objective Vitals Vital Signs Date Time Temp Pulse Resp B/P (MAP) Pulse Ox O2 Delivery O2 Flow Rate FiO2 07/30/17 12:00 97.7 84 17 149/91 (110) 96 07/30/17 08:00 97.5 90 17 115/74 (88) 97 07/30/17 04:40 97.1 78 18 121/77 (92) 97 07/30/17 04:10 72 07/30/17 00:24 79 07/30/17 00:15 98.3 81 17 119/79 (92) 95 07/29/17 20:43 21 07/29/17 20:35 97.6 79 18 124/90 (101) 99 07/29/17 20:32 78 07/29/17 16:00 96.1 81 17 149/90 (109) 94 I/O 07/29/17 07/29/17 07/29/17 07/30/17 07/30/17 07/30/17 06:59 14:59 22:59 06:59 14:59 22:59 Intake Total 1180 ml 360 ml 1720 ml Output Total 440 ml Balance 740 ml 360 ml 1720 ml Intake Oral 240 ml 360 ml 120 ml IV Total 240 ml 1600 ml Other 700 ml Output Urine Total 400 ml Estimated Blood Loss 40 ml # Voids 2 2 # Bowel Movements 0 0 Result Diagram: 07/30/17 0804 07/29/17 0400 Imaging Last Impressions Hip X-Ray 07/29/17 0000 Signed Impressions: Service Date/Time: Saturday, July 29, 2017 09:05 - CONCLUSION: Good position and alignment on this postoperative study. Reymundo Villafuerte MD Chest X-Ray 07/28/176 Signed Impressions: Service Date/Time: Friday, July 28, 2017 21:14 - CONCLUSION: 1. No acute findings. Tortuous aorta. Dany Alejandra MD Hip and Pelvis X-Ray 07/28/17 0000 Signed Impressions: Service Date/Time: Friday, July 28, 2017 21:29 - CONCLUSION: 1. Intratrochanteric fracture proximal left femur with varus angulation. Dany Alejandra MD Objective Remarks General: Elderly male in no acute distress. Heart: Regular rate and rhythm. No murmur. Lungs: Clear to auscultation bilaterally. No wheezes, rales, or rhonchi. Breathing is nonlabored. Abdomen: Soft, nontender, nondistended. Extremities: No lower extremity edema. Psych: Alert, confused. Not oriented to year, month, location. Urinary Catheter: No Vascular Central Line Catheter: No A/P Assessment and Plan 1. Left intertrochanteric femur fracture: Secondary to fall 2 days prior to hospitalization. Status post surgical repair by orthopedic surgery. Continue pain control, physical therapy. 2. Hypertension: Resume home medications. 3. Cardiomyopathy/CHF: Resume Lasix. Echocardiogram from 04/15/17 shows ejection fraction of 25-30%. 4. Dehydration: BUN and creatinine somewhat improved. Discontinue IV fluids. 5. UTI: Continue antibiotics. Urine culture growing Citrobacter, pansensitive. 6. DVT prophylaxis: Lovenox. Rigoberto Garcia MD Jul 30, 2017 16:01
[2017-07-30] MEDS: FUROSEMIDE 20 MG TAB PO SCH (17:21)
[2017-07-30] MEDS: POTASSIUM CHLORIDE 20 MEQ CONTROLLED RELEASE TAB PO SCH (17:21)
[2017-07-30] MEDS ORDERED: MORPHINE SULFATE 2 MG/ML INJ IM PRN (17:30)
[2017-07-30] MEDS ORDERED: ACETAMINOPHEN/HYDROcodone 325 MG/7.5 MG TAB PO PRN (17:30)
[2017-07-30] MEDS: ACETAMINOPHEN/HYDROcodone 325 MG/5 MG TAB PO PRN (22:45)
[2017-07-30] MEDS: cefTRIAXone INJ 1,000 MG in SODIUM CHLORIDE 0.9% INJ 100 ML IV SCH (22:46)
[2017-07-31] VITALS (10 sets, daily range): BP systolic 116–144; BP diastolic 75–99; PULSE 73–110; RESP 16–18; TEMP 98.7–100.3; O2SAT 95–99
[2017-07-31 06:20] LABS: AUTOMATED NEUTROPHIL # 4.1 TH/MM3 (1.8-7.7); BASOPHIL % 0.4 % (0.0-2.0); EOSINOPHIL # 0.5 TH/MM3 (0-0.4); HEMATOCRIT 27.5 % (39.0-51.0); HEMOGLOBIN 9.4 GM/DL (13.0-17.0); LYMPH % 21.3 % (9.0-44.0); LYMPHOCYTE # 1.5 TH/MM3 (1.0-4.8); MEAN CELL VOLUME 92.8 FL (80.0-100.0); MEAN CORPUSCULAR HEMOGLOBIN 31.8 PG (27.0-34.0); MEAN CORPUSCULAR HGB CONC 34.3 % (32.0-36.0); MEAN PLATELET VOLUME 7.7 FL (7.0-11.0); MONO % 10.9 % (0.0-8.0); MONOCYTE # 0.7 TH/MM3 (0-0.9); NEUT % 60.4 % (16.0-70.0); PLATELET COUNT 119 TH/MM3 (150-450); RED BLOOD COUNT 2.96 MIL/MM3 (4.50-5.90); RED CELL DISTRIBUTION WIDTH 13.6 % (11.6-17.2); WHITE BLOOD COUNT 6.8 TH/MM3 (4.0-11.0)
--- NOTE | 2017-07-31 06:40 | PD.ORT.PN ---
Subjective Subjective Remarks POD 2 s/p IMN left hip resting comfortably. pain controlled. slightly confused Objective Vitals Vital Signs Date Time Temp Pulse Resp B/P (MAP) Pulse Ox O2 Delivery O2 Flow Rate FiO2 07/31/17 06:29 79 07/31/17 04:13 100.3 82 16 123/78 (93) 95 07/31/17 00:31 99.9 110 16 120/75 (90) 95 07/31/17 00:00 79 07/30/17 20:36 80 07/30/17 20:35 99.4 78 18 158/87 (110) 98 07/30/17 16:00 99.1 77 17 145/88 (107) 98 07/30/17 12:00 97.7 84 17 149/91 (110) 96 07/30/17 08:00 97.5 90 17 115/74 (88) 97 I/O 07/30/17 07/30/17 07/30/17 07/31/17 07/31/17 07/31/17 07:00 15:00 23:00 07:00 15:00 23:00 Intake Total 1720 ml 840 ml 100 ml Balance 1720 ml 840 ml 100 ml Intake Oral 120 ml 840 ml IV Total 1600 ml 100 ml # Voids 2 8 # Bowel Movements 0 0 Result Diagram: 07/31/17 0531 07/29/17 0400 Imaging Last 24 hours Impressions Chest X-Ray 07/28/172105 Signed Impressions: Service Date/Time: Friday, July 28, 2017 21:14 - CONCLUSION: 1. No acute findings. Tortuous aorta. Dany Alejandra MD Objective Remarks LLE: Clean dry dressing intact left hip. Mild pain in hip with motion. nvi. no pain in knee or ankle Assessment & Plan Assessment and Plan 1)Left Intertroch Hip Fx--postop day #2 status post intramedullary nail fixation Lovenox/Xarelto Weight-bear as tolerated Calcium and vitamin D daily dressing changes CM for rehab placement ortho cleared for DC to rehab when arrangements made f/u wtih Mika or JESSY in 2 weeks Neville Cornejo/[employer]ch[employer] JESSY Jul 31, 2017 06:40
[2017-07-31 06:50] LABS: CALCIUM 7.6 MG/DL (8.5-10.1); CREATININE 0.91 MG/DL (0.60-1.30)
[2017-07-31] MEDS: CHOLECALCIFEROL (VIT D3) 5000 UNIT CAP PO SCH (08:38)
[2017-07-31] MEDS: POTASSIUM CHLORIDE 20 MEQ CONTROLLED RELEASE TAB PO SCH (08:38)
[2017-07-31] MEDS: ENOXAPARIN SODIUM 30 MG/0.3 ML SYRINGE SQ SCH (08:39)
[2017-07-31] MEDS: FUROSEMIDE 20 MG TAB PO SCH (08:39)
[2017-07-31] MEDS: SODIUM CHLORIDE 0.9% FLUSH 10 ML FLUSH IV FLUSH SCH (08:48)
[2017-07-31] MEDS ORDERED: SENNOSIDES 8.6 MG TAB PO PRN (09:45)
[2017-07-31] MEDS ORDERED: BISACODYL 10 MG SUPP RECTAL PRN (09:45)
[2017-07-31] MEDS ORDERED: LACTULOSE SYRUP 20 GM/30 ML CUP PO PRN (09:45)
[2017-07-31] MEDS ORDERED: MAGNESIUM HYDROXIDE SUSP 30 ML CUP PO PRN (09:45)
--- NOTE | 2017-07-31 10:17 | HHI.PR ---
Subjective Remarks Follow up UTI, CHF. Patient has no complaints at this time. Had low-grade fever overnight. Per nursing, no other events. Objective Vitals Vital Signs Date Time Temp Pulse Resp B/P (MAP) Pulse Ox O2 Delivery O2 Flow Rate FiO2 07/31/17 07:53 99.2 79 17 116/78 (91) 95 07/31/17 06:29 79 07/31/17 04:13 100.3 82 16 123/78 (93) 95 07/31/17 00:31 99.9 110 16 120/75 (90) 95 07/31/17 00:00 79 07/30/17 20:36 80 07/30/17 20:35 99.4 78 18 158/87 (110) 98 07/30/17 16:00 99.1 77 17 145/88 (107) 98 07/30/17 12:00 97.7 84 17 149/91 (110) 96 I/O 07/30/17 07/30/17 07/30/17 07/31/17 07/31/17 07/31/17 07:00 15:00 23:00 07:00 15:00 23:00 Intake Total 1720 ml 840 ml 220 ml Balance 1720 ml 840 ml 220 ml Intake Oral 120 ml 840 ml 120 ml IV Total 1600 ml 100 ml # Voids 2 8 4 # Bowel Movements 0 0 0 Result Diagram: 07/31/17 0531 07/31/17 0531 Imaging Last Impressions Hip X-Ray 07/29/17 0000 Signed Impressions: Service Date/Time: Saturday, July 29, 2017 09:05 - CONCLUSION: Good position and alignment on this postoperative study. Reymundo Villafuerte MD Chest X-Ray 07/28/172105 Signed Impressions: Service Date/Time: Friday, July 28, 2017 21:14 - CONCLUSION: 1. No acute findings. Tortuous aorta. Dany Alejandra MD Hip and Pelvis X-Ray 07/28/17 0000 Signed Impressions: Service Date/Time: Friday, July 28, 2017 21:29 - CONCLUSION: 1. Intratrochanteric fracture proximal left femur with varus angulation. Dany Alejandra MD Objective Remarks General: Elderly male in no acute distress. Heart: Regular rate and rhythm. No murmur. Lungs: Clear to auscultation bilaterally. No wheezes, rales, or rhonchi. Breathing is nonlabored. Abdomen: Soft, nontender, nondistended. Extremities: No lower extremity edema. Psych: Alert, confused. Not oriented to year, month, location. Procedures 07/29/17 left hip reduction and intramedullary nail fixation Urinary Catheter: No Vascular Central Line Catheter: No A/P Assessment and Plan 1. Left intertrochanteric femur fracture: Secondary to fall 2 days prior to hospitalization. Status post surgical repair by orthopedic surgery. Continue pain control, physical therapy. 2. Hypertension: Attempting to find out patient's home medications. Have not been able to get info from family and patient is confused. 3. Cardiomyopathy, chronic systolic CHF: Continue Lasix. Echocardiogram from 05/22 shows ejection fraction of 25-30%. 4. Dehydration: Resolved. 5. UTI: Continue antibiotics. Urine culture growing Citrobacter, pansensitive. 6. DVT prophylaxis: Lovenox. Rigoberto Garcia MD Jul 31, 2017 10:17
[2017-07-31] MEDS: DOCUSATE SODIUM 50 MG/SENNA 8.6 MG TAB PO SCH ×2 (12:30→21:00)
[2017-08-01] MEDS: SODIUM CHLORIDE 0.9% FLUSH 10 ML FLUSH IV FLUSH SCH ×2 (00:15→09:09)
[2017-08-01] MEDS: cefTRIAXone INJ 1,000 MG in SODIUM CHLORIDE 0.9% INJ 100 ML IV SCH (00:21)
[2017-08-01 00:30] VITALS: BP 138/77; PULSE 76; RESP 18; TEMP 99.5; O2SAT 96
[2017-08-01 04:20] VITALS: BP 131/80; PULSE 78; RESP 18; TEMP 99.9; O2SAT 98
[2017-08-01 08:00] VITALS: BP 144/95; PULSE 93; RESP 18; TEMP 99.9; O2SAT 96
[2017-08-01] MEDS: ENOXAPARIN SODIUM 30 MG/0.3 ML SYRINGE SQ SCH (09:02)
[2017-08-01] MEDS: POTASSIUM CHLORIDE 20 MEQ CONTROLLED RELEASE TAB PO SCH (09:02)
[2017-08-01] MEDS: CHOLECALCIFEROL (VIT D3) 5000 UNIT CAP PO SCH (09:02)
[2017-08-01] MEDS: DOCUSATE SODIUM 50 MG/SENNA 8.6 MG TAB PO SCH (09:02)
[2017-08-01] MEDS: FUROSEMIDE 20 MG TAB PO SCH (09:03)
[2017-08-01] MEDS: ACETAMINOPHEN/HYDROcodone 325 MG/5 MG TAB PO PRN (09:03)
[2017-08-01] MEDS ORDERED: POTA20TA5 PO (10:13)
[2017-08-01] MEDS ORDERED: BACT800T5 PO (10:13)
--- NOTE | 2017-08-01 10:14 | HHI.DCPOC ---
Discharge Care Plan Diagnosis: (1) Intertrochanteric fracture of left hip (2) Acute renal failure (3) Dehydration (4) Confusion (5) Dementia (6) UTI (urinary tract infection) Goals to Promote Your Health * To prevent worsening of your condition and complications * To maintain your health at the optimal level Directions to Meet Your Goals Take your medications as prescribed Follow your dietary instruction Follow activity as directed Keep your appointments as scheduled Take your immunizations and boosters as scheduled If your symptoms worsen call your PCP, if no PCP go to Urgent Care Center or Emergency Room Smoking is Dangerous to Your Health. Avoid second hand smoke Call the 24-hour hour crisis hotline for domestic abuse at Rigoberto Garcia MD Aug 01, 2017 10:14
--- NOTE | 2017-08-01 10:36 | HHI.DS ---
Discharge Summary Admission Date Jul 29, 2017 at 00:00 Discharge Date: Aug 01, 2017 Admitting Diagnosis dehydration, failure to thrive (1) UTI (urinary tract infection) ICD Code: N39.0 - Urinary tract infection, site not specified (2) Intertrochanteric fracture of left hip ICD Code: S72.142A - Displaced intertrochanteric fracture of left femur, initial encounter for closed fracture Status: Acute (3) Dementia ICD Code: F03.90 - Unspecified dementia without behavioral disturbance Status: Chronic (4) Acute renal failure ICD Code: N17.9 - Acute kidney failure, unspecified Status: Resolved (5) Dehydration ICD Code: E86.0 - Dehydration Status: Acute Procedures 07/29/17 left hip reduction and intramedullary nail fixation Brief History - From Admission 82-year-old male with a past medical history significant for cardiomyopathy, CHF (EF of 25-30%), history of TIAs, dementia, arthritis and a history of prostate cancer was brought to the emergency department by his son for evaluation of increasing weakness. The patient has no complaints at this time and is not sure why he is here. He is oriented only to self. Patient apparently complained of left lower extremity pain for which an x-ray of the pelvis revealed an intertrochanteric fracture of the proximal left femur. Patient denies having pain in his leg at this time. Patient is on hospice ( [facility]) however remains a full code at this time. CBC/BMP: 07/31/17 0531 07/31/17 0531 Significant Findings Laboratory Tests Test 07/30/17 08:04 07/31/17 05:31 Hemoglobin 10.0 GM/DL (13.0-17.0) 9.4 GM/DL (13.0-17.0) Hematocrit 29.5 % (39.0-51.0) 27.5 % (39.0-51.0) Red Blood Count 2.96 MIL/MM3 (4.50-5.90) Platelet Count 119 TH/MM3 (150-450) Monocytes (%) (Auto) 10.9 % (0.0-8.0) Eosinophils (%) (Auto) 7.0 % (0.0-4.0) Eosinophils # (Auto) 0.5 TH/MM3 (0-0.4) Calcium Level 7.6 MG/DL (8.5-10.1) Chloride Level 111 MEQ/L (98-107) Imaging Last Impressions Hip X-Ray 07/29/17 0000 Signed Impressions: Service Date/Time: Saturday, July 29, 2017 09:05 - CONCLUSION: Good position and alignment on this postoperative study. Reymundo Villafuerte MD Chest X-Ray 07/28/172105 Signed Impressions: Service Date/Time: Friday, July 28, 2017 21:14 - CONCLUSION: 1. No acute findings. Tortuous aorta. Dany Alejandra MD Hip and Pelvis X-Ray 07/28/17 0000 Signed Impressions: Service Date/Time: Friday, July 28, 2017 21:29 - CONCLUSION: 1. Intratrochanteric fracture proximal left femur with varus angulation. Dany Alejandra MD PE at Discharge General: Elderly male in no acute distress. Heart: Regular rate and rhythm. No murmur. Lungs: Clear to auscultation bilaterally. No wheezes, rales, or rhonchi. Breathing is nonlabored. Abdomen: Soft, nontender, nondistended. Extremities: No lower extremity edema. Psych: Alert, confused. Not oriented to year, month, location. Pt update on day of discharge The patient remains pleasantly confused. He denies pain currently. Nursing reports no events overnight. Hospital Course The patient was admitted for further management of left intertrochanteric femur fracture and dehydration. Orthopedic surgery was consulted and performed left hip reduction and intramedullary nail fixation. The patient was treated with antibiotics for urinary tract infection. He remained confused throughout the hospitalization. This was reported to be his baseline. He was cleared for discharge by orthopedic surgery. He was felt to be stable for discharge to care home facility. Pt Condition on Discharge: Stable Discharge Disposition: Discharge to SNF Discharge Time: > 30 minutes Discharge Instructions DIET: Follow Instructions for: Diabetic Diet Activities you can perform: See Additionl Instruction Other Activity Instructions: Out of bed with assistance Follow up Referrals: Orthopedics - 2 Weeks @ [facility] with Eduard Brennan MD New Medications: Hydrocodone-Acetaminophen ([place]) 5 Mg-325 Mg Tab 1 TAB PO Q4H PRN for PAIN, #60 TAB 0 Refills Rivaroxaban (Xarelto) 10 Mg Tab 10 MG PO DAILY for Blood Clot Prevention for 14 Days, #14 TAB 0 Refills Sulfamethoxazole-Trimethoprim (Bactrim DS) 800-160 Mg Tab 1 TAB PO BID for Infection, #6 TAB 0 Refills Walker/Adult/Folding (Walker/Adult/Folding) 1 Mis Mis EA .ROUTE DIRECTED, #1 0 Refills Potassium Chloride Microencaps (Potassium Chloride Microencaps) 20 Meq Tab 20 MEQ PO DAILY for Nutritional Supplement, #30 TAB 0 Refills Continued Medications: Acetaminophen (Mapap) 325 Mg Tab 650 MG PO Q4HR PRN for PAIN/FEVER, TAB [address] (Aspir-81) 81 Mg Tabdr 81 MG PO DAILY Furosemide (Lasix) 20 Mg Tab 20 MG PO DAILY, #30 TAB 0 Refills Lisinopril (Lisinopril) 5 Mg Tab 2.5 MG PO DAILY, #30 TAB Metoprolol Tartrate (Metoprolol Tartrate) 25 Mg Tab 12.5 MG PO BID, #60 TAB Rigoberto Garcia MD Aug 01, 2017 10:36
[2017-08-01 11:56] VITALS: BP 121/73; PULSE 79; RESP 18; TEMP 98.2; O2SAT 96
== END 2017-08-01 14:41 | DRG 481 ==
LOC: NEPC 16:45 → NEDA 20:00 → NEPFCDU 22:03 → OBSVTOIN 07-29 → N06B 07-29 07:32 → N06A 07-29 14:48
PROVIDERS: ADMIT Family Medicine; ATTEND Family Medicine
PROC: 0QS706Z Reposition Left Upper Femur with Intramedullary Internal Fixation Device, Open Approach (ICD-10-PCS; principal; 2017-07-29 08:41)
DX: S72.142A Displaced intertrochanteric fracture of left femur, initial encounter for closed fracture (principal); E87.0 Hyperosmolality and hypernatremia; I42.9 Cardiomyopathy, unspecified; F03.90 Unspecified dementia, unspecified severity, without behavioral disturbance, psychotic disturbance, mood disturbance, and anxiety; N40.0 Benign prostatic hyperplasia without lower urinary tract symptoms; I50.22 Chronic systolic (congestive) heart failure; N39.0 Urinary tract infection, site not specified; D64.9 Anemia, unspecified; I11.0 Hypertensive heart disease with heart failure; E86.0 Dehydration; M19.90 Unspecified osteoarthritis, unspecified site; B96.89 Other specified bacterial agents as the cause of diseases classified elsewhere; Y92.009 Unspecified place in unspecified non-institutional (private) residence as the place of occurrence of the external cause; W19.XXXA Unspecified fall, initial encounter; Z85.46 Personal history of malignant neoplasm of prostate; Z86.73 Personal history of transient ischemic attack (TIA), and cerebral infarction without residual deficits
CPT/HCPCS: 71045; 73502; 76000; 80048; 80053; 81001; 82306; 85014; 85018; 85025; 87077; 87086; 87186; 93005; 96360; C1713; G0378; J0690; J0696; J1580; J1644; J1650; J2270; J3370; J7030; J7040

== ENCOUNTER 2017-09-22 15:29 | Inpatient (IN) | payer MEDICARE, OTHER ==
[~2017-09-22] VITALS: Ht 172.7 cm; Wt 71.3 kg
[~2017-09-22 15:29] MED LIST changes: +BACT800T5 PO; +NORC5TAB PO; +POTA20TA5 PO; +WALKER/ADULT/FO1 MIS; +XARE10TA PO
[2017-09-22 15:40] VITALS: BP 128/78; PULSE 79; RESP 14; O2SAT 98
[2017-09-22] MEDS ORDERED: SODIUM CHLOR 0.9% 1000 ML INJ 1,000 ML IV ONE (15:45)
[2017-09-22 15:57] VITALS: TEMP 99.3
--- NOTE | 2017-09-22 16:13 | RADRPT ---
EXAM DATE/TIME: 09/22/2017 16:01 [facility] COMPARISON: CT BRAIN W/O CONTRAST, April 15, 2017, 14:33. INDICATIONS : Altered mental status, unresponsive. RADIATION DOSE: 36.68 CTDIvol (mGy) MEDICAL HISTORY : Cerebrovascular disease. Cardiovascular disease Carcinoma, prostate.HTN SURGICAL HISTORY : None. ENCOUNTER: Initial ACUITY: 1 day PAIN SCALE: Non-responsive LOCATION: cranial TECHNIQUE: Multiple contiguous axial images were obtained of the head. Using automated exposure control and adj ustment of the mA and/or kV according to patient size, radiation dose was kept as low as reasonably a chievable to obtain optimal diagnostic quality images. DICOM format image data is available electro nically for review and comparison. FINDINGS: CEREBRUM: The ventricles are prominent for age but stable compared to the prior study. There is stable diffuse bilateral cortical atrophy. There is stable white matter changes bilaterally.. No evidence of midlin e shift, mass lesion, hemorrhage or acute infarction. No extra-axial fluid collections are seen. POSTERIOR FOSSA: The cerebellum and brainstem are intact. The 4th ventricle is midline. The cerebellopontine angle i s unremarkable. EXTRACRANIAL: The visualized portion of the orbits is intact. SKULL: The calvaria is intact. No evidence of skull fracture. CONCLUSION: 1. No acute intracranial hemorrhage. 2. Stable CT scan of the brain compared to the prior examination. 3. No significant changes in the diffuse bilateral cortical atrophy and chronic white matter changes. Reymundo Villafuerte MD on September 22, 2017 at 16:10 Board Certified Radiologist. This report was verified electronically.
--- NOTE | 2017-09-22 16:42 | RADRPT ---
EXAM DATE/TIME: 09/22/2017 16:08 [facility] COMPARISON: CHEST SINGLE AP, July 28, 2017, 21:14. INDICATIONS : Short of breath. MEDICAL HISTORY : Cardiovascular disease. Cerebrovascular disease. Carcinoma, prostatic. HTN SURGICAL HISTORY : None. ENCOUNTER: Initial ACUITY: 1 day PAIN SCORE: Non-responsive. LOCATION: Bilateral chest FINDINGS: A single view of the chest demonstrates the lungs to be symmetrically aerated without evidence of mas s, infiltrate or effusion. The cardiomediastinal contours are unremarkable. Osseous structures are intact. Stable tortuous aorta. CONCLUSION: No acute disease. No significant change has occurred. Reymundo Villafuerte MD on September 22, 2017 at 16:40 Board Certified Radiologist. This report was verified electronically.
[2017-09-22 16:55] VITALS: BP 114/77; PULSE 65; RESP 15; O2SAT 100
[2017-09-22 16:58] LABS: AUTOMATED NEUTROPHIL # 5.4 TH/MM3 (1.8-7.7); BASOPHIL % 0.4 % (0.0-2.0); EOSINOPHIL # 0.1 TH/MM3 (0-0.4); EOSINOPHIL % 1.1 % (0.0-4.0); HEMATOCRIT 37.9 % (39.0-51.0); HEMOGLOBIN 12.3 GM/DL (13.0-17.0); INTERNATIONAL NORMALIZED RATIO 1.2 RATIO; LYMPH % 20.1 % (9.0-44.0); LYMPHOCYTE # 1.5 TH/MM3 (1.0-4.8); MEAN CELL VOLUME 95.6 FL (80.0-100.0); MEAN CORPUSCULAR HGB CONC 32.4 % (32.0-36.0); MEAN PLATELET VOLUME 7.9 FL (7.0-11.0); MONO % 7.3 % (0.0-8.0); MONOCYTE # 0.6 TH/MM3 (0-0.9); NEUT % 71.1 % (16.0-70.0); PLATELET COUNT 171 TH/MM3 (150-450); PROTHROMBIN TIME - PATIENT 11.9 SEC (9.8-11.6); RED BLOOD COUNT 3.96 MIL/MM3 (4.50-5.90); RED CELL DISTRIBUTION WIDTH 14.3 % (11.6-17.2); WHITE BLOOD COUNT 7.6 TH/MM3 (4.0-11.0)
--- NOTE | 2017-09-22 16:59 | PD ---
HPI Chief Complaint: Altered Mental Status Time Seen by Provider: 15:43 Travel History International Travel<30 days: No Contact w/Intl Traveler<30days: No Traveled to known affect area: No History of Present Illness HPI 82y/o male presents with unresponsive and hypotensive episode with the ambulance team. Report was his initial blood pressure was 50/30 and he was completely unresponsive. He was given IV fluids and his mentation improved where he was able to open his eyes and follow commands some. Report is that the patient is full code that on hospice. Patient currently is nonverbal and history is significantly limited. PFSH Past Medical History Narrative Medical by records Arthritis: Yes Autoimmune Disease: No Anxiety: No Depression: No Heart Rhythm Problems: No Cancer: Yes (PROSTATE) Cardiovascular Problems: Yes High Cholesterol: No Chest Pain: No Congestive Heart Failure: Yes Cerebrovascular Accident: Yes Dementia: Yes Diabetes: No Diminished Hearing: No Endocrine: No Genitourinary: Yes (BPH) Headaches: Yes Hepatitis: No Hiatal Hernia: No Hypertension: Yes Immune Disorder: No Kidney Stones: No Musculoskeletal: Yes Neurologic: Yes Psychiatric: Yes (dementia) Reproductive: No Respiratory: No Migraines: No Myocardial Infarction: No Renal Failure: No Seizures: No Thyroid Disease: No Past Surgical History Narrative Surgical by records Abdominal Surgery: Yes (LEFT INGUINAL HERNIA REPAIR) Eye Surgery: Yes (BILATERAL EYES CATARACT, DETACHED RETINA LEFT EYE) Genitourinary Surgery: Yes (HX PROSTATE CA) Gynecologic Surgery: Yes (prostrate ca) Pacemaker: No Other Surgery: Yes Social History Alcohol Use: No Tobacco Use: No Substance Use: No Allergies-Medications (Allergen,Severity, Reaction): Coded Allergies: No Known Allergies (Verified Allergy, Unknown, 07/28/17) Reported Meds & Prescriptions Reported Meds & Active Scripts Active Bactrim DS (Sulfamethoxazole-Trimethoprim) 800-160 Mg Tab 1 Tab PO BID Potassium Chloride Microencaps 20 Meq Tab 20 Meq PO DAILY Xarelto (Rivaroxaban) 10 Mg Tab 10 Mg PO DAILY 14 Days [place] (Hydrocodone-Acetaminophen) 5 Mg-325 Mg Tab 1 Tab PO Q4H PRN Walker/Adult/Folding (Device) 1 Mis Mis Ea .ROUTE DIRECTED Lisinopril 5 Mg Tab 2.5 Mg PO DAILY Metoprolol Tartrate 25 Mg Tab 12.5 Mg PO BID Reported Aspir-81 (Aspirin) 81 Mg Tabdr 81 Mg PO DAILY Lasix (Furosemide) 20 Mg Tab 20 Mg PO DAILY Mapap (Acetaminophen) 325 Mg Tab 650 Mg PO Q4HR PRN Review of Systems ROS Limitations: Clinical Condition Physical Exam Exam Limitations: Clinical Condition Narrative GENERAL: 82-year-old male who has eyes open SKIN: Focused skin assessment warm/dry. HEAD: Atraumatic. Normocephalic. EYES: Pupils equal and round. No scleral icterus. ENT: No nasal bleeding or discharge. Mucous membranes dry NECK: Trachea midline. CARDIOVASCULAR: Regular rate and rhythm. RESPIRATORY: No accessory muscle use. Decreased breath sounds bilaterally. GASTROINTESTINAL: Abdomen soft, nondistended. NEUROLOGICAL: Patient has eyes open, follows limited commands, nonverbal, patient has strength to bilateral arms and legs with mild generalized weakness Data Data Last Documented VS Vital Signs Date Time Temp Pulse Resp B/P (MAP) Pulse Ox O2 Delivery O2 Flow Rate FiO2 09/22/17 17:40 70 15 131/76 (94) 100 Nasal Cannula 1.00 09/22/17 15:57 99.3 Orders Orders Complete Blood Count With Diff (09/22/17 15:43) Comprehensive Metabolic Panel (09/22/17 15:43) Prothrombin Time / Inr (Pt) (09/22/17 15:43) Electrocardiogram (09/22/17 15:44) Act Partial Throm Time (Ptt) (09/22/17 15:43) Lactic Acid Sepsis Protocol (09/22/17 15:43) Magnesium (Mg) (09/22/17 15:43) Phosphorus (Po4) (09/22/17 15:43) Ckmb (Isoenzyme) Profile (09/22/17 15:43) Troponin I (09/22/17 15:43) Urinalysis - C+S If Indicated (09/22/17 15:43) Blood Culture (09/22/17 15:43) Chest, Single Ap (09/22/17 15:43) Blood Glucose (09/22/17 15:43) Ecg Monitoring (09/22/17 15:43) Iv Access Insert/Monitor (09/22/17 15:43) Oximetry (09/22/17 15:43) Ct Brain W/O Iv Contrast(Rout) (09/22/17 15:43) Sodium Chlor 0.9% 1000 Ml Inj (Ns 1000 M (09/22/17 15:45) CKMB (09/22/17 15:55) CKMB% (09/22/17 15:55) Sodium Chlorid 0.9% 500 Ml Inj (Ns 500 M (09/22/17 17:30) Urine Culture (09/22/17 16:20) Piperacil-Tazo 4.5 Gm Premix (Zosyn 4.5 (09/22/17 17:56) Admit Order (Ed Use Only) (09/22/17 18:04) Labs Laboratory Tests Test 09/22/17 15:55 09/22/17 16:20 White Blood Count 7.6 TH/MM3 Red Blood Count 3.96 MIL/MM3 Hemoglobin 12.3 GM/DL Hematocrit 37.9 % Mean Corpuscular Volume 95.6 FL Mean Corpuscular Hemoglobin 31.0 PG Mean Corpuscular Hemoglobin Concent 32.4 % Red Cell Distribution Width 14.3 % Platelet Count 171 TH/MM3 Mean Platelet Volume 7.9 FL Neutrophils (%) (Auto) 71.1 % Lymphocytes (%) (Auto) 20.1 % Monocytes (%) (Auto) 7.3 % Eosinophils (%) (Auto) 1.1 % Basophils (%) (Auto) 0.4 % Neutrophils # (Auto) 5.4 TH/MM3 Lymphocytes # (Auto) 1.5 TH/MM3 Monocytes # (Auto) 0.6 TH/MM3 Eosinophils # (Auto) 0.1 TH/MM3 Basophils # (Auto) 0.0 TH/MM3 CBC Comment DIFF FINAL Differential Comment Prothrombin Time 11.9 SEC Prothromb Time International Ratio 1.2 RATIO Activated Partial Thromboplast Time 24.0 SEC Blood Urea Nitrogen 26 MG/DL Creatinine 1.23 MG/DL Random Glucose 144 MG/DL Total Protein 7.7 GM/DL Albumin 3.2 GM/DL Calcium Level 9.1 MG/DL Phosphorus Level 3.2 MG/DL Magnesium Level 2.2 MG/DL Alkaline Phosphatase 108 U/L Aspartate Amino Transf (AST/SGOT) 20 U/L Alanine Aminotransferase (ALT/SGPT) 12 U/L Total Bilirubin 0.5 MG/DL Sodium Level 152 MEQ/L Potassium Level 3.8 MEQ/L Chloride Level 112 MEQ/L Carbon Dioxide Level 29.7 MEQ/L Anion Gap 10 MEQ/L Estimat Glomerular Filtration Rate 68 ML/MIN Lactic Acid Level 2.5 mmol/L Total Creatine Kinase 123 U/L Creatine Kinase MB LESS THAN 0.5 NG/ML Troponin I 0.02 NG/ML Urine Color YELLOW Urine Turbidity HAZY Urine pH 6.0 Urine Specific [place] 1.024 Urine Protein 30 mg/dL Urine Glucose (UA) NEG mg/dL Urine Ketones 40 mg/dL Urine Occult Blood TRACE Urine Nitrite NEG Urine Bilirubin NEG Urine Urobilinogen 2.0 MG/DL Urine Leukocyte Esterase NEG Urine RBC 1 /hpf Urine WBC 3 /hpf Urine Squamous Epithelial Cells 1 /hpf Urine Bacteria RARE /hpf Urine Hyaline Casts 6 /lpf Urine Mucus MANY /lpf Microscopic Urinalysis Comment CATH-CULTURE IND MDM Medical Decision Making Medical Screen Exam Complete: Yes Emergency Medical Condition: Yes Medical Record Reviewed: Yes (past history confirmed) Interpretation(s) CBC & BMP Diagram 09/22/17 15:55 Total Protein 7.7, Albumin 3.2 L, Calcium Level 9.1, Phosphorus Level 3.2, Magnesium Level 2.2, Alkaline Phosphatase 108, Aspartate Amino Transf (AST/SGOT ) 20, Alanine Aminotransferase (ALT/SGPT) 12, Total Bilirubin 0.5 Last [address] 09/22/17 1543 Signed Impressions: Service Date/Time: Friday, September 22, 2017 16:01 - CONCLUSION: 1. No acute intracranial hemorrhage. 2. Stable CT scan of the brain compared to the prior examination. 3. No significant changes in the diffuse bilateral cortical atrophy and chronic white matter changes. Reymundo Villafuerte MD Chest X-Ray 09/22/17 1345 Signed Impressions: Service Date/Time: Friday, September 22, 2017 16:08 - CONCLUSION: No acute disease. No significant change has occurred. Reymundo Villafuerte MD ua with uti Differential Diagnosis Sepsis, UTI, intercranial bleed, anemia, renal failure, cardiac event Narrative Course Will check blood work, imaging and dose with IV fluids and closely monitor. Patient initially was a GCS of 11 but now after IV fluid hydration is a 14. Discussed with son over the phone who states that patient is a hospice patient but that he wants everything done and he is full code. He agrees to admission to the hospital for IV antibiotics and IV fluids. He has lactic acidosis here but has had no signs of hypotension or tachycardia in the emergency room. Physician Communication Physician Communication Patient was called as a stroke alert in the field. Discussed with Dr. Todd who agrees to no stroke alert given symptoms midlevel with dr leslie agrees to admit Diagnosis Primary Impression: UTI (urinary tract infection) Qualified Codes: N39.0 - Urinary tract infection, site not specified Additional Impressions: Acute metabolic encephalopathy Transient hypotension Lactic acidosis Admitting Information Admitting Physician Requests: Admit Windy Rodrigues MD Sep 22, 2017 16:59
[2017-09-22 17:01] LABS: LACTIC ACID SEPSIS PROTOCOL 2.5 mmol/L (0.4-2.0)
[2017-09-22 17:05] LABS: ALBUMIN 3.2 GM/DL (3.4-5.0); ALT (GPT) 12 U/L (12-78); AST (GOT) 20 U/L (15-37); BICARBONATE 29.7 MEQ/L (21.0-32.0); BLOOD UREA NITROGEN 26 MG/DL (7-18); CALCIUM 9.1 MG/DL (8.5-10.1); CHLORIDE 112 MEQ/L (98-107); CREATININE 1.23 MG/DL (0.60-1.30); GLOMERULAR FILTRATION RATE 68 ML/MIN (>89); GLUCOSE,RANDOM 144 MG/DL (74-106); MAGNESIUM 2.2 MG/DL (1.5-2.5); PHOSPHORUS 3.2 MG/DL (2.5-4.9); SODIUM (NA) 152 MEQ/L (136-145)
[2017-09-22 17:10] LABS: ALKALINE PHOSPHATASE 108 U/L (45-117); TOTAL BILIRUBIN ADULT 0.5 MG/DL (0.2-1.0); TOTAL PROTEIN 7.7 GM/DL (6.4-8.2); TROPONIN I 0.02 NG/ML (0.02-0.05)
[2017-09-22 17:29] LABS: BACTERIA, URINE RARE /hpf; BILIRUBIN, URINE NEG (NEG); BLOOD, URINE TRACE (NEG); GLUCOSE,URINE NEG (NEG); HYALINE CAST, URINE 6 /lpf (RARE); KETONE, URINE 40 mg/dL (NEG); MUCUS URINE MANY /lpf (OCC); NITRITE,URINE NEG (NEG); SQUAMOUS EPITHELIAL CELL URINE 1 /hpf (0-5); URINE COLOR YELLOW (YELLW/STRAW); URINE LEUKOCYTE ESTERASE NEG (NEG)
[2017-09-22] MEDS ORDERED: SODIUM CHLORID 0.9% 500 ML INJ 500 ML IV ONE (17:30)
[2017-09-22 17:40] VITALS: BP 131/76; PULSE 70; RESP 15; O2SAT 100
[2017-09-22] MEDS ORDERED: PIPERACIL-TAZO 4.5 GM PREMIX 100 ML IV STA (17:56)
[2017-09-22] MEDS ORDERED: SODIUM CHLOR 0.45% 1000 ML INJ 1,000 ML IV SCH (18:10)
[2017-09-22] MEDS ORDERED: SENNOSIDES 8.6 MG TAB PO PRN (18:15)
[2017-09-22] MEDS ORDERED: MAGNESIUM HYDROXIDE SUSP 30 ML CUP PO PRN (18:15)
[2017-09-22] MEDS ORDERED: NALOXONE HCL 0.4 MG/ML AMP IV PUSH PRN (18:15)
[2017-09-22] MEDS ORDERED: BISACODYL 10 MG SUPP RECTAL PRN (18:15)
[2017-09-22] MEDS ORDERED: LACTULOSE SYRUP 20 GM/30 ML CUP PO PRN (18:15)
[2017-09-22] MEDS: HEPARIN SODIUM - SQ 10,000 UNITS/ML VIAL SQ SCH (20:58)
[2017-09-22] MEDS: DOCUSATE SODIUM 50 MG/SENNA 8.6 MG TAB PO SCH (21:00)
[2017-09-22 21:10] VITALS: BP 151/92; PULSE 63; RESP 18; O2SAT 100
--- NOTE | 2017-09-22 23:16 | HHI.HP ---
HPI [facility] Primary Care Physician Unknown Admission Diagnosis uti, sepsis, transient hypotension Diagnoses: Travel History International Travel<30 Days: No Contact w/Intl Traveler <30 Da: No Traveled to Known Affected Are: No History of Present Illness History from ER notes, and review of medical records. History is extremely limited as patient is not able to give. Apparently, patient came from home. He is on [facility] hospice. Patient's was almost unresponsive when EMS arrived. His blood pressure was 50 over 30s. En route, patient's blood pressure picked up at 110 over 70s after fluid boluses. There was also reported the patient was at a rehabilitation facility recently. He was however saturating 100% on room air By the time patient arrives emergency room, patient was opening his eyes although he is not talking and given history. ER physician also spoke to patient's son who confirms that patient is a full code and all aggressive measures including IV antibiotics to be taken. Workup in the emergency room revealed abnormal UA. Review of Systems ROS Limitations: Poor Historian (extremely poor historian.) Past Family Social History Past Medical History Hypertension CHF CVA Dementia Prostate cancer BPH Arthritis Past Surgical History Unknown. Reported Medications Unknown. Allergies: Coded Allergies: No Known Allergies (Verified Allergy, Unknown, 07/28/17) Family History Unknown. Social History Unknown Physical Exam Vital Signs Vital Signs Date Time Temp Pulse Resp B/P (MAP) Pulse Ox O2 Delivery O2 Flow Rate FiO2 09/22/17 22:32 09/22/17 21:10 63 18 151/92 (111) 100 Room Air 09/22/17 18:50 Nasal Cannula 1.00 09/22/17 17:40 70 15 131/76 (94) 100 Nasal Cannula 1.00 09/22/17 16:55 65 15 114/77 (89) 100 Nasal Cannula 1.00 09/22/17 15:57 99.3 09/22/17 15:40 79 14 128/78 (95) 98 Room Air Physical Exam GENERAL: This is a well-nourished, well-developed patient, in no apparent distress. SKIN: No rashes, ecchymoses or lesions. Cool and dry. HEAD: No temporal or scalp tenderness. EYES: . No scleral icterus. No injection or drainage. ENT: Nose without bleeding, purulent drainage or septal hematoma Airway patent. NECK: Trachea midline. No JVD Supple, nontender, no meningeal signs. CARDIOVASCULAR: Regular rate and rhythm without murmurs, gallops, or rubs. RESPIRATORY: Clear to auscultation. Breath sounds equal bilaterally. No wheezes , rales, or rhonchi. GASTROINTESTINAL: Abdomen soft, non-tender, nondistended. No guarding. MUSCULOSKELETAL: Extremities without clubbing, cyanosis, or edema. No calf tenderness. NEUROLOGICAL: Motor and sensory grossly within normal limits. Normal speech.Awake, somewhat confused, but answers yes or no questions, Laboratory Laboratory Tests Test 09/22/17 15:55 09/22/17 16:20 09/22/17 18:55 White Blood Count 7.6 Red Blood Count 3.96 Hemoglobin 12.3 Hematocrit 37.9 Mean Corpuscular Volume 95.6 Mean Corpuscular Hemoglobin 31.0 Mean Corpuscular Hemoglobin Concent 32.4 Red Cell Distribution Width 14.3 Platelet Count 171 Mean Platelet Volume 7.9 Neutrophils (%) (Auto) 71.1 Lymphocytes (%) (Auto) 20.1 Monocytes (%) (Auto) 7.3 Eosinophils (%) (Auto) 1.1 Basophils (%) (Auto) 0.4 Neutrophils # (Auto) 5.4 Lymphocytes # (Auto) 1.5 Monocytes # (Auto) 0.6 Eosinophils # (Auto) 0.1 Basophils # (Auto) 0.0 CBC Comment DIFF FINAL Differential Comment Prothrombin Time 11.9 Prothromb Time International Ratio 1.2 Activated Partial Thromboplast Time 24.0 Blood Urea Nitrogen 26 Creatinine 1.23 Random Glucose 144 Total Protein 7.7 Albumin 3.2 Calcium Level 9.1 Phosphorus Level 3.2 Magnesium Level 2.2 Alkaline Phosphatase 108 Aspartate Amino Transf (AST/SGOT) 20 Alanine Aminotransferase (ALT/SGPT) 12 Total Bilirubin 0.5 Sodium Level 152 Potassium Level 3.8 Chloride Level 112 Carbon Dioxide Level 29.7 Anion Gap 10 Estimat Glomerular Filtration Rate 68 Lactic Acid Level 2.5 1.1 Total Creatine Kinase 123 Creatine Kinase MB LESS THAN 0.5 Troponin I 0.02 Urine Color YELLOW Urine Turbidity HAZY Urine pH 6.0 Urine Specific [place] 1.024 Urine Protein 30 Urine Glucose (UA) NEG Urine Ketones 40 Urine Occult Blood TRACE Urine Nitrite NEG Urine Bilirubin NEG Urine Urobilinogen 2.0 Urine Leukocyte Esterase NEG Urine RBC 1 Urine WBC 3 Urine Squamous Epithelial Cells 1 Urine Bacteria RARE Urine Hyaline Casts 6 Urine Mucus MANY Microscopic Urinalysis Comment CATH-CULTURE IND Date/Time Source Procedure Growth Status 09/22/17 15:55 Blood Peripheral Aerobic Blood Culture Pending Received 09/22/17 15:55 Blood Peripheral Anaerobic Blood Culture Pending Received 09/22/17 16:20 Urine Catheterized Urine Urine Culture Pending Received Result Diagram: 09/22/17 1555 09/22/17 1555 Imaging Last [address] 09/22/17 1543 Signed Impressions: Service Date/Time: Friday, September 22, 2017 16:01 - CONCLUSION: 1. No acute intracranial hemorrhage. 2. Stable CT scan of the brain compared to the prior examination. 3. No significant changes in the diffuse bilateral cortical atrophy and chronic white matter changes. Reymundo Villafuerte MD Chest X-Ray 09/22/17 1543 Signed Impressions: Service Date/Time: Friday, September 22, 2017 16:08 - CONCLUSION: No acute disease. No significant change has occurred. Reymundo Villafuerte MD Capyesii VTE Risk Assessment Caprini VTE Risk Assessment: Mod/High Risk (score >= 2) Caprini Risk Assessment Model Point Value = 1 Point Value = 2 Point Value = 3 Point Value = 5 Age 41-60 Minor surgery BMI > 25 kg/m2 Swollen legs Varicose veins or History of unexplained or recurrent spontaneous Oral contraceptives or hormone replacement Sepsis (< 1 month) Serious lung disease, including pneumonia (< 1 month) Abnormal pulmonary function Acute myocardial infarction Congestive heart failure (< 1 month) History of inflammatory bowel disease Medical patient at bed rest Age 61-74 Arthroscopic surgery Major open surgery (> 45 min) Laparoscopic surgery (> 45 min) Malignancy Confined to bed (> 72 hours) Immobilizing plaster cast Central venous access Age >= 75 History of VTE Family history of VTE Factor V Leiden Prothrombin [id number] Lupus anticoagulant Anticardiolipin antibodies Elevated serum homocysteine Heparin-induced thrombocytopenia Other congenital or acquired thrombophilia Stroke (< 1 month) Elective arthroplasty Hip, pelvis, or leg fracture Acute spinal cord injury (< 1 month) Prophylaxis Regimen Total Risk Factor Score Risk Level Prophylaxis Regimen 0-1 Low Early ambulation 2 Moderate Order ONE of the following: *Sequential Compression Device (SCD) *Heparin 5000 units SQ BID 3-4 Higher Order ONE of the following medications: *Heparin 5000 units SQ TID *Enoxaparin/Lovenox 40 mg SQ daily (WT < 150 kg, CrCl > 30 mL/min) *Enoxaparin/Lovenox 30 mg SQ daily (WT < 150 kg, CrCl > 10-29 mL/min) *Enoxaparin/Lovenox 30 mg SQ BID (WT < 150 kg, CrCl > 30 mL/min) AND/OR *Sequential Compression Device (SCD) 5 or more Highest Order ONE of the following medications: *Heparin 5000 units SQ TID (Preferred with Epidurals) *Enoxaparin/Lovenox 40 mg SQ daily (WT < 150 kg, CrCl > 30 mL/min) *Enoxaparin/Lovenox 30 mg SQ daily (WT < 150 kg, CrCl > 10-29 mL/min) *Enoxaparin/Lovenox 30 mg SQ BID (WT < 150 kg, CrCl > 30 mL/min) AND *Sequential Compression Device (SCD) Assessment and Plan Assessment and Plan Impression: Hypotension transient Symptomatic near syncopal episode due to hypotension Possible underlying infection with UTI Hypernatremia secondary to dehydration Clinical signs and symptoms of dehydration Plan: IV hydration with D5 half normal saline at 42 cc per hour. Check for orthostatics. Patient received IV fluid boluses in ER after which his blood pressure is even high. PT evaluation. Not suspecting pulmonary embolism since patient is saturating 100% on room air even on my arrival in the room. He denies any shortness of breath. Patient has had recent hip surgery per records. Update home meds. For now, continue Zosyn for UTI. will follow cx result DVT prophylaxis with heparin Discussed Condition With Patient, nursing staff Carmelina Barr MD Sep 22, 2017 23:16
[2017-09-23] MEDS: PIPERACIL-TAZO 4.5 GM PREMIX 100 ML IV SCH ×4 (00:24→18:45)
[2017-09-23 01:05] VITALS: BP 110/89; PULSE 77; RESP 18; TEMP 98; O2SAT 98
[2017-09-23 07:50] LABS: AUTOMATED NEUTROPHIL # 3.9 TH/MM3 (1.8-7.7); BASOPHIL % 0.5 % (0.0-2.0); EOSINOPHIL # 0.1 TH/MM3 (0-0.4); EOSINOPHIL % 1.1 % (0.0-4.0); HEMATOCRIT 39.5 % (39.0-51.0); HEMOGLOBIN 13.1 GM/DL (13.0-17.0); LYMPH % 24.9 % (9.0-44.0); LYMPHOCYTE # 1.5 TH/MM3 (1.0-4.8); MEAN CELL VOLUME 96.8 FL (80.0-100.0); MEAN CORPUSCULAR HGB CONC 33.1 % (32.0-36.0); MEAN PLATELET VOLUME 7.6 FL (7.0-11.0); MONO % 10.5 % (0.0-8.0); MONOCYTE # 0.7 TH/MM3 (0-0.9); PLATELET COUNT 156 TH/MM3 (150-450); RED BLOOD COUNT 4.08 MIL/MM3 (4.50-5.90); RED CELL DISTRIBUTION WIDTH 14.3 % (11.6-17.2); WHITE BLOOD COUNT 6.2 TH/MM3 (4.0-11.0)
[2017-09-23 08:00] VITALS: BP_SYST 145; BP_SYST 173; BP_DIAS 66; BP_DIAS 74; PULSE 81; RESP 16; TEMP 97.5; O2SAT 100
[2017-09-23 08:29] LABS: CALCIUM 8.7 MG/DL (8.5-10.1); CREATININE 1.04 MG/DL (0.60-1.30)
[2017-09-23 08:30] VITALS: BP_SYST 137; BP_SYST 147; BP_SYST 153; BP_DIAS 8; BP_DIAS 82; BP_DIAS 90; BP_DIAS 99; PULSE 60; PULSE 67; RESP 18; TEMP 98.1; O2SAT 97; O2SAT 98
[2017-09-23] MEDS: DOCUSATE SODIUM 50 MG/SENNA 8.6 MG TAB PO SCH ×2 (09:00→22:36)
[2017-09-23] MEDS: HEPARIN SODIUM - SQ 10,000 UNITS/ML VIAL SQ SCH ×2 (09:38→22:41)
[2017-09-23] MEDS: DEXT 5%-NACL 0.45% 1000 ML INJ 1,000 ML IV SCH (09:38)
--- NOTE | 2017-09-23 11:40 | PD.CONS ---
Consult Service Palliative Care . Consult Requested By Tani . Primary Care Physician Unknown . Reason for Consultation a. To assist with evaluation and management of symptoms including: pain; fatigue b. To assist medical decision maker(s) with: better understanding of current medical conditions; weighing benefits/burdens of medical treatment options; making medical treatment decisions. . HPI History of Present Illness This is the 5th acute care hospitalization in the last year for the is 82 y/o male with a known medical history of cardiomyopathy (EF of 25-30 % on 04/15/17) ; left bundle branch block; dementia; prostate cancer; TIAs; hypertension; anxiety; and glaucoma who was sent to the emergency department on 09/22/17 after being found unresponsive and hypotensive in his home. The patient is normally cared for by his son and his son's . Apparently, the patient was appearing his normal self and was eating. The patient's [id number] went to get him something to drink and when she returned he was completely unresponsive. Per the patient's son --->- Loyd -- the patient has been under the care of [facility] in spite a-->ggressive goals. Loyd believes the patient has been under the care of this hospice for 2-3 years. Apparently, the patient comes off hospice during his hospital admissions. I asked Loyd if he calls hospice before calling paramedics to bring the patient to the hospital. Loyd tells me that he often has difficulty with [facility] hospice answering his calls in a timely fashion. The patient has had several similar events with unresponsiveness and hypotension.. In the recent past pacemaker placement has been offered. Cardiac catheterization has also been offered. Because of the inherent risks, these procedures have been declined by the patient's son. The patient fell and suffered a left intertrochanteric hip fracture in July 2017. He had been walking independently prior to this. He was unable to benefit from rehab. He is now nonambulatory. At the time of my visit, patient is sitting up in bed. He is unable to provide any history. He does not know what year it is. He does not know how many children he has. He did not seem to be aware that he was in the hospital. He did say "no" when I asked him if he was in any pain. Initial vital signs in the emergency department noted the following: Temperature 99.3; pulse 79; respiratory rate 14; blood pressure 128/78; pulse oximetry 98% on room air Initial examination by the emergency department coordinator noted the following: There were decreased breath sounds bilaterally in both lung steiner. The cardiovascular and respiratory exams are otherwise unremarkable. Patient was able to follow a few limited commands but was nonverbal. There is mild generalized weakness but no focal findings. Initial diagnostic testing revealed the following: * CBC showed WBC 7.6; hemoglobin 12.3; platelet count 171 * Coagulation profile showed PT 11.9; INR 1.2; PTT 24 * Chemistry profile showed BUN 26; creatinine 1.23; glucose 144; calcium 9.1; phosphorus 3.2; magnesium 2.2; sodium 152; potassium 3.8; chloride 112; CO2 29.7 ; anion gap 10; GFR 68; lactic acid 2.5 * Cardiac serology showed total CK 123; CK-MB less than 0.5; troponin 0 0.02 * Liver function studies showed total protein 7.7; albumin 3.2; alkaline phosphatase 108; AST 20; ALT 12; total bilirubin 0.5 * Urinalysis showed protein at 30; ketones at 40; trace occult blood; rare bacteria. * Blood and urine culture showed no growth at 24 hours * CT of the head showed no acute intracranial hemorrhage. The patient's diffuse bilateral cortical atrophy and chronic white matter changes persist. * Chest x-ray showed no acute disease The patient was bolused with fluids and started on intravenous antibiotics to cover possible sepsis. [facility]. The patient has improved rather dramatically. At the time of my visit he is sitting up in his bed in the emergency department. He is awake and alert. He is verbal but cannot answer even basic questions. There is no evidence of swallowing difficulties as I observe him. . . Function/Cognitive Trajectory The patient's son reports the patient has been under hospice care for 2-3 years. He had been partially ambulatory prior to the fracture/repair of his hip in July of this year. Son reports the patient is spending most of his day sleeping in bed or recliner. Family reports his food intake has declined, though weight do not appear to have gone down. The patient does speak a few words but is unable to answer basic questions and seems to have no insight into his disease or illness. . Review of Systems ROS Limitations: Clinical Condition (Patient is confused due to dementia and is unable to provide his own review of systems. Review of systems obtained as well as possible from the medical record and the patient's son.) Constitutional: COMPLAINS OF: Fatigue, Change in appetite (Only eating a little bit now.), Pain (Son believes the patient is painful at times where he had his left hip repaired.), Generalized weakness, DENIES: Fever, Weight gain, Weight loss Endocrine: DENIES: Polydipsia, Polyuria, Polyphagia Eyes: COMPLAINS OF: Vision loss Ears, nose, mouth, throat: DENIES: Hearing loss Respiratory: DENIES: Apneas, Cough, Hemoptysis, Shortness of breath Cardiovascular: COMPLAINS OF: Palpitations, Syncope, DENIES: Chest pain Gastrointestinal: DENIES: Bloody stools, Constipation, Nausea, Vomiting Genitourinary: COMPLAINS OF: Hematuria, DENIES: Dysuria Musculoskeletal: COMPLAINS OF: Joint pain, Back pain, DENIES: Neck pain Hematologic/Lymphatics: DENIES: Bruising, Lymphadenopathy Immunologic/Allergic: DENIES: Eczema Neurologic: COMPLAINS OF: Headache, Paresthesias Psychiatric: COMPLAINS OF: Confusion Past Family Social History Coded Allergies: No Known Allergies (Verified Allergy, Unknown, 07/28/17) Past Medical History Hypertension CHF CVA Dementia Prostate cancer BPH Arthritis Past Surgical History * Left inguinal hernia repair * Bilateral cataract extraction * Surgery for detached retina in the left eye * Prostatectomy for cancer * Hip repair Reported Medications On reconciled medications from home include the following: Bactrim DS (Sulfamethoxazole-Trimethoprim) 800-160 Mg Tab 1 Tab PO BID Potassium Chloride Microencaps 20 Meq Tab 20 Meq PO DAILY Xarelto (Rivaroxaban) 10 Mg Tab 10 Mg PO DAILY 14 Days [place] (Hydrocodone-Acetaminophen) 5 Mg-325 Mg Tab 1 Tab PO Q4H PRN Walker/Adult/Folding (Device) 1 Mis Mis Ea .ROUTE DIRECTED Lisinopril 5 Mg Tab 2.5 Mg PO DAILY Metoprolol Tartrate 25 Mg Tab 12.5 Mg PO BID Aspir-81 (Aspirin) 81 Mg Tabdr 81 Mg PO DAILY Lasix (Furosemide) 20 Mg Tab 20 Mg PO DAILY Mapap (Acetaminophen) 325 Mg Tab 650 Mg PO Q4HR PRN . Current Medications Medications (Trade) Dose Ordered Sig/Shayan Route Start Time Stop Time Status Last Admin (Heparin Inj) 5,000 units Q12H SQ 09/22/17 20:00 3/21/18 09:38 (Narcan Inj) 0.4 mg UNSCH PRN IV PUSH 09/22/17 18:15 (Morena-Colace) 1 tab BID PO 09/22/17 21:00 (Milk Of Magnesia Liq) 30 ml Q12H PRN PO 09/22/17 18:15 (Senokot) 17.2 mg Q12H PRN PO 09/22/17 18:15 (Dulcolax Supp) 10 mg DAILY PRN RECTAL 09/22/17 18:15 (Lactulose Liq) 30 ml DAILY PRN PO 09/22/17 18:15 Piperacillin Sod/ Tazobactam Sod 100 ml @ 200 mls/hr Q6HR IV 09/23/17 00:00 09/23/17 05:11 Dextrose/Sodium Chloride 1,000 ml @ 42 mls/hr [id number] IV 09/23/17 09:00 09/23/17 09:38 . Family History The patient is unable to provide his own family history. The patient's son thought that the patient's father may have had heart disease. No other known illnesses run in the family. . Substance Use Tobacco: Never smoked Alcohol: No history of abuse Prescription med abuse: No history of abuse Illicits: No known use of illicits . Psychosocial History High school education. Single. Patient reportedly has 3 sons. He lives with 1 of his sons-- Loyd --and Loyd' s . Loyd tells me the other two sons have been completely out of touch and are not involved in their father's care. They are aware that their father is in the hospital and not doing well. . Spiritual/Cultural Factors Caodaism. Loyd did not feel senior telecommunications consultant visits would be particularly important to the patient. . Living Will: Never completed Health Care Surrogate: Never completed Durable Power of Slate Roofer: Never completed Date completed: Advanced directives were never completed. . Health Care Surrogate(s): There has been no written designation of healthcare surrogate. . Documented care wishes: There is no written documentation of healthcare wishes/preferences. . Today's verbally stated goals: Due to the patient's dementia, he is unable to discuss healthcare goals/ preferences. . Family/friends goals: The patient's son, Loyd, tells me that the patient would want everything done to save and prolong his life including resuscitation efforts and ongoing life support. . Ethical and Legal Issues The patient is incapacitated to make his own healthcare decisions. There is no reasonable probability that he will recover capacity due to his dementia. . Physical Exam Vital Signs Date Time Temp Pulse Resp B/P (MAP) Pulse Ox O2 Delivery O2 Flow Rate FiO2 09/23/17 08:30 98.1 60 18 137/82 (100) 97 147/90 (109) 153/99 (117) 09/23/17 01:05 98.0 77 18 110/89 (96) 98 09/22/17 22:32 09/22/17 21:10 63 18 151/92 (111) 100 Room Air 09/22/17 18:50 Nasal Cannula 1.00 09/22/17 17:40 70 15 131/76 (94) 100 Nasal Cannula 1.00 09/22/17 16:55 65 15 114/77 (89) 100 Nasal Cannula 1.00 09/22/17 15:57 99.3 09/22/17 15:40 79 14 128/78 (95) 98 Room Air . Exam CONSTITUTIONAL/GENERAL: This is an adequately nourished patient, in no apparent distress. At time of my visit he is sitting up in bed, eating, without signs of aspiration or coughing. He is able to smile. TUBES/LINES/DRAINS: Peripheral IV. SKIN: No jaundice, rashes, or lesions. No wounds seen anteriorly. Skin temperature appropriate. Not diaphoretic. HEAD: Atraumatic. Normocephalic. EYES: Pupils equal with deformities from cataract extraction. Pupils are reactive to light. Extraocular motions intact. No scleral icterus. No injection or drainage. Fundi not examined. ENT: Hearing grossly normal. Nose without bleeding or purulent drainage. Throat without visible erythema, exudates, masses, or lesions. Missing many teeth. NECK: Trachea midline. Supple, nontender. No palpable thyroid enlargement or nodularity. CARDIOVASCULAR: Regular rate and rhythm without murmurs, gallops, or rubs. No JVD. Peripheral pulses symmetric. RESPIRATORY/CHEST: Symmetric, unlabored respirations. Clear to auscultation. Breath sounds equal bilaterally. No wheezes, rales, or rhonchi. GASTROINTESTINAL: Abdomen soft, non-tender, nondistended. No hepato-splenomegaly , or palpable masses. No guarding. Bowel sounds present. GENITOURINARY: Without palpable bladder distension. MUSCULOSKELETAL: Extremities without clubbing, cyanosis, or edema. No joint tenderness or effusion noted. No calf tenderness. No mottling or clubbing. LYMPHATICS: No palpable cervical or supraclavicular adenopathy. NEUROLOGICAL: Awake and alert. Motor and sensory grossly within normal limits. Intermittently follows a few simple commands.. Confused--does not know where he is, how old he is, how many children he has. Moves all extremities. PSYCHIATRIC: No obvious anxiety/depression. No apparent hallucinations or other psychotic thought process. . Diagnostic Tests Laboratory Laboratory Tests Test 09/22/17 15:55 09/22/17 16:20 09/22/17 18:55 09/23/17 06:10 White Blood Count 7.6 TH/MM3 (4.0-11.0) 6.2 TH/MM3 (4.0-11.0) Red Blood Count 3.96 MIL/MM3 (4.50-5.90) 4.08 MIL/MM3 (4.50-5.90) Hemoglobin 12.3 GM/DL (13.0-17.0) 13.1 GM/DL (13.0-17.0) Hematocrit 37.9 % (39.0-51.0) 39.5 % (39.0-51.0) Mean Corpuscular Volume 95.6 FL (80.0-100.0) 96.8 FL (80.0-100.0) Mean Corpuscular Hemoglobin 31.0 PG (27.0-34.0) 32.0 PG (27.0-34.0) Mean Corpuscular Hemoglobin Concent 32.4 % (32.0-36.0) 33.1 % (32.0-36.0) Red Cell Distribution Width 14.3 % (11.6-17.2) 14.3 % (11.6-17.2) Platelet Count 171 TH/MM3 (150-450) 156 TH/MM3 (150-450) Mean Platelet Volume 7.9 FL (7.0-11.0) 7.6 FL (7.0-11.0) Neutrophils (%) (Auto) 71.1 % (16.0-70.0) 63.0 % (16.0-70.0) Lymphocytes (%) (Auto) 20.1 % (9.0-44.0) 24.9 % (9.0-44.0) Monocytes (%) (Auto) 7.3 % (0.0-8.0) 10.5 % (0.0-8.0) Eosinophils (%) (Auto) 1.1 % (0.0-4.0) 1.1 % (0.0-4.0) Basophils (%) (Auto) 0.4 % (0.0-2.0) 0.5 % (0.0-2.0) Neutrophils # (Auto) 5.4 TH/MM3 (1.8-7.7) 3.9 TH/MM3 (1.8-7.7) Lymphocytes # (Auto) 1.5 TH/MM3 (1.0-4.8) 1.5 TH/MM3 (1.0-4.8) Monocytes # (Auto) 0.6 TH/MM3 (0-0.9) 0.7 TH/MM3 (0-0.9) Eosinophils # (Auto) 0.1 TH/MM3 (0-0.4) 0.1 TH/MM3 (0-0.4) Basophils # (Auto) 0.0 TH/MM3 (0-0.2) 0.0 TH/MM3 (0-0.2) CBC Comment DIFF FINAL DIFF FINAL Differential Comment Prothrombin Time 11.9 SEC (9.8-11.6) Prothromb Time International Ratio 1.2 RATIO Activated Partial Thromboplast Time 24.0 SEC (24.3-30.1) Blood Urea Nitrogen 26 MG/DL (7-18) Creatinine 1.23 MG/DL (0.60-1.30) Random Glucose 144 MG/DL (74-106) Total Protein 7.7 GM/DL (6.4-8.2) Albumin 3.2 GM/DL (3.4-5.0) Calcium Level 9.1 MG/DL (8.5-10.1) Phosphorus Level 3.2 MG/DL (2.5-4.9) Magnesium Level 2.2 MG/DL (1.5-2.5) Alkaline Phosphatase 108 U/L (45-117) Aspartate Amino Transf (AST/SGOT) 20 U/L (15-37) Alanine Aminotransferase (ALT/SGPT) 12 U/L (12-78) Total Bilirubin 0.5 MG/DL (0.2-1.0) Sodium Level 152 MEQ/L (136-145) Potassium Level 3.8 MEQ/L (3.5-5.1) Chloride Level 112 MEQ/L (98-107) Carbon Dioxide Level 29.7 MEQ/L (21.0-32.0) Anion Gap 10 MEQ/L (5-15) Estimat Glomerular Filtration Rate 68 ML/MIN (>89) Lactic Acid Level 2.5 mmol/L (0.4-2.0) 1.1 mmol/L (0.4-2.0) Total Creatine Kinase 123 U/L (39-308) Creatine Kinase MB LESS THAN 0.5 NG/ML Troponin I 0.02 NG/ML (0.02-0.05) Urine Color YELLOW (YELLW/STRAW) Urine Turbidity HAZY (CLEAR) Urine pH 6.0 (5.0-8.5) Urine Specific [place] 1.024 (1.002-1.035) Urine Protein 30 mg/dL (NEG-TRACE) Urine Glucose (UA) NEG mg/dL (NEG) Urine Ketones 40 mg/dL (NEG) Urine Occult Blood TRACE (NEG) Urine Nitrite NEG (NEG) Urine Bilirubin NEG (NEG) Urine Urobilinogen 2.0 MG/DL (LESS THAN Urine Leukocyte Esterase NEG (NEG) Urine RBC 1 /hpf (0-3) Urine WBC 3 /hpf (0-5) Urine Squamous Epithelial Cells 1 /hpf (0-5) Urine Bacteria RARE /hpf (NONE) Urine Hyaline Casts 6 /lpf (RARE) Urine Mucus MANY /lpf (OCC) Microscopic Urinalysis Comment CATH-CULTURE IND Test 09/23/17 07:06 Blood Urea Nitrogen 23 MG/DL (7-18) Creatinine 1.04 MG/DL (0.60-1.30) Random Glucose 95 MG/DL (74-106) Calcium Level 8.7 MG/DL (8.5-10.1) Sodium Level 151 MEQ/L (136-145) Potassium Level 3.4 MEQ/L (3.5-5.1) Chloride Level 117 MEQ/L (98-107) Carbon Dioxide Level 26.0 MEQ/L (21.0-32.0) Anion Gap 8 MEQ/L (5-15) Estimat Glomerular Filtration Rate 83 ML/MIN (>89) . Result Diagram: 09/23/17 0610 09/23/17 0706 Microbiology Microbiology Date/Time Source Procedure Growth Status 09/22/17 15:55 Blood Peripheral Aerobic Blood Culture - Preliminary NO GROWTH IN 1 DAY Resulted 09/22/17 15:55 Blood Peripheral Anaerobic Blood Culture - Preliminary NO GROWTH IN 1 DAY Resulted 09/22/17 15:45 Blood Peripheral Aerobic Blood Culture - Preliminary NO GROWTH IN 1 DAY Resulted 09/22/17 15:45 Blood Peripheral Anaerobic Blood Culture - Preliminary NO GROWTH IN 1 DAY Resulted 09/22/17 16:20 Urine Catheterized Urine Urine Culture - Preliminary NO GROWTH IN 24 HOURS. Resulted Imaging Last Impressions Head CT 09/22/17 1543 Signed Impressions: Service Date/Time: Friday, September 22, 2017 16:01 - CONCLUSION: 1. No acute intracranial hemorrhage. 2. Stable CT scan of the brain compared to the prior examination. 3. No significant changes in the diffuse bilateral cortical atrophy and chronic white matter changes. Reymundo Villafuerte MD Chest X-Ray 09/22/17 154 Signed Impressions: Service Date/Time: Friday, September 22, 2017 16:08 - CONCLUSION: No acute disease. No significant change has occurred. Reymundo Villafuerte MD . Patient/Family Conference Present at Family Conference: -->Patient's son -- . Family Conference Time (mins): 20 Family Conference Location: Telephone Issues Discussed: * Additional medical, psychosocial, and spiritual history * Patients general health, functional status, and cognitive changes in the months leading up to the current hospitalization * Family understanding of the current medical problems * Family understanding of prognosis * Patients goals of care as best understood from conversations and/or values * Current medical treatment options and benefits/burdens of those options * Likely scenarios comparing ongoing aggressive care with a transition to comfort measures only * Questions answered to the best of my ability . Assessment and Plan Disease Oriented Problem List: (1) Symptomatic hypotension (2) Cardiomyopathy (3) History of prostate cancer (4) History of TIAs (5) Syncope (6) Dementia Symptom Scale: (1) Pain 0-10 Scale: Unable to quantify Comment: Patient is unable to characterize or quantify his own pain. Son reports that he believes the patient still has some pain at the site of his left hip fracture. Patient does not normally use any type of pain medication while at home for this. . (2) Fatigue 0-10 Scale: Unable to quantify Comment: Per son, patient is now spending the vast majority of the day sleeping in his bed or in his recliner chair. . Pertinent Non-Medical Issues Psychosocial: Patient normally lives with his son--Loyd--and Loyd's . Spiritual: Caodaism. Son does not believe the patient would particularly benefit from senior telecommunications consultant visits. Legal: No advance directives. Ethical issues impacting care: Patient is incapacitated and there is no reasonable probability he will regain capacity . Important Contacts Loyd Case (son) -- [phone] . Prognosis This patient is 82 y/o with a history of cardiomyopathy (EF on 04/15/17 was 25- 30%) ; dementia; CAD; TIA who was just admitted for his 5th hospitalization in the last year. He had repair of a fractured hip in Jul 2017 and since that time has been bed/chair bound and per son, spends most of the day sleeping. Pacemaker and cardiac cath have been offered, but declined due to risks. He was found hypotensive and unresponsive again, but has managed yet again to perk up. The patient has been under the care of [facility] hospice for 2-3 years (per his son). Nevertheless, goals are aggressive -- "I want everything done to keep him alive as long as possible." It is still unclear what exactly is causing these periods of unresponsiveness but there is a high likelihood this is some sort of cardiac dysrhythmia. Permanent pacemaker has been recommended. Cardiac catheterization has also been recommended. Both of these procedures have been declined. Given his age and co-morbidities hospice would certainly be appropriate if the goals were comfort oriented. However, in this case, the son feels his father would want full aggressive care including life support and resuscitation. . Code Status: Full Code Plan == Code status-- FULL CODE == Decision making: The patient is incapacitated to make his own medical decisions. There is no reasonable probability that the patient will recover capacity due to his dementia. As the patient is not currently , proxy healthcare decision making would fall to his 3 sons. In spite of efforts, we only have contact information from 1 of the sons--Loyd--who is the primary caregiver. == Goals of medical treatment: The patient's son is quite adamant that the patient would want everything done to keep him alive as long as possible including resuscitation and life support. He indicates that [facility] hospice is aware of these goals but has been providing care but discharging the patient when he goes to the hospital. == Symptoms: * Pain: The patient is unable to characterize or quantify his own pain. According to his son, the patient intermittently appears painful at the site of his left hip repair. He does not routinely take any type of analgesics for this. Patient did not appear painful at time of my visit. Would recommend starting with acetaminophen for pain if he does appear painful. * Fatigue: Son reports that the patient is now spending the vast majority of day sleeping in his bed or in his recliner chair. This is probably secondary to a combination of his sedentery status since his hip fracture and possibly his cardiomyopathy. I doubt this fatigue is reversible. == Disposition: Given the patient appears to be improving yet again; given the goals are aggressive; and given the patient (according to his son) was unable to benefit from rehab in the past, I anticipate the patient will return home under his son's care once again. As before, I anticipate that in spite of the aggressive goals, the son will request [facility] hosp[facility], and they will resume care. == Palliative care will continue to assist with symptom management and to further clarify goals of medical treatment as the clinical course evolves. . Thank you for the opportunity to participate in the care of Mr. Case. . Attestation To help prompt me to consider important information that might be impacting today's encounter and assessment, information from prior notes written by myself or my colleagues may have been "brought forward" into today's note. My signature on this note, however, is an attestation that I personally performed the exam, history, and/or decision-making noted today, and, unless otherwise indicated, the interactions with patient, family, and staff as well as the review of records all occurred today. I also attest that the listed assessment and stated plan reflect my best clinical judgment today based on the combination of historical information, prior notes, and today's exam/ interactions. When time spent is documented, it refers only to time spent today by the signer, or if indicated, combined time spent today by collaborating physician/nurse practitioner. . Ryan Santos MD Sep 23, 2017 11:40
[2017-09-23 12:10] VITALS: BP 135/78; PULSE 60; RESP 18; TEMP 97.6; O2SAT 97
--- NOTE | 2017-09-23 13:42 | HHI.PR ---
Subjective Remarks The patient is in bed, she is awake and alert, pleasantly confused. Answers some questions with yes and no. Follows some commands. Appeared chronically ill. No fever or chills overnight. Denies any chest pain at this time no shortness of breath. No abdominal pain. Not eating much. No appetite Objective Vitals Vital Signs Date Time Temp Pulse Resp B/P (MAP) Pulse Ox O2 Delivery O2 Flow Rate FiO2 09/23/17 12:10 97.6 60 18 135/78 (97) 97 09/23/17 08:30 98.1 60 18 137/82 (100) 97 147/90 (109) 153/99 (117) 09/23/17 01:05 98.0 77 18 110/89 (96) 98 09/22/17 22:32 09/22/17 21:10 63 18 151/92 (111) 100 Room Air 09/22/17 18:50 Nasal Cannula 1.00 09/22/17 17:40 70 15 131/76 (94) 100 Nasal Cannula 1.00 09/22/17 16:55 65 15 114/77 (89) 100 Nasal Cannula 1.00 09/22/17 15:57 99.3 09/22/17 15:40 79 14 128/78 (95) 98 Room Air I/O 09/22/17 09/22/17 09/22/17 09/23/17 09/23/17 09/23/17 07:00 15:00 23:00 07:00 15:00 23:00 Intake Total 1700 ml 100 ml Balance 1700 ml 100 ml Intake IV Total 1700 ml 100 ml Result Diagram: 09/23/17 0610 09/23/17 0706 Imaging Last Impressions Head CT 09/22/17 1543 Signed Impressions: Service Date/Time: Friday, September 22, 2017 16:01 - CONCLUSION: 1. No acute intracranial hemorrhage. 2. Stable CT scan of the brain compared to the prior examination. 3. No significant changes in the diffuse bilateral cortical atrophy and chronic white matter changes. Reymundo Villafuerte MD Chest X-Ray 09/22/17 7013 Signed Impressions: Service Date/Time: Friday, September 22, 2017 16:08 - CONCLUSION: No acute disease. No significant change has occurred. Reymundo Villafuerte MD Objective Remarks GENERAL: This is a cachectic pleasant elderly AA male, well-nourished, well- developed patient, appears weak and chronically ill. CARDIOVASCULAR: Regular rate and rhythm without murmurs, gallops, or rubs. RESPIRATORY: Clear to auscultation. Breath sounds equal bilaterally. No wheezes , rales, or rhonchi. GASTROINTESTINAL: Abdomen soft, non-tender, nondistended. No guarding. MUSCULOSKELETAL: Extremities without clubbing, cyanosis, or edema. No calf tenderness. NEUROLOGICAL: Awake and alert. CN grossly normal. Motor and sensory grossly within normal limits. Normal speech. Pleasantly confused, follows commands, answers yes or no to questions. A/P Assessment and Plan Hypotension transient Symptomatic near syncopal episode due to hypotension Possible underlying infection with UTI Hypernatremia secondary to dehydration Clinical signs and symptoms of dehydration Deconditioning Continue IV hydration with D5 half normal saline at 42 cc per hour. Check for orthostatics. Patient received IV fluid boluses in ER after which his blood pressure is even high. PT evaluation. Not suspecting pulmonary embolism since patient is saturating 100% on room air even on my arrival in the room. He denies any shortness of breath. Patient has had recent hip surgery per records. Reconcile meds Continue Zosyn for UTI. Urine cultures are pending. Clinically patien tis not much improved. Consult insurance verify rep Consutl PT/OT DVT prophylaxis with heparin Discussed Condition With Patient, nurse Whitney Drake MD Sep 23, 2017 13:42
[2017-09-23] MEDS ORDERED: ERYTOIN10 EACH EYE (16:04)
[2017-09-23] MEDS ORDERED: MILKSUS PO (16:04)
[2017-09-23] MEDS ORDERED: HYDR-3799 PO (16:04)
[2017-09-23] MEDS ORDERED: SENN8.6T36 PO (16:04)
[2017-09-23] MEDS ORDERED: TRUS2SOL EACH EYE (16:04)
[2017-09-23 16:43] VITALS: BP 138/86; RESP 18; TEMP 97.6
--- NOTE | 2017-09-23 20:44 | EKG ---
Date Performed: 09/22/2017 Time Performed: 15:53:39 PTAGE: 82 years EKG: Sinus rhythm WITH OCCASIONAL SUPRAVENTRICULAR PREMATURE COMPLEXES LEFT BUNDLE BRANCH BLOCK ABNORMAL ECG PREVIOUS TRACING : 07/28/2017 17.56 Since the previous tracing, no significant change noted DOCTOR: Hamlet Colon Interpretating Date/Time 09/23/2017 20:43:38
[2017-09-23 20:59] VITALS: BP 144/84; PULSE 61; RESP 14; TEMP 97.4; O2SAT 95
[2017-09-24] MEDS: PIPERACIL-TAZO 4.5 GM PREMIX 100 ML IV SCH ×4 (00:19→18:25)
[2017-09-24 04:24] VITALS: BP 128/78; PULSE 57; RESP 14; TEMP 98.8; O2SAT 96
[2017-09-24 08:20] VITALS: BP_SYST 132; BP_SYST 143; BP_DIAS 79; BP_DIAS 94; PULSE 53; RESP 18; TEMP 97.6; O2SAT 98
--- NOTE | 2017-09-24 08:39 | HHI.PR ---
Subjective Remarks opens eyes, dentures somewhat out but pt doesn't really say much to me. will mumble a bit. follows some commands doesn't seem to have any pain confused Objective Vitals Vital Signs Date Time Temp Pulse Resp B/P (MAP) Pulse Ox O2 Delivery O2 Flow Rate FiO2 09/24/17 04:24 98.8 57 14 128/78 (95) 96 09/23/17 21:12 21 09/23/17 20:59 97.4 61 14 144/84 (104) 95 09/23/17 16:43 97.6 18 138/86 (103) 09/23/17 12:10 97.6 60 18 135/78 (97) 97 09/23/17 08:30 98.1 60 18 137/82 (100) 97 147/90 (109) 153/99 (117) I/O 09/23/17 09/23/17 09/23/17 09/24/17 09/24/17 09/24/17 07:00 15:00 23:00 07:00 15:00 23:00 Intake Total 100 ml 675 ml Balance 100 ml 675 ml Intake Oral 675 ml IV Total 100 ml # Voids 6 # Bowel Movements 1 Result Diagram: 09/23/17 0610 09/23/17 0706 Imaging Last Impressions Head CT 09/22/17 1543 Signed Impressions: Service Date/Time: Friday, September 22, 2017 16:01 - CONCLUSION: 1. No acute intracranial hemorrhage. 2. Stable CT scan of the brain compared to the prior examination. 3. No significant changes in the diffuse bilateral cortical atrophy and chronic white matter changes. Reymundo Villafuerte MD Chest X-Ray 09/22/17 1788 Signed Impressions: Service Date/Time: Friday, September 22, 2017 16:08 - CONCLUSION: No acute disease. No significant change has occurred. Reymundo Villafuerte MD Objective Remarks GENERAL: T elderly AA male appears weak and chronically ill. CARDIOVASCULAR: Regular rate and rhythm without murmurs RESPIRATORY: Clear to auscultation. Breath sounds equal bilaterally. No wheezes GASTROINTESTINAL: Abdomen soft, non-tender, nondistended. No guarding. MUSCULOSKELETAL: Extremities without edema. No calf tenderness. NEUROLOGICAL: Pleasantly confused, follows some commands, will mumble but doesn't say much to me. appears comfortable. A/P Assessment and Plan Hypotension transient Symptomatic near syncopal episode due to hypotension Possible underlying infection with UTI Hypernatremia secondary to dehydration Clinical signs and symptoms of dehydration Deconditioning Continue IV hydration with D5 half normal saline at 42 cc per hour. caution as pt does have CHF w last EF 25-30% in 2017 Orthostatic BPs reviewed. Laying to standing, BPs go up instead of down. s/p IV fluid boluses in ER. Monitor closely for SOB. PT evaluated the pt and recommended d/c w hospice Not suspecting pulmonary embolism as pt satting well on room air and not having difficulty breathing. Patient has had recent hip surgery per records. Reconcile meds Continue Zosyn for UTI. Urine cultures neg x 1 day. Consult tile erector Palliative care evaluated the patient and family continues to want aggressive care. Hospice following at home despite aggressive care request. DVT prophylaxis with heparin Discharge Planning f/u cultures. if neg ok to d/c home w hospice. Rajni Ahumada MD Sep 24, 2017 08:39
[2017-09-24] MEDS: DEXT 5%-NACL 0.45% 1000 ML INJ 1,000 ML IV SCH (08:49)
[2017-09-24] MEDS: HEPARIN SODIUM - SQ 10,000 UNITS/ML VIAL SQ SCH ×2 (09:29→23:28)
[2017-09-24] MEDS: DOCUSATE SODIUM 50 MG/SENNA 8.6 MG TAB PO SCH ×2 (09:29→21:00)
[2017-09-24 11:42] LABS: BICARBONATE 27.2 MEQ/L (21.0-32.0); CALCIUM 8.6 MG/DL (8.5-10.1); CREATININE 0.97 MG/DL (0.60-1.30)
[2017-09-24 11:54] VITALS: BP 135/84; PULSE 57; RESP 18; TEMP 97.4; O2SAT 96
[2017-09-24 16:18] VITALS: BP 144/88; PULSE 59; RESP 16; TEMP 97.5; O2SAT 97
[2017-09-24 20:25] VITALS: BP 148/92; PULSE 65; RESP 16; TEMP 97.7; O2SAT 95
[2017-09-24 23:16] VITALS: BP 123/77; PULSE 60; RESP 16; TEMP 98.7; O2SAT 94
[2017-09-25] MEDS: PIPERACIL-TAZO 4.5 GM PREMIX 100 ML IV SCH ×4 (03:14→18:30)
[2017-09-25 03:20] VITALS: BP 128/81; PULSE 63; RESP 16; TEMP 98; O2SAT 97
[2017-09-25 08:03] VITALS: BP 136/86; PULSE 60; RESP 20; TEMP 98.8; O2SAT 98
[2017-09-25] MEDS: DOCUSATE SODIUM 50 MG/SENNA 8.6 MG TAB PO SCH ×2 (09:50→21:00)
[2017-09-25] MEDS: HEPARIN SODIUM - SQ 10,000 UNITS/ML VIAL SQ SCH ×2 (09:50→21:34)
[2017-09-25] MEDS: DEXT 5%-NACL 0.45% 1000 ML INJ 1,000 ML IV SCH (09:51)
--- NOTE | 2017-09-25 10:03 | HHI.PR ---
Subjective Remarks Appears a bit more alert this morning, smiles at me, will answer with yes or no. Pleasantly confused. Denies any pain. Tells me he is not hungry when I asked Objective Vitals Vital Signs Date Time Temp Pulse Resp B/P (MAP) Pulse Ox O2 Delivery O2 Flow Rate FiO2 09/25/17 08:03 98.8 60 20 136/86 (103) 98 09/25/17 03:20 98.0 63 16 128/81 (97) 97 09/24/17 23:16 98.7 60 16 123/77 (92) 94 09/24/17 20:25 97.7 65 16 148/92 (110) 95 09/24/17 16:18 97.5 59 16 144/88 (106) 97 09/24/17 11:54 97.4 57 18 135/84 (101) 96 I/O 09/24/17 09/24/17 09/24/17 09/25/17 09/25/17 09/25/17 07:00 15:00 23:00 07:00 15:00 23:00 Intake Total 200 ml Balance 200 ml Intake Oral 200 ml Result Diagram: 09/23/17 0610 09/24/17 1041 Imaging Last Impressions Head CT 09/22/17 1543 Signed Impressions: Service Date/Time: Friday, September 22, 2017 16:01 - CONCLUSION: 1. No acute intracranial hemorrhage. 2. Stable CT scan of the brain compared to the prior examination. 3. No significant changes in the diffuse bilateral cortical atrophy and chronic white matter changes. Reymundo Villafuerte MD Chest X-Ray 09/22/17 1543 Signed Impressions: Service Date/Time: Friday, September 22, 2017 16:08 - CONCLUSION: No acute disease. No significant change has occurred. Reymundo Villafuerte MD Objective Remarks GENERAL: elderly AA male appears weak and chronically ill. CARDIOVASCULAR: Regular rate and rhythm without murmurs RESPIRATORY: Clear to auscultation. Breath sounds equal bilaterally. No wheezes GASTROINTESTINAL: Abdomen soft, non-tender, nondistended. No guarding. MUSCULOSKELETAL: Extremities without edema. No calf tenderness. NEUROLOGICAL: Pleasantly confused, follows some commands, will mumble and answer with yes or no but doesn't say much to me. appears comfortable. A/P Assessment and Plan Hypotension transient Symptomatic near syncopal episode due to hypotension Possible underlying infection with UTI Hypernatremia secondary to dehydration Clinical signs and symptoms of dehydration Deconditioning Continue IV hydration with D5 half normal saline at 42 cc per hour. caution as pt does have CHF w last EF 25-30% in 2017 Orthostatic BPs reviewed. Laying to standing, BPs go up instead of down. s/p IV fluid boluses in ER. Monitor closely for SOB. PT evaluated the pt and recommended d/c w hospice Not suspecting pulmonary embolism as pt satting well on room air and not having difficulty breathing. Patient has had recent hip surgery per records. Reconcile meds Currently on IV Zosyn for UTI however urine culture negative 48 hours. Blood cx came back w /3 bottles growing staph coagulase neg. It is unclear at this point what could have caused pt's symptoms. I have consulted ID for recs regarding blood cx results. contaminant vs true infection? RD evaluated the pt and recommended Ensure TID Palliative care evaluated the patient and family continues to want aggressive care. Hospice following at home despite aggressive care request. DVT prophylaxis with heparin Discharge Planning / blood cx growing staph coag neg. ID consulted for further recs. If cleared, will d/c home w hospice. Rajni Ahumada MD Sep 25, 2017 10:03
[2017-09-25 11:26] LABS: BICARBONATE 32.6 MEQ/L (21.0-32.0); CALCIUM 8.8 MG/DL (8.5-10.1); CREATININE 0.94 MG/DL (0.60-1.30)
--- NOTE | 2017-09-25 12:03 | MB ---
cc: Ced Crum MD DATE: 09/25/2017 REQUESTING PHYSICIAN: Dr. Ahumada REASON FOR CONSULTATION: Patient presented with hypotension. Blood culture is now growing Staph coagulase-negative in 1 of 3 bottles. Family wishing aggressive care. Appreciate recommendations. HISTORY OF PRESENT ILLNESS: This is an 82-year-old black male who was brought to the emergency department because of altered mental status. The patient was reported to have a blood pressure of 50/30 and was completely unresponsive. He was given IV fluids and his mentation improved and he was able to open his eyes and follows some commands, according to the emergency department medical record. His blood pressure was recorded at 131/76. The heart rate was 99.3. White blood cell count was normal. Creatinine was 1.23 and lactic acid level was 2.5 and a respiratory rate was 15 and heart rate 70 in the emergency department. The patient was felt to have possible UTI. Urinalysis was unremarkable. Chest x-ray showed no acute infiltrates. Blood cultures were taken and one of the 4 bottles has Staph coagulase-negative. The patient is currently awake and alert, but is a very poor historian. He cannot answer most of my questions appropriately, but he denies symptoms complaints including headache, nausea, vomiting, shortness of breath, abdominal pain, chest pain, back pain, or dysuria. White count is normal yesterday and the white blood cell count on 09/23/2017 was 6.2. The patient is only oriented to name. PAST MEDICAL HISTORY: Hypertension, dementia, congestive heart failure, cerebrovascular accident, prostate cancer, benign prostatic hypertrophy, arthritis, history of prostatectomy, history of hip repair, history of left inguinal hernia repair, cataract surgery. ALLERGIES: NO KNOWN DRUG ALLERGIES. MEDICATIONS: Piperacillin/tazobactam, Morena-Colace, subcutaneous heparin. SOCIAL HISTORY: No tobacco, no alcohol, no illicit drugs. FAMILY HISTORY: Noncontributory. REVIEW OF SYSTEMS: Negative on a 10-point review. PHYSICAL EXAM: GENERAL: This is a well-developed male who is awake and alert. He is oriented to person. VITAL SIGNS: Temperature 98.8, BP 136/86, respirations 20, heart rate 60. HEENT: Head is atraumatic. Extraocular movements grossly intact. Pupils reactive to light. No icterus. Oropharynx slightly dry mucosa. Erythema of the tongue, but no thrush. NECK: Supple without adenopathy. LUNGS: Clear breath sounds bilaterally. HEART: Regular S1, S2. No murmurs audible. No rubs or gallops. ABDOMEN: Bowel sounds present. Soft, no tenderness appreciated. No masses palpable. RECTAL: Not performed. EXTREMITIES: No clubbing or cyanosis or edema. SKIN: No rash. NEUROLOGIC: The patient is awake and alert. No gross focal finding. PSYCHIATRIC: The patient is calm and cooperative. LABORATORY DATA: WBC 6.2, platelet count 156, hemoglobin 15.1, 63% neutrophils. Creatinine 0.97, BUN 15, sodium 147. Liver function tests are normal. IMPRESSION: 1. Bacteremia due to Staphylococcus coagulase-negative. 2. Sepsis indicated by presentation with altered mental status, hypotension, and elevated lactic acid. No clear source of the sepsis, however. The patient responded to fluid resuscitation. It is also possible that the coag-negative Staph in the blood may be a contaminant and that the sepsis is due to some other cause or other bacteria. RECOMMENDATIONS: Repeat the blood cultures. The patient is clinically stable. Follow the blood cultures and if it comes up positive, please reconsult ID to address. If the blood cultures are negative at 3 days and the patient remained stable, he can be discharged. At this point, he appears clinically stable and has responded with the fluid resuscitation. The piperacillin, which he is currently receiving can be continued until the blood cultures are finalized. Thank you for this consultation. I will be off for the next week, but other ID physicians will be available and can be called if the cultures come back positive. Discussed with Dr. Ahumada. Ced Crum MD FFRichard/DL , 11:29 AM , 12:01 PM
[2017-09-25 12:08] VITALS: BP 132/68; PULSE 66; RESP 18; TEMP 97.9; O2SAT 96
[2017-09-25 18:00] VITALS: BP 137/82; PULSE 59; RESP 16; TEMP 96.8; O2SAT 96
[2017-09-25 20:00] VITALS: BP 145/81; PULSE 56; RESP 16; TEMP 96.5; O2SAT 98
[2017-09-26 00:04] VITALS: BP 146/80; PULSE 64; RESP 16; TEMP 97.5; O2SAT 98
[2017-09-26] MEDS: PIPERACIL-TAZO 4.5 GM PREMIX 100 ML IV SCH ×5 (00:04→23:27)
[2017-09-26 03:52] VITALS: BP 123/72; PULSE 65; RESP 16; TEMP 96.5; O2SAT 99
[2017-09-26] MEDS: HEPARIN SODIUM - SQ 10,000 UNITS/ML VIAL SQ SCH ×2 (07:58→20:34)
[2017-09-26 08:00] VITALS: BP 128/82; PULSE 56; RESP 18; TEMP 97; O2SAT 99
[2017-09-26] MEDS: DEXT 5%-NACL 0.45% 1000 ML INJ 1,000 ML IV SCH (08:00)
[2017-09-26] MEDS: DOCUSATE SODIUM 50 MG/SENNA 8.6 MG TAB PO SCH ×2 (08:00→20:35)
--- NOTE | 2017-09-26 10:16 | HHI.PR ---
Subjective Remarks No complaints from patient. No signs of further sepsis. Bacteremia present in one of 4 cultures. Infectious disease has recommended repeat of culture and monitoring for 72 hours, such that if negative will discharge at that time. Objective Vital Signs Date Time Temp Pulse Resp B/P (MAP) Pulse Ox O2 Delivery O2 Flow Rate FiO2 09/26/17 08:00 97.0 56 18 128/82 (97) 99 09/26/17 03:52 96.5 65 16 123/72 (89) 99 09/26/17 00:04 97.5 64 16 146/80 (102) 98 09/25/17 20:00 96.5 56 16 145/81 (102) 98 09/25/17 18:00 96.8 59 16 137/82 (100) 96 09/25/17 12:08 97.9 66 18 132/68 (89) 96 I/O 09/25/17 09/25/17 09/25/17 09/26/17 09/26/17 09/26/17 07:00 15:00 23:00 07:00 15:00 23:00 Intake Total 200 ml 100 ml 915 ml Balance 200 ml 100 ml 915 ml Intake Oral 200 ml 360 ml IV Total 100 ml 555 ml Result Diagram: 09/23/17 0610 09/25/17 0938 Objective Remarks GENERAL: NAD, A&Ox1 HEAD: Normocephalic. NECK: Supple, trachea midline. No lymphadenopathy. EYES: No scleral icterus. No injection or drainage. CARDIOVASCULAR: Regular rate and rhythm without murmurs, gallops, or rubs. RESPIRATORY: Breath sounds equal bilaterally. No accessory muscle use. GASTROINTESTINAL: Abdomen soft, non-tender, nondistended. MUSCULOSKELETAL: No cyanosis, or edema. SKIN: Warm and dry. NEURO: No focal neurological deficitis. A/P Problem List: (1) Sepsis ICD Code: A41.9 - Sepsis, unspecified organism (2) Symptomatic hypotension ICD Code: I95.89 - Symptomatic hypotension Status: Acute (3) UTI (urinary tract infection) ICD Code: N39.0 - Urinary tract infection, site not specified Assessment and Plan 82-year-old male admitted secondary to UTI with sepsis UTI Sepsis Continue Zosyn Repeat blood cultures per ID recommendation Follow blood cultures for negativity at 72 hours per ID recommendation Consider discharge in 72 hours of blood cultures negative Hypotension transient Symptomatic near syncopal episode due to hypotension Resolved Follow blood pressures Hypernatremia secondary to dehydration Clinical signs and symptoms of dehydration Deconditioning Follow sodium levels Patient will return to hospice at time of discharge DVT prophylaxis Heparin Discharge Planning Infectious disease has recommended repeat of cultures and monitoring for at least 72 hours Once cleared, will d/c home w hospice. Problem Qualifiers (1) UTI (urinary tract infection): Qualified Codes: N39.0 - Urinary tract infection, site not specified Deacon Bear MD Sep 26, 2017 10:16
[2017-09-26 12:00] VITALS: BP 157/92; PULSE 56; RESP 18; TEMP 98.4; O2SAT 98
[2017-09-26 15:01] LABS: BICARBONATE 31.2 MEQ/L (21.0-32.0); CALCIUM 8.4 MG/DL (8.5-10.1); CREATININE 0.86 MG/DL (0.60-1.30)
[2017-09-26 16:00] VITALS: BP 147/88; PULSE 60; RESP 18; TEMP 98.7; O2SAT 100
[2017-09-26 20:00] VITALS: BP 127/74; PULSE 61; RESP 16; TEMP 96.4; O2SAT 99
[2017-09-27] VITALS: BP 113/64; PULSE 58; RESP 18; TEMP 98.4; O2SAT 99
[2017-09-27] MEDS: PIPERACIL-TAZO 4.5 GM PREMIX 100 ML IV SCH ×4 (05:31→23:44)
[2017-09-27 08:00] VITALS: BP 163/99; PULSE 65; RESP 18; TEMP 96.2; O2SAT 100
[2017-09-27] MEDS: HEPARIN SODIUM - SQ 10,000 UNITS/ML VIAL SQ SCH ×2 (09:37→20:25)
[2017-09-27] MEDS: DOCUSATE SODIUM 50 MG/SENNA 8.6 MG TAB PO SCH ×2 (09:37→20:24)
--- NOTE | 2017-09-27 11:25 | HHI.PR ---
Subjective Remarks Patient seen and examined this morning. Temperature 96.2, pulse 65, respiratory 18, blood pressure 160/99, pulse ox 100% on room air. He is sitting up in bed eating breakfast. Has no complaints today. At this time we are awaiting 72 hours of blood cultures with no growth due to previous bacteremia. Objective Vitals Vital Signs Date Time Temp Pulse Resp B/P (MAP) Pulse Ox O2 Delivery O2 Flow Rate FiO2 09/27/17 08:00 96.2 65 18 163/99 (120) 100 09/27/17 00:00 98.4 58 18 113/64 (80) 99 09/26/17 20:00 96.4 61 16 127/74 (91) 99 09/26/17 16:00 98.7 60 18 147/88 (107) 100 09/26/17 12:00 98.4 56 18 157/92 (113) 98 I/O 09/26/17 09/26/17 09/26/17 09/27/17 09/27/17 09/27/17 07:00 15:00 23:00 07:00 15:00 23:00 Intake Total 915 ml 460 ml 520 ml Output Total 600 ml 600 ml Balance 915 ml -140 ml 520 ml -600 ml Intake Oral 360 ml 360 ml IV Total 555 ml 100 ml 520 ml Output Urine Total 600 ml 600 ml # Voids 1 # Bowel Movements 2 1 Result Diagram: 09/23/17 0610 09/26/17 1409 Imaging Last Impressions Head CT 09/22/17 1543 Signed Impressions: Service Date/Time: Friday, September 22, 2017 16:01 - CONCLUSION: 1. No acute intracranial hemorrhage. 2. Stable CT scan of the brain compared to the prior examination. 3. No significant changes in the diffuse bilateral cortical atrophy and chronic white matter changes. Reymundo Villafuerte MD Chest X-Ray 09/22/17 1543 Signed Impressions: Service Date/Time: Friday, September 22, 2017 16:08 - CONCLUSION: No acute disease. No significant change has occurred. Reymundo Villafurete MD Objective Remarks GENERAL: NAD, A&Ox1 HEAD: Normocephalic. NECK: Supple, trachea midline. No lymphadenopathy. EYES: No scleral icterus. No injection or drainage. CARDIOVASCULAR: Regular rate and rhythm without murmurs, gallops, or rubs. RESPIRATORY: Breath sounds equal bilaterally. No accessory muscle use. GASTROINTESTINAL: Abdomen soft, non-tender, nondistended. MUSCULOSKELETAL: No cyanosis, or edema. SKIN: Warm and dry. NEURO: No focal neurological deficits. Medications and IVs Current Medications Medications (Trade) Dose Ordered Sig/Shayan Route Start Time Stop Time Status Last Admin (Heparin Inj) 5,000 units Q12H SQ 09/22/17 20:00 09/27/17 09:37 (Narcan Inj) 0.4 mg UNSCH PRN IV PUSH 09/22/17 18:15 (Morena-Colace) 1 tab BID PO 09/22/17 21:00 09/27/17 09:37 (Milk Of Magnesia Liq) 30 ml Q12H PRN PO 09/22/17 18:15 (Senokot) 17.2 mg Q12H PRN PO 09/22/17 18:15 (Dulcolax Supp) 10 mg DAILY PRN RECTAL 09/22/17 18:15 (Lactulose Liq) 30 ml DAILY PRN PO 09/22/17 18:15 Piperacillin Sod/ Tazobactam Sod 100 ml @ 200 mls/hr Q6HR IV 09/23/17 00:00 09/27/17 05:31 Dextrose/Sodium Chloride 1,000 ml @ 42 mls/hr [id number] IV 09/23/17 09:00 09/26/17 08:00 A/P Problem List: (1) Sepsis ICD Code: A41.9 - Sepsis, unspecified organism (2) Symptomatic hypotension ICD Code: I95.89 - Symptomatic hypotension Status: Acute (3) UTI (urinary tract infection) ICD Code: N39.0 - Urinary tract infection, site not specified Assessment and Plan 82-year-old male admitted secondary to UTI with sepsis UTI Sepsis Continue Zosyn Repeat blood cultures per ID recommendation Follow blood cultures for negativity at 72 hours per ID recommendation Consider discharge in 72 hours of blood cultures negative Currently blood cultures no growth to date 1 Hypotension transient Symptomatic near syncopal episode due to hypotension Resolved Follow blood pressures Hypertension Continue home medications of metoprolol and lisinopril Hypernatremia secondary to dehydration Clinical signs and symptoms of dehydration Deconditioning Follow sodium levels Patient will return to hospice at time of discharge DVT prophylaxis Heparin Discharge Planning Infectious disease has recommended repeat of cultures and monitoring for at least 72 hours Once cleared, will d/c home w hospice. Problem Qualifiers (1) UTI (urinary tract infection): Qualified Codes: N39.0 - Urinary tract infection, site not specified Teto Green MD, R3 Sep 27, 2017 11:25
[2017-09-27] MEDS ORDERED: PILL SPLITTER OTHER PRN (11:30)
[2017-09-27 12:00] VITALS: BP 128/68; PULSE 60; RESP 18; TEMP 96.1; O2SAT 100
[2017-09-27] MEDS: LISINOPRIL 5 MG TAB PO SCH (13:10)
[2017-09-27 16:00] VITALS: BP 143/76; PULSE 60; RESP 18; TEMP 98.9; O2SAT 98
[2017-09-27 20:00] VITALS: BP 117/66; PULSE 63; RESP 17; TEMP 99.2; O2SAT 97
[2017-09-27] MEDS: METOPROLOL TARTRATE 25 MG TAB PO SCH (20:24)
[2017-09-28] VITALS: BP 117/59; PULSE 58; RESP 16; TEMP 97; O2SAT 100
[2017-09-28] MEDS: DEXT 5%-NACL 0.45% 1000 ML INJ 1,000 ML IV SCH (01:25)
[2017-09-28 04:00] VITALS: BP 135/78; PULSE 60; RESP 16; TEMP 97.4; O2SAT 97
[2017-09-28] MEDS: PIPERACIL-TAZO 4.5 GM PREMIX 100 ML IV SCH ×3 (05:14→17:43)
[2017-09-28 08:00] VITALS: BP 126/72; PULSE 55; RESP 18; TEMP 97.8; O2SAT 100
[2017-09-28 08:20] LABS: HEMATOCRIT 32.2 % (39.0-51.0); HEMOGLOBIN 10.8 GM/DL (13.0-17.0); MEAN CELL VOLUME 94.4 FL (80.0-100.0); MEAN CORPUSCULAR HEMOGLOBIN 31.6 PG (27.0-34.0); MEAN CORPUSCULAR HGB CONC 33.4 % (32.0-36.0); MEAN PLATELET VOLUME 7.7 FL (7.0-11.0); PLATELET COUNT 172 TH/MM3 (150-450); RED BLOOD COUNT 3.41 MIL/MM3 (4.50-5.90); RED CELL DISTRIBUTION WIDTH 13.9 % (11.6-17.2); WHITE BLOOD COUNT 6.3 TH/MM3 (4.0-11.0)
[2017-09-28] MEDS: METOPROLOL TARTRATE 25 MG TAB PO SCH ×2 (09:26→21:04)
[2017-09-28] MEDS: DOCUSATE SODIUM 50 MG/SENNA 8.6 MG TAB PO SCH ×2 (09:26→21:04)
[2017-09-28] MEDS: LISINOPRIL 5 MG TAB PO SCH (09:26)
[2017-09-28] MEDS: HEPARIN SODIUM - SQ 10,000 UNITS/ML VIAL SQ SCH ×2 (09:26→21:04)
[2017-09-28 12:00] VITALS: BP 131/69; PULSE 55; RESP 19; TEMP 97.5; O2SAT 99
[2017-09-28 16:00] VITALS: BP 110/69; PULSE 61; RESP 17; TEMP 98.1; O2SAT 100
--- NOTE | 2017-09-28 17:00 | HHI.DS ---
Discharge Summary Admission Date Sep 28, 2017 at 14:35 Discharge Date: Sep 30, 2017 Admitting Diagnosis uti, sepsis, transient hypotension (1) Sepsis ICD Code: A41.9 - Sepsis, unspecified organism (2) Symptomatic hypotension ICD Code: I95.89 - Symptomatic hypotension Status: Acute (3) UTI (urinary tract infection) ICD Code: N39.0 - Urinary tract infection, site not specified Procedures none Brief History - From Admission History from ER notes, and review of medical records. History is extremely limited as patient is not able to give. Apparently, patient came from home. He is on [facility] hospice. Patient's was almost unresponsive when EMS arrived. His blood pressure was 50 over 30s. En route, patient's blood pressure picked up at 110 over 70s after fluid boluses. There was also reported the patient was at a rehabilitation facility recently. He was however saturating 100% on room air By the time patient arrives emergency room, patient was opening his eyes although he is not talking and given history. ER physician also spoke to patient's son who confirms that patient is a full code and all aggressive measures including IV antibiotics to be taken. Workup in the emergency room revealed abnormal UA. CBC/BMP: 09/28/17 0739 09/26/17 1409 Significant Findings Laboratory Tests Test 09/26/17 14:09 09/28/17 07:39 Calcium Level 8.4 MG/DL (8.5-10.1) Sodium Level 146 MEQ/L (136-145) Chloride Level 108 MEQ/L (98-107) Red Blood Count 3.41 MIL/MM3 (4.50-5.90) Hemoglobin 10.8 GM/DL (13.0-17.0) Hematocrit 32.2 % (39.0-51.0) PE at Discharge Lying in bed comfortably, unlabored breathing, clear breath sounds bilaterally, condom catheter in place, sleeping, easily awoken Pt update on day of discharge Patient seen, no deteriorations. Resting in bed comfortably. Has condom catheter in place. Hospital Course Patient was admitted, started on antibiotics. He did not have any recurrence of any fevers. His hypotension resolved. His blood cultures grew out staph capitis but this was deemed to be likely contaminant and not a true infection. Infectious disease ultimately concluded that there was no further need of antibiotics without any recurrence of symptoms. Palliative care and hospice had been consulted however the patient's family surrogate decision maker stated that he wanted aggressive goals while the patient would be on hospice after discharge. Patient has been maximal benefit from hospitalization is clinically stable for discharge back to hospice facility. Pt Condition on Discharge: Stable Discharge Disposition: Hospice/Med Facility Discharge Time: <= 30 minutes Discharge Instructions Continued Medications: Acetaminophen (Mapap) 325 Mg Tab 650 MG PO Q4HR PRN for PAIN/FEVER, TAB [address] (Aspir-81) 81 Mg Tabdr 81 MG PO DAILY Dorzolamide Opth Drops (Trusopt Opth Drops) 2% Soln 1 DROP EACH EYE DAILY for Glaucoma, #1 BOTTLE 0 Refills Erythromycin Opth Oint (Erythromycin Opth Oint) 5 Mg/Gm Oint 1 APPLIC EACH EYE BID for Infection, #1 TUBE 0 Refills Furosemide (Lasix) 20 Mg Tab 20 MG PO DAILY, #30 TAB 0 Refills Hydralazine HCl (Hydralazine HCl) 25 Mg Tablet 25 MG PO TID for Blood Pressure Management, #90 TAB 0 Refills Hydrocodone-Acetaminophen (Boss) 5 Mg-325 Mg Tab 1 TAB PO Q4H PRN for PAIN, #60 TAB 0 Refills Lisinopril (Lisinopril) 5 Mg Tab 2.5 MG PO DAILY, #30 TAB Magnesium Hydroxide Liq (Milk of Magnesia Liq) 400 Mg/5 Ml Susp 30 ML PO DAILY PRN for INDIGESTION OR UPSET STOMACH, #1 BOTTLE 0 Refills Metoprolol Tartrate (Metoprolol Tartrate) 25 Mg Tab 12.5 MG PO BID, #60 TAB Rivaroxaban (Xarelto) 10 Mg Tab 10 MG PO DAILY for Blood Clot Prevention for 14 Days, #14 TAB 0 Refills Sennosides (Senna-Tabs) 8.6 Mg Tab 8.6 MG PO DAILY for Constipation, #30 TAB 0 Refills Teodoro Banks MD Sep 28, 2017 17:00
[2017-09-28 21:34] VITALS: BP 121/73; PULSE 61; RESP 18; TEMP 98.4; O2SAT 100
--- NOTE | 2017-09-28 22:35 | HHI.PR ---
Subjective Remarks Nursing denies any deterioration since last night. patient himself has no new complaints. Objective Vital Signs Date Time Temp Pulse Resp B/P (MAP) Pulse Ox O2 Delivery O2 Flow Rate FiO2 09/28/17 21:34 98.4 61 18 121/73 (89) 100 09/28/17 16:00 98.1 61 17 110/69 (83) 100 09/28/17 12:00 97.5 55 19 131/69 (89) 99 09/28/17 08:00 97.8 55 18 126/72 (90) 100 09/28/17 04:00 97.4 60 16 135/78 (97) 97 09/28/17 04:00 97.4 60 16 135/78 (97) 97 09/28/17 00:00 97.0 58 16 117/59 (78) 100 I/O 09/27/17 09/27/17 09/27/17 09/28/17 09/28/17 09/28/17 07:00 15:00 23:00 07:00 15:00 23:00 Intake Total 460 ml 550 ml 1190 ml 1060 ml Output Total 600 ml 701 ml 300 ml 200 ml Balance -600 ml 460 ml -151 ml 890 ml 860 ml Intake Oral 360 ml 550 ml 90 ml 1060 ml IV Total 100 ml 1100 ml Output Urine Total 600 ml 700 ml 300 ml 200 ml Stool Total 1 ml # Voids 4 2 # Bowel Movements 1 1 1 Result Diagram: 09/28/17 0739 09/26/17 1409 Objective Remarks Lying in bed, unlabored breathing, clear lungs bilaterally, condom catheter in place, awake, alert A/P Assessment and Plan UTI Continue Zosyn Originally had staph capitis bacteremia but repeatblood cultures are negative Awaiting ID recs Hypertension Continue home medications of metoprolol and lisinopril Hypernatremia secondary to dehydration Clinical signs and symptoms of dehydration Deconditioning Follow sodium levels Patient will return to hospice at time of discharge DVT prophylaxis Heparin Discharge Planning Will consider discharging back to hospice once ID recs for abx are in. Teodoro Banks MD Sep 28, 2017 22:35
[2017-09-29] VITALS (7 sets, daily range): BP systolic 119–137; BP diastolic 67–80; PULSE 55–69; RESP 17–20; TEMP 96.2–99.7; O2SAT 97–100
[2017-09-29] MEDS: PIPERACIL-TAZO 4.5 GM PREMIX 100 ML IV SCH ×5 (00:17→23:54)
[2017-09-29] MEDS: LISINOPRIL 5 MG TAB PO SCH (08:51)
[2017-09-29] MEDS: DEXT 5%-NACL 0.45% 1000 ML INJ 1,000 ML IV SCH (08:51)
[2017-09-29] MEDS: HEPARIN SODIUM - SQ 10,000 UNITS/ML VIAL SQ SCH ×2 (08:51→20:19)
[2017-09-29] MEDS: DOCUSATE SODIUM 50 MG/SENNA 8.6 MG TAB PO SCH ×2 (08:51→20:19)
[2017-09-29] MEDS: METOPROLOL TARTRATE 25 MG TAB PO SCH ×2 (08:51→20:19)
--- NOTE | 2017-09-29 15:38 | HHI.HCPN ---
Reason for visit a. To assist with evaluation and management of symptoms including: pain; fatigue b. To assist medical decision maker(s) with: better understanding of current medical conditions; weighing benefits/burdens of medical treatment options; making medical treatment decisions. . Subjective/Interval History Follow-up for symptom management and further clarification of goals. Patient seen and examined in his room. Patient is sleeping, easily arousable. Patient is alert and oriented to self only, confused to place, time and situation. Patient thinks he is home. Patient denies pain at this time and appears to show no signs of discomfort or distress. Infectious disease Dr. Crum consulted on 09/26 for evaluation and management of patient with blood cultures collected on 09/22/17 growing staph coagulase in 1/3 bottles, recommended to follow blood cultures and to reconsult ID if positive. Laboratory workup as of 09/26/17 revealed WBC 6.3, hemoglobin 10.8, hematocrit 32.2, platelet count 172, sodium 146, potassium 3.5, BUN/ creatinine 12/0.86, calcium 8.4. As of 09/26/17 repeat blood cultures negative in both aerobic and anaerobic bottles. Case management following. . Family/friend interactions No family at bedside . Advance Directives Living Will: Never completed Health Care Surrogate: Never completed Durable Power of Raking Machine Operator: Never completed Advance Directive Specifics Date completed: Advanced directives were never completed. . Health Care Surrogate(s): There has been no written designation of healthcare surrogate. . Documented care wishes: There is no written documentation of healthcare wishes/preferences. . Objective Vital Signs Date Time Temp Pulse Resp B/P (MAP) Pulse Ox O2 Delivery O2 Flow Rate FiO2 09/29/17 12:00 97.4 55 18 128/73 (91) 97 09/29/17 08:00 96.2 58 17 137/74 (95) 99 09/29/17 05:44 97.5 69 18 126/80 (95) 100 09/29/17 00:29 97.9 66 18 119/69 (86) 99 09/28/17 21:34 98.4 61 18 121/73 (89) 100 09/28/17 16:00 98.1 61 17 110/69 (83) 100 Intake & Output 09/29/17 09/29/17 07:00 19:00 Output Total 450 ml Balance -450 ml Output Urine Total 450 ml # Bowel Movements 1 Physical Exam CONSTITUTIONAL/GENERAL: This is an adequately nourished patient, in no apparent distress. Patient sleeping, easily arousable. Denies pain SKIN: No jaundice, rashes, or lesions. No wounds seen anteriorly. Skin temperature appropriate. Not diaphoretic. HEAD: Atraumatic. Normocephalic. EYES: Pupils equal with deformities from cataract extraction. Pupils are reactive to light. Extraocular motions intact. No scleral icterus. No injection or drainage. Fundi not examined. ENT: Hearing grossly normal. Nose without bleeding or purulent drainage. Throat without visible erythema, exudates, masses, or lesions. Missing many teeth. NECK: Trachea midline. Supple, nontender. CARDIOVASCULAR: Regular rate and rhythm without murmurs, gallops, or rubs. No JVD. Peripheral pulses symmetric. RESPIRATORY/CHEST: Symmetric, unlabored respirations. Clear to auscultation. Breath sounds equal bilaterally. No wheezes, rales, or rhonchi. GASTROINTESTINAL: Abdomen soft, non-tender, nondistended. No guarding. Bowel sounds present. GENITOURINARY: Without palpable bladder distension. MUSCULOSKELETAL: Extremities without clubbing, cyanosis, or edema. No joint tenderness or effusion noted. No calf tenderness. No mottling or clubbing. NEUROLOGICAL: Sleeping, easily arousable, and late and oriented to self only with confusion. Motor and sensory grossly within normal limits. Intermittently follows a few simple commands. Moves all extremities. Able to smile. PSYCHIATRIC: No obvious anxiety/depression. No apparent hallucinations or other psychotic thought process. . Diagnostic Tests Laboratory Laboratory Tests Test 09/28/17 07:39 White Blood Count 6.3 TH/MM3 (4.0-11.0) Red Blood Count 3.41 MIL/MM3 (4.50-5.90) Hemoglobin 10.8 GM/DL (13.0-17.0) Hematocrit 32.2 % (39.0-51.0) Mean Corpuscular Volume 94.4 FL (80.0-100.0) Mean Corpuscular Hemoglobin 31.6 PG (27.0-34.0) Mean Corpuscular Hemoglobin Concent 33.4 % (32.0-36.0) Red Cell Distribution Width 13.9 % (11.6-17.2) Platelet Count 172 TH/MM3 (150-450) Mean Platelet Volume 7.7 FL (7.0-11.0) Result Diagram: 09/28/17 0739 09/26/17 8806 Assessment and Plan Disease Oriented Problem List: (1) Symptomatic hypotension (2) Cardiomyopathy (3) History of prostate cancer (4) History of TIAs (5) Syncope (6) Dementia Symptom Scale: (1) Pain 0-10 Scale: Unable to quantify Comment: Patient is unable to characterize or quantify his own pain. Son reports that he believes the patient still has some pain at the site of his left hip fracture. Patient does not normally use any type of pain medication while at home for this. . (2) Fatigue 0-10 Scale: Unable to quantify Comment: Per son, patient is now spending the vast majority of the day sleeping in his bed or in his recliner chair. . Pertinent Non-Medical Issues Psychosocial: Patient normally lives with his son--Loyd--and Loyd's . Spiritual: Buddhist. Son does not believe the patient would particularly benefit from online program coordinator visits. Legal: No advance directives. Ethical issues impacting care: Patient is incapacitated and there is no reasonable probability he will regain capacity . Important Contacts Loyd Case (son) -- [phone] . Prognosis This patient is 82 y/o with a history of cardiomyopathy (EF on 04/15/17 was 25- 30%) ; dementia; CAD; TIA who was just admitted for his 5th hospitalization in the last year. He had repair of a fractured hip in Jul 2017 and since that time has been bed/chair bound and per son, spends most of the day sleeping. Pacemaker and cardiac cath have been offered, but declined due to risks. He was found hypotensive and unresponsive again, but has managed yet again to perk up. The patient has been under the care of [facility] for 2-3 years (per his son). Nevertheless, goals are aggressive -- "I want everything done to keep him alive as long as possible." It is still unclear what exactly is causing these periods of unresponsiveness but there is a high likelihood this is some sort of cardiac dysrhythmia. Permanent pacemaker has been recommended. Cardiac catheterization has also been recommended. Both of these procedures have been declined. Given his age and co-morbidities hospice would certainly be appropriate if the goals were comfort oriented. However, in this case, the son feels his father would want full aggressive care including life support and resuscitation. . Code Status: Full Code Plan == Code status-- FULL CODE == Decision making: The patient is incapacitated to make his own medical decisions. There is no reasonable probability that the patient will recover capacity due to his dementia. As the patient is not currently , proxy healthcare decision making would fall to his 3 sons. In spite of efforts, we only have contact information from 1 of the sons--Loyd--who is the primary caregiver. == Goals of medical treatment: No changes in goals. The patient's son is quite adamant that the patient would want everything done to keep him alive as long as possible including resuscitation and life support. He indicates that [facility] is aware of these goals but has been providing care but discharging the patient when he goes to the hospital. == Symptoms: * Pain: The patient is unable to characterize or quantify his own pain. According to his son, the patient intermittently appears painful at the site of his left hip repair. He does not routinely take any type of analgesics for this. Patient denies pain and not showing any signs of pain during visit. Recommending starting with acetaminophen for pain if he does appear painful. * Fatigue: Son reports that the patient is now spending the vast majority of day sleeping in his bed or in his recliner chair. This is probably secondary to a combination of his sedentery status since his hip fracture and possibly his cardiomyopathy. Found patient sleeping and is lunch tray was on the table. Fatigue will most likely progress with time. == Palliative care will continue to assist with symptom management and to further clarify goals of medical treatment as the clinical course evolves. . Attestation To help prompt me to consider important information that might be impacting today's encounter and assessment, information from prior notes written by myself or my colleagues may have been "brought forward" into today's note. My signature on this note, however, is an attestation that I personally performed the exam, history, and/or decision-making noted today, and, unless otherwise indicated, the interactions with patient, family, and staff as well as the review of records all occurred today. I also attest that the listed assessment and stated plan reflect my best clinical judgment today based on the combination of historical information, prior notes, and today's exam/ interactions. When time spent is documented, it refers only to time spent today by the signer, or if indicated, combined time spent today by collaborating physician/nurse practitioner. Barbi Saeed Sep 29, 2017 15:38
--- NOTE | 2017-09-29 17:15 | HHI.PR ---
Subjective Remarks Nursing denies any deterioration since last night. patient himself has no new complaints. Objective Vital Signs Date Time Temp Pulse Resp B/P (MAP) Pulse Ox O2 Delivery O2 Flow Rate FiO2 09/29/17 16:00 98.8 59 18 129/67 (87) 100 09/29/17 12:00 97.4 55 18 128/73 (91) 97 09/29/17 08:00 96.2 58 17 137/74 (95) 99 09/29/17 05:44 97.5 69 18 126/80 (95) 100 09/29/17 00:29 97.9 66 18 119/69 (86) 99 09/28/17 21:34 98.4 61 18 121/73 (89) 100 I/O 09/28/17 09/28/17 09/28/17 09/29/17 09/29/17 09/29/17 07:00 15:00 23:00 07:00 15:00 23:00 Intake Total 1190 ml 1060 ml Output Total 300 ml 200 ml 450 ml Balance 890 ml 860 ml -450 ml Intake Oral 90 ml 1060 ml IV Total 1100 ml Output Urine Total 300 ml 200 ml 450 ml # Voids 4 2 # Bowel Movements 1 1 Result Diagram: 09/28/17 0739 09/26/17 1409 Objective Remarks Lying in bed, sleeping, easily awoken, unlabored breathing, clear lungs bilaterally, condom catheter in place, awake, alert A/P Assessment and Plan original sepsis of unknown origin Neg for UTI Stopping Zosyn Originally had staph capitis bacteremia likely contaminant. Repeat blood cultures negative; per ID no further tx necessary Hypertension Continue home medications of metoprolol and lisinopril DVT prophylaxis Heparin Discharge Planning Awaiting hospice disposition Teodoro Banks MD Sep 29, 2017 17:15
[2017-09-30 04:00] VITALS: BP 141/73; PULSE 63; RESP 20; TEMP 97.8; O2SAT 99
[2017-09-30] MEDS: PIPERACIL-TAZO 4.5 GM PREMIX 100 ML IV SCH ×2 (05:21→11:52)
[2017-09-30 08:00] VITALS: BP 145/75; PULSE 64; RESP 16; TEMP 97.9; O2SAT 96
[2017-09-30] MEDS: METOPROLOL TARTRATE 25 MG TAB PO SCH (08:46)
[2017-09-30] MEDS: LISINOPRIL 5 MG TAB PO SCH (08:46)
[2017-09-30] MEDS: HEPARIN SODIUM - SQ 10,000 UNITS/ML VIAL SQ SCH (08:47)
[2017-09-30] MEDS: DOCUSATE SODIUM 50 MG/SENNA 8.6 MG TAB PO SCH (08:47)
[2017-09-30] MEDS: DEXT 5%-NACL 0.45% 1000 ML INJ 1,000 ML IV SCH (08:48)
[2017-09-30 12:00] VITALS: BP 138/67; PULSE 52; RESP 16; TEMP 97.8; O2SAT 98
== END 2017-09-30 16:00 | disposition hospice, inpatient (51) | DRG 641 ==
LOC: NEPE 15:29 → NEDA 18:06 → INTOOBSV 18:06 → NEPGCP 22:20 → HOCB 09-25 17:30 → OBSVTOIN 09-28 14:35
PROVIDERS: ADMIT Hospitalist; ATTEND Hospitalist
DX: E87.0 Hyperosmolality and hypernatremia (principal); E86.0 Dehydration; I95.89 Other hypotension; I50.9 Heart failure, unspecified; I11.0 Hypertensive heart disease with heart failure; F03.90 Unspecified dementia, unspecified severity, without behavioral disturbance, psychotic disturbance, mood disturbance, and anxiety; Z86.73 Personal history of transient ischemic attack (TIA), and cerebral infarction without residual deficits; M19.90 Unspecified osteoarthritis, unspecified site; Z79.02 Long term (current) use of antithrombotics/antiplatelets; Z79.82 Long term (current) use of aspirin; Z85.46 Personal history of malignant neoplasm of prostate
CPT/HCPCS: 70450; 71045; 80048; 80053; 81001; 82550; 82552; 83605; 83735; 84100; 84484; 85025; 85027; 85610; 85730; 87040; 87077; 87086; 87186; 87205; 93005; 96360; G8987-GO; G8988-GO; G8989-GO; J1644; J2543; J7030; J7040

== ENCOUNTER 2017-11-16 14:31 | Observation (INO) | payer MEDICARE, OTHER ==
[~2017-11-16] VITALS: Ht 172.7 cm; Wt 69.0 kg
[~2017-11-16 14:31] MED LIST changes: -BACT800T5 PO; +ERYTOIN10 EACH EYE; +HYDR-3799 PO; +MILKSUS PO; -POTA20TA5 PO; +SENN8.6T36 PO; +TRUS2SOL EACH EYE
[2017-11-16 14:47] VITALS: BP 139/81; PULSE 76; RESP 17; TEMP 97.9; O2SAT 100
--- NOTE | 2017-11-16 14:53 | PD ---
HPI Chief Complaint: FAILURE TO THRIVE Time Seen by Provider: 14:47 Travel History International Travel<30 days: No Contact w/Intl Traveler<30days: No Traveled to known affect area: No History of Present Illness HPI 82-year-old male with history of dementia, prostate cancer, cardiomyopathy, coronary artery disease, TIA, presents via EMS for evaluation of unsafe living conditions. The patient reportedly lives with family members. Paramedics report that last week Geetha went to check and the patient and found that he had unsafe living conditions. They checked on him again today and the living conditions have not improved and thus he was sent here for further evaluation. They note that he has a sacral pressure ulcer of unknown duration and is complaining of pain in the same area. He was also sitting in his own urine. He also has an indwelling Santana catheter which appears uncapped and uncared for. History is limited secondary to patient's history of dementia. The patient was most recently admitted here on September 28. Palliative care was consulted and according to their notes the patient has been following with geetha for 2-3 years. PFSH Past Medical History Arthritis: Yes Autoimmune Disease: No Anxiety: No Depression: No Heart Rhythm Problems: No Cancer: Yes (PROSTATE) Cardiovascular Problems: Yes High Cholesterol: No Chest Pain: No Congestive Heart Failure: Yes Cerebrovascular Accident: Yes Dementia: Yes Diabetes: No Diminished Hearing: No Endocrine: No Genitourinary: Yes (BPH) Headaches: Yes Hepatitis: No Hiatal Hernia: No Hypertension: Yes Immune Disorder: No Kidney Stones: No Musculoskeletal: Yes Neurologic: Yes Psychiatric: Yes (dementia) Reproductive: No Respiratory: No Migraines: No Myocardial Infarction: No Renal Failure: No Seizures: No Thyroid Disease: No Past Surgical History Abdominal Surgery: Yes (LEFT INGUINAL HERNIA REPAIR) Eye Surgery: Yes (BILATERAL EYES CATARACT, DETACHED RETINA LEFT EYE) Genitourinary Surgery: Yes (HX PROSTATE CA) Gynecologic Surgery: Yes (prostrate ca) Pacemaker: No Other Surgery: Yes Social History Alcohol Use: No Tobacco Use: No Substance Use: No Allergies-Medications (Allergen,Severity, Reaction): Coded Allergies: No Known Allergies (Verified Allergy, Unknown, 07/28/17) Reported Meds & Prescriptions Reported Meds & Active Scripts Active Xarelto (Rivaroxaban) 10 Mg Tab 10 Mg PO DAILY 14 Days Firestone (Hydrocodone-Acetaminophen) 5 Mg-325 Mg Tab 1 Tab PO Q4H PRN Walker/Adult/Folding (Device) 1 Mis Mis Ea .ROUTE DIRECTED Lisinopril 5 Mg Tab 2.5 Mg PO DAILY Metoprolol Tartrate 25 Mg Tab 12.5 Mg PO BID Reported Erythromycin Opth Oint 5 Mg/Gm Oint 1 Applic EACH EYE BID Hydralazine HCl 25 Mg Tablet 25 Mg PO TID Trusopt Opth Drops (Dorzolamide HCl) 2% Soln 1 Drop EACH EYE DAILY Milk of Magnesia Liq (Magnesium Hydroxide) 400 Mg/5 Ml Susp 30 Ml PO DAILY PRN Senna-Tabs (Sennosides) 8.6 Mg Tab 8.6 Mg PO DAILY Aspir-81 (Aspirin) 81 Mg Tabdr 81 Mg PO DAILY Lasix (Furosemide) 20 Mg Tab 20 Mg PO DAILY Mapap (Acetaminophen) 325 Mg Tab 650 Mg PO Q4HR PRN Review of Systems Except as stated in HPI: all other systems reviewed are Neg Physical Exam Narrative GENERAL: This is a disheveled elderly male who is in no acute distress. He is alert to person which is his baseline. SKIN: Warm and dry. There is a stage III sacral pressure ulcer. HEAD: Atraumatic. Normocephalic. EYES: Pupils equal and round. No scleral icterus. No injection or drainage. ENT: No nasal bleeding or discharge. Mucous membranes pink and moist. NECK: Trachea midline. No JVD. CARDIOVASCULAR: Regular rate and rhythm. No murmur appreciated. RESPIRATORY: No accessory muscle use. Clear to auscultation. Breath sounds equal bilaterally. GASTROINTESTINAL: Abdomen soft, non-tender, nondistended. Hepatic and splenic margins not palpable. Poorly kept Santana catheter is in place with foul- smelling urine. MUSCULOSKELETAL: No obvious deformities. No clubbing. No cyanosis. No edema. NEUROLOGICAL: Awake and alert. No obvious cranial nerve deficits. Motor grossly within normal limits. Normal speech. Data Data Last Documented VS Vital Signs Date Time Temp Pulse Resp B/P (MAP) Pulse Ox O2 Delivery O2 Flow Rate FiO2 11/16/17 15:30 75 11/16/17 14:47 97.9 17 139/81 (100) 100 Orders Orders Remove Urinary Catheter .ONCE (11/16/17 14:47) Urinary Catheter Management HERMES.Q8H (11/16/17 14:47) Complete Blood Count With Diff (11/16/17 14:47) Comprehensive Metabolic Panel (11/16/17 14:47) Urinalysis - C+S If Indicated (11/16/17 14:47) Chest, Single Ap (11/16/17 14:47) Creatine Kinase (Cpk) (11/16/17 14:47) Pelvis, Ap Only (Routine) (11/16/17 ) Iv Access Insert/Monitor (11/16/17 14:47) Magnesium (Mg) (11/16/17 14:47) Sodium Chlor 0.9% 1000 Ml Inj (Ns 1000 M (11/16/17 16:29) Admit Order (Ed Use Only) (11/16/17 17:30) Labs Laboratory Tests Test 11/16/17 15:20 White Blood Count 6.4 TH/MM3 Red Blood Count 3.45 MIL/MM3 Hemoglobin 11.3 GM/DL Hematocrit 32.3 % Mean Corpuscular Volume 93.6 FL Mean Corpuscular Hemoglobin 32.7 PG Mean Corpuscular Hemoglobin Concent 34.9 % Red Cell Distribution Width 14.1 % Platelet Count 266 TH/MM3 Mean Platelet Volume 7.1 FL Neutrophils (%) (Auto) 57.2 % Lymphocytes (%) (Auto) 29.0 % Monocytes (%) (Auto) 10.3 % Eosinophils (%) (Auto) 2.8 % Basophils (%) (Auto) 0.7 % Neutrophils # (Auto) 3.7 TH/MM3 Lymphocytes # (Auto) 1.9 TH/MM3 Monocytes # (Auto) 0.7 TH/MM3 Eosinophils # (Auto) 0.2 TH/MM3 Basophils # (Auto) 0.0 TH/MM3 CBC Comment DIFF FINAL Differential Comment Blood Urea Nitrogen 16 MG/DL Creatinine 0.85 MG/DL Random Glucose 133 MG/DL Total Protein 6.8 GM/DL Albumin 2.2 GM/DL Calcium Level 8.4 MG/DL Magnesium Level 2.0 MG/DL Alkaline Phosphatase 89 U/L Aspartate Amino Transf (AST/SGOT) 19 U/L Alanine Aminotransferase (ALT/SGPT) 13 U/L Total Bilirubin 0.4 MG/DL Sodium Level 142 MEQ/L Potassium Level 3.4 MEQ/L Chloride Level 105 MEQ/L Carbon Dioxide Level 31.5 MEQ/L Anion Gap 6 MEQ/L Estimat Glomerular Filtration Rate 105 ML/MIN Total Creatine Kinase 48 U/L MDM Medical Decision Making Medical Screen Exam Complete: Yes Emergency Medical Condition: Yes Medical Record Reviewed: Yes Differential Diagnosis Failure to thrive, poor living conditions, UTI, pressure ulcer, sepsis Narrative Course CBC reveals a hemoglobin of 11.3 otherwise unremarkable. CMP reveals potassium 3.4, calcium 8.4 otherwise unremarkable. Chest x-ray is unremarkable. The patient is currently unsafe for discharge and will be admitted for observation. Diagnosis Primary Impression: Failure to thrive in adult Additional Impression: Sacral pressure ulcer Admitting Information Admitting Physician Requests: Observation Joe Man November 16, 2017 14:53
--- NOTE | 2017-11-16 15:18 | RADRPT ---
EXAM DATE/TIME: 11/16/2017 14:55 [facility] COMPARISON: CHEST SINGLE AP, September 22, 2017, 16:08. INDICATIONS : Chest discomfort; failure to thrive. MEDICAL HISTORY : Hypertension. Cardiovascular disease. Cerebrovascular disease. Carcinoma, prostatic SURGICAL HISTORY : None. ENCOUNTER: Initial ACUITY: 1 day PAIN SCORE: 0/10 LOCATION: Bilateral chest FINDINGS: No new focal pleural or parenchymal opacities. Redemonstration of probably ectatic thoracic aorta. Ca rdiac silhouette is stable. Remainder of exam is unchanged. CONCLUSION: 1. No acute abnormality or significant interval change. Nash Ortega MD on November 16, 2017 at 15:13 Board Certified Radiologist. This report was verified electronically.
--- NOTE | 2017-11-16 15:24 | RADRPT ---
EXAM DATE/TIME: 11/16/2017 14:58 [facility] COMPARISON: HIP LEFT (AP&LAT 2/3VWS) W AP PELVIS, July 28, 2017, 21:29. INDICATIONS : Pelvic discomfort; failure to thrive. MEDICAL HISTORY : Hypertension. Cardiovascular disease. Cerebrovascular disease. Carcinoma, prostatic SURGICAL HISTORY : ORIF left hip. ENCOUNTER: Initial ACUITY: 1 day PAIN SCORE: 0/10 LOCATION: Bilateral pelvis FINDINGS: Interval compression screw and intramedullary xander fixation of left femoral intertrochanteric fracture . A fracture line persists with minimal bony remodeling. Osseous structures otherwise are intact. Deg enerative changes are about the hips. Remainder of exam is unchanged. CONCLUSION: 1. Intramedullary xander and compression screw fixation of left femoral intertrochanteric fracture. Hard treadwell is well-positioned and intact. Persistent intertrochanteric fracture line. 2. No acute fracture. Nash Ortega MD on November 16, 2017 at 15:16 Board Certified Radiologist. This report was verified electronically.
[2017-11-16 16:10] LABS: AUTOMATED NEUTROPHIL # 3.7 TH/MM3 (1.8-7.7); BASOPHIL % 0.7 % (0.0-2.0); EOSINOPHIL # 0.2 TH/MM3 (0-0.4); EOSINOPHIL % 2.8 % (0.0-4.0); HEMATOCRIT 32.3 % (39.0-51.0); HEMOGLOBIN 11.3 GM/DL (13.0-17.0); LYMPHOCYTE # 1.9 TH/MM3 (1.0-4.8); MEAN CELL VOLUME 93.6 FL (80.0-100.0); MEAN CORPUSCULAR HEMOGLOBIN 32.7 PG (27.0-34.0); MEAN CORPUSCULAR HGB CONC 34.9 % (32.0-36.0); MEAN PLATELET VOLUME 7.1 FL (7.0-11.0); MONO % 10.3 % (0.0-8.0); MONOCYTE # 0.7 TH/MM3 (0-0.9); NEUT % 57.2 % (16.0-70.0); PLATELET COUNT 266 TH/MM3 (150-450); RED BLOOD COUNT 3.45 MIL/MM3 (4.50-5.90); RED CELL DISTRIBUTION WIDTH 14.1 % (11.6-17.2); WHITE BLOOD COUNT 6.4 TH/MM3 (4.0-11.0)
[2017-11-16] MEDS ORDERED: SODIUM CHLOR 0.9% 1000 ML INJ 1,000 ML IV SCH ×2 (16:29→18:00)
[2017-11-16 17:00] LABS: BLOOD UREA NITROGEN 16 MG/DL (7-18); CREATININE 0.85 MG/DL (0.60-1.30); GLOMERULAR FILTRATION RATE 105 ML/MIN (>89); GLUCOSE,RANDOM 133 MG/DL (74-106); TOTAL PROTEIN 6.8 GM/DL (6.4-8.2)
[2017-11-16 17:01] LABS: ALBUMIN 2.2 GM/DL (3.4-5.0); ALKALINE PHOSPHATASE 89 U/L (45-117); ALT (GPT) 13 U/L (12-78); AST (GOT) 19 U/L (15-37); BICARBONATE 31.5 MEQ/L (21.0-32.0); CALCIUM 8.4 MG/DL (8.5-10.1); CHLORIDE 105 MEQ/L (98-107); SODIUM (NA) 142 MEQ/L (136-145); TOTAL BILIRUBIN ADULT 0.4 MG/DL (0.2-1.0)
[2017-11-16] MEDS ORDERED: BISACODYL 10 MG SUPP RECTAL PRN (17:45)
[2017-11-16] MEDS ORDERED: ACETAMINOPHEN 325 MG TAB PO PRN (17:45)
[2017-11-16] MEDS ORDERED: SODIUM CHLORIDE 0.9% FLUSH 10 ML FLUSH IV FLUSH PRN (17:45)
[2017-11-16] MEDS ORDERED: MAGNESIUM HYDROXIDE SUSP 30 ML CUP PO PRN (17:45)
[2017-11-16] MEDS ORDERED: SENNOSIDES 8.6 MG TAB PO PRN (17:45)
[2017-11-16] MEDS ORDERED: NALOXONE HCL 0.4 MG/ML AMP IV PUSH PRN (17:45)
[2017-11-16] MEDS ORDERED: LACTULOSE SYRUP 20 GM/30 ML CUP PO PRN (17:45)
[2017-11-16] MEDS ORDERED: ONDANSETRON ODT 4 MG TAB PO PRN (18:00)
[2017-11-16 18:35] VITALS: BP 117/56; PULSE 71; RESP 17; O2SAT 100
[2017-11-16 20:27] VITALS: BP 135/77; PULSE 67; RESP 17; TEMP 97.6; O2SAT 100
[2017-11-16] MEDS: SODIUM CHLORIDE 0.9% FLUSH 10 ML FLUSH IV FLUSH SCH (21:04)
--- NOTE | 2017-11-16 21:28 | HHI.HP ---
HPI Service [facility] Primary Care Physician Unknown Admission Diagnosis Failure to thrive Diagnoses: Travel History International Travel<30 Days: No Contact w/Intl Traveler <30 Da: No Traveled to Known Affected Are: No History of Present Illness 82-year-old male with a past medical history significant for cardiomyopathy, CHF (EF of 25-30%), history of TIAs, dementia, arthritis and a history of prostate cancer was brought to the emergency department for evaluation of unsafe living conditions. The patient is on hospice and per television announcer report last week Miko went to check on the patient and found him in unsafe living conditions. The patient reportedly lives with family members. Miko checked on the patient again today and found that the living conditions had not improved and he was sent to the emergency department for further evaluation. The patient has a sacral pressure ulcer of unknown duration and was complaining of pain in the area. He was reportedly also sitting in his own urine. He has an indwelling Santana catheter which appears uncapped and uncared for. The patient has a history of dementia and his ability to provide history is extremely limited. The patient has no complaints at this time and is not sure why he is here. He is oriented only to self. Review of Systems Unable to obtain secondary to patient's clinical condition Past Family Social History Past Medical History (Obtained from medical records) Hypertension CHF CVA Dementia Prostate cancer BPH Arthritis Past Surgical History Unable to obtain Reported Medications Reported Meds & Active Scripts Active Xarelto (Rivaroxaban) 10 Mg Tab 10 Mg PO DAILY 14 Days [place] (Hydrocodone-Acetaminophen) 5 Mg-325 Mg Tab 1 Tab PO Q4H PRN Walker/Adult/Folding (Device) 1 Mis Mis Ea .ROUTE DIRECTED Lisinopril 5 Mg Tab 2.5 Mg PO DAILY Metoprolol Tartrate 25 Mg Tab 12.5 Mg PO BID Reported Erythromycin Opth Oint 5 Mg/Gm Oint 1 Applic EACH EYE BID Hydralazine HCl 25 Mg Tablet 25 Mg PO TID Trusopt Opth Drops (Dorzolamide HCl) 2% Soln 1 Drop EACH EYE DAILY Milk of Magnesia Liq (Magnesium Hydroxide) 400 Mg/5 Ml Susp 30 Ml PO DAILY PRN Senna-Tabs (Sennosides) 8.6 Mg Tab 8.6 Mg PO DAILY Aspir-81 (Aspirin) 81 Mg Tabdr 81 Mg PO DAILY Lasix (Furosemide) 20 Mg Tab 20 Mg PO DAILY Mapap (Acetaminophen) 325 Mg Tab 650 Mg PO Q4HR PRN Allergies: Coded Allergies: No Known Allergies (Verified Allergy, Unknown, 07/28/17) Family History Unable to obtain Social History Denies alcohol, tobacco and illicit drugs Physical Exam Vital Signs Vital Signs Date Time Temp Pulse Resp B/P (MAP) Pulse Ox O2 Delivery O2 Flow Rate FiO2 11/16/17 20:27 97.6 67 17 135/77 (96) 100 11/16/17 19:39 21 11/16/17 18:35 71 17 117/56 (76) 100 Room Air 11/16/17 17:50 21 11/16/17 15:30 75 11/16/17 14:47 97.9 76 17 139/81 (100) 100 Physical Exam GENERAL: Cachectic, -[place] male lying in bed SKIN: No rashes, ecchymoses or lesions. Cool and dry. Sacral pressure ulcer. HEAD: Atraumatic. Normocephalic. No temporal or scalp tenderness. EYES: Pupils equal round and reactive. Extraocular motions intact. No scleral icterus. No injection or drainage. ENT: Nose without bleeding, purulent drainage or septal hematoma. Throat without erythema, tonsillar hypertrophy or exudate. Uvula midline. Airway patent. NECK: Trachea midline. No JVD or lymphadenopathy. Supple, nontender, no meningeal signs. CARDIOVASCULAR: Regular rate and rhythm without murmurs, gallops, or rubs. RESPIRATORY: Clear to auscultation. Breath sounds equal bilaterally. No wheezes , rales, or rhonchi. GASTROINTESTINAL: Abdomen soft, non-tender, nondistended. No hepato-splenomegaly , or palpable masses. No guarding. MUSCULOSKELETAL: Extremities without clubbing, cyanosis, or edema. No joint tenderness, effusion, or edema noted. No calf tenderness. NEUROLOGICAL: Awake and alert. Pleasantly confused. Oriented only to self. Cranial nerves II through XII intact. Motor and sensory grossly within normal limits. Normal speech. Laboratory Laboratory Tests Test 11/16/17 15:20 White Blood Count 6.4 Red Blood Count 3.45 Hemoglobin 11.3 Hematocrit 32.3 Mean Corpuscular Volume 93.6 Mean Corpuscular Hemoglobin 32.7 Mean Corpuscular Hemoglobin Concent 34.9 Red Cell Distribution Width 14.1 Platelet Count 266 Mean Platelet Volume 7.1 Neutrophils (%) (Auto) 57.2 Lymphocytes (%) (Auto) 29.0 Monocytes (%) (Auto) 10.3 Eosinophils (%) (Auto) 2.8 Basophils (%) (Auto) 0.7 Neutrophils # (Auto) 3.7 Lymphocytes # (Auto) 1.9 Monocytes # (Auto) 0.7 Eosinophils # (Auto) 0.2 Basophils # (Auto) 0.0 CBC Comment DIFF FINAL Differential Comment Blood Urea Nitrogen 16 Creatinine 0.85 Random Glucose 133 Total Protein 6.8 Albumin 2.2 Calcium Level 8.4 Magnesium Level 2.0 Alkaline Phosphatase 89 Aspartate Amino Transf (AST/SGOT) 19 Alanine Aminotransferase (ALT/SGPT) 13 Total Bilirubin 0.4 Sodium Level 142 Potassium Level 3.4 Chloride Level 105 Carbon Dioxide Level 31.5 Anion Gap 6 Estimat Glomerular Filtration Rate 105 Total Creatine Kinase 48 Result Diagram: 11/16/17 1520 11/16/17 1520 Caprini VTE Risk Assessment Caprini VTE Risk Assessment: Mod/High Risk (score >= 2) Caprini Risk Assessment Model Point Value = 1 Point Value = 2 Point Value = 3 Point Value = 5 Age 41-60 Minor surgery BMI > 25 kg/m2 Swollen legs Varicose veins or History of unexplained or recurrent spontaneous Oral contraceptives or hormone replacement Sepsis (< 1 month) Serious lung disease, including pneumonia (< 1 month) Abnormal pulmonary function Acute myocardial infarction Congestive heart failure (< 1 month) History of inflammatory bowel disease Medical patient at bed rest Age 61-74 Arthroscopic surgery Major open surgery (> 45 min) Laparoscopic surgery (> 45 min) Malignancy Confined to bed (> 72 hours) Immobilizing plaster cast Central venous access Age >= 75 History of VTE Family history of VTE Factor V Leiden Prothrombin [id number] Lupus anticoagulant Anticardiolipin antibodies Elevated serum homocysteine Heparin-induced thrombocytopenia Other congenital or acquired thrombophilia Stroke (< 1 month) Elective arthroplasty Hip, pelvis, or leg fracture Acute spinal cord injury (< 1 month) Prophylaxis Regimen Total Risk Factor Score Risk Level Prophylaxis Regimen 0-1 Low Early ambulation 2 Moderate Order ONE of the following: *Sequential Compression Device (SCD) *Heparin 5000 units SQ BID 3-4 Higher Order ONE of the following medications: *Heparin 5000 units SQ TID *Enoxaparin/Lovenox 40 mg SQ daily (WT < 150 kg, CrCl > 30 mL/min) *Enoxaparin/Lovenox 30 mg SQ daily (WT < 150 kg, CrCl > 10-29 mL/min) *Enoxaparin/Lovenox 30 mg SQ BID (WT < 150 kg, CrCl > 30 mL/min) AND/OR *Sequential Compression Device (SCD) 5 or more Highest Order ONE of the following medications: *Heparin 5000 units SQ TID (Preferred with Epidurals) *Enoxaparin/Lovenox 40 mg SQ daily (WT < 150 kg, CrCl > 30 mL/min) *Enoxaparin/Lovenox 30 mg SQ daily (WT < 150 kg, CrCl > 10-29 mL/min) *Enoxaparin/Lovenox 30 mg SQ BID (WT < 150 kg, CrCl > 30 mL/min) AND *Sequential Compression Device (SCD) Assessment and Plan Assessment and Plan Assessment/plan: 1. Failure to thrive/unsafe living conditions Case management consulted to assist with safe discharge and possible placement Regular diet with Ensure supplementation Patient on hospice with [facility] Previously evaluated by palliative care, reconsult palliative care to assist with goals of care 2. Cardiomyopathy/CHF Echo done on 04/15/17 showed an EF of 25-30% Per previous documentation, pacemaker and catheterization recommended and declined Continue home Lasix 3. Hypertension Continue home hydralazine, metoprolol and lisinopril 4. History of TIA Continue aspirin FEN Regular diet with Ensure supplementation Electrolytes: Status post p.o. potassium repletion, monitor BMP Heparin Elida Zaldivar MD November 16, 2017 21:27
[2017-11-16] MEDS ORDERED: POTASSIUM BICARBONATE 25 MEQ EFFERVESCENT TAB PO ONE (21:30)
[2017-11-16] MEDS ORDERED: ACETAMINOPHEN/HYDROcodone 325 MG/5 MG TAB PO PRN (21:30)
[2017-11-16] MEDS ORDERED: PILL SPLITTER OTHER PRN (21:45)
--- NOTE | 2017-11-16 22:21 | PD ---
Physical Exam Narrative Please see mid level provider note for full history and physical and disposition. Patient presents to the ER secondary to poor living situation. He' s afebrile, vss, + pressure ulcer. Labs showed slight decrease in Hgb/HCT/ potassium. Will admit for further eval and management. Data Data Last Documented VS Vital Signs Date Time Temp Pulse Resp B/P (MAP) Pulse Ox O2 Delivery O2 Flow Rate FiO2 11/16/17 15:30 75 11/16/17 14:47 97.9 17 139/81 (100) 100 Orders Orders Remove Urinary Catheter .ONCE (11/16/17 14:47) Urinary Catheter Management HERMES.Q8H (11/16/17 14:47) Complete Blood Count With Diff (11/16/17 14:47) Comprehensive Metabolic Panel (11/16/17 14:47) Urinalysis - C+S If Indicated (11/16/17 14:47) Chest, Single Ap (11/16/17 14:47) Creatine Kinase (Cpk) (11/16/17 14:47) Pelvis, Ap Only (Routine) (11/16/17 ) Iv Access Insert/Monitor (11/16/17 14:47) Magnesium (Mg) (11/16/17 14:47) Sodium Chlor 0.9% 1000 Ml Inj (Ns 1000 M (11/16/17 16:29) Admit Order (Ed Use Only) (11/16/17 17:30) Labs Laboratory Tests Test 11/16/17 15:20 White Blood Count 6.4 TH/MM3 Red Blood Count 3.45 MIL/MM3 Hemoglobin 11.3 GM/DL Hematocrit 32.3 % Mean Corpuscular Volume 93.6 FL Mean Corpuscular Hemoglobin 32.7 PG Mean Corpuscular Hemoglobin Concent 34.9 % Red Cell Distribution Width 14.1 % Platelet Count 266 TH/MM3 Mean Platelet Volume 7.1 FL Neutrophils (%) (Auto) 57.2 % Lymphocytes (%) (Auto) 29.0 % Monocytes (%) (Auto) 10.3 % Eosinophils (%) (Auto) 2.8 % Basophils (%) (Auto) 0.7 % Neutrophils # (Auto) 3.7 TH/MM3 Lymphocytes # (Auto) 1.9 TH/MM3 Monocytes # (Auto) 0.7 TH/MM3 Eosinophils # (Auto) 0.2 TH/MM3 Basophils # (Auto) 0.0 TH/MM3 CBC Comment DIFF FINAL Differential Comment Blood Urea Nitrogen 16 MG/DL Creatinine 0.85 MG/DL Random Glucose 133 MG/DL Total Protein 6.8 GM/DL Albumin 2.2 GM/DL Calcium Level 8.4 MG/DL Magnesium Level 2.0 MG/DL Alkaline Phosphatase 89 U/L Aspartate Amino Transf (AST/SGOT) 19 U/L Alanine Aminotransferase (ALT/SGPT) 13 U/L Total Bilirubin 0.4 MG/DL Sodium Level 142 MEQ/L Potassium Level 3.4 MEQ/L Chloride Level 105 MEQ/L Carbon Dioxide Level 31.5 MEQ/L Anion Gap 6 MEQ/L Estimat Glomerular Filtration Rate 105 ML/MIN Total Creatine Kinase 48 U/L MDM Supervised Visit with OMER: Yes Diagnosis Primary Impression: Failure to thrive in adult Additional Impression: Sacral pressure ulcer Qualified Codes: L89.159 - Pressure ulcer of sacral region, unspecified stage Admitting Information Admitting Physician Requests: Admit Condition: Stable Vero Coyne MD November 16, 2017 22:21
[2017-11-16 23:29] VITALS: BP 122/68; PULSE 61; RESP 17; TEMP 98; O2SAT 100
[2017-11-17 03:57] VITALS: BP 126/75; PULSE 67; RESP 16; TEMP 98.2; O2SAT 98
[2017-11-17 08:00] VITALS: BP 119/74; PULSE 61; RESP 20; TEMP 96.8; O2SAT 93
[2017-11-17] MEDS: METOPROLOL TARTRATE 25 MG TAB PO SCH (09:00)
[2017-11-17] MEDS: LISINOPRIL 5 MG TAB PO SCH (09:00)
[2017-11-17] MEDS: hydrALAZINE HCL 25 MG TAB PO SCH ×3 (09:00→18:46)
[2017-11-17] MEDS: SODIUM CHLORIDE 0.9% FLUSH 10 ML FLUSH IV FLUSH SCH ×2 (09:35→20:40)
[2017-11-17] MEDS: ASPIRIN EC 81 MG TABEC PO SCH (09:35)
[2017-11-17] MEDS: FUROSEMIDE 20 MG TAB PO SCH (09:35)
[2017-11-17] MEDS: HEPARIN SODIUM - SQ 10,000 UNITS/ML VIAL SQ SCH ×2 (09:35→20:39)
[2017-11-17] MEDS: DORZOLAMIDE 2% OPTH SOLN 200 DROP/10 ML BTLO EACH EYE SCH (09:44)
[2017-11-17 10:19] LABS: BACTERIA, URINE OCC /hpf; BILIRUBIN, URINE NEG (NEG); BLOOD, URINE MOD (NEG); GLUCOSE,URINE NEG (NEG); KETONE, URINE 10 mg/dL (NEG); MUCUS URINE FEW /lpf (OCC); NITRITE,URINE POS (NEG); PH, URINE 7.5 (5.0-8.5); TRIPLE PHOSPHATE CRYSTAL,URINE RARE /hpf; URINE COLOR YELLOW (YELLW/STRAW); URINE LEUKOCYTE ESTERASE LARGE (NEG)
--- NOTE | 2017-11-17 11:40 | HHI.PR ---
Subjective Remarks Follow-up failure to thrive November 17, 2017-patient seen and examined, waiting for palliative care medicine. No acute event overnight. Afebrile. BP soft Objective Vitals Vital Signs Date Time Temp Pulse Resp B/P (MAP) Pulse Ox O2 Delivery O2 Flow Rate FiO2 11/17/17 08:00 96.8 61 20 119/74 (89) 93 11/17/17 03:57 98.2 67 16 126/75 (92) 98 11/16/17 23:29 98.0 61 17 122/68 (86) 100 11/16/17 20:27 97.6 67 17 135/77 (96) 100 11/16/17 19:39 21 11/16/17 18:35 71 17 117/56 (76) 100 Room Air 11/16/17 17:50 21 11/16/17 15:30 75 11/16/17 14:47 97.9 76 17 139/81 (100) 100 I/O 11/16/17 11/16/17 11/16/17 11/17/17 11/17/17 11/17/17 07:00 15:00 23:00 07:00 15:00 23:00 Output Total 50 ml Balance -50 ml Output Urine Total 50 ml Result Diagram: 11/16/17 1520 11/16/17 1520 Imaging Last Impressions Chest X-Ray 11/16/17 1447 Signed Impressions: Service Date/Time: Thursday, November 16, 2017 14:55 - CONCLUSION: 1. No acute abnormality or significant interval change. Nash Ortega MD Pelvis X-Ray 11/16/17 0000 Signed Impressions: Service Date/Time: Thursday, November 16, 2017 14:58 - CONCLUSION: 1. Intramedullary xander and compression screw fixation of left femoral intertrochanteric fracture. Hardware is well-positioned and intact. Persistent intertrochanteric fracture line. 2. No acute fracture. Nash Ortega MD Objective Remarks GENERAL: NAD SKIN: Warm and dry. HEAD: Normocephalic. EYES: No scleral icterus. No injection or drainage. NECK: Supple, trachea midline. No JVD or lymphadenopathy. CARDIOVASCULAR: Regular rate and rhythm without murmurs, gallops, or rubs. RESPIRATORY: Breath sounds equal bilaterally. No accessory muscle use. GASTROINTESTINAL: Abdomen soft, non-tender, nondistended. MUSCULOSKELETAL: No cyanosis, or edema. BACK: Nontender without obvious deformity. No CVA tenderness. A/P Problem List: (1) Failure to thrive in adult ICD Code: R62.7 - Adult failure to thrive Status: Acute Assessment and Plan 82-year-old man with 1. Failure to thrive/unsafe living conditions Case management consulted to assist with safe discharge and possible placement Patient on hospice with [facility] Previously evaluated by palliative care, reconsult palliative care to assist with goals of care 2. Cardiomyopathy/CHF Echo done on 04/15/17 showed an EF of 25-30% Per previous documentation, pacemaker and catheterization recommended and declined Continue home Lasix 3. Hypertension Continue home hydralazine with holding parameters,and hold metoprolol and lisinopril; consider d/c Lopressor and Lisinopril 4. History of TIA Continue aspirin Leo Woodall MD November 17, 2017 11:40
[2017-11-17 12:00] VITALS: BP 135/79; PULSE 71; RESP 20; TEMP 96.3; O2SAT 94
--- NOTE | 2017-11-17 12:39 | PD.CONS ---
Consult Service Palliative Care Consult Requested By Dr Zaldivar . Primary Care Physician Unknown Reason for Consultation a. To assist with evaluation and management of symptoms including: poor appetite, pain, confusion b. To assist medical decision maker(s) with: better understanding of current medical conditions; weighing benefits/burdens of medical treatment options; making medical treatment decisions. HPI History of Present Illness This 82 year old man presented to the ED 11/16/17, from home, via EMS. He was brought in apparently due to unsafe living conditions. EMS reported [facility] saw pt last week, noted unsafe conditions, checked again day of presentation, no improvement in conditions, so sent him to the ED. He was noted to have painful sacral wound, sitting in his urine, gutierrez catheter. He was unable to provide additional history to EMS. Palliative followed during that admission. * CBC unremarkable. Albumin 2.2,calcium 8.4, Potassium 3.4. Potassium repleted. UA positive, culture obtained. CXR no acute process. Abdomen pelvis x-ray notes IM xander and screw fixation left femoral fracture hardware are well-positioned and intact. Persistent intertrochanteric fracture line no acute fracture. He is planned for admission for further evaluation and management, and case management assessment with safe discharge placement. * Additional history per review of records patient has been on [facility] for the last 2-3 years, however he does seek treatment at the hospital when aggressive treatment is desired. Hospice services are discontinued at time of admission, and resumed upon discharge back home. He apparently lives with his son Loyd who has been his primary caregiver. He is a poor historian secondary to dementia. He has known cardiomyopathy with EF 25-30% echo 04/2017. * Patient seen by palliative care 09/2017: At that time palliative spoke with patient's son Loyd who has been primary caregiver. He expresses aggressive goals. Patient had events of unresponsiveness and hypotension, and which pacemaker and cardiac catheterization had been offered however those were declined due to risks per the patient's son. He has been nonambulatory and bedbound since sustaining hip fracture in July 2017. Prior to that had been walking independently. Patient examined in room no visitors present. He is alert, watching TV. He is pleasant, cooperative though confused. He is oriented to self, able to name one son Loyd. Able to state his address. Unable to tell me where he is at currently, or why he is here. Other questions such as date of he just repeats birthdate and does not actually answer the questions. He denies pain. He denies shortness of breath, though again note patient appears to be poor historian. Per nurse's aid ate 100% of breakfast good appetite earlier today. Following exam call to son Loyd, see family conference for additional detail. Later spoke w Courtney Chery project construction assistant manager in ED. she indicates she has been in communication with DCF worker and DCF has petitioned for involuntary placement in a nursing facility due to patient unable to be cared for in the home setting. Function/Cognitive Trajectory Dementia, verbalizes a few words. Confused. Nonambulatory, bedbound since femur fracture July 2017. Son reports patient with decreased appetite recently, prepares her meals but he will only eat a few bites. + Generalized confusion oriented to family. Review of Systems ROS Limitations: Poor Historian, Other (Poor historian, dementia, some history per son) Constitutional: COMPLAINS OF: Change in appetite, Pain (Sacrum), Generalized weakness, DENIES: Fever Respiratory: DENIES: Cough, Shortness of breath Gastrointestinal: DENIES: Abdominal pain, Nausea, Vomiting, Difficulty Swallowing Genitourinary: DENIES: Dysuria Psychiatric: COMPLAINS OF: Confusion Past Family Social History Coded Allergies: No Known Allergies (Verified Allergy, Unknown, 07/28/17) Past Medical History (Obtained from medical records) Hypertension CHF CVA Dementia Prostate cancer BPH Arthritis Past Surgical History Left inguinal hernia repair Bilateral bilateral cataract extractions Detached retina surgery left eye Prostatectomy ORIF/IM xander left femur/hip 07/2017 . Reported Medications Xarelto (Rivaroxaban) 10 Mg Tab 10 Mg PO DAILY 14 Days Barre (Hydrocodone-Acetaminophen) 5 Mg-325 Mg Tab 1 Tab PO Q4H PRN Walker/Adult/Folding (Device) 1 Mis Mis Ea .ROUTE DIRECTED Lisinopril 5 Mg Tab 2.5 Mg PO DAILY Metoprolol Tartrate 25 Mg Tab 12.5 Mg PO BID Erythromycin Opth Oint 5 Mg/Gm Oint 1 Applic EACH EYE BID Hydralazine HCl 25 Mg Tablet 25 Mg PO TID Trusopt Opth Drops (Dorzolamide HCl) 2% Soln 1 Drop EACH EYE DAILY Milk of Magnesia Liq (Magnesium Hydroxide) 400 Mg/5 Ml Susp 30 Ml PO DAILY PRN Senna-Tabs (Sennosides) 8.6 Mg Tab 8.6 Mg PO DAILY Aspir-81 (Aspirin) 81 Mg Tabdr 81 Mg PO DAILY Lasix (Furosemide) 20 Mg Tab 20 Mg PO DAILY Mapap (Acetaminophen) 325 Mg Tab 650 Mg PO Q4HR PRN . Current Medications Medications (Trade) Dose Ordered Sig/Shayan Route Start Time Stop Time Status Last Admin (NS Flush) 2 ml UNSCH PRN IV FLUSH 11/16/17 17:45 (NS Flush) 2 ml BID IV FLUSH 11/16/17 21:00 11/17/17 09:35 (Tylenol) 650 mg Q4H PRN PO 11/16/17 17:45 (Zofran Odt) 4 mg Q6H PRN PO 11/16/17 18:00 (Narcan Inj) 0.4 mg UNSCH PRN IV PUSH 11/16/17 17:45 (Milk Of Magnesia Liq) 30 ml Q12H PRN PO 11/16/17 17:45 (Heparin Inj) 5,000 units Q12HR SQ 11/17/17 09:00 11/17/17 09:35 (Ecotrin Ec) 81 mg DAILY PO 11/17/17 09:00 11/17/17 09:35 (Trusopt 2% Opth Soln) 1 drop DAILY EACH EYE 11/17/17 09:00 11/17/17 09:44 (Lasix) 20 mg DAILY PO 11/17/17 09:00 11/17/17 09:35 (Apresoline) 25 mg TID PO 11/17/17 09:00 (Barre 5-325 Mg) 1 tab Q4H PRN PO 11/16/17 21:30 (Prinivil) 2.5 mg DAILY PO 11/17/17 09:00 Future Hold (Lopressor) 12.5 mg BID PO 11/17/17 09:00 Future Hold (Pill Splitter) 1 ea UNSCH PRN OTHER 11/16/17 21:45 Family History Per son during prior palliative interaction believes patient father may have had heart disease. . Substance Use Tobacco: Non-smoker Alcohol: None reported Prescription med abuse: None reported Illicits: None reported . Psychosocial History Per prior palliative interaction : Completed high school education. Not . Has 3 sons, has been living with 1 of his sons Loyd and Loyd his . At that time Loyd informed that the other sons have not been in communication or involved in patient's care. They were apparently aware that he was hospitalized. During this admission Loyd indicates he and his continue to care for patient at home. They have not been in communication with patient's other sons Loyd indicates that they do not want to be in communication. Spiritual/Cultural Factors Per prior palliative care interactions: Hinduism. Loyd did not feel outside sales inspector visits would be particularly important to the patient. . Living Will: Never completed Health Care Surrogate: Never completed Durable Power of Project/Production Manager Imaging: Never completed Ethical and Legal Issues This patient is incapacitated secondary to dementia. Not expected to regain capacity. No reported advanced directive or health care surrogate designation. He is reported to have 3 adult sons. Per [place] statutes proxy decision making would fall to the majority of 3 adult sons. Loyd has been serving as the primary caregiver; during prior palliative care interactions unable to obtain contact information for the other sons. Attempts should be made to locate these other 2 sons to determine if they wish to participate in decision- making. Physical Exam Vital Signs Date Time Temp Pulse Resp B/P (MAP) Pulse Ox O2 Delivery O2 Flow Rate FiO2 11/17/17 08:00 96.8 61 20 119/74 (89) 93 11/17/17 03:57 98.2 67 16 126/75 (92) 98 11/16/17 23:29 98.0 61 17 122/68 (86) 100 11/16/17 20:27 97.6 67 17 135/77 (96) 100 11/16/17 19:39 21 11/16/17 18:35 71 17 117/56 (76) 100 Room Air 11/16/17 17:50 21 11/16/17 15:30 75 11/16/17 14:47 97.9 76 17 139/81 (100) 100 11/17/17 11/18/17 18:59 06:59 Output Total 50 ml Balance -50 ml Output Urine Total 50 ml Exam CONSTITUTIONAL/GENERAL: Frail, elderly male. Pleasantly confused TUBES/LINES/DRAINS: Peripheral IV upper extremity, Gutierrez catheter SKIN: No jaundice, rashes, or lesions. Reported sacral wound which I did not visualize. Skin warm and dry. Fingernails long, dirty. HEAD: Atraumatic. Normocephalic. EYES: Left pupil misshapen, cloudy. Extraocular motions intact. No scleral icterus. No injection or drainage. Fundi not examined. ENT: Hard of hearing. Nose without bleeding or purulent drainage. Throat without visible erythema, exudates, masses, or lesions.+ Dentures in place NECK: Trachea midline. Supple, nontender. No palpable thyroid enlargement or nodularity. CARDIOVASCULAR: Regular rate and rhythm without murmur. No JVD. Peripheral pulses symmetric. GASTROINTESTINAL: Abdomen soft, flat, non-tender, nondistended. No hepato- splenomegaly, or palpable masses. No guarding. Bowel sounds present. GENITOURINARY: Without palpable bladder distension. Gutierrez catheter in place. MUSCULOSKELETAL: Extremities without clubbing, cyanosis, or edema. No joint tenderness or effusion noted. No calf tenderness. No mottling or clubbing. LYMPHATICS: No palpable cervical or supraclavicular adenopathy. NEUROLOGICAL: Awake and alert. Oriented to self, family and able to name part of street address. Confused to date of , location or reason for hospitalization. Poor insight. Cooperative. Moves all 4 extremities to command and spontaneously. PSYCHIATRIC: No obvious anxiety/depression. no apparent hallucinations or other psychotic thought process. Diagnostic Tests Laboratory Laboratory Tests Test 11/16/17 15:20 11/17/17 09:40 White Blood Count 6.4 TH/MM3 (4.0-11.0) Red Blood Count 3.45 MIL/MM3 (4.50-5.90) Hemoglobin 11.3 GM/DL (13.0-17.0) Hematocrit 32.3 % (39.0-51.0) Mean Corpuscular Volume 93.6 FL (80.0-100.0) Mean Corpuscular Hemoglobin 32.7 PG (27.0-34.0) Mean Corpuscular Hemoglobin Concent 34.9 % (32.0-36.0) Red Cell Distribution Width 14.1 % (11.6-17.2) Platelet Count 266 TH/MM3 (150-450) Mean Platelet Volume 7.1 FL (7.0-11.0) Neutrophils (%) (Auto) 57.2 % (16.0-70.0) Lymphocytes (%) (Auto) 29.0 % (9.0-44.0) Monocytes (%) (Auto) 10.3 % (0.0-8.0) Eosinophils (%) (Auto) 2.8 % (0.0-4.0) Basophils (%) (Auto) 0.7 % (0.0-2.0) Neutrophils # (Auto) 3.7 TH/MM3 (1.8-7.7) Lymphocytes # (Auto) 1.9 TH/MM3 (1.0-4.8) Monocytes # (Auto) 0.7 TH/MM3 (0-0.9) Eosinophils # (Auto) 0.2 TH/MM3 (0-0.4) Basophils # (Auto) 0.0 TH/MM3 (0-0.2) CBC Comment DIFF FINAL Differential Comment Blood Urea Nitrogen 16 MG/DL (7-18) Creatinine 0.85 MG/DL (0.60-1.30) Random Glucose 133 MG/DL (74-106) Total Protein 6.8 GM/DL (6.4-8.2) Albumin 2.2 GM/DL (3.4-5.0) Calcium Level 8.4 MG/DL (8.5-10.1) Magnesium Level 2.0 MG/DL (1.5-2.5) Alkaline Phosphatase 89 U/L (45-117) Aspartate Amino Transf (AST/SGOT) 19 U/L (15-37) Alanine Aminotransferase (ALT/SGPT) 13 U/L (12-78) Total Bilirubin 0.4 MG/DL (0.2-1.0) Sodium Level 142 MEQ/L (136-145) Potassium Level 3.4 MEQ/L (3.5-5.1) Chloride Level 105 MEQ/L (98-107) Carbon Dioxide Level 31.5 MEQ/L (21.0-32.0) Anion Gap 6 MEQ/L (5-15) Estimat Glomerular Filtration Rate 105 ML/MIN (>89) Total Creatine Kinase 48 U/L (39-308) Urine Color YELLOW (YELLW/STRAW) Urine Turbidity HAZY (CLEAR) Urine pH 7.5 (5.0-8.5) Urine Specific [place] 1.017 (1.002-1.035) Urine Protein 30 mg/dL (NEG-TRACE) Urine Glucose (UA) NEG mg/dL (NEG) Urine Ketones 10 mg/dL (NEG) Urine Occult Blood MOD (NEG) Urine Nitrite POS (NEG) Urine Bilirubin NEG (NEG) Urine Urobilinogen 2.0 MG/DL (LESS THAN Urine Leukocyte Esterase LARGE (NEG) Urine RBC 29 /hpf (0-3) Urine WBC 59 /hpf (0-5) Urine Triple Phosphate Crystals RARE /hpf (NONE) Urine Bacteria OCC /hpf (NONE) Urine Mucus FEW /lpf (OCC) Microscopic Urinalysis Comment CULTURE INDICATED Result Diagram: 11/16/17 1520 11/16/17 1520 Microbiology Microbiology Date/Time Source Procedure Growth Status 11/17/17 09:40 Urine Clean Catch Urine Culture Pending Received Imaging Last Impressions Chest X-Ray 11/16/17 1447 Signed Impressions: Service Date/Time: Thursday, November 16, 2017 14:55 - CONCLUSION: 1. No acute abnormality or significant interval change. Nash Ortega MD Pelvis X-Ray 11/16/17 0000 Signed Impressions: Service Date/Time: Thursday, November 16, 2017 14:58 - CONCLUSION: 1. Intramedullary xander and compression screw fixation of left femoral intertrochanteric fracture. Hardware is well-positioned and intact. Persistent intertrochanteric fracture line. 2. No acute fracture. Nash Ortega MD Patient/Family Conference Family Conference Time (mins): 20 Family Conference Location: Telephone Issues Discussed: Call to everett Harp discussion included the following: * Palliative care role, purpose, approach * Additional medical, psychosocial, and spiritual history * Patients general health, functional status, and cognitive changes in the months leading up to the current hospitalization * Patient/family understanding of the current medical problems * Patient/family understanding of prognosis; review of expected dementia trajectory going forward * Patients goals of care as best understood from advance directives and/or conversations and/or values * Current medical treatment options and benefits/burdens of those options * Questions answered to the best of my ability * Palliative care contact information provided Initially during telephone conversation son Loyd is very guarded, attempted to explore reason of hospital presentation and EMS involvement, he indicates that the family was "concerned about his health and wanted to him to be healed ". He tells me that he does not need to tell me why the patient is here "you guys are the doctor you know why he is in the hospital ", and that EMS was not summoned due to concerns of pt safety. He also indicates they have been wanting him to get "better enough for walking ". Attempts to explore hospice enrollment however Loyd does not provide additional details. He does tell me that the patient has been eating pretty much a liquid diet and a few bites of any meals recently they took him a lot of food but he will not eat much. He does not report any nausea or vomiting. He reports his dad is sleeping more and that he is tired because of weakness and that he seems to want to get up but he will not. He wants to get him well enough to try to walk again. His comes on the phone and tells me that 1 of the reasons he was sent to the ER is because he has a wound to his backside that has "eaten to his bone "and they want to get this healed. Gently explore with family that patient has progressive dementia process, and even with the best care and caregivers he will continue to experience associated complications and decline due to advancing disease process. Gently explore with him potential complications and that even with maximized hospital- based care his wound may not be healed, nor with his walking likely be restored. Attempt to explore CODE STATUS son is again guarded indicates that his father is not dying right now, and that even though he would rather at home with family and friends and not in the hospital setting, and that right now he is not dying and he would want everything done to help him live. . All questions answered to the best of my ability. Attempted to provide palliative contact information however he indicated that he could be called as needed he did not take the information. Assessment and Plan Disease Oriented Problem List: (1) Hypertension (2) UTI (urinary tract infection) (3) Fatigue (4) Dementia (5) Cardiomyopathy (6) History of prostate cancer (7) History of TIAs (8) Failure to thrive in adult (9) Sacral pressure ulcer Symptom Scale: (1) Anorexia 0-10 Scale: Unable to quantify (2) Pain 0-10 Scale: Unable to quantify (3) Confusion 0-10 Scale: Unable to quantify Pertinent Non-Medical Issues Psychosocial:Per prior palliative interaction : Completed high school education. Not . Has 3 sons, has been living with 1 of his sons Loyd and Loyd his . At that time Loyd informed that the other sons have not been in communication or involved in patient's care. They were apparently aware that he was hospitalized. Spiritual: Hinduism oliver, during prior interactions Loyd did not feel outside sales inspector visits would be important to this patient. Legal:This patient is incapacitated secondary to dementia. Not expected to regain capacity. No reported advanced directive or health care surrogate designation. He is reported to have 3 adult sons. Per [place] statutes proxy decision making would fall to the majority of 3 adult sons. Loyd has been serving as the primary caregiver; during prior palliative care interactions unable to obtain contact information for the other sons. Attempts should be made to locate these other 2 sons to determine if they wish to participate in decision-making. Ethical issues impacting care: Important Contacts Son Loyd Case [phone] ? Son Jaime Case Son Anuj Case- may have TBI, unable to participate? . Prognosis This patient presented to the hospital due to unsafe living conditions. He has had ongoing cardiomyopathy, dementia, CAD. Concern for cardiac dysrhythmia, has been offered pacemaker and cardiac catheterization in the past which the son declined to proceed with. He has had multiple hospitalizations over the past 1 year this would be his sixth. He has been bedbound since hip fracture in July 2017. He has been under hospice services for the past 2-3 years ( [facility]). Due to advanced age, multiple chronic medical comorbidities appropriate for hospice if goals comfort oriented. . Code Status: Full Code Plan * Legal decision maker:This patient is incapacitated secondary to dementia. Not expected to regain capacity. No reported advanced directive or health care surrogate designation. He is reported to have 3 adult sons. Per [place] statutes proxy decision making would fall to the majority of 3 adult sons. Loyd has been serving as the primary caregiver; during prior palliative care interactions unable to obtain contact information for the other sons. Attempts should be made to locate these other 2 sons to determine if they wish to participate in decision-making. Today during my discussion with son Loyd he indicates they have not been in communication with the other 2 sons, that he has tried in the past but they do not wish to be involved. Her FP Complete search appears one brother Dorian suffered a traumatic brain injury, not clear he would even be able to participate. * *per Case management notes: ANSLEY SPOKE WITH OPHELIA TATE([facility]) [phone] AND WAS INFORMED THAT SHE HAD PETITIONED THE COURT FOR INVOLUNTARY ADMISSION AND SHE WAS JUST WAITING ON THE RESULTS. * Goals: Son Loyd expresses aggressive goals would want everything done to help the patient heal and recover from any conditions and illnesses. * CODE STATUS: Full code * SYMPTOMS: --Poor appetite/anorexia-patient reported to be eating well here during hospital course though has only been here since yesterday. Son reports eating only a few bites of meals, and pretty much on a "liquid diet because he is not eating much". Based on review of last few admissions weight appears stable although albumin is low. This may be disease progression. --Pain-family reports patient appears painful to sacral wounds, I was unable to visualize this wound today during my assessment they reported "goes to the bone "and that the patient is unable to describe his pain but when they assist with changing his briefs he still says Ow and appears painful. Has prn Tylenol available. Cautious use of opiates given aggressive goals. Patient denies pain today during my exam though he is a poor historian. --confusion- hx dementia, CVA. Appears at baseline- oriented to self, family. pleasantly confused.+ UTI * Palliative care will continue to follow during hospital course as condition evolves, to assist patient/decision-maker with understanding of medical conditions, weighing benefits/burdens of treatment options, for clarification of goals of treatment. Additionally will assist with any symptoms of palliative concern . Time Spent Total Floor Time (mins): 70 (Chart review, PE, discussion with family, discussion with attending) Thank you for the opportunity to participate in the care of Mr. Case. Attestation To help prompt me to consider important information that might be impacting today's encounter and assessment, information from prior notes written by myself or my colleagues may have been "brought forward" into today's note. My signature on this note, however, is an attestation that I personally performed the exam, history, and/or decision-making noted today, and, unless otherwise indicated, the interactions with patient, family, and staff as well as the review of records all occurred today. I also attest that the listed assessment and stated plan reflect my best clinical judgment today based on the combination of historical information, prior notes, and today's exam/ interactions. When time spent is documented, it refers only to time spent today by the signer, or if indicated, combined time spent today by collaborating physician/nurse practitioner. Peyton Richardson November 17, 2017 12:39
[2017-11-17 16:00] VITALS: BP 126/80; PULSE 79; RESP 20; TEMP 97.9; O2SAT 99
--- NOTE | 2017-11-17 16:07 | PD.WCN.NOT ---
Wound Consult Description: Received consult from Alicja Giron for for pressure ulcer of sacral area Communicated with: LILLIAN DOMINGUEZ, and Alicja JIMÉNEZ Recommendation: 1.Please cleanse wound to L side of sacrum with normal saline or wound cleanser and pat dry. 2. Apply skin barrier film (skin prep) to periwound and areas in contact with adhesive before applying dressing. 3. Apply gentle adhesive foam dressing and change dressing every 3 days or if dressing becomes soiled from feces, urine or if dressing becomes dislodged. 4. If patient is not discharged, will need low airloss surface. 5. Please use ultrasorb pad only under patient, please do not use cotton pads. Additional Information: Patient seen in G pod for evaluation of sacral pressure ulcer. Patient was positioned with moderate assistance to R side for wound assessment. Patinet is noted laying on one ultra sorb pad and one cotton pad.Removed adhesive foam dressing in place to reveal wound to the L side of the sacrum.Wound bed presents with ~80% red granulation tissue and ~20% white tissue. Wound bed is moist, with minimal sero-sanguinous drainage. No foul odor is noted. Wound margins are sharp and well defined.Wound etiology is most likely pressure. 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 Cleansed wound with normal saline and patted dry. Wound measures ~3.9cm x ~5cm x ~0.3cm. Skin prep was applied to periwound circumferentially and to areas in contact with adhesive, before applying adhesive foam dressing. Julienne Mancia [facility] November 17, 2017 16:07
[2017-11-18 00:23] VITALS: BP 117/76; PULSE 84; RESP 18; TEMP 98; O2SAT 96
[2017-11-18 04:42] VITALS: BP 118/68; PULSE 83; RESP 18; TEMP 98.2; O2SAT 98
[2017-11-18 07:27] VITALS: BP 114/68; PULSE 83; RESP 18; TEMP 98.5; O2SAT 98
[2017-11-18] MEDS: DORZOLAMIDE 2% OPTH SOLN 200 DROP/10 ML BTLO EACH EYE SCH (09:08)
[2017-11-18] MEDS: SODIUM CHLORIDE 0.9% FLUSH 10 ML FLUSH IV FLUSH SCH ×2 (09:09→22:03)
[2017-11-18] MEDS: cefTRIAXone INJ 1,000 MG in SODIUM CHLORIDE 0.9% INJ 100 ML IV SCH (09:09)
[2017-11-18] MEDS: hydrALAZINE HCL 25 MG TAB PO SCH ×3 (09:10→18:00)
[2017-11-18] MEDS: ASPIRIN EC 81 MG TABEC PO SCH (09:10)
[2017-11-18] MEDS: FUROSEMIDE 20 MG TAB PO SCH (09:10)
[2017-11-18] MEDS: HEPARIN SODIUM - SQ 10,000 UNITS/ML VIAL SQ SCH ×2 (09:10→22:03)
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
[2017-11-18 12:09] VITALS: BP 102/68; PULSE 76; RESP 18; TEMP 98.7; O2SAT 96
[2017-11-18 16:26] VITALS: BP 117/82; PULSE 81; RESP 18; TEMP 98.4; O2SAT 98
[2017-11-18] MEDS: METOPROLOL TARTRATE 25 MG TAB PO SCH (22:03)
[2017-11-18 23:34] VITALS: BP 115/73; PULSE 82; RESP 18; TEMP 97.7; O2SAT 98
[2017-11-19 03:28] VITALS: BP 123/80; PULSE 79; RESP 18; TEMP 97.9; O2SAT 98
[2017-11-19] MEDS: METOPROLOL TARTRATE 25 MG TAB PO SCH ×2 (07:42→20:34)
[2017-11-19] MEDS: cefTRIAXone INJ 1,000 MG in SODIUM CHLORIDE 0.9% INJ 100 ML IV SCH (07:42)
[2017-11-19] MEDS: ASPIRIN EC 81 MG TABEC PO SCH (07:42)
[2017-11-19] MEDS: hydrALAZINE HCL 25 MG TAB PO SCH ×3 (07:43→18:01)
[2017-11-19] MEDS: FUROSEMIDE 20 MG TAB PO SCH (07:43)
[2017-11-19] MEDS: DORZOLAMIDE 2% OPTH SOLN 200 DROP/10 ML BTLO EACH EYE SCH (07:44)
[2017-11-19] MEDS: SODIUM CHLORIDE 0.9% FLUSH 10 ML FLUSH IV FLUSH SCH ×2 (07:44→20:34)
[2017-11-19] MEDS: HEPARIN SODIUM - SQ 10,000 UNITS/ML VIAL SQ SCH ×2 (07:44→20:34)
[2017-11-19 08:17] VITALS: BP 112/75; PULSE 75; RESP 16; TEMP 98; O2SAT 95
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
[2017-11-19] MEDS: LISINOPRIL 5 MG TAB PO SCH (09:00)
[2017-11-19 09:44] LABS: AUTOMATED NEUTROPHIL # 2.7 TH/MM3 (1.8-7.7); BASOPHIL % 0.7 % (0.0-2.0); EOSINOPHIL # 0.3 TH/MM3 (0-0.4); EOSINOPHIL % 6.1 % (0.0-4.0); HEMATOCRIT 31.1 % (39.0-51.0); HEMOGLOBIN 10.2 GM/DL (13.0-17.0); LYMPH % 31.8 % (9.0-44.0); LYMPHOCYTE # 1.7 TH/MM3 (1.0-4.8); MEAN CELL VOLUME 93.8 FL (80.0-100.0); MEAN CORPUSCULAR HEMOGLOBIN 30.9 PG (27.0-34.0); MEAN CORPUSCULAR HGB CONC 32.9 % (32.0-36.0); MEAN PLATELET VOLUME 6.6 FL (7.0-11.0); MONO % 11.4 % (0.0-8.0); MONOCYTE # 0.6 TH/MM3 (0-0.9); PLATELET COUNT 234 TH/MM3 (150-450); RED BLOOD COUNT 3.32 MIL/MM3 (4.50-5.90); WHITE BLOOD COUNT 5.5 TH/MM3 (4.0-11.0)
[2017-11-19 10:05] LABS: BICARBONATE 30.5 MEQ/L (21.0-32.0); CALCIUM 8.5 MG/DL (8.5-10.1); CREATININE 0.66 MG/DL (0.60-1.30); MAGNESIUM 1.9 MG/DL (1.5-2.5)
[2017-11-19 12:48] VITALS: BP 101/66; PULSE 64; RESP 16; TEMP 97.8; O2SAT 98
[2017-11-19 17:19] VITALS: BP 104/62; PULSE 88; RESP 16; TEMP 98; O2SAT 98
[2017-11-19 19:42] VITALS: BP 105/66; PULSE 92; RESP 16; TEMP 99.2; O2SAT 99
[2017-11-19 23:15] VITALS: BP 119/78; PULSE 84; RESP 16; TEMP 99.4; O2SAT 100
[2017-11-20] VITALS (8 sets, daily range): BP systolic 76–119; BP diastolic 52–84; PULSE 81–84; RESP 16–18; TEMP 96.4–100.7; O2SAT 96–100
[2017-11-20] MEDS: cefTRIAXone INJ 1,000 MG in SODIUM CHLORIDE 0.9% INJ 100 ML IV SCH (07:49)
[2017-11-20] MEDS: SODIUM CHLORIDE 0.9% FLUSH 10 ML FLUSH IV FLUSH SCH ×2 (07:49→21:00)
[2017-11-20] MEDS: FUROSEMIDE 20 MG TAB PO SCH (07:49)
[2017-11-20] MEDS: METOPROLOL TARTRATE 25 MG TAB PO SCH ×2 (07:49→21:00)
[2017-11-20] MEDS: ASPIRIN EC 81 MG TABEC PO SCH (07:50)
[2017-11-20] MEDS: LISINOPRIL 5 MG TAB PO SCH (07:50)
[2017-11-20] MEDS: hydrALAZINE HCL 25 MG TAB PO SCH ×3 (07:50→17:58)
[2017-11-20] MEDS: HEPARIN SODIUM - SQ 10,000 UNITS/ML VIAL SQ SCH ×2 (07:50→22:35)
[2017-11-20] MEDS: DORZOLAMIDE 2% OPTH SOLN 200 DROP/10 ML BTLO EACH EYE SCH (07:51)
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
[2017-11-20] MEDS ORDERED: SODIUM CHLORID 0.9% 500 ML INJ 500 ML IV SCH (16:45)
[2017-11-21 03:45] VITALS: BP 109/65; PULSE 80; RESP 16; TEMP 98.1; O2SAT 99
[2017-11-21 08:39] VITALS: BP 146/62; PULSE 74; RESP 16; TEMP 97.8; O2SAT 96
[2017-11-21] MEDS: SODIUM CHLORIDE 0.9% FLUSH 10 ML FLUSH IV FLUSH SCH ×2 (09:00→21:50)
[2017-11-21] MEDS: FUROSEMIDE 20 MG TAB PO SCH (09:00)
[2017-11-21] MEDS: hydrALAZINE HCL 25 MG TAB PO SCH ×3 (09:32→18:00)
[2017-11-21] MEDS: ASPIRIN EC 81 MG TABEC PO SCH (09:32)
[2017-11-21] MEDS: HEPARIN SODIUM - SQ 10,000 UNITS/ML VIAL SQ SCH ×2 (09:33→21:51)
[2017-11-21] MEDS: METOPROLOL TARTRATE 25 MG TAB PO SCH ×2 (09:33→21:52)
[2017-11-21] MEDS: LISINOPRIL 5 MG TAB PO SCH (09:33)
[2017-11-21] MEDS: cefTRIAXone INJ 1,000 MG in SODIUM CHLORIDE 0.9% INJ 100 ML IV SCH (09:34)
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
[2017-11-21 12:05] VITALS: BP 114/65; PULSE 79; RESP 16; TEMP 97.8; O2SAT 100
[2017-11-21] MEDS: DORZOLAMIDE 2% OPTH SOLN 200 DROP/10 ML BTLO EACH EYE SCH (12:16)
[2017-11-21 15:27] VITALS: BP 114/68; PULSE 79; RESP 16; TEMP 97.8; O2SAT 96
[2017-11-21 20:09] VITALS: BP 120/74; PULSE 74; RESP 16; TEMP 98.1; O2SAT 99
[2017-11-21 23:23] VITALS: BP 116/72; PULSE 76; RESP 16; TEMP 99; O2SAT 99
[2017-11-22 03:16] VITALS: BP 109/67; PULSE 73; RESP 16; TEMP 98.7; O2SAT 98
[2017-11-22 07:14] VITALS: BP 117/69; PULSE 93; RESP 18; TEMP 98.4; O2SAT 98
[2017-11-22] MEDS: SODIUM CHLORIDE 0.9% FLUSH 10 ML FLUSH IV FLUSH SCH ×2 (09:00→23:48)
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
[2017-11-22] MEDS ORDERED: DOCUSATE SODIUM 50 MG/SENNA 8.6 MG TAB PO ONE (10:30)
[2017-11-22] MEDS: DORZOLAMIDE 2% OPTH SOLN 200 DROP/10 ML BTLO EACH EYE SCH ×2 (11:40→11:49)
[2017-11-22] MEDS: cefTRIAXone INJ 1,000 MG in SODIUM CHLORIDE 0.9% INJ 100 ML IV SCH (11:41)
[2017-11-22] MEDS: METOPROLOL TARTRATE 25 MG TAB PO SCH ×2 (11:49→23:48)
[2017-11-22] MEDS: FUROSEMIDE 20 MG TAB PO SCH (11:50)
[2017-11-22] MEDS: hydrALAZINE HCL 25 MG TAB PO SCH ×3 (11:50→17:59)
[2017-11-22 12:01] VITALS: BP 125/73; PULSE 79; RESP 18; TEMP 98.4; O2SAT 98
[2017-11-22] MEDS: HEPARIN SODIUM - SQ 10,000 UNITS/ML VIAL SQ SCH ×2 (12:03→23:48)
[2017-11-22] MEDS: LISINOPRIL 5 MG TAB PO SCH (12:03)
[2017-11-22] MEDS: ASPIRIN EC 81 MG TABEC PO SCH (12:04)
[2017-11-22 16:34] VITALS: BP 130/76; PULSE 72; RESP 18; TEMP 98.4; O2SAT 100
[2017-11-22 20:14] VITALS: BP 105/64; PULSE 86; RESP 16; TEMP 97.5; O2SAT 95
[2017-11-22] MEDS: DOCUSATE SODIUM 50 MG/SENNA 8.6 MG TAB PO SCH (23:48)
[2017-11-23 00:27] VITALS: BP 103/67; PULSE 76; RESP 16; TEMP 97.9; O2SAT 100
[2017-11-23 04:33] VITALS: BP 126/76; PULSE 78; RESP 16; TEMP 97.9; O2SAT 100
[2017-11-23 08:00] VITALS: BP 113/67
[2017-11-23] MEDS: LISINOPRIL 5 MG TAB PO SCH (08:03)
[2017-11-23] MEDS: FUROSEMIDE 20 MG TAB PO SCH (08:03)
[2017-11-23] MEDS: METOPROLOL TARTRATE 25 MG TAB PO SCH ×2 (08:03→20:59)
[2017-11-23] MEDS: ASPIRIN EC 81 MG TABEC PO SCH (08:03)
[2017-11-23] MEDS: hydrALAZINE HCL 25 MG TAB PO SCH ×3 (08:03→18:00)
[2017-11-23] MEDS: DOCUSATE SODIUM 50 MG/SENNA 8.6 MG TAB PO SCH ×2 (08:03→21:01)
[2017-11-23] MEDS: HEPARIN SODIUM - SQ 10,000 UNITS/ML VIAL SQ SCH ×2 (08:04→21:06)
[2017-11-23] MEDS: DORZOLAMIDE 2% OPTH SOLN 200 DROP/10 ML BTLO EACH EYE SCH (08:04)
[2017-11-23] MEDS: cefTRIAXone INJ 1,000 MG in SODIUM CHLORIDE 0.9% INJ 100 ML IV SCH (08:05)
[2017-11-23] MEDS: SODIUM CHLORIDE 0.9% FLUSH 10 ML FLUSH IV FLUSH SCH ×2 (08:05→20:40)
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
[2017-11-23] MEDS ORDERED: MAGNESIUM HYDROXIDE SUSP 30 ML CUP PO ONE (09:30)
[2017-11-23 12:00] VITALS: BP 106/66; PULSE 70; RESP 17; TEMP 97.2; O2SAT 100
[2017-11-23] MEDS ORDERED: BISACODYL 10 MG SUPP RECTAL ONE (15:00)
[2017-11-23 16:00] VITALS: BP 96/54; PULSE 81; RESP 17; TEMP 97.5; O2SAT 100
[2017-11-23 20:29] VITALS: BP 91/52; PULSE 89; RESP 17; TEMP 98.1; O2SAT 96
[2017-11-24 00:37] VITALS: BP 93/59; PULSE 90; RESP 16; TEMP 98.2; O2SAT 94
[2017-11-24 04:30] VITALS: BP 106/66; PULSE 87; RESP 17; TEMP 98.3; O2SAT 99
[2017-11-24 08:00] VITALS: BP 108/65; PULSE 94; RESP 18; TEMP 97.9; O2SAT 96
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
[2017-11-24] MEDS ORDERED: BISACODYL 10 MG SUPP RECTAL PRN (08:45)
[2017-11-24] MEDS ORDERED: SENNOSIDES 8.6 MG TAB PO PRN (08:45)
[2017-11-24] MEDS: DORZOLAMIDE 2% OPTH SOLN 200 DROP/10 ML BTLO EACH EYE SCH (09:00)
[2017-11-24] MEDS: FUROSEMIDE 20 MG TAB PO SCH (10:46)
[2017-11-24] MEDS: LISINOPRIL 5 MG TAB PO SCH (10:46)
[2017-11-24] MEDS: cefTRIAXone INJ 1,000 MG in SODIUM CHLORIDE 0.9% INJ 100 ML IV SCH (10:46)
[2017-11-24] MEDS: DOCUSATE SODIUM 50 MG/SENNA 8.6 MG TAB PO SCH ×2 (10:46→20:28)
[2017-11-24] MEDS: METOPROLOL TARTRATE 25 MG TAB PO SCH ×2 (10:47→20:35)
[2017-11-24] MEDS: SODIUM CHLORIDE 0.9% FLUSH 10 ML FLUSH IV FLUSH SCH ×2 (10:47→20:29)
[2017-11-24] MEDS: HEPARIN SODIUM - SQ 10,000 UNITS/ML VIAL SQ SCH ×2 (10:47→20:29)
[2017-11-24] MEDS: hydrALAZINE HCL 25 MG TAB PO SCH ×3 (10:47→17:23)
[2017-11-24] MEDS: ASPIRIN EC 81 MG TABEC PO SCH (10:47)
[2017-11-24 12:00] VITALS: BP 108/62; PULSE 83; RESP 18; TEMP 98.9; O2SAT 99
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
[2017-11-24 20:30] VITALS: BP 96/66; PULSE 84; RESP 16; TEMP 98.8; O2SAT 97
[2017-11-25 00:40] VITALS: BP 97/65; PULSE 75; RESP 16; TEMP 98.3; O2SAT 100
[2017-11-25 04:45] VITALS: BP 111/66; PULSE 95; RESP 17; TEMP 98.9; O2SAT 94
[2017-11-25 08:00] VITALS: BP 102/69; PULSE 71; RESP 17; TEMP 98.1; O2SAT 98
[2017-11-25] MEDS: DORZOLAMIDE 2% OPTH SOLN 200 DROP/10 ML BTLO EACH EYE SCH (09:00)
[2017-11-25] MEDS: HEPARIN SODIUM - SQ 10,000 UNITS/ML VIAL SQ SCH ×2 (09:59→20:53)
[2017-11-25] MEDS: hydrALAZINE HCL 25 MG TAB PO SCH ×3 (10:00→18:17)
[2017-11-25] MEDS: FUROSEMIDE 20 MG TAB PO SCH (10:00)
[2017-11-25] MEDS: DOCUSATE SODIUM 50 MG/SENNA 8.6 MG TAB PO SCH ×2 (10:00→20:53)
[2017-11-25] MEDS: METOPROLOL TARTRATE 25 MG TAB PO SCH ×2 (10:00→20:54)
[2017-11-25] MEDS: LISINOPRIL 5 MG TAB PO SCH (10:01)
[2017-11-25] MEDS: SODIUM CHLORIDE 0.9% FLUSH 10 ML FLUSH IV FLUSH SCH ×2 (10:01→20:54)
[2017-11-25] MEDS: ASPIRIN EC 81 MG TABEC PO SCH (10:01)
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
[2017-11-25 11:51] VITALS: BP 125/58; PULSE 78; RESP 17; TEMP 97.8; O2SAT 96
[2017-11-25 16:00] VITALS: BP 115/69; PULSE 77; RESP 17; TEMP 98.6; O2SAT 96
[2017-11-25 20:00] VITALS: BP 102/64; PULSE 76; RESP 19; TEMP 98.2; O2SAT 100
[2017-11-26] VITALS: BP 108/68; PULSE 84; RESP 20; TEMP 99.1; O2SAT 98
[2017-11-26 07:50] VITALS: BP 95/58; PULSE 78; RESP 19; TEMP 98.1; O2SAT 100
[2017-11-26] MEDS: hydrALAZINE HCL 25 MG TAB PO SCH ×2 (08:50→13:00)
[2017-11-26] MEDS: METOPROLOL TARTRATE 25 MG TAB PO SCH (08:51)
[2017-11-26] MEDS: LISINOPRIL 5 MG TAB PO SCH (08:51)
[2017-11-26] MEDS: DOCUSATE SODIUM 50 MG/SENNA 8.6 MG TAB PO SCH (08:58)
[2017-11-26] MEDS: ASPIRIN EC 81 MG TABEC PO SCH (08:59)
[2017-11-26] MEDS: SODIUM CHLORIDE 0.9% FLUSH 10 ML FLUSH IV FLUSH SCH (08:59)
[2017-11-26] MEDS: HEPARIN SODIUM - SQ 10,000 UNITS/ML VIAL SQ SCH (08:59)
[2017-11-26] MEDS: FUROSEMIDE 20 MG TAB PO SCH (08:59)
[2017-11-26] MEDS: DORZOLAMIDE 2% OPTH SOLN 200 DROP/10 ML BTLO EACH EYE SCH (09:00)
[2017-11-26] MEDS ORDERED: Heparin Inj SQ (10:35)
[2017-11-26] MEDS ORDERED: NORC5TAB PO (10:35)
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
[2017-11-26 11:42] VITALS: BP 108/69; PULSE 88; RESP 19; TEMP 98.2; O2SAT 98
--- NOTE | 2017-11-26 13:37 | HHI.HCPN ---
Reason for visit a. To assist with evaluation and management of symptoms including: poor appetite, pain, confusion b. To assist medical decision maker(s) with: better understanding of current medical conditions; weighing benefits/burdens of medical treatment options; making medical treatment decisions. Subjective/Interval History This 82 year old man presented to the ED 11/16/17, from home, via EMS. He was brought in apparently due to unsafe living conditions. EMS reported [facility] saw pt last week, noted unsafe conditions, checked again day of presentation, no improvement in conditions, so sent him to the ED. He was noted to have painful sacral wound. Follow up visit for symptom management of poor appetite, pain and confusion. Hemodynamically stable; no recent lab work available. Patient tolerating current diet of pures with nectar consistency thickened liquids without any overt signs or symptoms of aspiration; patient needs assistance with meals. Tolerating meds in applesauce. Speech therapy following. Discussed discharge planning with family independence case manager, Jillian. Patient is being discharged to [facility] per stipulated court ordered placement and protective services. Court to determine whether protective services will be continued or discontinued, or whether a petition for guardianship should be filed within 60 days after the date of this order on 11/23/2017. . Advance Directives Living Will: Never completed Health Care Surrogate: Never completed Durable Power of Client Resource Specialist: Never completed Advance Directive Specifics Significant change in goals: Discharge to [facility] per stipulated court ordered placement . Objective Vital Signs Date Time Temp Pulse Resp B/P (MAP) Pulse Ox O2 Delivery O2 Flow Rate FiO2 11/26/17 11:42 98.2 88 19 108/69 (82) 98 11/26/17 07:50 98.1 78 19 95/58 (70) 100 11/26/17 00:00 99.1 84 20 108/68 (81) 98 11/25/17 22:08 Room Air 11/25/17 20:00 98.2 76 19 102/64 (77) 100 11/25/17 16:00 98.6 77 17 115/69 (84) 96 Intake & Output 11/26/17 11/26/17 06:59 18:59 Intake Total 480 ml Output Total 250 ml Balance 230 ml Intake Oral 480 ml Output Urine Total 250 ml # Bowel Movements 1 . Physical Exam CONSTITUTIONAL/GENERAL: Frail, elderly male. Pleasantly confused TUBES/LINES/DRAINS: Peripheral IV upper extremity, Santana catheter SKIN: No jaundice, rashes, or lesions. Reported sacral wound which I did not visualize. Skin warm and dry. Fingernails long, dirty. HEAD: Atraumatic. Normocephalic. EYES: Left pupil misshapen, cloudy. Extraocular motions intact. No scleral icterus. No injection or drainage. Fundi not examined. ENT: Hard of hearing. Nose without bleeding or purulent drainage. Throat without visible erythema, exudates, masses, or lesions.+ Dentures in place NECK: Trachea midline. Supple, nontender. No palpable thyroid enlargement or nodularity. CARDIOVASCULAR: Regular rate and rhythm without murmur. No JVD. Peripheral pulses symmetric. GASTROINTESTINAL: Abdomen soft, flat, non-tender, nondistended. No hepato- splenomegaly, or palpable masses. No guarding. Bowel sounds present. GENITOURINARY: Without palpable bladder distension. Santana catheter in place. MUSCULOSKELETAL: Extremities without clubbing, cyanosis, or edema. No joint tenderness or effusion noted. No calf tenderness. No mottling or clubbing. LYMPHATICS: No palpable cervical or supraclavicular adenopathy. NEUROLOGICAL: Arouses to verbal stimuli. Oriented to self only. Confused to date of , location or reason for hospitalization. Poor insight. Cooperative. Moves all 4 extremities to command and spontaneously. PSYCHIATRIC: No obvious anxiety/depression. no apparent hallucinations or other psychotic thought process. . Assessment and Plan Disease Oriented Problem List: (1) Hypertension (2) UTI (urinary tract infection) (3) Fatigue (4) Dementia (5) Cardiomyopathy (6) History of prostate cancer (7) History of TIAs (8) Failure to thrive in adult (9) Sacral pressure ulcer Symptom Scale: (1) Anorexia 0-10 Scale: Unable to quantify (2) Pain 0-10 Scale: Unable to quantify (3) Confusion 0-10 Scale: Unable to quantify Pertinent Non-Medical Issues Psychosocial:Per prior palliative interaction : Completed high school education. Not . Has 3 sons, has been living with 1 of his sons Loyd and Loyd his . At that time Loyd informed that the other sons have not been in communication or involved in patient's care. They were apparently aware that he was hospitalized. Spiritual: [employer]ism oliver, during prior interactions Loyd did not feel work measurement engineer visits would be important to this patient. Legal:This patient is incapacitated secondary to dementia. Not expected to regain capacity. No reported advanced directive or health care surrogate designation. He is reported to have 3 adult sons. Per [place] statutes proxy decision making would fall to the majority of 3 adult sons. Loyd has been serving as the primary caregiver; during prior palliative care interactions unable to obtain contact information for the other sons. Attempts should be made to locate these other 2 sons to determine if they wish to participate in decision-making. Ethical issues impacting care: Important Contacts Son Loyd Case [phone] ? Son Jaime Case Son Anuj Case- may have TBI, unable to participate? . Prognosis This patient presented to the hospital due to unsafe living conditions. He has had ongoing cardiomyopathy, dementia, CAD. Concern for cardiac dysrhythmia, has been offered pacemaker and cardiac catheterization in the past which the son declined to proceed with. He has had multiple hospitalizations over the past 1 year this would be his sixth. He has been bedbound since hip fracture in July 2017. He has been under hospice services for the past 2-3 years ( [facility]). Due to advanced age, multiple chronic medical comorbidities appropriate for hospice if goals comfort oriented. . Code Status: Full Code Plan * Tentative discharge to [facility] later today. * Discussed discharge planning with family independence case manager, Jillian. Patient is being discharged to [facility] per stipulated court ordered placement and protective services. Court to determine whether protective services will be continued or discontinued, or whether a petition for guardianship should be filed within 60 days after the date of this order on 11/23/2017. * CODE STATUS: Full code. * SYMPTOMS: --Poor appetite/anorexia-patient reported to be eating well here during hospital course though has only been here since yesterday. Son reports eating only a few bites of meals, and pretty much on a "liquid diet because he is not eating much". Based on review of last few admissions weight appears stable although albumin is low. This may be disease progression. Patient's dentures are ill fitting and he does not wear them for meals. Tolerating nectar consistency thickened liquids in small amounts as well as straw. Patient exhibiting prolonged mastication for soft foods with pocketing noted. He has residue/ stasis on tongue blade and oral cavity had to be manually removed. No coughing/choking noted her speech therapy; recommendations to change diet to pured with nectar thickened liquids. --Pain-family reports patient appears painful to sacral wounds, I was unable to visualize this wound today during my assessment they reported "goes to the bone "and that the patient is unable to describe his pain but when they assist with changing his briefs he still says Ow and appears painful. Has prn Tylenol available. Cautious use of opiates given aggressive goals. Patient denies pain today during my exam though he is a poor historian. --Confusion- hx dementia, CVA. Appears at baseline- oriented to self, family. pleasantly confused.+ UTI * Palliative care will continue to follow during hospital course as condition evolves, to assist patient/decision-maker with understanding of medical conditions, weighing benefits/burdens of treatment options, for clarification of goals of treatment. Additionally will assist with any symptoms of palliative concern . Time Spent Total Floor Time (mins): 35 (Total time to include review of medical record, examination and collaboration with case management. Total time from [id number].) Face to Face Time (mins): 10 >50% Counseling/Coord of Care: Yes Attestation To help prompt me to consider important information that might be impacting today's encounter and assessment, information from prior notes written by myself or my colleagues may have been "brought forward" into today's note. My signature on this note, however, is an attestation that I personally performed the exam, history, and/or decision-making noted today, and, unless otherwise indicated, the interactions with patient, family, and staff as well as the review of records all occurred today. I also attest that the listed assessment and stated plan reflect my best clinical judgment today based on the combination of historical information, prior notes, and today's exam/ interactions. When time spent is documented, it refers only to time spent today by the signer, or if indicated, combined time spent today by collaborating physician/nurse practitioner. . Alpa Lopez November 26, 2017 13:37
== END 2017-11-26 16:25 ==
LOC: NEPE 14:31 → NEDA 17:31 → NEPGCP 19:07 → N06A 11-23 10:38
PROVIDERS: ADMIT Family Medicine; ATTEND Family Medicine
DX: R62.7 Adult failure to thrive (principal); N39.0 Urinary tract infection, site not specified; B96.4 Proteus (mirabilis) (morganii) as the cause of diseases classified elsewhere; I11.0 Hypertensive heart disease with heart failure; I50.22 Chronic systolic (congestive) heart failure; I42.9 Cardiomyopathy, unspecified; I25.10 Atherosclerotic heart disease of native coronary artery without angina pectoris; F03.90 Unspecified dementia, unspecified severity, without behavioral disturbance, psychotic disturbance, mood disturbance, and anxiety; R13.10 Dysphagia, unspecified; K59.00 Constipation, unspecified; L89.154 Pressure ulcer of sacral region, stage 4; N40.0 Benign prostatic hyperplasia without lower urinary tract symptoms; Z85.46 Personal history of malignant neoplasm of prostate; Z86.73 Personal history of transient ischemic attack (TIA), and cerebral infarction without residual deficits; Z74.01 Bed confinement status
CPT/HCPCS: 71045; 72170; 80048; 80053; 81001; 82550; 83735; 85025; 87077; 87086; 87186; 92526; 92610; 96361; 96365; 96366; 96372; 97110; 97162; 97530; 99285; G0378; G8987; G8988; G8996; G8997; J0696; J1644; J7030; J7040

== ENCOUNTER 2018-03-06 08:58 | Inpatient (IN) ==
[~2018-03-06 08:58] MED LIST changes: -ASPI81TA81 PO; +Atropine Inj 1 MG/10 ML Syringe IV.PUSH ONE; -ERYTOIN10 EACH EYE; -FURO1TAB62 PO; -HYDR-3799 PO; -LISI-519 PO; -MAPA325T PO; -METO25TA3 PO; -MILKSUS PO; -NORC5TAB PO; +Norepinephrine Inj 4 MG/4 ML Ampul IV.CONT ONE; -SENN8.6T36 PO; +Sodium Bicarbonate 8.4% Inj 50 MEQ/50 ML Syringe IV.CONT ONE; -TRUS2SOL EACH EYE; -WALKER/ADULT/FO1 MIS; -XARE10TA PO
[2018-03-06] MEDS ORDERED: Norepinephrine Inj 4 MG/4 ML Ampul ONE ×2 (09:05→11:37)
[2018-03-06] MEDS ORDERED: Piperacil/Tazo 4.5 GM Premix 4.5 GM/100 ML BAG IV.SIG ONE (09:07)
[2018-03-06] MEDS ORDERED: Vancomycin Inj 1 GM/200 ML PIGGYBACK IV.SIG SCH (10:00)
[2018-03-06] MEDS ORDERED: DOPamine 400 MG/250 ML Premix 400 MG/250 ML BAG IV.CONT ONE (10:19)
[2018-03-06] MEDS ORDERED: DOPamine 800 MG/500 ML Premix 800 MG/500 ML PLAST..BAG IV.CONT PRN (10:20)
[2018-03-06 10:27] LABS: Baso % (Auto) 0.1 % (0.0-2.0); Eos # (Auto) 0.1 th/mm3 (0.0-0.4); Eos % (Auto) 0.6 % (0.0-4.0); Hematocrit 32.1 % (39.0-51.0); Hemoglobin 9.3 gm/dL (13.0-17.0); Lymph # (Auto) 2.4 th/mm3 (1.0-4.8); Lymph % (Auto) 12.1 % (9.0-44.0); Mean Corpuscular Volume 104.2 fL (80.0-100.0); Mean Platelet Volume 8.7 fL (7.0-11.0); Mono # (Auto) 1.5 th/mm3 (0.0-0.9); Mono % (Auto) 7.7 % (0.0-8.0); Neut # (Auto) 15.8 th/mm3 (1.8-7.7); Neut % (Auto) 79.5 % (16.0-70.0); Platelet Count 363 th/mm3 (150-450); Red Blood Count 3.08 mil/mm3 (4.50-5.90); Red Cell Distribution Width 17.8 % (11.6-17.2); White Blood Count 19.9 th/mm3 (4.0-11.0)
[2018-03-06 10:33] LABS: Mean Corpuscular HGB Conc 28.8 % (32.0-36.0)
[2018-03-06] MEDS ORDERED: Bisacodyl 10 MG Supp RECTAL PRN (10:34)
--- NOTE | 2018-03-06 10:37 | XR ---
EXAM DATE: 03/06/2018 10:31 AM EDT AGE/SEX: 82 years / Male INDICATIONS: Intubation, central line placement, and OG tube placement. CLINICAL DATA: This is the patient's initial encounter. Patient reports that signs and symptoms have been present for 1 day and indicates a pain score of Nonresponsive. MEDICAL/SURGICAL HISTORY: Non-responsive. Non-responsive. [place] [facility] [place]. . FINDINGS: There is patchy bilateral airspace disease greatest in the right lower lobe. Endotracheal tube tip at the anh. Right subclavian line tip overlies the expected location of the right atrium. No effusio ns. Osseous structures are intact. Enteric tube is identified in the distal tip overlies the expected location of the distal esophagus, side port overlies the mid esophagus. CONCLUSION: Tubes and catheter as above. The enteric tube needs to be advanced. Endotracheal tube tip approaches the anh. Electronically signed by: Irineo Tejeda MD 03/06/2018 10:35 AM EDT
[2018-03-06] MEDS ORDERED: Vancomycin Consult Pharmacy OTHER PRN (10:38)
[2018-03-06] MEDS ORDERED: Dextrose 50% in Water 50 ML Vial IV.PUSH PRN (10:38)
[2018-03-06 10:44] LABS: Alanine Aminotransferase 27 U/L (12-78); Albumin 1.3 g/dL (3.4-5.0); Anion Gap 25 meq/L (5-15); Aspartate Aminotransferase 46 U/L (15-37); Blood Urea Nitrogen 83 mg/dL (7-18); Calcium 8.7 mg/dL (8.5-10.1); Carbon Dioxide 13.2 meq/L (21.0-32.0); Chloride 113 meq/L (98-107); Glomerular Filtration Rate 14 mL/min (>89); Glucose,Random 88 mg/dL (74-106); Potassium 5.6 meq/L (3.5-5.1); Sodium 151 meq/L (136-145)
[2018-03-06] MEDS ORDERED: Sod Chloride 0.9% Inj 1,000 ML IV.SIG SCH ×2 (10:45→15:52)
[2018-03-06] MEDS ORDERED: Potassium Chlor 40 mEq Premix 40 MEQ/100 ML PIGGYBACK IV.SIG SCH (10:45)
[2018-03-06 10:47] LABS: Alkaline Phosphatase 105 U/L (45-117); Total Protein 6.4 g/dL (6.4-8.2)
--- NOTE | 2018-03-06 10:52 | ED ---
HPI General Chief Complaint: Respiratory Symptoms Stated Complaint: Resp Time Seen by Provider: 03/06/18 10:20 History of Present Illness Patient is an 82-year-old male [facility] for evaluation of altered mental status and respiratory difficulty. Per EMS the patient ate something either last night or early this morning and is not supposed to eat. High suspicion of aspirations patient. He arrives with bag valve mask in process. Further history is extremely limited by the patient's GCS of 3, and no family members or other caregivers are readily available at bedside. 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 Related Data Allergies Allergy/AdvReac Type Severity Reaction Status Date / Time No Known Allergies Allergy Unknown Uncoded 07/28/17 21:11 Review of Systems ROS: all other systems reviewed are negative [facility] Medical History Medical History BPH (benign prostatic hyperplasia) (Acute) CHF (congestive heart failure) (Acute) Dysphagia (Acute) Failure to thrive (Acute) Prostate CA (Acute) Social History Social History Substance History: Unable to Obtain Smoking Status: Unknown if ever smoked How Often Do You Have a Drink Containing Alcohol: Unable to Obtain Recent Travel in [place] within the Last 8 Weeks: No Recent Out of Country Travel within the Last 8 Weeks: No Immunization History Tetanus Immunization: Unsure Hx Influenza Vaccine This Season: Unable to Assess Exam Narrative Exam Narrative: GENERAL: Well-developed cachectic male, GCS of 3 bag valve mask and process. Agonal respirations. SKIN: Focused skin assessment warm/dry. HEAD: Atraumatic. Normocephalic. Temporal wasting. EYES: Pupils equal and round sluggish reaction.. No scleral icterus. No injection or drainage. ENT: No nasal bleeding or discharge. Mucous membranes pink and moist. During intubation was noted to have brownish discoloration of the vocal cords peer NECK: Trachea midline. No JVD. CARDIOVASCULAR: Regular rate and rhythm. No murmur appreciated. RESPIRATORY: Agonal respirations with rales bilaterally. GASTROINTESTINAL: Abdomen soft, non-tender, nondistended. Hepatic and splenic margins not palpable. MUSCULOSKELETAL: No obvious deformities. No clubbing. No cyanosis. No edema. NEUROLOGICAL: Awake and alert. No obvious cranial nerve deficits. Motor grossly within normal limits. Normal speech. PSYCHIATRIC: Appropriate mood and affect; insight and judgment normal. Procedures Central Line Placement Right SC: Time Out Performed: Yes Patient Placed on Monitor/Pulse Ox: Yes MD Prep: mask, gown and gloves Central Line Prep: Chlorhexidine scrub Ultrasound Used for Placement: No Central Line Lumen Inserted: triple Post Procedure: sutured in place, good blood return, all ports aspirated, flushed, capped and sterile dressing applied Post Procedure X-Ray: tip of catheter in good position and no pneumothorax seen Patient Tolerated Procedure: well Complications: none Right Femoral: Time Out Performed: No MD Prep: other (Quickly prepped as this is a resuscitative line. Will need to be exchanged within 24 hours.) Central Line Prep: Chlorhexidine scrub Ultrasound Used for Placement: No Central Line Lumen Inserted: triple Post Procedure: good blood return, all ports aspirated, flushed, capped and sterile dressing applied Patient Tolerated Procedure: well Complications: none Additional Comments: First line was placed by me, unfortunately was Dislodged and had to be restarted by Dr. Baird. Course Initial Documented Vital Signs Respiratory Rate 16 03/06/18 09:00 Pulse Oximetry 99 03/06/18 09:00 Last Documented Vital Signs Temperature 90.5 F L 03/07/18 08:05 Pulse Rate 81 03/07/18 08:05 Respiratory Rate 158 H 03/07/18 08:05 Blood Pressure 79/51 L 03/07/18 08:05 Pulse Oximetry 99 03/07/18 08:05 Critical Care Time Critical Care Time: Yes Total Critical Care Time: 35 Attestation: Aggregate critical care time was [address] Gallegos. Time to perform other separately billable procedures was not included in the critical care time. My time did not include minutes spent treating any other patients simultaneously or on activities that did not directly contribute to the patient's treatment. The services I provided to this patient were to treat and/or prevent clinically significant deterioration that could result in: , disability, organ failure I provided critical care services requiring my management, as noted below: Chart data review, documentation time, medication orders and management, vital sign assessments/reviewing monitor data, ordering and reviewing lab tests, ordering and interpreting/reviewing x-rays and diagnostic studies, care of the patient and discussion of the patient with the admitting physicians. Medical Decision Making MDM Narrative Medical decision making narrative: Patient was primarily managed by me Dr. Gallegos. Patient was room to the emergency department, he is critically ill on arrival with hypotension, agonal respirations. Tachycardia. He appears very ill. He was intubated on arrival by me with direct visualization of the cords which did show some brownish discoloration, I have a high suspicion the patient is aspirated. Morena-intubation the patient also had bradycardic episodes in the low 40s high 30s, he was given a dose of atropine as well as a half ampule of resuscitation epinephrine. Rest. He did not require any chest compressions in the emergency department. He does have Santana catheter in place as well, very little urine output. He was given a total of 2 L normal saline, third liter was ordered by Dr. Sotelo. IV access is begun to infiltrate, he has limited access in his ankle and right EJ. He is requiring pressors and therefore a central line. Dirty recusitative central line was placed by me, unfortunately during the placement of central line in this patient levophed is being titrated. Unfortunately the central line was dislodged and i have asked Dr. Baird to place another access. The patient is maxing out on Levophed, dopamine was started as well. He is maxing on both and so vasopressin was started as well. He has had some brownish reddish drainage from OG tube probably consistent with a GI bleeding. Lactic acid is in excess of 15. Patient was given a total of 3 L of fluid, vancomycin and Zosyn has been ordered. This patient is critically ill, Dr. Sotelo was consulted, we have requested the patient be given emergent release blood, he is going to go for CAT scans to rule out acute surgical pathology. He is critically ill and prognosis is poor. Medical Screen Exam Complete: Yes Emergency Medical Condition: Yes Differential Diagnosis Differential Diagnosis: Sirs, sepsis, septic shock, dehydration, aspiration, hypoxia, hypercapnia. Lab Data Result diagrams: 03/07/18 03:40 03/07/18 03:40 Lab Results 03/06/18 03/06/18 03/06/18 Range/Units 09:27 09:30 09:30 WBC 19.9 H (4.0-11.0) th/mm3 RBC 3.08 L (4.50-5.90) mil/mm3 Hgb 9.3 L (13.0-17.0) gm/dL Hct 32.1 L (39.0-51.0) % MCV 104.2 H (80.0-100.0) fL MCH 30.0 (27.0-34.0) pg MCHC 28.8 L (32.0-36.0) % RDW 17.8 H (11.6-17.2) % Plt Count 363 (150-450) th/mm3 MPV 8.7 (7.0-11.0) fL Prelim Diff (Auto) Slide review pending Neut % (Auto) 79.5 H (16.0-70.0) % Lymph % (Auto) 12.1 (9.0-44.0) % [place] % (Auto) 7.7 (0.0-8.0) % Eos % (Auto) 0.6 (0.0-4.0) % Baso % (Auto) 0.1 (0.0-2.0) % Neut # (Auto) 15.8 H (1.8-7.7) th/mm3 Lymph # (Auto) 2.4 (1.0-4.8) th/mm3 [place] # (Auto) 1.5 H (0.0-0.9) th/mm3 Eos # (Auto) 0.1 (0.0-0.4) th/mm3 Baso # (Auto) 0.0 (0.0-0.2) th/mm3 WBC Differential Manual diff final Seg Neuts % (Manual) 51 (16-70) % Band Neuts % (Manual) 20 H (0-6) % Lymphocytes % (Manual) 14 (9-44) % Monocytes % (Manual) 10 H (0-8) % Eosinophils % (Manual) (0-4) % Basophils % (Manual) 1 (0-2) % Metamyelocytes % (Man) 4 H (0-1) % Myelocytes % (Man) (0-0) % Promyelocytes % (Man) (0-0) % Abs Neuts (Manual) 14.9 H (1.8-7.7) th/mm3 Nucleated RBCs/100 WBC (0-0) /100 WBC Differential Comment . Toxic Granulation 1+ H (None) Toxic Vacuolation Present H (None) Platelet Estimate Normal (Normal) Platelet Morphology Normal (Normal) Ovalocytes (None) Acanthocytes (Spur) (None) PT (9.8-11.6) sec INR Ratio Puncture Site Patient Temperature O2 Saturation (90-100) % ABG pH (7.380-7.420) ABG pCO2 (38-42) mmHg ABG pO2 (61-120) mmHg ABG HCO3 (22-26) mmol/L ABG O2 Content (12.0-20.0) Vol % ABG Base Excess (-2-2) mmol/L ABG Methemoglobin (0-2) % Pipe Test Hemoglobin (12.0-16.0) G/DL Carboxyhemoglobin (0-4) % O2 Delivery Device Vent Setting Inspired O2 % Critical Value Sodium 151 H (136-145) meq/L Potassium 5.6 H (3.5-5.1) meq/L Chloride 113 H (98-107) meq/L Carbon Dioxide 13.2 L (21.0-32.0) meq/L Anion Gap 25 H (5-15) meq/L BUN 83 H (7-18) mg/dL Creatinine 4.89 H (0.60-1.30) mg/dL Estimated GFR 14 L (>89) mL/min POC Glucose 114 H (68-110) mg/dl Random Glucose 88 (74-106) mg/dL Lactic Acid (0.4-2.0) mmol/L Calcium 8.7 (8.5-10.1) mg/dL Prot Corrected Calcium (8.5-10.1) mg/dL Phosphorus (2.5-4.9) mg/dL Magnesium (1.5-2.5) mg/dL Total Bilirubin 0.2 (0.2-1.0) mg/dL AST 46 H (15-37) U/L ALT 27 (12-78) U/L Alkaline Phosphatase 105 (45-117) U/L Total Creatine Kinase 72 (39-308) U/L Troponin I 0.06 H (0.02-0.05) ng/mL Total Protein 6.4 (6.4-8.2) g/dL Albumin 1.3 L (3.4-5.0) g/dL Nasal Screen MRSA (PCR) (Negative) Blood Type Antibody Screen MTS Gel Crossmatch Blood Bank Comment 03/06/18 03/06/18 03/06/18 Range/Units 10:10 10:40 10:52 WBC (4.0-11.0) th/mm3 RBC (4.50-5.90) mil/mm3 Hgb (13.0-17.0) gm/dL Hct (39.0-51.0) % MCV (80.0-100.0) fL MCH (27.0-34.0) pg MCHC (32.0-36.0) % RDW (11.6-17.2) % Plt Count (150-450) th/mm3 MPV (7.0-11.0) fL Prelim Diff (Auto) Neut % (Auto) (16.0-70.0) % Lymph % (Auto) (9.0-44.0) % [place] % (Auto) (0.0-8.0) % Eos % (Auto) (0.0-4.0) % Baso % (Auto) (0.0-2.0) % Neut # (Auto) (1.8-7.7) th/mm3 Lymph # (Auto) (1.0-4.8) th/mm3 [place] # (Auto) (0.0-0.9) th/mm3 Eos # (Auto) (0.0-0.4) th/mm3 Baso # (Auto) (0.0-0.2) th/mm3 WBC Differential Seg Neuts % (Manual) (16-70) % Band Neuts % (Manual) (0-6) % Lymphocytes % (Manual) (9-44) % Monocytes % (Manual) (0-8) % Eosinophils % (Manual) (0-4) % Basophils % (Manual) (0-2) % Metamyelocytes % (Man) (0-1) % Myelocytes % (Man) (0-0) % Promyelocytes % (Man) (0-0) % Abs Neuts (Manual) (1.8-7.7) th/mm3 Nucleated RBCs/100 WBC (0-0) /100 WBC Differential Comment Toxic Granulation (None) Toxic Vacuolation (None) Platelet Estimate (Normal) Platelet Morphology (Normal) Ovalocytes (None) Acanthocytes (Spur) (None) PT (9.8-11.6) sec INR Ratio Puncture Site Patient Temperature O2 Saturation (90-100) % ABG pH (7.380-7.420) ABG pCO2 (38-42) mmHg ABG pO2 (61-120) mmHg ABG HCO3 (22-26) mmol/L ABG O2 Content (12.0-20.0) Vol % ABG Base Excess (-2-2) mmol/L ABG Methemoglobin (0-2) % Pipe Test Hemoglobin (12.0-16.0) G/DL Carboxyhemoglobin (0-4) % O2 Delivery Device Vent Setting Inspired O2 % Critical Value Sodium (136-145) meq/L Potassium (3.5-5.1) meq/L Chloride (98-107) meq/L Carbon Dioxide (21.0-32.0) meq/L Anion Gap (5-15) meq/L BUN (7-18) mg/dL Creatinine (0.60-1.30) mg/dL Estimated GFR (>89) mL/min POC Glucose (68-110) mg/dl Random Glucose (74-106) mg/dL Lactic Acid 13.8 H* (0.4-2.0) mmol/L Calcium (8.5-10.1) mg/dL Prot Corrected Calcium (8.5-10.1) mg/dL Phosphorus (2.5-4.9) mg/dL Magnesium (1.5-2.5) mg/dL Total Bilirubin (0.2-1.0) mg/dL AST (15-37) U/L ALT (12-78) U/L Alkaline Phosphatase (45-117) U/L Total Creatine Kinase (39-308) U/L Troponin I (0.02-0.05) ng/mL Total Protein (6.4-8.2) g/dL Albumin (3.4-5.0) g/dL Nasal Screen MRSA (PCR) (Negative) Blood Type O Positive Antibody Screen Negative MTS Gel Crossmatch See Detail Blood Bank Comment 03/06/18 03/06/18 03/06/18 Range/Units 10:56 13:00 13:33 WBC (4.0-11.0) th/mm3 RBC (4.50-5.90) mil/mm3 Hgb (13.0-17.0) gm/dL Hct (39.0-51.0) % MCV (80.0-100.0) fL MCH (27.0-34.0) pg MCHC (32.0-36.0) % RDW (11.6-17.2) % Plt Count (150-450) th/mm3 MPV (7.0-11.0) fL Prelim Diff (Auto) Neut % (Auto) (16.0-70.0) % Lymph % (Auto) (9.0-44.0) % [place] % (Auto) (0.0-8.0) % Eos % (Auto) (0.0-4.0) % Baso % (Auto) (0.0-2.0) % Neut # (Auto) (1.8-7.7) th/mm3 Lymph # (Auto) (1.0-4.8) th/mm3 [place] # (Auto) (0.0-0.9) th/mm3 Eos # (Auto) (0.0-0.4) th/mm3 Baso # (Auto) (0.0-0.2) th/mm3 WBC Differential Seg Neuts % (Manual) (16-70) % Band Neuts % (Manual) (0-6) % Lymphocytes % (Manual) (9-44) % Monocytes % (Manual) (0-8) % Eosinophils % (Manual) (0-4) % Basophils % (Manual) (0-2) % Metamyelocytes % (Man) (0-1) % Myelocytes % (Man) (0-0) % Promyelocytes % (Man) (0-0) % Abs Neuts (Manual) (1.8-7.7) th/mm3 Nucleated RBCs/100 WBC (0-0) /100 WBC Differential Comment Toxic Granulation (None) Toxic Vacuolation (None) Platelet Estimate (Normal) Platelet Morphology (Normal) Ovalocytes (None) Acanthocytes (Spur) (None) PT (9.8-11.6) sec INR Ratio Puncture Site Left radial Left radial Patient Temperature 98.6 98.6 O2 Saturation 87 L* 89 L* (90-100) % ABG pH 7.02 L* 6.99 L* (7.380-7.420) ABG pCO2 60 H* 50 H (38-42) mmHg ABG pO2 83 90 (61-120) mmHg ABG HCO3 15 L* 11 L* (22-26) mmol/L ABG O2 Content 13.2 13.9 (12.0-20.0) Vol % ABG Base Excess -14.5 L -17.9 L (-2-2) mmol/L ABG Methemoglobin 0.6 1.5 (0-2) % Pipe Test Present Present Hemoglobin 10.7 L 11.1 L (12.0-16.0) G/DL Carboxyhemoglobin 0.0 0.1 (0-4) % O2 Delivery Device Ventilator Ventilator Vent Setting Prvc/ac Prvc/ac 500/16/ Inspired O2 100 50 % Critical Value Yes Yes Sodium (136-145) meq/L Potassium (3.5-5.1) meq/L Chloride (98-107) meq/L Carbon Dioxide (21.0-32.0) meq/L Anion Gap (5-15) meq/L BUN (7-18) mg/dL Creatinine (0.60-1.30) mg/dL Estimated GFR (>89) mL/min POC Glucose 153 H (68-110) mg/dl Random Glucose (74-106) mg/dL Lactic Acid (0.4-2.0) mmol/L Calcium (8.5-10.1) mg/dL Prot Corrected Calcium (8.5-10.1) mg/dL Phosphorus (2.5-4.9) mg/dL Magnesium (1.5-2.5) mg/dL Total Bilirubin (0.2-1.0) mg/dL AST (15-37) U/L ALT (12-78) U/L Alkaline Phosphatase (45-117) U/L Total Creatine Kinase (39-308) U/L Troponin I (0.02-0.05) ng/mL Total Protein (6.4-8.2) g/dL Albumin (3.4-5.0) g/dL Nasal Screen MRSA (PCR) (Negative) Blood Type Antibody Screen MTS Gel Crossmatch Blood Bank Comment 03/06/18 03/06/18 03/06/18 Range/Units 14:45 14:45 15:06 WBC 14.8 H (4.0-11.0) th/mm3 RBC 3.56 L (4.50-5.90) mil/mm3 Hgb 10.6 L (13.0-17.0) gm/dL Hct 34.0 L (39.0-51.0) % MCV 95.5 D (80.0-100.0) fL MCH 29.7 (27.0-34.0) pg MCHC 31.1 L (32.0-36.0) % RDW 20.2 H (11.6-17.2) % Plt Count 285 (150-450) th/mm3 MPV 7.7 (7.0-11.0) fL Prelim Diff (Auto) Slide review pending Neut % (Auto) 80.4 H (16.0-70.0) % Lymph % (Auto) 15.4 (9.0-44.0) % [place] % (Auto) 3.1 (0.0-8.0) % Eos % (Auto) 0.9 (0.0-4.0) % Baso % (Auto) 0.2 (0.0-2.0) % Neut # (Auto) 11.9 H (1.8-7.7) th/mm3 Lymph # (Auto) 2.3 (1.0-4.8) th/mm3 [place] # (Auto) 0.5 (0.0-0.9) th/mm3 Eos # (Auto) 0.1 (0.0-0.4) th/mm3 Baso # (Auto) 0.0 (0.0-0.2) th/mm3 WBC Differential Manual diff final Seg Neuts % (Manual) 59 (16-70) % Band Neuts % (Manual) 20 H (0-6) % Lymphocytes % (Manual) 17 (9-44) % Monocytes % (Manual) (0-8) % Eosinophils % (Manual) 1 (0-4) % Basophils % (Manual) (0-2) % Metamyelocytes % (Man) 3 H (0-1) % Myelocytes % (Man) (0-0) % Promyelocytes % (Man) (0-0) % Abs Neuts (Manual) 12.1 H (1.8-7.7) th/mm3 Nucleated RBCs/100 WBC (0-0) /100 WBC Differential Comment . Toxic Granulation (None) Toxic Vacuolation (None) Platelet Estimate (Normal) Platelet Morphology (Normal) Ovalocytes (None) Acanthocytes (Spur) (None) PT (9.8-11.6) sec INR Ratio Puncture Site Patient Temperature O2 Saturation (90-100) % ABG pH (7.380-7.420) ABG pCO2 (38-42) mmHg ABG pO2 (61-120) mmHg ABG HCO3 (22-26) mmol/L ABG O2 Content (12.0-20.0) Vol % ABG Base Excess (-2-2) mmol/L ABG Methemoglobin (0-2) % Pipe Test Hemoglobin (12.0-16.0) G/DL Carboxyhemoglobin (0-4) % O2 Delivery Device Vent Setting Inspired O2 % Critical Value Sodium 153 H (136-145) meq/L Potassium 4.0 D (3.5-5.1) meq/L Chloride 114 H (98-107) meq/L Carbon Dioxide 19.0 L (21.0-32.0) meq/L Anion Gap 20 H (5-15) meq/L BUN 76 H (7-18) mg/dL Creatinine 4.26 H (0.60-1.30) mg/dL Estimated GFR 16 L (>89) mL/min POC Glucose (68-110) mg/dl Random Glucose 173 H (74-106) mg/dL Lactic Acid 13.0 H* (0.4-2.0) mmol/L Calcium 8.2 L (8.5-10.1) mg/dL Prot Corrected Calcium (8.5-10.1) mg/dL Phosphorus (2.5-4.9) mg/dL Magnesium (1.5-2.5) mg/dL Total Bilirubin 0.5 (0.2-1.0) mg/dL AST 188 H (15-37) U/L ALT 68 (12-78) U/L Alkaline Phosphatase 117 (45-117) U/L Total Creatine Kinase (39-308) U/L Troponin I (0.02-0.05) ng/mL Total Protein 5.1 L D (6.4-8.2) g/dL Albumin 1.1 L (3.4-5.0) g/dL Nasal Screen MRSA (PCR) (Negative) Blood Type Antibody Screen MTS Gel Crossmatch Blood Bank Comment 03/06/18 03/06/18 03/06/18 Range/Units 15:18 16:00 16:00 WBC (4.0-11.0) th/mm3 RBC (4.50-5.90) mil/mm3 Hgb (13.0-17.0) gm/dL Hct (39.0-51.0) % MCV (80.0-100.0) fL MCH (27.0-34.0) pg MCHC (32.0-36.0) % RDW (11.6-17.2) % Plt Count (150-450) th/mm3 MPV (7.0-11.0) fL Prelim Diff (Auto) Neut % (Auto) (16.0-70.0) % Lymph % (Auto) (9.0-44.0) % [place] % (Auto) (0.0-8.0) % Eos % (Auto) (0.0-4.0) % Baso % (Auto) (0.0-2.0) % Neut # (Auto) (1.8-7.7) th/mm3 Lymph # (Auto) (1.0-4.8) th/mm3 [place] # (Auto) (0.0-0.9) th/mm3 Eos # (Auto) (0.0-0.4) th/mm3 Baso # (Auto) (0.0-0.2) th/mm3 WBC Differential Seg Neuts % (Manual) (16-70) % Band Neuts % (Manual) (0-6) % Lymphocytes % (Manual) (9-44) % Monocytes % (Manual) (0-8) % Eosinophils % (Manual) (0-4) % Basophils % (Manual) (0-2) % Metamyelocytes % (Man) (0-1) % Myelocytes % (Man) (0-0) % Promyelocytes % (Man) (0-0) % Abs Neuts (Manual) (1.8-7.7) th/mm3 Nucleated RBCs/100 WBC (0-0) /100 WBC Differential Comment Toxic Granulation (None) Toxic Vacuolation (None) Platelet Estimate (Normal) Platelet Morphology (Normal) Ovalocytes (None) Acanthocytes (Spur) (None) PT 14.7 H (9.8-11.6) sec INR 1.5 Ratio Puncture Site Right radial Patient Temperature 98.6 O2 Saturation 97 (90-100) % ABG pH 7.16 L* (7.380-7.420) ABG pCO2 42 (38-42) mmHg ABG pO2 295 H (61-120) mmHg ABG HCO3 14 L* (22-26) mmol/L ABG O2 Content 16.0 (12.0-20.0) Vol % ABG Base Excess -13.0 L (-2-2) mmol/L ABG Methemoglobin 1.4 (0-2) % Pipe Test Present Hemoglobin 11.2 L (12.0-16.0) G/DL Carboxyhemoglobin 0.3 (0-4) % O2 Delivery Device Ventilator Vent Setting Prvc/ac 550/24 Inspired O2 100 % Critical Value Yes Sodium (136-145) meq/L Potassium (3.5-5.1) meq/L Chloride (98-107) meq/L Carbon Dioxide (21.0-32.0) meq/L Anion Gap (5-15) meq/L BUN (7-18) mg/dL Creatinine (0.60-1.30) mg/dL Estimated GFR (>89) mL/min POC Glucose (68-110) mg/dl Random Glucose (74-106) mg/dL Lactic Acid (0.4-2.0) mmol/L Calcium (8.5-10.1) mg/dL Prot Corrected Calcium (8.5-10.1) mg/dL Phosphorus (2.5-4.9) mg/dL Magnesium (1.5-2.5) mg/dL Total Bilirubin (0.2-1.0) mg/dL AST (15-37) U/L ALT (12-78) U/L Alkaline Phosphatase (45-117) U/L Total Creatine Kinase (39-308) U/L Troponin I 0.10 H (0.02-0.05) ng/mL Total Protein (6.4-8.2) g/dL Albumin (3.4-5.0) g/dL Nasal Screen MRSA (PCR) (Negative) Blood Type Antibody Screen MTS Gel Crossmatch Blood Bank Comment 03/06/18 03/06/18 03/06/18 Range/Units 16:00 17:06 19:45 WBC (4.0-11.0) th/mm3 RBC (4.50-5.90) mil/mm3 Hgb (13.0-17.0) gm/dL Hct (39.0-51.0) % MCV (80.0-100.0) fL MCH (27.0-34.0) pg MCHC (32.0-36.0) % RDW (11.6-17.2) % Plt Count (150-450) th/mm3 MPV (7.0-11.0) fL Prelim Diff (Auto) Neut % (Auto) (16.0-70.0) % Lymph % (Auto) (9.0-44.0) % [place] % (Auto) (0.0-8.0) % Eos % (Auto) (0.0-4.0) % Baso % (Auto) (0.0-2.0) % Neut # (Auto) (1.8-7.7) th/mm3 Lymph # (Auto) (1.0-4.8) th/mm3 [place] # (Auto) (0.0-0.9) th/mm3 Eos # (Auto) (0.0-0.4) th/mm3 Baso # (Auto) (0.0-0.2) th/mm3 WBC Differential Seg Neuts % (Manual) (16-70) % Band Neuts % (Manual) (0-6) % Lymphocytes % (Manual) (9-44) % Monocytes % (Manual) (0-8) % Eosinophils % (Manual) (0-4) % Basophils % (Manual) (0-2) % Metamyelocytes % (Man) (0-1) % Myelocytes % (Man) (0-0) % Promyelocytes % (Man) (0-0) % Abs Neuts (Manual) (1.8-7.7) th/mm3 Nucleated RBCs/100 WBC (0-0) /100 WBC Differential Comment Toxic Granulation (None) Toxic Vacuolation (None) Platelet Estimate (Normal) Platelet Morphology (Normal) Ovalocytes (None) Acanthocytes (Spur) (None) PT (9.8-11.6) sec INR Ratio Puncture Site Right radial Patient Temperature 98.6 O2 Saturation 96 (90-100) % ABG pH 7.13 L* (7.380-7.420) ABG pCO2 51 H* (38-42) mmHg ABG pO2 137 H (61-120) mmHg ABG HCO3 17 L (22-26) mmol/L ABG O2 Content 20.8 H (12.0-20.0) Vol % ABG Base Excess -11.0 L (-2-2) mmol/L ABG Methemoglobin 1.5 (0-2) % Pipe Test Present Hemoglobin 15.4 (12.0-16.0) G/DL Carboxyhemoglobin 0.4 (0-4) % O2 Delivery Device Ventilator Vent Setting Prvc / ac / Inspired O2 80 % Critical Value Yes Sodium (136-145) meq/L Potassium (3.5-5.1) meq/L Chloride (98-107) meq/L Carbon Dioxide (21.0-32.0) meq/L Anion Gap (5-15) meq/L BUN (7-18) mg/dL Creatinine (0.60-1.30) mg/dL Estimated GFR (>89) mL/min POC Glucose 155 H (68-110) mg/dl Random Glucose (74-106) mg/dL Lactic Acid (0.4-2.0) mmol/L Calcium (8.5-10.1) mg/dL Prot Corrected Calcium (8.5-10.1) mg/dL Phosphorus (2.5-4.9) mg/dL Magnesium (1.5-2.5) mg/dL Total Bilirubin (0.2-1.0) mg/dL AST (15-37) U/L ALT (12-78) U/L Alkaline Phosphatase (45-117) U/L Total Creatine Kinase (39-308) U/L Troponin I (0.02-0.05) ng/mL Total Protein (6.4-8.2) g/dL Albumin (3.4-5.0) g/dL Nasal Screen MRSA (PCR) Mrsa detected (Negative) Blood Type Antibody Screen MTS Gel Crossmatch Blood Bank Comment 03/06/18 03/07/18 03/07/18 Range/Units 20:30 00:42 03:40 WBC (4.0-11.0) th/mm3 RBC (4.50-5.90) mil/mm3 Hgb (13.0-17.0) gm/dL Hct (39.0-51.0) % MCV (80.0-100.0) fL MCH (27.0-34.0) pg MCHC (32.0-36.0) % RDW (11.6-17.2) % Plt Count (150-450) th/mm3 MPV (7.0-11.0) fL Prelim Diff (Auto) Neut % (Auto) (16.0-70.0) % Lymph % (Auto) (9.0-44.0) % [place] % (Auto) (0.0-8.0) % Eos % (Auto) (0.0-4.0) % Baso % (Auto) (0.0-2.0) % Neut # (Auto) (1.8-7.7) th/mm3 Lymph # (Auto) (1.0-4.8) th/mm3 [place] # (Auto) (0.0-0.9) th/mm3 Eos # (Auto) (0.0-0.4) th/mm3 Baso # (Auto) (0.0-0.2) th/mm3 WBC Differential Seg Neuts % (Manual) (16-70) % Band Neuts % (Manual) (0-6) % Lymphocytes % (Manual) (9-44) % Monocytes % (Manual) (0-8) % Eosinophils % (Manual) (0-4) % Basophils % (Manual) (0-2) % Metamyelocytes % (Man) (0-1) % Myelocytes % (Man) (0-0) % Promyelocytes % (Man) (0-0) % Abs Neuts (Manual) (1.8-7.7) th/mm3 Nucleated RBCs/100 WBC (0-0) /100 WBC Differential Comment Toxic Granulation (None) Toxic Vacuolation (None) Platelet Estimate (Normal) Platelet Morphology (Normal) Ovalocytes (None) Acanthocytes (Spur) (None) PT (9.8-11.6) sec INR Ratio Puncture Site Patient Temperature O2 Saturation (90-100) % ABG pH (7.380-7.420) ABG pCO2 (38-42) mmHg ABG pO2 (61-120) mmHg ABG HCO3 (22-26) mmol/L ABG O2 Content (12.0-20.0) Vol % ABG Base Excess (-2-2) mmol/L ABG Methemoglobin (0-2) % Pipe Test Hemoglobin (12.0-16.0) G/DL Carboxyhemoglobin (0-4) % O2 Delivery Device Vent Setting Inspired O2 % Critical Value Sodium (136-145) meq/L Potassium (3.5-5.1) meq/L Chloride (98-107) meq/L Carbon Dioxide (21.0-32.0) meq/L Anion Gap (5-15) meq/L BUN (7-18) mg/dL Creatinine (0.60-1.30) mg/dL Estimated GFR (>89) mL/min POC Glucose 141 H 87 (68-110) mg/dl Random Glucose (74-106) mg/dL Lactic Acid 19.3 H* (0.4-2.0) mmol/L Calcium (8.5-10.1) mg/dL Prot Corrected Calcium (8.5-10.1) mg/dL Phosphorus (2.5-4.9) mg/dL Magnesium (1.5-2.5) mg/dL Total Bilirubin (0.2-1.0) mg/dL AST (15-37) U/L ALT (12-78) U/L Alkaline Phosphatase (45-117) U/L Total Creatine Kinase (39-308) U/L Troponin I (0.02-0.05) ng/mL Total Protein (6.4-8.2) g/dL Albumin (3.4-5.0) g/dL Nasal Screen MRSA (PCR) (Negative) Blood Type Antibody Screen MTS Gel Crossmatch Blood Bank Comment 03/07/18 03/07/18 03/07/18 Range/Units 03:40 03:40 04:52 WBC 21.3 H (4.0-11.0) th/mm3 RBC 2.45 L (4.50-5.90) mil/mm3 Hgb 7.4 L D (13.0-17.0) gm/dL Hct 24.5 L (39.0-51.0) % MCV 100.0 D (80.0-100.0) fL MCH 30.3 (27.0-34.0) pg MCHC 30.3 L (32.0-36.0) % RDW 21.6 H (11.6-17.2) % Plt Count 112 L D (150-450) th/mm3 MPV 7.9 (7.0-11.0) fL Prelim Diff (Auto) Manual diff required Neut % (Auto) (16.0-70.0) % Lymph % (Auto) (9.0-44.0) % [place] % (Auto) (0.0-8.0) % Eos % (Auto) (0.0-4.0) % Baso % (Auto) (0.0-2.0) % Neut # (Auto) (1.8-7.7) th/mm3 Lymph # (Auto) (1.0-4.8) th/mm3 [place] # (Auto) (0.0-0.9) th/mm3 Eos # (Auto) (0.0-0.4) th/mm3 Baso # (Auto) (0.0-0.2) th/mm3 WBC Differential Manual diff final Seg Neuts % (Manual) 10 L (16-70) % Band Neuts % (Manual) 9 H (0-6) % Lymphocytes % (Manual) 30 (9-44) % Monocytes % (Manual) 5 (0-8) % Eosinophils % (Manual) 3 (0-4) % Basophils % (Manual) 1 (0-2) % Metamyelocytes % (Man) 20 H (0-1) % Myelocytes % (Man) 19 H (0-0) % Promyelocytes % (Man) 3 H (0-0) % Abs Neuts (Manual) 13.0 H (1.8-7.7) th/mm3 Nucleated RBCs/100 WBC 3 H (0-0) /100 WBC Differential Comment . Toxic Granulation 2+ H (None) Toxic Vacuolation Present H (None) Platelet Estimate Low L (Normal) Platelet Morphology Enlarged H (Normal) Ovalocytes 1+ H (None) Acanthocytes (Spur) Occ H (None) PT (9.8-11.6) sec INR Ratio Puncture Site Patient Temperature O2 Saturation (90-100) % ABG pH (7.380-7.420) ABG pCO2 (38-42) mmHg ABG pO2 (61-120) mmHg ABG HCO3 (22-26) mmol/L ABG O2 Content (12.0-20.0) Vol % ABG Base Excess (-2-2) mmol/L ABG Methemoglobin (0-2) % Pipe Test Hemoglobin (12.0-16.0) G/DL Carboxyhemoglobin (0-4) % O2 Delivery Device Vent Setting Inspired O2 % Critical Value Sodium 148 H (136-145) meq/L Potassium 5.8 H D (3.5-5.1) meq/L Chloride 106 D (98-107) meq/L Carbon Dioxide 14.7 L (21.0-32.0) meq/L Anion Gap 27 H (5-15) meq/L BUN 62 H (7-18) mg/dL Creatinine 3.82 H (0.60-1.30) mg/dL Estimated GFR 18 L (>89) mL/min POC Glucose 70 (68-110) mg/dl Random Glucose 158 H (74-106) mg/dL Lactic Acid (0.4-2.0) mmol/L Calcium 7.0 L* D (8.5-10.1) mg/dL Prot Corrected Calcium 8.3 L (8.5-10.1) mg/dL Phosphorus 8.3 H (2.5-4.9) mg/dL Magnesium 2.6 H (1.5-2.5) mg/dL Total Bilirubin 1.1 H (0.2-1.0) mg/dL AST 932 H (15-37) U/L ALT 284 H (12-78) U/L Alkaline Phosphatase 226 H (45-117) U/L Total Creatine Kinase (39-308) U/L Troponin I (0.02-0.05) ng/mL Total Protein 4.7 L (6.4-8.2) g/dL Albumin 1.3 L (3.4-5.0) g/dL Nasal Screen MRSA (PCR) (Negative) Blood Type Antibody Screen MTS Gel Crossmatch Blood Bank Comment 03/07/18 03/07/18 03/07/18 Range/Units 05:34 06:12 06:58 WBC (4.0-11.0) th/mm3 RBC (4.50-5.90) mil/mm3 Hgb (13.0-17.0) gm/dL Hct (39.0-51.0) % MCV (80.0-100.0) fL MCH (27.0-34.0) pg MCHC (32.0-36.0) % RDW (11.6-17.2) % Plt Count (150-450) th/mm3 MPV (7.0-11.0) fL Prelim Diff (Auto) Neut % (Auto) (16.0-70.0) % Lymph % (Auto) (9.0-44.0) % [place] % (Auto) (0.0-8.0) % Eos % (Auto) (0.0-4.0) % Baso % (Auto) (0.0-2.0) % Neut # (Auto) (1.8-7.7) th/mm3 Lymph # (Auto) (1.0-4.8) th/mm3 [place] # (Auto) (0.0-0.9) th/mm3 Eos # (Auto) (0.0-0.4) th/mm3 Baso # (Auto) (0.0-0.2) th/mm3 WBC Differential Seg Neuts % (Manual) (16-70) % Band Neuts % (Manual) (0-6) % Lymphocytes % (Manual) (9-44) % Monocytes % (Manual) (0-8) % Eosinophils % (Manual) (0-4) % Basophils % (Manual) (0-2) % Metamyelocytes % (Man) (0-1) % Myelocytes % (Man) (0-0) % Promyelocytes % (Man) (0-0) % Abs Neuts (Manual) (1.8-7.7) th/mm3 Nucleated RBCs/100 WBC (0-0) /100 WBC Differential Comment Toxic Granulation (None) Toxic Vacuolation (None) Platelet Estimate (Normal) Platelet Morphology (Normal) Ovalocytes (None) Acanthocytes (Spur) (None) PT (9.8-11.6) sec INR Ratio Puncture Site Patient Temperature O2 Saturation (90-100) % ABG pH (7.380-7.420) ABG pCO2 (38-42) mmHg ABG pO2 (61-120) mmHg ABG HCO3 (22-26) mmol/L ABG O2 Content (12.0-20.0) Vol % ABG Base Excess (-2-2) mmol/L ABG Methemoglobin (0-2) % Pipe Test Hemoglobin (12.0-16.0) G/DL Carboxyhemoglobin (0-4) % O2 Delivery Device Vent Setting Inspired O2 % Critical Value Sodium (136-145) meq/L Potassium (3.5-5.1) meq/L Chloride (98-107) meq/L Carbon Dioxide (21.0-32.0) meq/L Anion Gap (5-15) meq/L BUN (7-18) mg/dL Creatinine (0.60-1.30) mg/dL Estimated GFR (>89) mL/min POC Glucose 65 L 105 (68-110) mg/dl Random Glucose (74-106) mg/dL Lactic Acid (0.4-2.0) mmol/L Calcium (8.5-10.1) mg/dL Prot Corrected Calcium (8.5-10.1) mg/dL Phosphorus (2.5-4.9) mg/dL Magnesium (1.5-2.5) mg/dL Total Bilirubin (0.2-1.0) mg/dL AST (15-37) U/L ALT (12-78) U/L Alkaline Phosphatase (45-117) U/L Total Creatine Kinase (39-308) U/L Troponin I (0.02-0.05) ng/mL Total Protein (6.4-8.2) g/dL Albumin (3.4-5.0) g/dL Nasal Screen MRSA (PCR) (Negative) Blood Type Antibody Screen MTS Gel Crossmatch See Detail Blood Bank Comment 03/07/18 Range/Units 07:35 WBC (4.0-11.0) th/mm3 RBC (4.50-5.90) mil/mm3 Hgb (13.0-17.0) gm/dL Hct (39.0-51.0) % MCV (80.0-100.0) fL MCH (27.0-34.0) pg MCHC (32.0-36.0) % RDW (11.6-17.2) % Plt Count (150-450) th/mm3 MPV (7.0-11.0) fL Prelim Diff (Auto) Neut % (Auto) (16.0-70.0) % Lymph % (Auto) (9.0-44.0) % [place] % (Auto) (0.0-8.0) % Eos % (Auto) (0.0-4.0) % Baso % (Auto) (0.0-2.0) % Neut # (Auto) (1.8-7.7) th/mm3 Lymph # (Auto) (1.0-4.8) th/mm3 [place] # (Auto) (0.0-0.9) th/mm3 Eos # (Auto) (0.0-0.4) th/mm3 Baso # (Auto) (0.0-0.2) th/mm3 WBC Differential Seg Neuts % (Manual) (16-70) % Band Neuts % (Manual) (0-6) % Lymphocytes % (Manual) (9-44) % Monocytes % (Manual) (0-8) % Eosinophils % (Manual) (0-4) % Basophils % (Manual) (0-2) % Metamyelocytes % (Man) (0-1) % Myelocytes % (Man) (0-0) % Promyelocytes % (Man) (0-0) % Abs Neuts (Manual) (1.8-7.7) th/mm3 Nucleated RBCs/100 WBC (0-0) /100 WBC Differential Comment Toxic Granulation (None) Toxic Vacuolation (None) Platelet Estimate (Normal) Platelet Morphology (Normal) Ovalocytes (None) Acanthocytes (Spur) (None) PT (9.8-11.6) sec INR Ratio Puncture Site Art line Patient Temperature 98.6 O2 Saturation 95 (90-100) % ABG pH 6.93 L* (7.380-7.420) ABG pCO2 46 H (38-42) mmHg ABG pO2 121 H (61-120) mmHg ABG HCO3 9 L* (22-26) mmol/L ABG O2 Content 7.2 L (12.0-20.0) Vol % ABG Base Excess -20.9 L (-2-2) mmol/L ABG Methemoglobin 1.7 (0-2) % Pipe Test Hemoglobin 5.2 L* (12.0-16.0) G/DL Carboxyhemoglobin 0.0 (0-4) % O2 Delivery Device Ventilator Vent Setting [id number] Inspired O2 80 % Critical Value Yes Sodium (136-145) meq/L Potassium (3.5-5.1) meq/L Chloride (98-107) meq/L Carbon Dioxide (21.0-32.0) meq/L Anion Gap (5-15) meq/L BUN (7-18) mg/dL Creatinine (0.60-1.30) mg/dL Estimated GFR (>89) mL/min POC Glucose (68-110) mg/dl Random Glucose (74-106) mg/dL Lactic Acid (0.4-2.0) mmol/L Calcium (8.5-10.1) mg/dL Prot Corrected Calcium (8.5-10.1) mg/dL Phosphorus (2.5-4.9) mg/dL Magnesium (1.5-2.5) mg/dL Total Bilirubin (0.2-1.0) mg/dL AST (15-37) U/L ALT (12-78) U/L Alkaline Phosphatase (45-117) U/L Total Creatine Kinase (39-308) U/L Troponin I (0.02-0.05) ng/mL Total Protein (6.4-8.2) g/dL Albumin (3.4-5.0) g/dL Nasal Screen MRSA (PCR) (Negative) Blood Type Antibody Screen MTS Gel Crossmatch Blood Bank Comment Imaging Data Radiologist's impression: Abdomen/Pelvis CT 03/06/18 00:00 CONCLUSION: 1. Diffuse large bowel thickening and inflammatory stranding seen characteristic of colitis. 2. Right inguinal hernia contains a portion of sigmoid colon. Chest CT 03/06/18 00:00 CONCLUSION: 1. Bilateral pulmonary infiltrates. Chest X-Ray 03/06/18 09:55 CONCLUSION: Tubes and catheter as above. The enteric tube needs to be advanced. Endotracheal tube tip approaches the anh. Head CT 03/06/18 12:20 CONCLUSION: 1. Atrophy and stable white matter disease. . Discharge Plan Discharge Disposition Patient Disposition: 30 Still Patient Discharge Condition Condition: Critical Discharge Details Diagnosis: Septic shock, Aspiration pneumonia, Acute GI bleeding Date/Time: 03/07/18 08:08 Physicians Team ED Provider: Preet Gallegos Primary Care Provider: Nacho Whitney Attending Provider: Polo Rivera Other Providers: Ruslan Valdivia ; Ced Crum Daniel V Status ED Status: Left Department Discharge Information Discharge Date/Time: 03/06/18 13:37 Addendum entered and electronically signed by Preet Gallegos MD 03/06/18 11:35 : INTUBATION: Dr. Gallegos: The patient was put in optimal position for the procedure. Rapid sequence intubation was initiated by me using 20 milligrams of etomidate IV and 100 milligrams of succinylcholine IV. The patient was intubated with a 80 cuffed endotracheal tube. Tube placement was confirmed by visualization of the tube and balloon passing through the cords, capnometry and subsequent chest x-ray. Breath sounds were equal and well aerated bilaterally postintubation. No breath sounds over stomach. Patient tolerated procedure well.
[2018-03-06] MEDS ORDERED: Pantoprazole Inj 40 MG Vial IV.PUSH SCH (11:00)
[2018-03-06] MEDS ORDERED: Vancomycin Inj 1,000 MG in Sodium Chlor 0.9% Inj 250 ML IV.SIG ONE (11:00)
[2018-03-06] MEDS ORDERED: Dextrose 50% in Water 50 ML Vial IV.PUSH ONE (11:00)
[2018-03-06 11:07] LABS: Creatine Kinase 72 U/L (39-308)
[2018-03-06 11:14] LABS: ABG Base Excess -14.5 mmol/L (-2-2); ABG PCO2 60 mmHg (38-42); ABG PO2 83 mmHg (61-120)
[2018-03-06 11:18] LABS: Troponin I 0.06 ng/mL (0.02-0.05)
[2018-03-06] MEDS: Vasopressin Inj 40 UNIT in Dextrose 5% in Water Inj 98 ML IV.CONT PRN ×2 (11:29)
[2018-03-06 11:33] LABS: Lymphocytes 14 % (9-44); Metamyelocytes 4 % (0-1); Monocytes 10 % (0-8); Toxic Granulation 1+; Toxic Vacuolation Present
[2018-03-06 11:34] LABS: Platelet Estimate Normal (Normal); Platelet Morphology Normal (Normal)
[2018-03-06] MEDS ORDERED: Calcium Chloride Inj 1 GM/10 ML Syringe IV.PUSH ONE (12:00)
--- NOTE | 2018-03-06 12:29 | CT ---
EXAM DATE: 03/06/2018 12:26 PM EDT AGE/SEX: 82 years / Male INDICATIONS: Altered mental status. CLINICAL DATA: This is the patient's initial encounter. Patient reports that signs and symptoms have been present for 1 day and indicates a pain score of Nonresponsive. MEDICAL/SURGICAL HISTORY: Carcinoma, prostatic. Congestive heart failure. Non-responsive. RADIATION DOSE: 57.29 CTDI (mGy) ; Patient motion [place] [facility] [place]. . TECHNIQUE: CT of the head without contrast. Using automated exposure control and adjustment of the mA and/or kV according to patient size, radiation dose was kept as low as reasonably achievable to ob tain optimal diagnostic quality images. DICOM format image data is available electronically for revi ew and comparison. FINDINGS: There is diffuse atrophy. Patchy and confluent hypodensity in the bilateral centrum semiovale, subcor tical white matter, and periventricular white matter again seen. There are no signs of intracranial h emorrhage, acute infarct, or mass. No fractures. CONCLUSION: 1. Atrophy and stable white matter disease. . Electronically signed by: Irineo Tejeda MD 03/06/2018 12:28 PM EDT
--- NOTE | 2018-03-06 12:38 | MH ---
cc: Ploo Rivera MD DATE OF ADMISSION: 03/06/2018 HISTORY OF PRESENT ILLNESS: The patient is an 82-year-old male with a past medical history of prostate CA, CHF, cardiomyopathy, a intermediate resident who was brought in to [facility] ED for altered mental status and respiratory distress. On arrival, the patient was hypotensive with a systolic blood pressure in the 60s to the 70s, tachycardic and unresponsive. The patient had a GCS score of 3. Per ED records, the patient is a FULL CODE and he is a johnson of the [facility]. The patient was intubated with etomidate and succinylcholine by Dr. Gallegos from the ED and placed on full mechanical ventilation. His laboratory data is significant for acute renal failure with hyperkalemia and lactic acidemia. His lactic acid level measured at 13.8 with potassium 5.6 and creatinine 4.89. Also, he was found to have a leukocytosis with a WBC of 19.9. Chest x-ray post-intubation showed ET tube above the anh, patchy bilateral airspace disease in the right lower lobe. A right subclavian central line was placed by ED. Post intubation he had a bradycardic episode in the 40s and was given 1 mg of atropine and a half ampule of epinephrine. When seen, the patient is unresponsive on mechanical ventilation. He is on multiple pressors, Levophed at 50 mcg, dopamine at 20 mcg, and patient is currently receiving a third liter of normal saline. He has significant acute blood loss in the OG tube and 2 units of emergency release transfusion has been ordered. His hemoglobin on arrival was 9.3. The patient is scheduled to undergo a CT abdomen and pelvis along with a CT chest. PAST MEDICAL HISTORY: Significant for CHF and dysphagia, prostate cancer, BPH. PAST SURGICAL HISTORY: Unobtainable. ALLERGIES: NO KNOWN DRUG ALLERGIES. FAMILY HISTORY: Noncontributory and not contributing to present illness. SOCIAL HISTORY: The patient is a intermediate resident. MEDICATIONS: Unknown. REVIEW OF SYSTEMS: Unobtainable. PHYSICAL EXAMINATION: GENERAL: The patient is an 82-year-old critically ill male, intubated and on multiple pressors. VITAL SIGNS: Afebrile, pulse of 112, respiratory rate of 16, blood pressure 94/39, saturation 97%. Ventilator settings: PRVC rate of 16, tidal volume 500, PEEP of 5, I time 1, FiO2 of 100%. HEENT: Atraumatic, normocephalic. Pupils are equal, round, reactive to light and accommodation. Extraocular muscles are intact. Conjunctivae pink. Nonicteric sclerae. Dry mucous membranes. NECK: Supple. No JVD, adenopathy or thyromegaly. Trachea in the midline. CARDIOVASCULAR: Tachycardic. Normal S1, S2. No murmurs, rubs or gallops noted. PULMONARY: Bilateral equal air entry with few coarse breath sounds. ABDOMEN: Soft. Mild tenderness on palpation from hypoactive bowel sounds. EXTREMITIES: No cyanosis, clubbing, edema. NEUROLOGIC: Intubated, unresponsive on no sedation. LABORATORY DATA: WBC 19.9, hemoglobin 9.3, hematocrit 32, platelet count 363, bands of 20. Sodium 151, potassium 5.6, chloride 113, CO2 13, BUN 83, creatinine 4.89, glucose of 88, anion gap of 25. Lactic acid 13.8, AST 46, ALT 27, total bilirubin 0.2, albumin 1.3. Troponin 0.06. ABG showed a pH of 7.02, CO2 of 60, PaO2 of 83, bicarbonate of 15, saturations 87%. RADIOGRAPHIC STUDIES: A chest x-ray post intubation showed patchy bilateral airspace disease, greatest in the right lower lobe. IMPRESSION: 1. Ventilatory-dependent respiratory failure. 2. Septic shock. 3. Aspiration pneumonia. 4. Acute respiratory and metabolic acidosis. 5. Acute renal failure. 6. Lactic acidemia. 7. Hypernatremia and hyperkalemia. 8. Dehydration. 9. Leukocytosis. 10. Anemia. 11. History of congestive heart failure. 12. History of prostate cancer. RECOMMENDATIONS: 1. Monitor neurologic status closely. Fentanyl infusion if needed for sedation while intubated. 2. Continue with ventilatory support and maintain saturations above greater than 92%. 3. Bronchodilators in the form of DuoNeb every 6 hours and will initiate ICU ventilatory bundle. 4. Increase respiratory rate to 24 and a PEEP to 10 for now. Repeat ABG in [address] stress-dose steroids 100 mg IV every 8 hours. 6. Continue with pressors. He is currently on multiple pressors including Levophed, vasopressin, and dopamine. We will add Akhil-Synephrine and wean off dopamine. Maintain MAP greater than 65 mmHg. 7. Serial lactic acid monitoring until clear. 8. Patient currently receiving a third liter of crystalloid in the ED. Will give an additional 1 liter bolus of NS followed by bicarbonate drip. 9. We will obtain 2-D echocardiogram to evaluate LV function. 10. Monitor renal function, I's and O's and avoid nephrotoxins. Obtain CT chest without contrast for further evaluation of pulmonary parenchyma. 11. We will consult nephrology service. We will give 2 amps of sodium bicarbonate followed by D5W with 3 amps of bicarbonate at 150 mL an hour. 12. Treat hyperkalemia with a 6 units of IV regular insulin, D50 and the bicarbonate as stated above. Also, we will give 1 amp of calcium gluconate. 13. Keep n.p.o. for now and place on Protonix 40 mg IV daily. The patient is for CT abdomen and pelvis without contrast. 14. Continue with broad-spectrum antibiotics in form of vancomycin and Zosyn. Monitor for signs of infection, which include fever and WBC. We will obtain a sputum culture and Gram stain. Follow up on blood cultures. Check strep pneumonia and legionella urinary antigen. Also, we will obtain urinalysis with culture if indicated. 15. The patient is for transfusion at 2 units emergency release. Will monitor hemoglobin and hematocrit every 6 hours. We will also give 2 units of FFP. Check coagulation profile and consult GI service. 16. Sliding scale insulin with Accu-Cheks to maintain euglycemia. 17. Monitor CBC and coagulation studies and transfuse if hemoglobin less than 7. 18. GI prophylaxis with Protonix 40 mg daily and DVT prophylaxis with SCDs. We will hold off on chemical anticoagulation prophylaxis for now given probable GI bleed. 19. Right subclavian central line was placed by ED. We will place arterial line. 20. The patient is critically ill with multiorgan failure. Critical care time 60 minutes, excluding procedures. MD EUNICE Valerio/asl , 11:53 AM , 12:11 PM
--- NOTE | 2018-03-06 12:55 | CT ---
EXAM DATE: 03/06/2018 12:37 PM EDT AGE/SEX: 82 years / Male INDICATIONS: Abdominal distention. CLINICAL DATA: This is the patient's initial encounter. Patient reports that signs and symptoms have been present for 1 day and indicates a pain score of Nonresponsive. MEDICAL/SURGICAL HISTORY: Carcinoma, prostatic. Congestive heart failure. Non-responsive. RADIATION DOSE: 15.95 CTDI (mGy) COMPARISON: [facility] [place], PELVIS AP ONLY, 11/16/2017. . TECHNIQUE: Multiple contiguous axial images were obtained through the abdomen. Images were obtained using multiple row detector helical technique. Using automated exposure control and adjustment of the mA and/or kV according to patient size, radiation dose was kept as low as reasonably achievable to o btain optimal diagnostic quality images. DICOM format image data is available electronically for rev iew and comparison. FINDINGS: Kidneys, gallbladder, liver, pancreas, adrenal glands are normal. Spleen is small in size. Atheroscle rotic calcifications of the aorta and iliac vessels. There is a Santana catheter identified and the bal loon is inflated within the urethra on axial image #82. This should be deflated and repositioned. The re is abnormal circumferential bowel wall thickening extending from the rectum to the descending colo n with adjacent pericolonic inflammatory stranding seen. Small bowel loops are normal in appearance. There is a right inguinal hernia containing a portion of sigmoid colon. There is no aneurysm. Streak artifact from left trochanteric nail and intramedullary xander fixation across left proximal femur fract ure. There are degenerative changes of the spine. Lung windows demonstrate bilateral patchy airspace disease in the lingula, right middle lobe and both lower lobes. CONCLUSION: 1. Diffuse large bowel thickening and inflammatory stranding seen characteristic of colitis. 2. Right inguinal hernia contains a portion of sigmoid colon. Electronically signed by: Irineo Tejeda MD 03/06/2018 12:54 PM EDT
--- NOTE | 2018-03-06 12:58 | CT ---
EXAM DATE: 03/06/2018 12:40 PM EDT AGE/SEX: 82 years / Male INDICATIONS: Respiratory distress. CLINICAL DATA: This is the patient's initial encounter. Patient reports that signs and symptoms have been present for 1 day and indicates a pain score of Nonresponsive. MEDICAL/SURGICAL HISTORY: Carcinoma, prostatic. Congestive heart failure. Non-responsive. RADIATION DOSE: 15.95 CTDI (mGy) ; Combined studies COMPARISON: [facility], CHEST 1V SINGLE AP, 03/06/2018. . TECHNIQUE: Multiple contiguous axial images were obtained through the chest without contrast. Image s were obtained in suspended respiration using multiple row detector helical technique. Using automa lilo exposure control and adjustment of the mA and/or kV according to patient size, radiation dose was kept as low as reasonably achievable to obtain optimal diagnostic quality images. DICOM format imag e data is available electronically for review and comparison. FINDINGS: Endotracheal tube is noted with tip terminating at the anh. There is diffuse bilateral patchy pulm onary consolidation in the upper lobes, right middle lobe and lingula and both lower lobes. Enteric t ube is noted and the tip terminates in the distal esophagus. There are degenerative changes of the sp ine noted. No adenopathy. CONCLUSION: 1. Bilateral pulmonary infiltrates. Electronically signed by: Irineo Tejeda MD 03/06/2018 12:57 PM EDT
[2018-03-06 13:08] LABS: ABG Base Excess -17.9 mmol/L (-2-2); ABG PCO2 50 mmHg (38-42); ABG PO2 90 mmHG (61-120)
[2018-03-06] MEDS ORDERED: Sodium Bicarbonate 8.4% Inj 50 MEQ/50 ML Syringe ONE ×2 (13:28→13:30)
[2018-03-06 15:23] LABS: Baso % (Auto) 0.2 % (0.0-2.0); Eos # (Auto) 0.1 th/mm3 (0.0-0.4); Eos % (Auto) 0.9 % (0.0-4.0); Hemoglobin 10.6 gm/dL (13.0-17.0); Lymph # (Auto) 2.3 th/mm3 (1.0-4.8); Lymph % (Auto) 15.4 % (9.0-44.0); Mean Corpuscular HGB Conc 31.1 % (32.0-36.0); Mean Corpuscular Hemoglobin 29.7 pg (27.0-34.0); Mean Corpuscular Volume 95.5 fL (80.0-100.0); Mean Platelet Volume 7.7 fL (7.0-11.0); Mono # (Auto) 0.5 th/mm3 (0.0-0.9); Mono % (Auto) 3.1 % (0.0-8.0); Neut # (Auto) 11.9 th/mm3 (1.8-7.7); Neut % (Auto) 80.4 % (16.0-70.0); Platelet Count 285 th/mm3 (150-450); Red Blood Count 3.56 mil/mm3 (4.50-5.90); Red Cell Distribution Width 20.2 % (11.6-17.2); White Blood Count 14.8 th/mm3 (4.0-11.0)
[2018-03-06 15:24] LABS: ABG PCO2 42 mmHg (38-42); ABG PO2 295 mmHG (61-120)
[2018-03-06 15:46] LABS: Alanine Aminotransferase 68 U/L (12-78); Albumin 1.1 g/dL (3.4-5.0); Anion Gap 20 meq/L (5-15); Aspartate Aminotransferase 188 U/L (15-37); Blood Urea Nitrogen 76 mg/dL (7-18); Calcium 8.2 mg/dL (8.5-10.1); Chloride 114 meq/L (98-107); Glomerular Filtration Rate 16 mL/min (>89); Glucose,Random 173 mg/dL (74-106); Sodium 153 meq/L (136-145)
[2018-03-06 15:48] LABS: Alkaline Phosphatase 117 U/L (45-117); Total Protein 5.1 g/dL (6.4-8.2)
[2018-03-06] MEDS: Insulin NovoLOG Aspart Correctional Sugar Inj SQ SCH ×3 (15:49→20:34)
[2018-03-06] MEDS: Sodium Bicarbonate 8.4% Inj 150 MEQ in Dextrose 5% in Water Inj 850 ML IV.CONT SCH ×4 (15:50→20:15)
[2018-03-06] MEDS: Hydrocortisone Sod Succinate 100 MG Vial IV.PUSH SCH (15:51)
[2018-03-06] MEDS ORDERED: Sodium Bicarbonate 8.4% Inj 50 MEQ/50 ML Syringe IV.PUSH ONE (15:53)
--- NOTE | 2018-03-06 15:55 | ECG ---
Date Performed: 03/06/2018 Time Performed: 09:09:41 PTAGE: 82 years EKG: THE RHYTHM APPEARS TO BE REGULAR WITH PACs AND 1 SLIGHT PAUSE WITH CLEARLY A P-WAVE AFTER T HIS PAUSE. IT IS MOST LIKELY A Sinus rhythm WITH SOME VARIABILITY. LEFT BUNDLE BRANCH BLOCK AXIS LEFTWARD Compared to previous tracing, heart ra te is considerably faster. PVCs are no longer present. ABNORMAL ECG PREVIOUS TRACING : 09/22/2017 15.53 DOCTOR: Tuan Pace Interpretating Date/Time 03/06/2018 15:54:53
[2018-03-06 16:04] LABS: Eosinophils 1 % (0-4); Lymphocytes 17 % (9-44); Metamyelocytes 3 % (0-1)
[2018-03-06 17:18] LABS: INR 1.5 Ratio; Prothrombin Time 14.7 sec (9.8-11.6)
[2018-03-06] MEDS: Phenylephrine Inj 40 MG in Sodium Chlor 0.9% Inj 496 ML IV.CONT PRN ×2 (17:38→20:19)
[2018-03-06] MEDS: Piperacil/Tazo 2.25 GM Premix 50 ML IV.SIG SCH (19:31)
[2018-03-06 20:09] LABS: ABG PCO2 51 mmHg (38-42); ABG PO2 137 mmHG (61-120)
[2018-03-06] MEDS ORDERED: Senna/Docusate Sodium 8.6/50 MG Tablet PO SCH (21:00)
--- NOTE | 2018-03-06 23:44 | MB ---
cc: Ruslan Valdivia MD DATE: 03/06/2018 TYPE OF CONSULTATION: GI consult. REASON FOR CONSULTATION: GI bleeding. HISTORY OF PRESENT ILLNESS: Mr. Case is an 82-year-old male patient who came in from a snf for evaluation of a change in mental status and respiratory difficulty and failure. The patient was felt to be aspirating on his food in the initial presentation and was seen in the emergency room in a mask oxygen supply. Further few minutes, he started to have significant shortness of breath requiring intubation and mechanical ventilation. During the hospitalization, an NG tube was placed that revealed fresh blood coming out from the NG tube. The patient was found to be in severe distress, hypotensive, requiring maximal pressors, his abdomen is distended, and completely unconscious. Evaluation revealed significant anemia and increased lactic acid and CT scan showing evidence of severe colitis, likely ischemia. At the current time, the patient is intubated and in the critical care unit receiving maximal medical therapy by Dr. Rivera, trying to stabilize him. REVIEW OF SYSTEMS: Unobtainable. PSYCHOSOCIAL HISTORY: He is a snf resident and no contact at this time to reach. MEDICATIONS: As listed in the chart. MEDICAL HISTORY: Unobtainable at the current time. PHYSICAL EXAMINATION: GENERAL: The patient is in severe dehydration, cachectic in appearance, intubated with hypotension. SKIN: Appeared to be normal. HEAD AND NECK: Atraumatic, normocephalic. Pupils are equal and reactive to light. NECK: Supple. No lymphadenopathy. Trachea midline. CHEST: Clear to auscultation bilaterally after intubation. HEART: Regular rate and rhythm. No murmurs. ABDOMEN: Distended. Difficult to assess tenderness. Liver and spleen are not palpable. EXTREMITIES: Normal pulses. No edema. NEUROLOGIC: Currently intubated. LABORATORY DATA: Reviewed revealed white count of 19.9, hemoglobin 9.3, hematocrit 33.2, platelet count of 363. Electrolytes: Sodium of 151, potassium 5.6. Liver function test normal. Troponin positive. Lactic acid 13.8. ASSESSMENT AND PLAN: An 82-year-old male patient who is from a snf, who presented with the following problems: 1. Respiratory failure requiring immediate intubation. 2. Gastrointestinal bleeding through the NG tube with a significant drop in H and H since admission. 3. Hemodynamically instability secondary to sepsis and bleeding. 4. Evidence of possible bowel ischemia manifested by increased lactic acid and CT scan showing severe colitis. 5. Renal insufficiency and electrolyte imbalance. RECOMMENDATIONS: Agree with continuing supportive care at the current time. Blood transfusion as needed. Stabilize blood pressure and electrolyte abnormalities. IV proton pump inhibitors. Aggressive IV hydration. Continue supportive care as has been done since admission by Dr. Rivera. Will follow up with you periodically for possible endoscopic evaluation once he is stabilized. Further recommendation to follow. Thank you for the consult. MD SHAZIA Marcano/jacob , 03:05 PM , 03:15 PM
--- NOTE | 2018-03-07 00:28 | MB ---
cc: Ced Crum MD DATE: 03/06/2018 REQUESTING PHYSICIAN: Polo Rivera MD REASON FOR CONSULTATION: 1. Septic shock 2. Pneumonia. 3. Colitis. HISTORY OF PRESENT ILLNESS: This is an 82-year-old black male who was admitted from the long term to the emergency department with respiratory symptoms. The patient was brought with an altered mental status and respiratory difficulty. He was found to be in profound shock with hypotension, tachycardia, increased white blood cell count and acute kidney disease. The patient was intubated and is currently on the ventilator and is unresponsive. He has bloody NG return. He has received 2 units of blood and is on 4 different pressors including 20 mcg of Levophed, vasopressin, phenylephrine and dopamine. He is unresponsive, on the ventilator on 100% FiO2. The patient had elevated lactic acid of 13.8. CT scan of his abdomen shows colitis. There was diffuse large bowel thickening and inflammatory stranding. CT scan of the head did not show any acute infarct. There is atrophy of the white matter. Chest x-ray and chest CT scan shows bilateral infiltrates. The chest x-ray has patchy bilateral infiltrates. The patient is unresponsive on the ventilator. Information is obtained from the medical record. PAST MEDICAL HISTORY: Congestive heart failure, dysphagia, benign prostatic hypertrophy, prostate cancer, failure to thrive. ALLERGIES: NO KNOWN DRUG ALLERGIES. MEDICATIONS: 1. Vancomycin. 2. Piperacillin/tazobactam 3. Metronidazole. 4. Albuterol. 5. Vasopressin. 6. Levophed. 7. Phenylephrine. 8. Solu-Cortef. 9. Dopamine. SOCIAL HISTORY: Unable to obtain. REVIEW OF SYSTEMS: Unable to obtain. PHYSICAL EXAMINATION: GENERAL: This is an elderly male who is unresponsive on the ventilator. He is on 100% FiO2. VITAL SIGNS: Include heart rate of 114. Respirations were ventilated. HEENT: The head is atraumatic. Extraocular movements cannot be assessed. Oropharynx intubated. NECK: No swelling or adenopathy. LUNGS: Coarse breath sounds bilaterally. HEART: Regular S1, S2. No murmurs heard. ABDOMEN: Bowel sounds hypoactive. Distended. Unable to appreciate pain. The patient is nonresponsive. RECTAL: Not performed. EXTREMITIES: No clubbing, cyanosis or edema. SKIN: No diffuse rash. NEUROLOGIC: The patient on ventilator. Unable to assess. PSYCHIATRIC: Unable to assess. LABORATORY DATA: WBC 19.9, platelets 363. hemoglobin 9.3, 51% neutrophils, 20% bands. Creatinine 4.89, BUN 83, sodium 151, potassium 5.6, AST 46, ALT 27, alkaline phosphatase 105. Blood culture is pending. IMPRESSION: 1. Septic shock. The patient is on multiple pressors. The infection is likely arising from pulmonary system. The patient has bilateral lung infiltrates and likely aspirated given the rapidity of the deterioration. 2. Aspiration pneumonia. 3. Acute respiratory failure. 4. Acute kidney failure. 5. Colitis. Possibly ischemic in nature. 6. Acute respiratory failure. The patient is very critically ill. Given the degree of organ dysfunction, he is probably unlikely to survive. RECOMMENDATIONS: 1. Continue vancomycin. 2. Continue piperacillin/tazobactam. 3. Continue Flagyl IV. 4. Give vancomycin p.o. via the NG tube when he is not on suction. The patient is having bloody emesis via the NG tube currently. 5. Monitor renal function. 6. Monitor blood cultures. 7. Monitor clinical status. 8. Sputum culture. Thank you for this consultation. I will monitor the patient's progress along with you. Ced Crum MD FFRichard/rw , 03:07 PM , 03:24 PM
[2018-03-07] MEDS: Vasopressin Inj 40 UNIT in Dextrose 5% in Water Inj 98 ML IV.CONT PRN ×2 (01:01)
--- NOTE | 2018-03-07 03:59 | MB ---
cc: Deacon Estrella MD DATE: 03/06/2018 REASON FOR CONSULTATION: Acute renal failure management. HISTORY OF PRESENT ILLNESS: This is an 82-year-old male with a history of prostate cancer, CHF, cardiomyopathy. [facility] and was brought here with altered mental status. The patient had an apparent episode of aspiration pneumonia here. Upon arrival, he had a systolic blood pressure in the 60s-70s. The patient was intubated and started on pressor support. CT imaging was done which revealed findings of a pneumonia as well as colitis and he has a lactic acidosis of 13.8. At this time, this is presumptively bowel infarction secondary to sepsis. He had an episode of bradycardia, which was improved after he was given epinephrine and atropine. He at this time is intubated on multiple pressors and remains unresponsive in the setting of apparent sepsis secondary to pneumonia as well as colitis. The patient is being empirically treated for sepsis with vancomycin and Zosyn. He is being followed with infectious disease as well. Regarding his renal function, the patient has a creatinine of 4.89. It is unknown what his previous labs were recently, however, he had a creatinine at 0.6 in November of this year. He has also had some hyperkalemia with a potassium of 5.6. This was medically treated. His acidosis is significant with a bicarbonate level of 13.2 and on a sodium bicarbonate drip at this time as well. Nephrology was consulted for further evaluation. PAST MEDICAL HISTORY: Includes hypertension, CHF, CVA, dementia, prostate cancer, BPH, arthritis. PAST SURGICAL HISTORY: Unknown. MEDICATIONS AT HOME: Include Xarelto, [place], lisinopril, metoprolol, erythromycin, hydralazine, Lasix. ALLERGIES: NO KNOWN DRUG ALLERGIES. FAMILY HISTORY: Unknown. SOCIAL HISTORY: No reported alcohol or tobacco use. Based on charts. FAMILY HISTORY: Noncontributory. REVIEW OF SYSTEMS: Unobtainable as the patient is intubated and sedated. PHYSICAL EXAMINATION: GENERAL: At the time of evaluation, temperature 95.1, pulse 113, respiratory rate 29, blood pressure 88/66. GENERAL: Intubated, unresponsive. NECK: Soft, supple. CARDIAC: Tachycardia. PULMONARY: Decreased breath sounds, rhonchi patient intubated. ABDOMEN: Tense decreased bowel sounds. EXTREMITIES: No edema. Dry skin. LABORATORY DATA: Sodium 151, potassium 5.6, chloride 113, bicarbonate 13.2, BUN 83, creatinine 4.89, glucose level 153, lactic acid 13.8, AST 46, ALT 27, alkaline phosphatase 105. Troponin 0.06, albumin 1.3. Hemoglobin 9.3, hematocrit 32.1, white count 19.9, platelet count 363. ASSESSMENT AND PLAN: 1. Acute kidney injury in the setting of sepsis and shock. He had a creatinine of 0.6 in November of this year. He presented here with a creatinine of 4.89. He has apparent acute kidney injury secondary to sepsis and shock. He is on multiple pressors at this point. The patient with significant lactic acidosis of 13.[address] imaging suggestive of possible ischemic bowel. At this point, the patient is unstable and is on multiple pressors, which are being maxed out. There is no acute indication for dialysis at this point with a potassium of 5.6. Recommend to continue further medical management at this point to further stabilize acidosis as well as hyperkalemia with medical management. We will monitor over the next 24-48 hours. Should the patient further stabilize may consider for CRRT. At this point, the patient is relatively unstable without any acute indication for dialysis at this point. He has an extremely poor prognosis, and this was discussed with critical care. Consider for palliative care evaluation. The patient is likely not a good candidate, given his overall comorbidities and dementia, for any further long-term dialysis. Continue to closely monitor with ICU team. Should PHYSICIAN SUPPORT COORDINATOR be necessary, he will need a dialysis catheter placed. 2. Hyperkalemia. The patient with potassium 5.6 this is likely an acute kidney injury secondary to sepsis and shock. This was medically managed. Continue with bicarbonate drip as ordered and continue to monitor. 3. Acidosis significant acidosis with bicarbonate level of 13.2 and a lactic acid level of 13.8. Agree with D5 as ordered. The patient is on D5W with 3 amps of sodium bicarbonate at 150 mL per hour. Continue with aggressive management of acidosis, which will also help with potassium management. 4. Altered mental status. The patient has an underlying history of dementia; however, now with altered mental status secondary to shock. The patient has been intubated and is ventilator-dependent with respiratory failure at this point. Continue to monitor closely with ICU team. 5. Pneumonia and colitis per CT imaging. The patient was empirically given Zosyn as well as vancomycin. Caution with vancomycin given renal failure. Continue followup. ID apparently has been consulted. We will continue to monitor. MD JOHNNIE Jimenez/cecilia , 03:14 PM , 03:25 PM [facility] SYSTEMRichard
[2018-03-07] MEDS ORDERED: Chlorhexidine Gluconate 2% 1 Pack (2 Cloths) TOPICAL SCH (04:00)
[2018-03-07] MEDS ORDERED: Chlorhexidine Gluconate 2% 1 Pack (2 Cloths) TOPICAL PRN (04:00)
[2018-03-07 04:02] LABS: Hematocrit 24.5 % (39.0-51.0); Hemoglobin 7.4 gm/dL (13.0-17.0); Mean Corpuscular Hemoglobin 30.3 pg (27.0-34.0); Mean Platelet Volume 7.9 fL (7.0-11.0); Platelet Count 112 th/mm3 (150-450); Red Blood Count 2.45 mil/mm3 (4.50-5.90); Red Cell Distribution Width 21.6 % (11.6-17.2); White Blood Count 21.3 th/mm3 (4.0-11.0)
[2018-03-07] MEDS: Hydrocortisone Sod Succinate 100 MG Vial IV.PUSH SCH ×2 (04:18→05:50)
[2018-03-07] MEDS: Sodium Bicarbonate 8.4% Inj 150 MEQ in Dextrose 5% in Water Inj 850 ML IV.CONT SCH ×2 (04:19)
[2018-03-07] MEDS: Piperacil/Tazo 2.25 GM Premix 50 ML IV.SIG SCH ×2 (04:19→05:00)
[2018-03-07] MEDS: Insulin NovoLOG Aspart Correctional Sugar Inj SQ SCH ×2 (04:53→05:56)
[2018-03-07 04:58] LABS: Carbon Dioxide 14.7 meq/L (21.0-32.0); Magnesium 2.6 mg/dL (1.5-2.5); Phosphorus 8.3 mg/dL (2.5-4.9); Potassium 5.8 meq/L (3.5-5.1)
[2018-03-07 04:59] LABS: Albumin 1.3 g/dL (3.4-5.0); Total Protein 4.7 g/dL (6.4-8.2)
[2018-03-07] MEDS: Phenylephrine Inj 40 MG in Sodium Chlor 0.9% Inj 496 ML IV.CONT PRN (04:59)
[2018-03-07] MEDS ORDERED: Calcium Chloride Inj 1 GM/10 ML Syringe IV.CONT ONE (05:00)
[2018-03-07] MEDS ORDERED: Lidocaine 2% 100 MG/5 ML Syringe IV.PUSH ONE (05:00)
[2018-03-07] MEDS ORDERED: Sodium Bicarbonate 8.4% Inj 50 MEQ/50 ML Syringe IV.PUSH ONE (05:00)
[2018-03-07 05:20] LABS: Mean Corpuscular HGB Conc 30.3 % (32.0-36.0)
[2018-03-07] MEDS ORDERED: Dextrose 50% in Water 50 ML Vial IV.PUSH ONE (06:57)
--- NOTE | 2018-03-07 07:14 | P.PNCC ---
Subjective Subjective Remarks/Hospital Course: The patient is an 82-year-old male with a past medical history of prostate CA, CHF, cardiomyopathy, a [facility] resident who was brought in to [facility] ED for altered mental status and respiratory distress. On arrival, the patient was hypotensive with a systolic blood pressure in the 60s to the 70s, tachycardic and unresponsive. The patient had a GCS score of 3. Per ED records, the patient is a FULL CODE and he is a johnson of the [facility]. The patient was intubated with etomidate and succinylcholine by Dr. Gallegos from the ED and placed on full mechanical ventilation. His laboratory data is significant for acute renal failure with hyperkalemia and lactic acidemia. His lactic acid level measured at 13.8 with potassium 5.6 and creatinine 4.89. Also, he was found to have a leukocytosis with a WBC of 19.9. Chest x-ray post-intubation showed ET tube above the anh, patchy bilateral airspace disease in the right lower lobe. A right subclavian central line was placed by ED. Post intubation he had a bradycardic episode in the 40s and was given 1 mg of atropine and a half ampule of epinephrine. When seen, the patient is unresponsive on mechanical ventilation. He is on multiple pressors, Levophed at 50 mcg, dopamine at 20 mcg, and patient is currently receiving a third liter of normal saline. He has significant acute blood loss in the OG tube and 2 units of emergency release transfusion has been ordered. His hemoglobin on arrival was 9.3. The patient is scheduled to undergo a CT abdomen and pelvis along with a CT chest. 03/07 Patient is intubated maxed out on 4 pressors ( Levop, Neosy, Vasopressin and Dopamine). Lactic acid 19, WBC increased 21. Objective Vital Signs / I&O: Vital Signs 03/06/18 09:00 03/06/18 09:10 03/06/18 10:08 Temperature Pulse Rate 128 H 113 H Respiratory Rate 16 14 18 Blood Pressure 92/41 L 70/28 L Pulse Oximetry 99 98 03/06/18 10:10 03/06/18 10:14 03/06/18 10:18 Temperature Pulse Rate 114 H 108 H Respiratory Rate 20 18 18 Blood Pressure 66/31 L 71/34 L Pulse Oximetry 97 100 100 03/06/18 10:23 03/06/18 10:33 03/06/18 11:31 Temperature Pulse Rate 111 H 109 H 112 H Respiratory Rate 16 Blood Pressure 62/25 L 94/39 L Pulse Oximetry 100 97 03/06/18 11:53 03/06/18 12:26 03/06/18 13:36 Temperature Pulse Rate 112 H 112 H Respiratory Rate 16 18 16 Blood Pressure 98/59 L 112/55 L Pulse Oximetry 97 03/06/18 13:50 03/06/18 13:56 03/06/18 14:00 Temperature Pulse Rate 112 H 111 H 110 H Respiratory Rate 14 6 L 12 Blood Pressure 78/57 L 78/56 L Pulse Oximetry 56 L 53 L 03/06/18 14:04 03/06/18 14:05 03/06/18 14:15 Temperature Pulse Rate 109 H 109 H 109 H Respiratory Rate 8 L 8 L 17 Blood Pressure 81/56 L 78/60 L 97/62 L Pulse Oximetry 44 L 45 L 55 L 03/06/18 14:26 03/06/18 14:31 03/06/18 14:35 Temperature 93.6 F L 94.3 F L 94.6 F L Pulse Rate 110 H 111 H 111 H Respiratory Rate 16 13 15 Blood Pressure 85/64 L 77/50 L 86/64 L Pulse Oximetry 48 L 51 L 53 L 03/06/18 14:38 03/06/18 14:40 03/06/18 14:55 Temperature 95.2 F L 95.0 F L 95.1 F L Pulse Rate 111 H 113 H Respiratory Rate 16 29 H Blood Pressure 83/62 L 88/66 L Pulse Oximetry 54 L 03/06/18 14:56 03/06/18 15:00 03/06/18 15:28 Temperature 95.2 F L 95.2 F L 95.2 F L Pulse Rate 114 H 115 H 117 H Respiratory Rate 16 19 20 Blood Pressure 86/66 L 95/60 L Pulse Oximetry 62 L 03/06/18 15:34 03/06/18 15:40 03/06/18 15:45 Temperature 95.2 F L 95.2 F L 95.4 F L Pulse Rate 117 H 117 H 118 H Respiratory Rate 21 19 12 Blood Pressure 91/71 L 89/65 L 84/66 L Pulse Oximetry 03/06/18 15:51 03/06/18 15:55 03/06/18 16:00 Temperature 95.4 F L 95.4 F L 95.4 F L Pulse Rate 118 H 119 H 118 H Respiratory Rate 7 L 8 L 12 Blood Pressure 84/66 L 85/69 L 86/66 L Pulse Oximetry 99 03/06/18 16:05 03/06/18 16:10 03/06/18 16:15 Temperature 95.4 F L 95.4 F L 95.4 F L Pulse Rate 117 H 117 H 117 H Respiratory Rate 12 17 14 Blood Pressure 91/71 L 96/72 L 93/72 L Pulse Oximetry 03/06/18 16:21 03/06/18 16:26 03/06/18 16:30 Temperature 95.4 F L 95.5 F L 95.5 F L Pulse Rate 115 H 115 H 114 H Respiratory Rate 20 17 15 Blood Pressure 88/69 L 89/74 L 92/70 L Pulse Oximetry 03/06/18 16:35 03/06/18 16:41 03/06/18 16:45 Temperature 95.5 F L 95.5 F L 95.5 F L Pulse Rate 114 H 113 H 113 H Respiratory Rate 15 17 18 Blood Pressure 89/70 L 100/75 89/73 L Pulse Oximetry 03/06/18 16:51 03/06/18 17:00 03/06/18 17:03 Temperature 95.7 F L 95.7 F L 95.7 F L Pulse Rate 109 H 104 H 100 H Respiratory Rate 9 L 17 18 Blood Pressure 85/67 L 73/56 L Pulse Oximetry 58 L 59 L 61 L 03/06/18 17:36 03/06/18 17:40 03/06/18 17:46 Temperature 96.1 F L 96.1 F L 96.3 F L Pulse Rate 107 H 109 H 118 H Respiratory Rate 17 17 15 Blood Pressure 79/57 L 86/63 L 103/66 Pulse Oximetry 66 L 65 L 61 L 03/06/18 17:50 03/06/18 17:56 03/06/18 17:58 Temperature 96.4 F L 96.4 F L 96.4 F L Pulse Rate 116 H 116 H 114 H Respiratory Rate 17 20 34 H Blood Pressure 101/74 104/70 104/70 Pulse Oximetry 61 L 59 L 03/06/18 18:00 03/06/18 18:10 03/06/18 18:15 Temperature 96.6 F L 96.8 F L 97.0 F L Pulse Rate 114 H 123 H 121 H Respiratory Rate 19 24 18 Blood Pressure 85/64 L 102/74 88/62 L Pulse Oximetry 59 L 65 L 03/06/18 18:20 03/06/18 18:25 03/06/18 18:31 Temperature 97.0 F L 97.2 F L 97.3 F L Pulse Rate 120 H 119 H 116 H Respiratory Rate 20 20 20 Blood Pressure 87/64 L 87/67 L 84/62 L Pulse Oximetry 03/06/18 18:35 03/06/18 18:46 03/06/18 18:51 Temperature 97.3 F L 97.5 F L 97.7 F Pulse Rate 116 H 113 H 111 H Respiratory Rate 20 21 19 Blood Pressure 78/57 L 88/63 L 87/64 L Pulse Oximetry 03/06/18 18:55 03/06/18 19:00 03/06/18 19:01 Temperature 97.7 F 97.9 F 97.9 F Pulse Rate 113 H 110 H 109 H Respiratory Rate 21 20 20 Blood Pressure 79/61 L 95/60 L Pulse Oximetry 03/06/18 19:11 03/06/18 19:16 03/06/18 19:24 Temperature 98.1 F 98.1 F 98.2 F Pulse Rate 108 H 111 H 113 H Respiratory Rate 21 21 11 L Blood Pressure 95/62 L 80/63 L 88/64 L Pulse Oximetry 03/06/18 19:25 03/06/18 19:30 03/06/18 20:00 Temperature 98.2 F 98.8 F Pulse Rate 110 H 100 H Respiratory Rate 7 L 21 Blood Pressure 83/65 L 94/67 L 93/64 L Pulse Oximetry 96 03/06/18 20:44 03/06/18 20:45 03/06/18 21:00 Temperature 99.5 F Pulse Rate 97 H 95 H Respiratory Rate 32 H 32 H 23 Blood Pressure 80/57 L Pulse Oximetry 92 L 95 03/06/18 22:00 03/06/18 22:40 03/06/18 23:00 Temperature 100.2 F H 100 F H 100.0 F H Pulse Rate 96 H 93 H 93 H Respiratory Rate 15 28 H 23 Blood Pressure 94/57 L 104/57 L 101/61 Pulse Oximetry 94 L 96 03/06/18 23:32 03/06/18 23:45 03/07/18 00:00 Temperature 99.1 F Pulse Rate 88 Respiratory Rate 29 H 24 Blood Pressure 102/72 82/63 L Pulse Oximetry 95 96 03/07/18 00:51 03/07/18 01:00 03/07/18 02:00 Temperature 98.1 F 97.0 F L Pulse Rate 82 77 Respiratory Rate 28 H 28 H Blood Pressure 88/60 L 84/65 L 103/81 Pulse Oximetry 1 L 96 03/07/18 03:00 03/07/18 03:54 03/07/18 03:55 Temperature 96.4 F L Pulse Rate 72 67 Respiratory Rate 28 H 28 H 28 H Blood Pressure 110/75 Pulse Oximetry 96 92 L 03/07/18 04:00 03/07/18 05:00 03/07/18 06:00 Temperature 96.9 F L 97.8 F 93.2 F L Pulse Rate 68 59 L 61 Respiratory Rate 28 H 28 H 28 H Blood Pressure 98/70 L 102/55 L 100/55 L Pulse Oximetry 96 95 95 Intake & Output 03/06/18 03/07/18 03/07/18 18:59 06:59 18:59 Intake Total 300 / 300 4558 / 4558 Output Total 0 / 0 Balance 300 / 300 4558 / 4558 Weight 52.163 kg Intake: IV 4250 / 4250 DOPamine 400 MG/250 ML Premix 250 / 250 400 mg In 250 ml @ 0 mls/hr IV. CONT .STK-MED ONE Rx#:[id number] Neosynephrine Inj 40 MG In NS 1000 / 1000 Inj 496 ML @ 40 MCG/MIN 30 mls/ hr IV.CONT TITRATE PRN Rx#: [id number] Sodium Bicarbonate 8.4% Inj 150 2000 / 2000 MEQ In D5W Inj 850 ML @ 150 mls/hr IV.CONT .Q6H40M SONAM Rx#: [id number] Pitressin Inj 40 UNIT In D5W 100 / 100 Inj 98 ML @ 0.01 UNITS/MIN 1.5 mls/hr IV.CONT TITRATE PRN Rx#: [id number] Levophed-Dextrose 4 mg/250 ml 250 / 250 Drip 4 mg In 250 ml @ 2 MCG/MIN 7.5 mls/hr IV.SIG TITRATE PRN Rx#:[id number] Zosyn 2.25 GM Premix 50 ML @ 100 / 100 100 mls/hr IV.SIG Q6H SONAM Rx#: [id number] Zosyn 4.5 GM Premix 4.5 gm In 100 / 100 100 ml @ 200 mls/hr IV.SIG ONCE ONE Rx#:[id number] Vancomycin Inj 1,000 MG In NS 250 / 250 Inj 250 ML @ 200 mls/hr IV.SIG ONCE ONE Rx#:[id number] Flagyl 500 MG Inj 100 ML @ 100 200 / 200 mls/hr IV.SIG Q8H [facility] Rx#: [id number] Water Bolus Amount 300 / 300 Intake (Blood Product) Amt 0 / 0 308 / 308 Plasma Thawed 5 Day Cp2d Unit 308 / 308 [id number] Plasma Thawed 5 Day Cp2d Unit 0 / 0 [id number] Plasma Thawed 5 Day Cp2d Unit 0 / 0 [id number] Output: Urine Amount (Catheter) 0 / 0 Indwelling Temp Sensing 0 / 0 Catheter Other: # Bowel Movements 0 Result Diagrams: 03/07/18 03:40 03/07/18 03:40 Other Results: Laboratory Results - last 12 hr 03/06/18 03/06/18 03/06/18 10:52 16:00 19:45 WBC RBC Hgb Hct MCV MCH MCHC RDW Plt Count MPV Prelim Diff (Auto) Differential Comment Puncture Site Right radial Patient Temperature 98.6 O2 Saturation 96 ABG pH 7.13 L* ABG pCO2 51 H* ABG pO2 137 H ABG HCO3 17 L ABG O2 Content 20.8 H ABG Base Excess -11.0 L ABG Methemoglobin 1.5 Pipe Test Present Hemoglobin 15.4 Carboxyhemoglobin 0.4 O2 Delivery Device Ventilator Vent Setting Prvc / ac / Inspired O2 80 Critical Value Yes Sodium Potassium Chloride Carbon Dioxide Anion Gap BUN Creatinine Estimated GFR POC Glucose Random Glucose Lactic Acid Calcium Prot Corrected Calcium Phosphorus Magnesium Total Bilirubin AST ALT Alkaline Phosphatase Total Protein Albumin Nasal Screen MRSA (PCR) Mrsa detected MTS Gel Crossmatch Blood Bank Comment 03/06/18 03/07/18 03/07/18 20:30 00:42 03:40 WBC RBC Hgb Hct MCV MCH MCHC RDW Plt Count MPV Prelim Diff (Auto) Differential Comment Puncture Site Patient Temperature O2 Saturation ABG pH ABG pCO2 ABG pO2 ABG HCO3 ABG O2 Content ABG Base Excess ABG Methemoglobin Pipe Test Hemoglobin Carboxyhemoglobin O2 Delivery Device Vent Setting Inspired O2 Critical Value Sodium Potassium Chloride Carbon Dioxide Anion Gap BUN Creatinine Estimated GFR POC Glucose 141 H 87 Random Glucose Lactic Acid 19.3 H* Calcium Prot Corrected Calcium Phosphorus Magnesium Total Bilirubin AST ALT Alkaline Phosphatase Total Protein Albumin Nasal Screen MRSA (PCR) MTS Gel Crossmatch Blood Bank Comment 03/07/18 03/07/18 03/07/18 03:40 03:40 04:52 WBC 21.3 H RBC 2.45 L Hgb 7.4 L D Hct 24.5 L MCV 100.0 D MCH 30.3 MCHC 30.3 L RDW 21.6 H Plt Count 112 L D MPV 7.9 Prelim Diff (Auto) Manual diff required Differential Comment . Puncture Site Patient Temperature O2 Saturation ABG pH ABG pCO2 ABG pO2 ABG HCO3 ABG O2 Content ABG Base Excess ABG Methemoglobin Pipe Test Hemoglobin Carboxyhemoglobin O2 Delivery Device Vent Setting Inspired O2 Critical Value Sodium 148 H Potassium 5.8 H D Chloride 106 D Carbon Dioxide 14.7 L Anion Gap 27 H BUN 62 H Creatinine 3.82 H Estimated GFR 18 L POC Glucose 70 Random Glucose 158 H Lactic Acid Calcium 7.0 L* D Prot Corrected Calcium 8.3 L Phosphorus 8.3 H Magnesium 2.6 H Total Bilirubin 1.1 H AST 932 H ALT 284 H Alkaline Phosphatase 226 H Total Protein 4.7 L Albumin 1.3 L Nasal Screen MRSA (PCR) MTS Gel Crossmatch Blood Bank Comment 03/07/18 03/07/18 03/07/18 05:34 06:12 06:58 WBC RBC Hgb Hct MCV MCH MCHC RDW Plt Count MPV Prelim Diff (Auto) Differential Comment Puncture Site Patient Temperature O2 Saturation ABG pH ABG pCO2 ABG pO2 ABG HCO3 ABG O2 Content ABG Base Excess ABG Methemoglobin Pipe Test Hemoglobin Carboxyhemoglobin O2 Delivery Device Vent Setting Inspired O2 Critical Value Sodium Potassium Chloride Carbon Dioxide Anion Gap BUN Creatinine Estimated GFR POC Glucose 65 L 105 Random Glucose Lactic Acid Calcium Prot Corrected Calcium Phosphorus Magnesium Total Bilirubin AST ALT Alkaline Phosphatase Total Protein Albumin Nasal Screen MRSA (PCR) MTS Gel Crossmatch See Detail Blood Bank Comment Imaging: Abdomen/Pelvis CT 03/06/18 00:00 CONCLUSION: 1. Diffuse large bowel thickening and inflammatory stranding seen characteristic of colitis. 2. Right inguinal hernia contains a portion of sigmoid colon. Chest CT 03/06/18 00:00 CONCLUSION: 1. Bilateral pulmonary infiltrates. Chest X-Ray 03/06/18 09:55 CONCLUSION: Tubes and catheter as above. The enteric tube needs to be advanced. Endotracheal tube tip approaches the anh. Head CT 03/06/18 12:20 CONCLUSION: 1. Atrophy and stable white matter disease. . Objective Remarks: GENERAL: Patient is 82 yo critically ill intubated and on multipe pressors SKIN: Warm and dry. HEAD: Normocephalic. EYES: No scleral icterus. No injection or drainage. NECK: Supple, trachea midline. No JVD or lymphadenopathy. CARDIOVASCULAR: Regular rate and rhythm without murmurs, gallops, or rubs. RESPIRATORY: Breath sounds equal bilaterally. No accessory muscle use. GASTROINTESTINAL: Abdomen firm, distended, hypoactive BS. MUSCULOSKELETAL: No cyanosis, or edema. Neuro: Unresponsive Assessment and Plan - Assessment and Plan Plan: 1. VDRF 2. Septic shock. 3. Aspiration pneumonia. 4. Diffuse colitis 5. Acute renal failure. 6. Lactic acidemia. 7. Hypernatremia and hyperkalemia. 8. Dehydration. 9. Leukocytosis. 10. Anemia. 11. History of congestive heart failure. 12. History of prostate cancer. Plan Neuro: Monitor neurologic status closely. Fentanyl infusion if needed for sedation while intubated. Pulm: Continue with ventilatory support and maintain sats >92%. Bronchodilators, ICU ventilatory bundle. HC 100 mg IV every 8 hours. CV: Continue with pressors.(Levophed, vasopressin, Neosyn and dopamine) keep MAP >65mmHg Serial lactic acid monitoring until clear. Continue with bicarb drip, CVP monitoring For 2D echo evaluate LV function. : Monitor renal function, I's and O's and avoid nephrotoxins. Renal is following, on D5W with 3 amps of bicarb at 150 mL an hour. Renal function is improving with Cr: 3.82 from 4.89 Will give 7 units of IV regular insulin, D50 for K 5.8 GI: Keep n.p.o. on Protonix [address] abd/pelvis- Diffuse colitis. GI is following Patient is unstable for any surgical intervention. ID: Continue abx vancomycin, Zosyn, Flagyl and PO Vanco per ID Monitor for signs of infection(Fever and WBC). Check C-diff PCR Follow up on blood cultures. Check strep pneumonia and legionella urinary antigen. CT abd/pelvis: Diffuse large bowel thickening and inflammatory stranding seen characteristic of colitis. Heme: s/p transfusion at 2 units PRBC and 2 u FFP yesterday. Will transfuse 1u PRBC today. Monitor CBC Endo: SSI with Accu-Cheks to maintain euglycemia. GI prophylaxis with Protonix 40 mg daily and DVT prophylaxis with SCDs. IV access: Right subclavian central line was placed by ED 03/06 Patient is critically ill with multiorgan failure. Poor prognosis CCT 45 mins
[2018-03-07 07:45] LABS: ABG Base Excess -20.9 mmol/L (-2-2); ABG PCO2 46 mmHg (38-42); ABG PO2 121 mmHG (61-120)
[2018-03-07] MEDS ORDERED: Sodium Bicarbonate 8.4% Inj 50 MEQ/50 ML Syringe ONE (07:54)
[2018-03-07 08:23] VITALS: BP 79/51; PULSE 81; RESP 158; TEMP 90.5; O2SAT 99
[2018-03-07 08:31] LABS: Eosinophils 3 % (0-4); Lymphocytes 30 % (9-44); Metamyelocytes 20 % (0-1); Monocytes 5 % (0-8); Myelocytes 19 % (0-0); Promyelocyte 3 % (0-0); Tallied Nucleated RBC 3 (0-0)
[2018-03-07 08:32] LABS: Toxic Granulation 2+; Toxic Vacuolation Present
[2018-03-07 08:35] LABS: Ovalocytes 1+
[2018-03-07 08:36] LABS: Acanthocytes Occ
--- NOTE | 2018-03-08 14:09 | MD ---
cc: Polo Rivera MD DATE OF DISCHARGE: 03/07/2018 SUMMARY: The patient is an 82-year-old male with a past medical history of dementia, prostate cancer, CHF, cardiomyopathy a residential resident, who presented to [facility] ED on 03/06/2018 for altered mental status and respiratory distress. On arrival, he was hypotensive, tachycardic, and unresponsive with GCS score of 3. 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 He was intubated in ER and placed on full mechanical ventilation. On arrival, he had significant renal failure with hyperkalemia, lactic acidosis. Lactic acid level measured at 13.8. Also, he had a significant leukocytosis with a WBC of 19.9. CT brain showed no acute intracranial findings and CT abdomen and pelvis showed diffuse colitis. The patient was hemodynamically unstable requiring multiple pressors and he was maxed out on Levophed, Akhil-Synephrine, vasopressin and dopamine. The patient was also on stress dose hydrocortisone 100 mg IV q.8 hours. He was given multiple amps of bicarbonate and placed on a bicarbonate drip D5W with 3 amps of bicarbonate at 150 mL an hour. Also, his hyperkalemia was treated with IV insulin, bicarbonate, D50 and calcium. The patient was placed on broad spectrum antibiotics, and he was seen by infectious disease and GI service. The patient received emergent release transfusions 2 units of red blood cells; in addition, 2 units of fresh frozen plasma. A right subclavian central line was placed by ED physician. GI and deep venous thrombosis prophylaxis were provided. On 03/07/2018, patient continued to do poorly and he was found to be in asystole. ACLS protocol was initiated and he received multiple amps of bicarbonate, epinephrine, calcium. After approximately 20 minutes patient had no return of spontaneous circulation. He was pronounced at 8:08 a.m. Polo Rivera MD / , 10:35 AM , 10:42 AM
== END 2018-03-07 08:08 | disposition expired ==
LOC: NEPC 08:58 → NEDA 11:12 → HIMC 12:35
PROVIDERS: ADMIT Internal Medicine Critical Care Medicine; ATTEND Internal Medicine Critical Care Medicine